=== PATIENT | male | born 1940 | race Caucasian/White ===

== ENCOUNTER 2016-10-31 05:15 | Inpatient (IN) | payer BC, OTHER ==
[2016-10-06 15:29] VITALS: BMI 35.0
--- NOTE | 2016-10-06 16:08 | PAT Medication Instructions ---
Service Date Oct 06, 2016. Current Home Medication List Acetaminophen (Tylenol), 325 MG PO PRN Aspirin (Aspirin Ec), 81 MG PO QAM Atorvastatin (Lipitor), 20 MG PO HS Fish Oil ([place]-3), 1 CAP PO QPM Flecainide (Tambocor), 50 MG PO BID Hydrochlorothiazide (Hydrochlorothiazide), 1 TAB PO QPM Ibuprofen (Advil), 200 MG PO PRN Lisinopril (Prinivil), 40 MG PO QPM Metoprolol Tartrate (Lopressor), 25 MG PO BID Multivitamin (Multivitamin), 1 TAB PO QPM Rivaroxaban (Xarelto), 20 MG PO QPM Sildenafil Citrate (Viagra), 100 MG PO PRN Terazosin Hcl (Hytrin), 10 MG PO QPM Medication Instructions For Your Scheduled Surgery Rivaroxaban (Xarelto), 20 MG PO QPM (per cardio instructions last dose should be 10/28/16- patient will check with PCP for instructions as well) - Hold the following medications 2 weeks prior to surgery: Fish Oil ([place]-3), 1 CAP PO QPM - Hold the following medications 24 hours prior to surgery: Sildenafil Citrate (Viagra), 100 MG PO PRN - Hold the following medications evening prior to surgery: Lisinopril (Prinivil), 40 MG PO QPM - Hold the following medications the morning of surgery: Ibuprofen (Advil), 200 MG PO PRN (not told to stop by surgeon) - Take the following medications the morning of surgery with a sip of water: Metoprolol Tartrate (Lopressor), 25 MG PO BID Flecainide (Tambocor), 50 MG PO BID Aspirin (Aspirin Ec), 81 MG PO QAM Acetaminophen (Tylenol), 325 MG PO PRN (if needed) - Take the following medications as scheduled the night before surgery: Terazosin Hcl (Hytrin), 10 MG PO QPM Multivitamin (Multivitamin), 1 TAB PO QPM Metoprolol Tartrate (Lopressor), 25 MG PO BID Hydrochlorothiazide (Hydrochlorothiazide), 1 TAB PO QPM Flecainide (Tambocor), 50 MG PO BID Atorvastatin (Lipitor), 20 MG PO HS Acetaminophen (Tylenol), 325 MG PO PRN If you have any questions please call us at [phone] or [phone] ( [place]) or [phone]
[2016-10-06 16:37] LABS: BASO % 0.4 %; BASO ABS # 0.03 K/uL (0-0.2); COMPLETE YES; HEMATOCRIT 40.1 % (42-52); IG% 0.1 %; LYMPH % 22.6 %; LYMPH ABS # 1.59 K/uL (1.2-3.4); MEAN CELL VOLUME 87.9 fL (80-100); MEAN CORPUSCULAR HEMOGLOBIN 30.9 pg (25-34); MEAN CORPUSCULAR HGB CONC 35.2 g/dl (32-36); MEAN PLATELET VOLUME 11.4 fL (7.4-10.4); MONO % 7.2 %; NEUT % 68.7 %; PLATELET COUNT 179 K/uL (130-400); RED BLOOD COUNT 4.56 M/uL (4.7-6.1); WHITE BLOOD COUNT 7.05 K/uL (4.8-10.8)
[2016-10-06 16:47] LABS: INR 1.1 (0.9-1.1); PARTIAL THROMBOPLASTIN RATIO 1.3; PROTHROMBIN TIME (PATIENT) 11.4 SECONDS (9.0-12.0)
--- NOTE | 2016-10-06 16:48 | DIAGNOSTIC IMAGING REPORT ---
CHEST 2 VIEWS ROUTINE CLINICAL HISTORY: Preoperative chest COMPARISON STUDY: 08/20/2015 FINDINGS: The heart is enlarged. There is aortic tortuosity/ectasia. There is an old left clavicular fracture. There is no failure. There is no focal pulmonary consolidation. There are no pleural effusions.[ There is a calcification projected inferior to the coracoid process of the right scapula. In retrospect this is likely present on the prior study. IMPRESSION: Cardiomegaly. No acute findings. Electronically signed by: Han Victor M.D. 10/06/2016 4:46 PM Dictated Date/Time: 10/06/2016 4:45 PM
[2016-10-06 17:04] LABS: CALCIUM 9.2 mg/dl (8.5-10.1); CREATININE 0.97 mg/dl (0.60-1.40); POTASSIUM 4.1 mmol/L (3.5-5.1)
[2016-10-06 17:07] LABS: ALB/GLOB RATIO 1.3 (0.9-2)
--- NOTE | 2016-10-09 10:51 | HISTORY & PHYSICAL EXAMINATION ---
DATE OF ADMISSION: 10/31/2016 CHIEF COMPLAINT: Right knee pain. HISTORY OF PRESENT ILLNESS: This 76-year-old male presents to clinic today for his preoperative history and physical examination. The patient complains of a 3-year history of persistent right knee pain, states that he has failed conservative treatment with viscosupplementation x3, use of nonsteroidal anti-inflammatories, bracing and steroid injections. The patient states the pain is starting to affect his activities of daily life and he would like to proceed with total knee arthroplasty. The patient states that he had his left knee replaced by Dr. Herrera in 2008 and states that it is doing very well. The patient denies any numbness or tingling in his right lower extremity; however, he does complain of persistent clicking and popping with range of motion and significant swelling to the knee joints that occurs after long periods of activity. PAST SURGICAL HISTORY: Left total knee arthroplasty, left knee arthroscopy, wisdom tooth extraction. PAST MEDICAL HISTORY: Hypertension, hyperlipidemia, benign prostatic hypertrophy, atrial fibrillation and obesity. FAMILY HISTORY: Father, esophageal cancer. Mother, diabetes. Sister, myocardial infarction. ALLERGIES: The patient has no known drug allergies. CURRENT MEDICATIONS: Aspirin 81 mg tablet 1 tab daily, flecainide 50 mg tablet twice daily, hydrochlorothiazide 12.5 mg capsule 1 cap daily, Lipitor 20 mg oral tablet 1 tab daily, lisinopril 40 mg oral tablet 1 tab daily, multivitamin unknown dosage 1 tab daily, terazosin 10 mg oral tablet 1 tab daily, Toprol-XL 25 mg oral tablet extended release 1 tab twice daily, Xarelto 20 mg oral tablet 1 tab at bedtime, and amoxicillin 500 mg oral tablet as needed prior to dental procedures. SOCIAL HISTORY: The patient states that he was a half pack a day smoker for 25 years but quit smoking in 2004. The patient denies any alcohol or illicit drug use. PHYSICAL EXAMINATION: SKIN: The patient's skin is normal in appearance with no open skin lesions or discharge. EYES: Pupils are equal and reactive to light and accommodating. Extraocular movements are intact. EARS: Canals are clear of cerumen. Tympanic membranes are intact bilaterally with no bulging or effusion. NOSE: Turbinates are pink and boggy in appearance. No appreciable rhinorrhea. THROAT: Posterior oropharynx is clear with absence of edema, erythema or exudate. CARDIOVASCULAR: The patient has an irregularly irregular rate and rhythm, but no murmurs or gallops appreciated. LUNGS: Auscultation of the lung arellano reveals clear breath sounds throughout with no wheezing, rales or rhonchi. ABDOMEN: Obese, nondistended, nontender, with normoactive bowel sounds. EXTREMITIES: Right knee, the patient has crepitation with active and passive range of motion of the right knee and experiences medial joint line tenderness upon palpation with the knee placed in a flexed position; however, he has no edema, erythema, ecchymosis, warmth or palpable bony deformity, no varus or valgus laxity, and negative AP drawer sign and negative Ashly test. The patient's right patella is immobile due to arthritic change in the patellofemoral joint. His right calf is soft and supple, nontender to palpation. He experiences no referred knee pain with dorsi or plantar flexion of the right foot actively or passively against resistance. The patient is neurovascularly intact in the right lower extremity. His peripheral pulses are palpable and his capillary refill is brisk. All other extremities are normal in appearance with appropriate range of motion and strength. NEUROLOGICAL: Cranial nerves II-XII are intact with no motor or sensory deficit. PSYCHOLOGICAL/GENERAL: The patient is alert and oriented x3 with proper grooming and hygiene. DIAGNOSIS: Right knee osteoarthritis. PROCEDURE: Right total knee arthroplasty. RADIOGRAPHIC IMAGING: Images of the right knee show varus alignment, [id number] changes within the medial and patellofemoral compartments. PLAN: The patient is scheduled to undergo this procedure with Dr. Axel Herrera at the [facility] on 10/31/2016. Risks and complications of the surgery such as infection, bleeding, pain, scarring, nerve and blood vessel damage, weakness, wound problems, stiffness, incomplete relief of symptoms, heart attack, stroke, , hardware failure, loosening, wear, fracture, blood clots, embolism were explained to the patient and he understands and agrees. Written consent to perform the procedure was obtained. We will also obtain a preoperative clearance from the patient's primary care provider, Dr. Pal, along with a preoperative CBC, CMP, PT, INR, PTT, blood type and screen, and chest x-ray. The patient recently had an EKG performed by Dr. Booker's office on 09/27/2016 and we will obtain a copy of this EKG and use it for his preoperative clearance. The patient states that he will obtain the necessary studies prior to his preoperative anesthesia clearance appointment today. The patient states that he also may have a walker at home that he will bring with him on the day of surgery; if he does not, he will contact the clinic and we will place an order for him. The patient was advised that he will need to discontinue Xarelto approximately 10 days prior to the procedure and we will restart him on it on postoperative day #1. The patient was also advised that he will be given a prescription for physical therapy that he will obtain at our outpatient and our PT clinic and states that he does not need home nursing care and did not have it after his first knee replacement. He is also advised that he will be given a prescription for pain medication for postoperative pain control. The patient verbalized understanding of all information provided at today's visit, thanks for the care that he received in our clinic, and states if he has any other questions or concerns that should arise prior to his procedure date, he will contact the clinic accordingly.
[~2016-10-31] VITALS: Ht 182.9 cm; Wt 116.3 kg
[2016-10-31] VITALS (9 sets, daily range): BP systolic 110–158; BP diastolic 68–92; PULSE 52–66; TEMP 36.5–36.9; O2SAT 91–98; Ht 182.9 cm; Wt 116.3 kg
[~2016-10-31 05:15] MED LIST: ACET-1311 PO; ASPI81TA28 PO; ATOR-22 PO; FLEC50TA20 PO; HYDR12.55 PO; IBUP-1050 PO; LISI40TA PO; LPR25 PO; MULT-506 PO; OMEG10007 PO; RIVA1TAB4 PO; SILD100T PO; TERA1CAP63 PO
[2016-10-31] MEDS ORDERED: ACETAMINOPHEN 500 MG TAB PO SCH (06:00)
[2016-10-31] MEDS ORDERED: LACTATED RINGER'S 500 ML IV SCH (06:00)
[2016-10-31] MEDS ORDERED: OXYCODONE HCL 10 MG TABCR (OXYCONTIN) PO SCH (06:00)
[2016-10-31] MEDS ORDERED: DEXAMETHASONE 4 MG TAB PO SCH (06:00)
[2016-10-31] MEDS ORDERED: CEFAZOLIN 2000 MG/60 ML D5W 60 ML IV SCH (06:00)
[2016-10-31] MEDS ORDERED: BUPIVACAINE LIPOSOME 266 MG, BUPIVACAINE/EPINEPHRINE INJ 50 ML, SODIUM CHLORIDE 0.9% PF... INFIL SCH ×3 (06:00)
[2016-10-31] MEDS ORDERED: CeleBREX 200 MG CAP PO SCH (06:00)
[2016-10-31] MEDS ORDERED: LACTATED RINGER'S 1000ML 1,000 ML IV SCH (06:00)
[2016-10-31] MEDS ORDERED: TRAMADOL HCL 50 MG TAB PO SCH (06:00)
[2016-10-31] MEDS ORDERED: GABAPENTIN 300 MG CAP PO SCH (06:00)
[2016-10-31] MEDS ORDERED: LACTATED RINGER'S 1000ML IV SCH (06:00)
[2016-10-31] MEDS ORDERED: CLONIDINE HCL 0.1 MG/24 HR TRANSDERM SYS TD SCH (06:00)
[2016-10-31] MEDS ORDERED: BUPIVACAINE 0.25% 30 ML VIAL ONE (06:30)
[2016-10-31] MEDS ORDERED: BUPIVACAINE 0.5 % 5 MG/1 ML PF 10ML VIAL ONE (06:30)
[2016-10-31] MEDS: TRANEXAMIC ACID INJ 1,000 MG in SODIUM CHLORIDE 0.9% 100ML 100 ML IV SCH ×2 (06:30→06:38)
[2016-10-31] MEDS ORDERED: FENTANYL CITRATE INJ 50 MCG/1 ML 2 ML VIAL ONE (06:39)
[2016-10-31] MEDS ORDERED: MIDAZOLAM HCL 1 MG/ML 2ML VIAL ONE ×2 (06:40→08:52)
[2016-10-31] MEDS ORDERED: BUPIVACAINE LIPOSOME 1/3% 266 MG/20 ML VIAL INFIL ONE (06:42)
--- NOTE | 2016-10-31 06:48 | History & Physical Bridge Note ---
H&P Re-Evaluation Bridge Note: I have examined the patient, reviewed the History & Physical and in the interval since the performance of the History & Physical I have noted the following changes of clinical significance: No changes noted
[2016-10-31] MEDS ORDERED: PROPOFOL IV EMULSION 10 MG/ML 20 ML VIAL IV ONE ×3 (07:30→09:30)
[2016-10-31] MEDS ORDERED: ATROPINE SULFATE 0.1 MG/ML 5ML SYR IV PRN (08:45)
[2016-10-31] MEDS ORDERED: EpHEDrine SULFATE INJ 50 MG/ML AMP IV PRN (08:45)
[2016-10-31] MEDS ORDERED: BACITRACIN 50000 UNIT VIAL IR ONE (09:50)
[2016-10-31] MEDS ORDERED: MIX: SENSORCAINE W/EPI+NSS+EXPAREL INJ ONE (09:50)
--- NOTE | 2016-10-31 10:15 | [facility] Post Operative Brief Note ---
Immediate Operative Summary Operative Date Oct 31, 2016. Pre-Operative Diagnosis Right Knee Osteoarthritis Post-Operative Diagnosis Same as preoperative Procedure(s) Performed Right Total Knee Arthroplasty, Cemented Surgeon Dr. Axel Herrera Wood Stainer Surgeon(s) Joseluis Garcia MD Estimated Blood Loss 25ml Findings medial knee djd Specimens A.) Right knee bone and tissue Drains 0 Anesthesia spinal with sedationa and adductor block Complication(s) None Disposition Recovery Room / PACU
[2016-10-31] MEDS ORDERED: WARF2TAB8 PO (10:22)
[2016-10-31] MEDS ORDERED: WARF4TAB43 PO (10:25)
[2016-10-31] MEDS ORDERED: TRAMADOL HCL 50 MG TAB PO PRN (10:45)
[2016-10-31] MEDS ORDERED: ONDANSETRON INJ 2 MG/ML 2 ML VIAL IV PRN (10:45)
[2016-10-31] MEDS ORDERED: METOCLOPRAMIDE HCL INJ 5 MG/ML 2 ML VIAL IV PRN (10:45)
--- NOTE | 2016-10-31 11:34 | DIAGNOSTIC IMAGING REPORT ---
RIGHT KNEE 2 VIEWS History: Right total knee arthroplasty. Degenerative arthritis. Postop. FINDINGS: The patient is status post a right total knee arthroplasty. The hardware is intact. No fracture or dislocation. Skin maggie are in place. IMPRESSION: Right total knee arthroplasty. No evidence for hardware complication. Electronically signed by: Atilio Bryant M.D. 10/31/2016 11:32 AM Dictated Date/Time: 10/31/2016 11:32 AM
--- NOTE | 2016-10-31 11:40 | OPERATIVE REPORT ---
DATE OF OPERATION: 10/31/2016 PREOPERATIVE DIAGNOSIS: Right knee arthritis. POSTOPERATIVE DIAGNOSIS: Same. PROCEDURE: Cemented right total knee arthroplasty. SURGEON: Dr. Herrera. MAXILLOFACIAL PROSTHETICS DENTIST: Joseluis Garcia, fellow. No PA available. ANESTHESIA: Spinal with sedation and adductor canal block. BRIEF HISTORY: The patient is a 76-year-old male with medial compartment arthritis of the right knee refractory to nonsurgical methods of management. He has elected to proceed with operative intervention. He has a knee replacement on the contralateral side. PROCEDURE IN DETAIL: Informed consent was obtained, the patient was identified as Vinayak Brown. He identified the operative site as the right knee. I marked it with my initials. A preop surgical time out was performed. A preop dose of IV antibiotics was given. He was taken to the operating room, positioned supine on the operating room table. Spinal anesthetic, adductor block and sedation were administered. A tourniquet was applied to the right thigh, a bump under the right hip and a padded post used for flexing the knee. The right leg was prepped and draped from tourniquet to toes in the usual sterile fashion. The exam under anesthesia showed a degree of true loss of terminal extension, but flexion to about 130 degrees. He had varus alignment, which was passively correctable. There was 1+ MCL laxity. The limb was exsanguinated with the Esmarch, tourniquet inflated to 225 mmHg. A midline longitudinal incision was made mirroring the contralateral side. A medial parapatellar arthrotomy was created. There was a large collection of fat in the suprapatellar pouch, which could have been an intraarticular lipoma. This appeared to be benign tissue. It was completely excised. Soft tissue in the anterior aspect of the distal femur was removed. A medial release was performed. The menisci and cruciates were excised. Osteophytes were removed. The retropatellar fat pad was resected and the synovial reflection in the lateral gutter was released. The tibia was subluxated and a remote pilot operator hole was drilled into the proximal tibia in line with the shaft of the tibia. The guide was set to resect 10 mm off of the high side corresponding to a 2 mm cut medially with a 0 degree block. This cut was made and the tibia was sized to a 5. The femur was exposed. A remote pilot operator hole was drilled into the distal femur followed by insertion of the distal femoral cutting guide, 5 degrees right, 12 mm thick cut was made and the extension gap was a slightly loose 10. The [place] line and transepicondylar axis were marked out. The distal femoral cutting block sizing guide was applied and sized to a 4. The appropriate external rotation drill holes were made which matched the epicondylar axis. The size 4 anterior cutting block was affixed. The femur was sized to a 4. The cuts were made, protecting the collateral ligaments. The flexion gap was a snug 10, but the extension gap was lax. I was able to get the 12/5 block in which gave full extension, good stability in extension and did fit in flexion without any difficulty. The box cutting guide was applied, lateralized and the cut was made. The trial femur was inserted, followed by the trial tibia which was drilled and punched for the keel. Rotation was marked. Attention was turned to the patella which measured 25 mm in thickness. The guide was set to preserve 14 mm of bone. The cut was made. 13 mm of bone was preserved. Composite patellar thickness at the end was 24 mm. A 41 mm oval dome patella was selected, distalized, medialized and aligned, and the appropriate lug holes were drilled. Patellar tracking was fine with the no hands technique. The canals were plugged. Exparel was injected into the back of the knee. Irrigation was performed throughout the surgery to keep the soft tissues moist. The bony surfaces were meticulously prepared and dried. Two bags of Simplex P cement were mixed and after removal of the trial components, the final components were cemented into place, femur, tibia and patella. The knee was held in full extension until the cement had dried and the tourniquet was let down after 125 minutes of inflation. Meticulous hemostasis was performed. The femur and tibia were cemented in place, but the cement was hardening prematurely and which required removal of the cement from the patella component and bone. Another bag was mixed. The holes were cleaned of cement and the patella was cemented in with a separate batch of cement. There was minimal bleeding. Composite patellar thickness was as mentioned before. [place] assisted flexion with the extensor mechanism closed was 125 degrees. The knee was stable in full extension. There was trace MCL laxity and 1+ LCL laxity in mid position. The knee was stable in flexion. The trial component was removed. The back of the knee was irrigated and inspected for cement. Some small fragments were removed. When the cuts were made, there were no osteophytes noted in the back of the knee. The final component was inserted and the knee was reduced. Exparel was injected throughout the remainder of the knee. The extensor mechanism was closed above the equator of the patella with interrupted #2 FiberWire, below the equator with running and interrupted #1 Vicryl. The skin was closed in layers with 0 and 2-0 Vicryl. [place] on the skin. A soft sterile dressing was applied along with a full length Deon wrap. The patient was sent to the floor with a knee immobilizer. He was awakened from anesthesia without difficulty, taken to the recovery room in stable condition. There were no complications. Specimens were as mentioned above. Counts were correct. Blood loss was 25 mL. At the conclusion of the operation, I spoke to patient's family and informed them of my findings. Postoperative instructions were given. He will restart his blood thinner, which he takes for atrial fibrillation, the morning after surgery. Medicine will be consulted to follow along with the patient. He will be rehabilitated according to the total knee arthroplasty protocol. Components inserted were the J\T\J PFC sigma rotating platform, posterior stabilized knee, size 4 right femur, size 5 tibia, a 41 mm 3 peg oval dome patella, and a 12.5 size 4 posterior stabilized insert. The patient was identified as Vinayak Brown. He identified the operative site as right knee. I marked it with my initials. A preop surgical time out was performed. A preop dose of IV antibiotics was given. He was taken to the operating room, positioned supine on the operating room table, and the anesthetic was administered. DVT prophylaxis intraoperatively with foot pumps, postoperatively with his blood thinner and early mobility, as well as mechanical devices. He had preoperative medical clearance with Medicine and Cardiology. I attest to the content of the Intraoperative Record and any orders documented therein. Any exceptio ns are noted below.
--- NOTE | 2016-10-31 11:57 | Anesthesiology Progress Note ---
Anesthesia Post Op Note Date & Time Oct 31, 2016 at 11:57 Vital Signs Pain Intensity: 0 Vital Signs Past 12 Hours Date Time Temp Pulse Resp B/P Pulse Ox O2 Delivery O2 Flow Rate FiO2 10/31/16 11:49 53 19 98 10/31/16 11:49 53 19 10/31/16 11:48 146/79 10/31/16 11:44 53 15 98 10/31/16 11:44 53 15 10/31/16 11:43 141/72 10/31/16 11:39 54 5 94 10/31/16 11:39 53 5 10/31/16 11:38 144/81 10/31/16 11:34 51 11 97 10/31/16 11:34 52 11 10/31/16 11:33 141/78 10/31/16 11:29 54 14 98 10/31/16 11:29 54 14 10/31/16 11:28 123/75 10/31/16 11:26 36.4 53 18 146/79 98 Nasal Cannula 2 10/31/16 11:24 55 24 98 10/31/16 11:24 55 24 10/31/16 11:23 152/74 10/31/16 11:20 55 14 97 10/31/16 11:20 54 14 10/31/16 11:18 140/81 10/31/16 11:15 55 16 98 10/31/16 11:15 55 16 10/31/16 11:13 147/80 10/31/16 11:10 53 15 96 10/31/16 11:10 53 15 10/31/16 11:09 53 8 10/31/16 11:09 52 8 96 10/31/16 11:08 128/72 10/31/16 11:04 55 13 10/31/16 11:04 56 13 99 10/31/16 11:03 127/74 10/31/16 10:59 52 15 10/31/16 10:59 52 15 98 10/31/16 10:58 121/61 10/31/16 10:54 52 17 10/31/16 10:54 52 17 98 10/31/16 10:53 121/72 10/31/16 10:49 52 15 10/31/16 10:49 53 15 98 10/31/16 10:48 120/71 10/31/16 10:44 52 14 10/31/16 10:44 52 14 98 10/31/16 10:43 120/60 10/31/16 10:39 53 15 98 10/31/16 10:39 52 15 10/31/16 10:38 53 12 10/31/16 10:38 52 12 120/63 98 10/31/16 10:33 52 10 10/31/16 10:33 52 10 112/57 98 10/31/16 10:28 52 15 116/60 97 10/31/16 10:28 53 15 10/31/16 10:23 53 12 10/31/16 10:23 53 12 108/63 97 10/31/16 10:23 36.2 53 12 106/57 97 Mask 10 10/31/16 05:35 36.9 62 20 156/89 95 Room Air Notes Mental Status: alert / awake / arousable, participated in evaluation Pt Amnestic to Procedure: Yes Nausea / Vomiting: adequately controlled Pain: adequately controlled Airway Patency, RR, SpO2: stable & adequate BP & HR: stable & adequate Hydration State: stable & adequate Neuraxial Anesthesia: was administered, sensory block is resolving Anesthetic Complications: no major complications apparent
[2016-10-31] MEDS: SODIUM CHLORIDE 0.9% 1000ML 1,000 ML IV SCH ×2 (13:48→20:57)
[2016-10-31] MEDS ORDERED: OXYC-57 PO (15:00)
--- NOTE | 2016-10-31 15:03 | Discharge Instructions ---
Discharge Instructions Admission Reason for Admission: Right Knee Osteoarthritis Discharge Discharge Diagnosis / Problem: s/p right knee arthroplasty Discharge Goals Goal(s): Decrease discomfort, Improve function, Increase independence Activity Recommendations Activity Limitations: as noted below May Resume Sexual Activity: after follow-up appointment Shower/Bathe: keep incision dry Driving or Machine Use: when cleared by Dr. Herrera Weightbearing Status: Right weightbearing (as tolerated) . Instructions / Follow-Up Instructions / Follow-Up New Medicine: * You will likely be taking one or more of these medications: 1. Xarelto-please resume post-operatively. Aspirin, 81 mg is OK. 3. Percocet - Take, as directed, when you need it, every four to six hours to control your pain. 4. Colace & Senokot - Take to prevent constipation which can be caused by narcotics. These can be bought [id number] at the pharmacy * The most common side effects of pain medicine and iron are nausea and constipation. If nausea or constipation is too much of a problem or if you have any questions about your new medicines or doses, call [facility] at . We will try to help you manage these issues. VERY IMPORTANT TO READ AND REVIEW" Physical Therapy: * Do your physical therapy at home. These are the exercises you learned while in the hospital (quad sets, leg raises, calf pumps, gluteal squeezes, knee bending, and heel props.) You should do these exercises 3-4 times per day. * You will either go to inpatient rehab ([facility]), home with Home Therapy and nursing or home with outpatient rehab. You should do rehab with the therapist 2-3 times per week. You should do therapy on your own daily. * You may bear full weight on your leg with crutches or walker unless otherwise advised. Home Exercise: * You were shown a series of exercises (heel props, heel slides, etc.) in the hospital. Do these exercises three to four times each day including the exercises you were shown in physical therapy. Walking: * You may be up for short periods of time. Standing and walking for 1-2 hours at a time is usually okay. You should not stand or walk for excessive periods of time as this may cause increased pain and swelling. SELF CARE INSTRUCTIONS AFTER TOTAL KNEE REPLACEMENT A. You may need to continue a physical therapy program after discharge from the hospital. There are several options available to you. Your doctor will assist you in selecting the best one for you. 1. An out-patient facility 2 to 3 times a week for therapy or home therapy. 2. Continue working on all exercises taught to you in the hospital. Your goals should be to increase bending of your knee to 90 degrees and beyond and to fully straighten your knee. B. Your therapist will notify you when you are able to progress from a walker to a cane. C. Wear TEDS as much as possible.~ They may be removed at night for laundering. D. Do not place a pillow behind your knee when resting. A pillow at your ankle is okay. E. Ice your knee 15-20 minutes every 2-3 hours and elevate it above the level of your heart. F. You may shower on the fourth day after surgery using regular soap and water. Do not submerge until the wound is completely healed (approximately 2 weeks ). Until the fourth day after surgery, cover the incision/bandage with a bag or plastic wrap. G. Anyone who is touching your surgical incision area should wash their hands and wear gloves. H. Keep your incision covered with gauze pads under the NESS hose until it is dry. VERY IMPORTANT TO READ AND REVIEW B. There are a few signs you need to watch for after you are home. Call [facility] if you notice any of the followin. Increased severe knee pain. Some pain is expected especially when you exercise. 2. Increased swelling in your leg or knee; pain or swelling of the calf muscle in either lower leg. 3. Any fluid drainage from the incision. 4. Shortness of breath or chest pain. 5. Numbness and tingling in the surgical extremity C. Please call [facility] at if you have any concerns or questions about your operation or recovery. The doctor or his nurse will return your call promptly. D. Do not have any elective dental work or other elective procedures done for 6 weeks after your knee replacement. When you have any invasive procedure (dental cleaning, extraction, colonoscopy etc) performed, you will need to take antibiotics to prevent infection from developing in your artificial joint. Tell your other health care providers you have an artificial joint. My office will supply you with further information and the antibiotics. Call your doctor if: * Temperature above 101 degrees F. * Pain not relieved by pain medicine ordered. * Increased drainage or redness from incision. * Notify your doctor with any questions or concerns. Follow-up Visit: You will follow-up with Dr. Herrera 10-14 days after surgery. The office number is . Avoid all tobacco products. If you need help to stop smoking, call [facility] FREE QUITLINE at . This is a free call. Current Hospital Diet Patient's current hospital diet: Regular Diet Discharge Diet Recommended Diet: Regular Diet Procedures Procedures Performed: Right Total Knee Arthroplasty, Cemented Pending Studies Studies pending at discharge: no Medical Emergencies . Who to Call and When: Medical Emergencies: If at any time you feel your situation is an emergency, please call 911 immediately. . Non-Emergent Contact Non-Emergency issues call your: Primary Care Provider . "Provider Documentation" section prepared by Nic Benavidez. VTE Core Measure Inpt VTE Proph given/why not?: Dominic Madden, SCD's [place] Drug Monitoring Program Search Results: no issues identified
--- NOTE | 2016-10-31 15:40 | Medical Consult ---
Consultation Date of Consultation: Oct 31, 2016. Attending Physician: Axel Herrera M.D. Reason for Consultation: Postoperative medical management History of Present Illness The patient is a 76-year-old male who underwent a right total knee arthroplasty by Dr. Herrera earlier in the day. Seen postoperatively, he has no complaints. He ate lunch without problems. His pain is adequately managed. Past Medical/Surgical History Medical Problems: (1) Epistaxis Status: Acute (2) Nasal mass Status: Acute Family History FH: HTN (hypertension) FH: cancer FH: diabetes mellitus FH: heart disease Social History Smoking Status: Former Smoker Smokeless Tobacco Use: No Alcohol Use: occasionally Drug Use: none Marital Status: Housing Status: lives with significant other Occupation Status: unemployed Allergies Coded Allergies: No Known Allergies (Verified , 10/31/16) Current Inpatient Medications Current Inpatient Medications Medications (Trade) Dose Ordered Sig/Kishan Route Start Time Stop Time Status Last Admin Dose Admin Lactated Ringer's 1,000 ml @ 60 mls/hr [id number] IV 10/31/16 06:00 10/31/16 22:39 Cefazolin Sodium (Ancef 2000mg/60 ml D5W) 60 ml @ 100 mls/hr PREOP IV 10/31/16 06:00 10/31/16 18:00 10/31/16 07:00 100 MLS/HR Acetaminophen (Tylenol Tab) 1,000 mg PREOP PO 10/31/16 06:00 10/31/16 18:00 10/31/16 06:13 1,000 MG Celecoxib (CeleBREX CAP) 200 mg PREOP PO 10/31/16 06:00 10/31/16 18:00 10/31/16 06:13 200 MG Dexamethasone 8 mg 8 mg PREOP PO 10/31/16 06:00 10/31/16 18:00 10/31/16 06:12 8 MG Bupivacaine Liposome/ Bupivacaine HCl/ Epinephrine Bitart/Sodium Chloride/Syringe (Exparel/ BUPIVACAINE/ EPINEPHRINE 0.25% Inj/Sodium Chloride 0.9% Pf Inj/Syringe) 100 ml @ 0 mls/hr 06 INFIL 10/31/16 06:00 10/31/16 18:00 Gabapentin (Neurontin Cap) 300 mg PREOP PO 10/31/16 06:00 10/31/16 18:00 10/31/16 06:12 300 MG Oxycodone HCl (Oxycontin Tab) 10 mg PREOP PO 10/31/16 06:00 10/31/16 18:00 10/31/16 06:13 10 MG Clonidine HCl ([id number]-7 0.1mg/24hr Patch) 1 patch PREOP TD 10/31/16 06:00 10/31/16 18:00 10/31/16 06:34 1 PATCH Miscellaneous 1 ea 1 ea Q72H N/A 11/02/16 06:00 11/02/16 06:01 Tranexamic Acid/ Sodium Chloride (Cyklokapron Inj/ Nss 100ml) 110 ml @ 660 mls/hr TODAY@06,0630 IV 10/31/16 06:00 10/31/16 18:00 10/31/16 06:38 660 MLS/HR Tramadol HCl 50 mg 50 mg PREOP PO 10/31/16 06:00 10/31/16 18:00 10/31/16 06:12 50 MG Lactated Ringer's (Lr 1000ml) 1,000 ml @ 15 mls/hr Q24H IV 10/31/16 06:00 11/01/16 05:59 10/31/16 06:14 15 MLS/HR Aspirin (Ecotrin Tab) 81 mg QAM PO 11/01/16 09:00 12/01/16 08:59 Atorvastatin Calcium (Lipitor Tab) 20 mg HS PO 10/31/16 21:00 11/30/16 20:59 Flecainide Acetate (Tambocor Tab) 50 mg BID PO 10/31/16 21:00 11/30/16 20:59 Lisinopril (Zestril Tab) 40 mg QPM PO 10/31/16 21:00 11/30/16 20:59 Metoprolol Tartrate (Lopressor Tab) 25 mg BID PO 10/31/16 21:00 11/30/16 20:59 Multivitamins (Multivitamin Tab) 1 tab QPM PO 10/31/16 21:00 11/30/16 20:59 Rivaroxaban (Xarelto Tab) 20 mg QDD PO 11/01/16 08:00 12/01/16 07:59 Terazosin HCl (Hytrin Cap) 10 mg QPM PO 10/31/16 21:00 11/30/16 20:59 Hydrochlorothiazide 12.5 mg 12.5 mg QPM PO 10/31/16 21:00 11/30/16 20:59 Sodium Chloride 1,000 ml @ 100 mls/hr Q10H IV 10/31/16 10:43 11/01/16 10:42 10/31/16 13:48 100 MLS/HR Cefazolin Sodium/ Dextrose (Ancef Iv/D5 50ml) 60 ml @ 100 mls/hr Q8H IV 10/31/16 16:00 11/01/16 00:35 Oxycodone HCl (Roxicodone Immediate Rel Tab) 1 TABLET FOR PAIN RATING... Q4H PRN PO 10/31/16 10:45 11/14/16 10:44 Senna (Senokot Tab) 17.2 mg HS PO 10/31/16 21:00 11/30/16 20:59 Docusate Sodium (coLACE CAP) 100 mg BID PO 10/31/16 21:00 11/30/16 20:59 Ondansetron HCl (Zofran Inj) 4 mg Q6H PRN IV 10/31/16 10:45 11/30/16 10:44 Metoclopramide HCl (Reglan Inj) 10 mg Q6H PRN IV 10/31/16 10:45 11/30/16 10:44 Pantoprazole Sodium (Protonix Tab) 40 mg QAM PO 11/01/16 09:00 12/01/16 08:59 Tramadol HCl 1 tablet for pain rating... Q4H PRN PO 10/31/16 10:45 11/30/16 10:44 Dexamethasone Sodium Phosphate/ Syringe (Decadron Inj/ Syringe) 2.5 ml @ 1 mls/min TODAY@0730 ONCE IV 11/01/16 07:30 11/01/16 07:32 Ketorolac Tromethamine (Toradol Inj) 15 mg Q6H PRN IV. 10/31/16 10:45 11/01/16 10:44 Acetaminophen/ Hydrocodone Bitart ([place] 7.5/325 Tab) @ Q4 PRN PO 10/31/16 11:00 11/14/16 10:59 Review of Systems The patient denies chest pain, palpitations, shortness of breath, cough, lower extremity swelling, vision change, hearing change, sore throat, fevers, chills, sweats, nausea, vomiting, abdominal pain, pelvic pain, blood in urine or stool , dysuria, urinary frequency or urgency, lightheadedness, dizziness, headache, memory loss, rash, night sweats, or allergy symptoms. The review of systems is otherwise negative other than for that already noted above, and at least 10 systems have been reviewed. Physical Exam Date Time Temp Pulse Resp B/P Pulse Ox O2 Delivery O2 Flow Rate FiO2 10/31/16 15:11 36.6 61 16 122/71 97 Room Air 10/31/16 14:15 56 16 135/83 95 Nasal Cannula 2.0 10/31/16 13:12 52 16 158/88 94 Nasal Cannula 2.0 10/31/16 12:45 54 16 158/92 95 Nasal Cannula 3.0 10/31/16 12:15 98 Nasal Cannula 2.0 10/31/16 12:15 36.5 55 16 110/76 98 Nasal Cannula 2.0 10/31/16 12:15 98 Room Air 10/31/16 11:49 53 19 98 10/31/16 11:49 53 19 10/31/16 11:48 146/79 10/31/16 11:44 53 15 98 10/31/16 11:44 53 15 10/31/16 11:43 141/72 10/31/16 11:39 54 5 94 10/31/16 11:39 53 5 10/31/16 11:38 144/81 10/31/16 11:34 51 11 97 10/31/16 11:34 52 11 10/31/16 11:33 141/78 10/31/16 11:29 54 14 98 10/31/16 11:29 54 14 10/31/16 11:28 123/75 10/31/16 11:26 36.4 53 18 146/79 98 Nasal Cannula 2 10/31/16 11:24 55 24 98 10/31/16 11:24 55 24 10/31/16 11:23 152/74 10/31/16 11:20 55 14 97 10/31/16 11:20 54 14 10/31/16 11:18 140/81 10/31/16 11:15 55 16 98 10/31/16 11:15 55 16 10/31/16 11:13 147/80 10/31/16 11:10 53 15 96 10/31/16 11:10 53 15 10/31/16 11:09 53 8 10/31/16 11:09 52 8 96 10/31/16 11:08 128/72 10/31/16 11:04 55 13 10/31/16 11:04 56 13 99 10/31/16 11:03 127/74 10/31/16 10:59 52 15 10/31/16 10:59 52 15 98 10/31/16 10:58 121/61 10/31/16 10:54 52 17 10/31/16 10:54 52 17 98 10/31/16 10:53 121/72 10/31/16 10:49 52 15 10/31/16 10:49 53 15 98 10/31/16 10:48 120/71 10/31/16 10:44 52 14 10/31/16 10:44 52 14 98 10/31/16 10:43 120/60 10/31/16 10:39 53 15 98 10/31/16 10:39 52 15 10/31/16 10:38 53 12 10/31/16 10:38 52 12 120/63 98 10/31/16 10:33 52 10 10/31/16 10:33 52 10 112/57 98 10/31/16 10:28 52 15 116/60 97 10/31/16 10:28 53 15 10/31/16 10:23 53 12 10/31/16 10:23 53 12 108/63 97 10/31/16 10:23 36.2 53 12 106/57 97 Mask 10 10/31/16 05:35 36.9 62 20 156/89 95 Room Air The patient is awake, well-developed and adequately nourished, alert and oriented 3, normocephalic and atraumatic, lying in bed and in no acute distress. HEENT--PERRL, EOMI, mucous membranes and oropharynx moist. Neck--supple, no JVD or bruits, thyroid normal, trachea midline, no adenopathy. Heart--normal S1 and S2, no extra beats, no murmurs, rubs or gallops. Lungs--clear bilaterally with good air movement, no respiratory distress, no accessory muscle use. Abdomen--normal bowel sounds and soft, nontender and nondistended, no hernias or masses, no organomegaly. Extremities--no cyanosis, clubbing or edema. There are good distal pulses b/l. Dermatologic--normal skin turgor, normal color, warm and dry, no abnormal lymph nodes, no rash. Neurologic--cranial nerves II through XII grossly intact, motor and sensory examination normal. Rheumatologic--right knee wrapped. Psychiatric--normal affect. Laboratory Results Last 24 Hours Test 10/31/16 12:10 Bedside Glucose 185 mg/dl Assessment & Plan Status post right total knee arthroplasty--medically stable. Atrial fibrillation/Hypertension--continue flecainide 50 mg by mouth twice a day , HCTZ 12.5 mg by mouth daily, aspirin 81 mg by mouth daily, lisinopril 40 mg by mouth daily with hold parameters, metoprolol succinate 25 mg by mouth twice a day with hold parameters, and Xarelto 20 mg by mouth at bedtime. Hypercholesterolemia--continue Lipitor 20 mg by mouth daily. BPH--continue terazosin 10 mg by mouth at bedtime. Thank you for this consult. [facility] hospitalist service will follow during hospital stay.
[2016-10-31] MEDS: OXYCODONE HCL IR 5 MG TAB (IMMEDIATE RELEASE) PO PRN ×2 (16:16→21:07)
[2016-10-31] MEDS: CEFAZOLIN IV 2,000 MG in DEXTROSE 5% 50ML 50 ML IV SCH ×2 (16:29→23:34)
--- NOTE | 2016-10-31 17:11 | PROGRESS NOTE ---
DATE: 10/31/2016 SUBJECTIVE: The patient is resting comfortably in bed, minimal pain. Afebrile. Vital signs stable. 1+ dorsalis pedis. Normal sensation. 5/5 ankle and toe plantar flexion and dorsiflexion. Dressing is clean and dry. PLAN: Findings of surgery discussed. His x-rays showed good alignment without complication or fracture. We will start back on Xarelto tomorrow morning and will be rehab according to the total knee pathway.
[2016-10-31] MEDS: KETOROLAC TROMETHAMINE 15 MG/ML VIAL IV. PRN (19:10)
[2016-10-31] MEDS: LISINOPRIL 40 MG TAB PO SCH (20:57)
[2016-10-31] MEDS: SENNA 8.6 MG TAB PO SCH (20:58)
[2016-10-31] MEDS: ATORVASTATIN 20 MG TAB PO SCH (20:58)
[2016-10-31] MEDS: MULTIVITAMIN TAB PO SCH (20:58)
[2016-10-31] MEDS: METOPROLOL TARTRATE 25 MG TAB PO SCH (20:58)
[2016-10-31] MEDS: DOCUSATE SODIUM 100 MG CAP PO SCH (20:59)
[2016-10-31] MEDS: FLECAINIDE ACETATE 100 MG TAB PO SCH (20:59)
[2016-10-31] MEDS: HYDROCHLOROTHIAZIDE 25 MG TAB PO SCH (21:00)
[2016-11-01] VITALS (7 sets, daily range): BP systolic 122–159; BP diastolic 60–70; PULSE 59–78; TEMP 36.6–37; O2SAT 90–96
[2016-11-01] MEDS: OXYCODONE HCL IR 5 MG TAB (IMMEDIATE RELEASE) PO PRN ×6 (01:01→23:55)
[2016-11-01] MEDS: SODIUM CHLORIDE 0.9% 1000ML 1,000 ML IV SCH (05:36)
[2016-11-01 05:48] LABS: HEMATOCRIT 30.7 % (42-52); MEAN CELL VOLUME 86.5 fL (80-100); MEAN CORPUSCULAR HEMOGLOBIN 31.3 pg (25-34); MEAN CORPUSCULAR HGB CONC 36.2 g/dl (32-36); PLATELET COUNT 147 K/uL (130-400); RED BLOOD COUNT 3.55 M/uL (4.7-6.1); WHITE BLOOD COUNT 14.68 K/uL (4.8-10.8)
[2016-11-01 06:00] LABS: INR 1.1 (0.9-1.1); PROTHROMBIN TIME (PATIENT) 11.5 SECONDS (9.0-12.0)
[2016-11-01 06:15] LABS: BUN/CREATININE RATIO 23.9 (10-20); CALCIUM 8.4 mg/dl (8.5-10.1); CREATININE 0.9 mg/dl (0.60-1.40); POTASSIUM 4.2 mmol/L (3.5-5.1)
[2016-11-01] MEDS: KETOROLAC TROMETHAMINE 15 MG/ML VIAL IV. PRN (07:19)
[2016-11-01] MEDS: RIVAROXABAN 20 MG TAB PO SCH (07:20)
[2016-11-01] MEDS ORDERED: DEXAMETHASONE INJ 10 MG in SYRINGE 0 ML IV ONE (07:30)
--- NOTE | 2016-11-01 08:34 | Orthopedic Progress Note ---
Orthopedic Progress Note Date of Service Nov 01, 2016. Subjective Post OP Day: 1 Reports: feeling well, Denies: SOB, calf pain, chest pain, complaints, light headedness, nausea / vomiting, pain controlled w PO medications, using [facility] Objective calves soft nontender, N/V intact, splint C/D/I, capillary refill less than 2 sec., dressing C/D/I, A&O x3, toes mobile Date Time Temp Pulse Resp B/P Pulse Ox O2 Delivery O2 Flow Rate FiO2 11/01/16 08:06 36.7 59 14 144/69 94 Room Air 11/01/16 07:17 Room Air 11/01/16 03:10 36.7 67 18 122/69 90 Room Air 10/31/16 23:30 Room Air 10/31/16 23:00 36.9 64 17 147/72 91 Room Air 10/31/16 19:10 Nasal Cannula 2.0 10/31/16 19:03 36.5 66 16 144/68 95 Room Air 10/31/16 17:46 58 14 150/80 97 Nasal Cannula 2.0 10/31/16 15:11 36.6 61 16 122/71 97 Room Air 10/31/16 14:15 56 16 135/83 95 Nasal Cannula 2.0 10/31/16 13:12 52 16 158/88 94 Nasal Cannula 2.0 10/31/16 12:45 54 16 158/92 95 Nasal Cannula 3.0 10/31/16 12:15 98 Nasal Cannula 2.0 10/31/16 12:15 36.5 55 16 110/76 98 Nasal Cannula 2.0 10/31/16 12:15 98 Room Air 10/31/16 11:49 53 19 98 10/31/16 11:49 53 19 10/31/16 11:48 146/79 10/31/16 11:44 53 15 98 10/31/16 11:44 53 15 10/31/16 11:43 141/72 10/31/16 11:39 54 5 94 10/31/16 11:39 53 5 10/31/16 11:38 144/81 10/31/16 11:34 51 11 97 10/31/16 11:34 52 11 10/31/16 11:33 141/78 10/31/16 11:29 54 14 98 10/31/16 11:29 54 14 10/31/16 11:28 123/75 10/31/16 11:26 36.4 53 18 146/79 98 Nasal Cannula 2 10/31/16 11:24 55 24 98 10/31/16 11:24 55 24 10/31/16 11:23 152/74 10/31/16 11:20 55 14 97 10/31/16 11:20 54 14 10/31/16 11:18 140/81 10/31/16 11:15 55 16 98 10/31/16 11:15 55 16 10/31/16 11:13 147/80 10/31/16 11:10 53 15 96 10/31/16 11:10 53 15 10/31/16 11:09 53 8 10/31/16 11:09 52 8 96 10/31/16 11:08 128/72 10/31/16 11:04 55 13 10/31/16 11:04 56 13 99 10/31/16 11:03 127/74 10/31/16 10:59 52 15 10/31/16 10:59 52 15 98 10/31/16 10:58 121/61 10/31/16 10:54 52 17 10/31/16 10:54 52 17 98 10/31/16 10:53 121/72 10/31/16 10:49 52 15 10/31/16 10:49 53 15 98 10/31/16 10:48 120/71 10/31/16 10:44 52 14 10/31/16 10:44 52 14 98 10/31/16 10:43 120/60 10/31/16 10:39 53 15 98 10/31/16 10:39 52 15 10/31/16 10:38 53 12 10/31/16 10:38 52 12 120/63 98 10/31/16 10:33 52 10 10/31/16 10:33 52 10 112/57 98 10/31/16 10:28 52 15 116/60 97 10/31/16 10:28 53 15 10/31/16 10:23 53 12 10/31/16 10:23 53 12 108/63 97 10/31/16 10:23 36.2 53 12 106/57 97 Mask 10 Laboratory Results 24 Hours: Test 2/1/17 05:15 Hematocrit 30.7 % Hemoglobin 11.1 g/dL Prothromb Time International Ratio 1.1 Prothrombin Time 11.5 SECONDS Assessment & Plan Assessment: s/p R TKA POD1 doing well Plan: * Pain control * Continue PT * DVT prophylaxis - Resume Xarelto today * Resume normal diet * Discharge planning Discharge Planning Discharge Planning: uncertain DVT Prophylaxis: SCDs, Xarelto Therapy: Physical Therapy, Occupational Therapy
--- NOTE | 2016-11-01 08:34 | [facility] Post Operative Brief Note ---
Immediate Operative Summary Operative Date Nov 01, 2016. Pre-Operative Diagnosis Right Knee Osteoarthritis Post-Operative Diagnosis Same as preoperative Procedure(s) Performed Right Total Knee Arthroplasty, Cemented Surgeon Dr. Axel Herrera [place] Surgeon(s) Joseluis Garcia MD Estimated Blood Loss 25ml Specimens A.) Right knee bone and tissue Complication(s) None Disposition PCU
[2016-11-01] MEDS: ASPIRIN 81 MG ECTAB PO SCH (08:37)
[2016-11-01] MEDS: PANTOprazole SOD 40 MG TAB PO SCH (08:37)
[2016-11-01] MEDS: METOPROLOL TARTRATE 25 MG TAB PO SCH ×2 (08:38→21:03)
[2016-11-01] MEDS: DOCUSATE SODIUM 100 MG CAP PO SCH ×2 (08:38→21:02)
[2016-11-01] MEDS: FLECAINIDE ACETATE 100 MG TAB PO SCH ×2 (09:08→21:02)
--- NOTE | 2016-11-01 11:15 | Hospitalist Progress Note ---
Hospitalist Progress Note Date of Service Nov 01, 2016. (Juliana Carrera PA-C) Subjective Pt evaluation today including: conversation w/ patient, physical exam, chart review, lab review, review of inpatient medication list Patient reports minimal pain today. Passing gas. No bowel movements yet. No nausea. Ambulated in the hallway yesterday without difficulty. Urinating without any problems Additional Comments: 6 system review negative. Please see pertinent positives in the history of present illness section. (Juliana Carrera PA-C) Objective Vital Signs Date Time Temp Pulse Resp B/P Pulse Ox O2 Delivery O2 Flow Rate FiO2 11/01/16 09:13 94 Room Air 11/01/16 08:37 68 11/01/16 08:06 36.7 59 14 144/69 94 Room Air 11/01/16 07:17 Room Air 11/01/16 03:10 36.7 67 18 122/69 90 Room Air 10/31/16 23:30 Room Air 10/31/16 23:00 36.9 64 17 147/72 91 Room Air 10/31/16 19:10 Nasal Cannula 2.0 10/31/16 19:03 36.5 66 16 144/68 95 Room Air 10/31/16 17:46 58 14 150/80 97 Nasal Cannula 2.0 10/31/16 15:11 36.6 61 16 122/71 97 Room Air 10/31/16 14:15 56 16 135/83 95 Nasal Cannula 2.0 10/31/16 13:12 52 16 158/88 94 Nasal Cannula 2.0 10/31/16 12:45 54 16 158/92 95 Nasal Cannula 3.0 10/31/16 12:15 98 Nasal Cannula 2.0 10/31/16 12:15 36.5 55 16 110/76 98 Nasal Cannula 2.0 10/31/16 12:15 98 Room Air 10/31/16 11:49 53 19 98 10/31/16 11:49 53 19 10/31/16 11:48 146/79 10/31/16 11:44 53 15 98 10/31/16 11:44 53 15 10/31/16 11:43 141/72 10/31/16 11:39 54 5 94 10/31/16 11:39 53 5 10/31/16 11:38 144/81 10/31/16 11:34 51 11 97 10/31/16 11:34 52 11 10/31/16 11:33 141/78 10/31/16 11:29 54 14 98 10/31/16 11:29 54 14 10/31/16 11:28 123/75 10/31/16 11:26 36.4 53 18 146/79 98 Nasal Cannula 2 10/31/16 11:24 55 24 98 10/31/16 11:24 55 24 10/31/16 11:23 152/74 10/31/16 11:20 55 14 97 10/31/16 11:20 54 14 10/31/16 11:18 140/81 10/31/16 11:15 55 16 98 10/31/16 11:15 55 16 10/31/16 11:13 147/80 10/31/16 11:10 53 15 96 10/31/16 11:10 53 15 10/31/16 11:09 53 8 10/31/16 11:09 52 8 96 (Juliana Carrera PA-C) Physical Exam General Appearance: no apparent distress Eyes: EOMI Neck: no JVD Respiratory/Chest: lungs clear Cardiovascular: regular rate, rhythm, + systolic murmur (systolic murmur heard best at the right upper sternal border) Abdomen: normal bowel sounds, non tender, soft Extremities: no pedal edema (right lower extremity bandaged. Sensation in the toes is intact. No edema or tenderness noted in the left lower extremity) Neurologic/Psychiatric: no motor/sensory deficits, oriented x 3 Skin: warm/dry (Juliana Carrera PA-C) Laboratory Results Last 24 Hours Test 10/31/16 12:10 11/01/16 05:15 Bedside Glucose 185 mg/dl White Blood Count 14.68 K/uL Red Blood Count 3.55 M/uL Hemoglobin 11.1 g/dL Hematocrit 30.7 % Mean Corpuscular Volume 86.5 fL Mean Corpuscular Hemoglobin 31.3 pg Mean Corpuscular Hemoglobin Concent 36.2 g/dl RDW Standard Deviation 40.4 fL RDW Coefficient of Variation 12.7 % Platelet Count 147 K/uL Mean Platelet Volume 11.0 fL Prothrombin Time 11.5 SECONDS Prothromb Time International Ratio 1.1 Sodium Level 139 mmol/L Potassium Level 4.2 mmol/L Chloride Level 105 mmol/L Carbon Dioxide Level 25 mmol/L Anion Gap 9.0 mmol/L Blood Urea Nitrogen 22 mg/dl Creatinine 0.90 mg/dl Est Creatinine Clear Calc Drug Dose 94.8 ml/min Estimated GFR () 97.2 Estimated GFR (Non- 83.8 BUN/Creatinine Ratio 23.9 Random Glucose 162 mg/dl Calcium Level 8.4 mg/dl (Juliana Carrera PA-C) Assessment and Plan 76-year-old male status post right TKA postop day #1 -Pain management and physical therapy per primary team History of A. fib -Continue Lopressor 25 mg BID -Continue flecainide 50 mg BID -Resume Xarelto 20 mg daily if okay with primary team Hyperlipidemia -Continue atorvastatin 20 mg daily Hypertension -Renal fxn in tact. May continue HCTZ 12.5 mg daily -May resume lisinopril 40 mg daily BPH -Resume Terazosin 10 mg daily (Juliana Carrera PA-C) Patient seen and examined and discussed with Juliana Carrera PA-C. Patient denies complaint. On exam, lungs clear and heart regular. Continue with antihypertensives, flecainide, and anticoagulation. (Harpreet Rose MD)
--- NOTE | 2016-11-01 13:56 | Anesthesiology Progress Note ---
Anesthesia Post Op Note Date & Time Nov 01, 2016 at 13:55 Vital Signs Pain Intensity: 3.0 Vital Signs Past 12 Hours Date Time Temp Pulse Resp B/P Pulse Ox O2 Delivery O2 Flow Rate FiO2 11/01/16 11:46 36.6 62 16 145/60 96 Room Air 11/01/16 09:13 94 Room Air 11/01/16 08:37 68 11/01/16 08:06 36.7 59 14 144/69 94 Room Air 11/01/16 07:17 Room Air 11/01/16 03:10 36.7 67 18 122/69 90 Room Air Notes Mental Status: alert / awake / arousable, participated in evaluation Pt Amnestic to Procedure: Yes Nausea / Vomiting: adequately controlled Pain: adequately controlled Airway Patency, RR, SpO2: stable & adequate BP & HR: stable & adequate Hydration State: stable & adequate Neuraxial Anesthesia: sensory block resolved Anesthetic Complications: no major complications apparent
--- NOTE | 2016-11-01 18:06 | PROGRESS NOTE ---
DATE: 11/01/2016 HISTORY OF PRESENT ILLNESS: Mr. Brown is resting comfortably in bed. He had an episode of pain last evening. He thinks he may have overdone it today but did very well with PT. PHYSICAL EXAMINATION: Afebrile, vital signs stable. Dressing is Clean and dry. Posterior tib 1+. Sensation normal ankle and toe. Motor function plantar flexion and dorsiflexion 5/5. LABORATORY DATA: Urine output is adequate. White count 14, likely secondary to stress. Hemoglobin 11, hematocrit 31, platelet count 147. His PRP is noted. . IMPRESSION: 1. Right knee replacement. 2. Atrial fibrillation. 3. Benign prostatic hypertrophy. 4. Hyperlipidemia. 5. Hypertension. PLAN: Doing very well. Continue routine postoperative care for his knee replacement. He is on Xarelto for his DVT prophylaxis and atrial fibrillation. He will continue with rehabilitation per protocol, pain control. Plan on changing dressing tomorrow. Home health for therapy and nursing care.
[2016-11-01] MEDS: SENNA 8.6 MG TAB PO SCH (21:00)
[2016-11-01] MEDS: LISINOPRIL 40 MG TAB PO SCH (21:02)
[2016-11-01] MEDS: MULTIVITAMIN TAB PO SCH (21:02)
[2016-11-01] MEDS: ATORVASTATIN 20 MG TAB PO SCH (21:02)
[2016-11-01] MEDS: HYDROCHLOROTHIAZIDE 25 MG TAB PO SCH (21:05)
[2016-11-02] MEDS: HYDROCODONE/ACETAMINOPHEN 7.5/325MG TAB PO PRN ×3 (05:09→13:53)
[2016-11-02 06:14] VITALS: BP 132/64; PULSE 76; TEMP 36.9; O2SAT 92
[2016-11-02] MEDS: METOPROLOL TARTRATE 25 MG TAB PO SCH (07:35)
[2016-11-02] MEDS: PANTOprazole SOD 40 MG TAB PO SCH (07:35)
[2016-11-02] MEDS: DOCUSATE SODIUM 100 MG CAP PO SCH (07:35)
[2016-11-02] MEDS: ASPIRIN 81 MG ECTAB PO SCH (07:35)
[2016-11-02] MEDS: FLECAINIDE ACETATE 100 MG TAB PO SCH (07:36)
[2016-11-02] MEDS ORDERED: OXYCODONE HCL 10 MG TABCR (OXYCONTIN) PO SCH (07:45)
--- NOTE | 2016-11-02 08:24 | PROGRESS NOTE ---
DATE: 11/02/2016 Up, eating breakfast. He did have some pain which is improved with hydrocodone. I think that we need to add some OxyContin for breakthrough pain. He is afebrile. Vital signs are stable. Distal neurovascular function intact, 5/5 strength of ankle and toe plantar flexion and dorsiflexion. Posterior tib pulses 1+. Sensation is normal throughout the foot. There is appropriate swelling of the knee without drainage. Swelling is mild to moderate. There are no blisters. Dressing reapplied. IMPRESSION: 1. Right knee replacement. 2. Atrial fibrillation. 3. Benign prostatic hyperplasia. 4. Hyperlipidemia. 5. Hypertension. PLAN: Doing well. We will add OxyContin to help with pain control. He will continue routine postop orthopedic care for his knee replacement, and if his pain is adequately controlled today, I would consider discharge this afternoon after PT and lunch. He will continue Xarelto for his DVT prophylaxis and his atrial fibrillation. I discussed with him things to watch out for including swelling, drainage, fever, numbness, tingling or any other problems or questions. He will follow up with me as scheduled and have home PT and nursing. We discussed wound care and bathing. He will continue his regular medicines and we will likely discharge him on OxyContin, hydrocodone and Ultram for pain control.
[2016-11-02] MEDS ORDERED: OXYC15TA89 PO (08:34)
[2016-11-02] MEDS ORDERED: TRAM-10 PO (08:34)
[2016-11-02] MEDS ORDERED: HYDR-5688 PO (08:34)
[2016-11-02] MEDS ORDERED: OXYC20TA50 PO ×2 (08:51→08:57)
[2016-11-02 10:51] VITALS: BP 132/64; PULSE 76; TEMP 36.9; O2SAT 92
[2016-11-02] MEDS: RIVAROXABAN 20 MG TAB PO SCH (12:29)
--- NOTE | 2016-11-02 17:18 | DISCHARGE SUMMARY ---
ADMITTING DIAGNOSIS: Right knee degenerative joint disease. POSTOPERATIVE DIAGNOSIS: Status post right total knee arthroplasty performed on 10/31/[address] Herrera. PERTINENT DISCHARGE MEDICATIONS: 1. [place] 5/325 mg. 2. OxyContin 10 mg tabs hours. 3. Tramadol 50 mg every 4-6 hours as needed for pain. 4. Xarelto 20 mg tab at bedtime to be resumed. HOSPITAL COURSE: Vinayak is a 76-year-old male with continued right knee pain that failed conservative management. He wished to proceed with surgical intervention which was completed on 10/31/[address] Axel Herrera from [facility]. Vinayak ultimately had an uneventful postoperative course. He tolerated the procedure very well and over 2 days of hospital stay postoperatively was able to be discharged home with [facility] on 11/02/2016. VITAL SIGNS: Upon discharge reveal temperature of 36.9, pulse 76, respiratory rate 16, blood pressure 132/64 and pulse ox is 92% on room air. LABORATORY VALUES: On 11/01/2016 reveal white count of 14.6, hemoglobin 11, hematocrit of 30, platelet count of 147. Chemistry reveals 11/01/2016 a sodium of 139, potassium 4.2, chloride 105, carbon dioxide of 25, BUN is 22, creatinine 0.9, and random glucose is 162. DISCHARGE INSTRUCTIONS: 1. Discharge home with [facility] on 11/02/2016. 2. Weightbear as tolerated right lower extremity and walker. 3. Ice and elevate right knee. 4. Resume previous diet. 5. Resume Xarelto for continued DVT prophylaxis. 6. Pain control with prescribed medications. 7. Follow up with Dr. Herrera in 2 weeks at [facility] for staple removal. 8. Any other questions or concerns, notify our office at [phone].
== END 2016-11-02 14:45 | disposition home health service (06) | DRG 470 ==
LOC: ENRESERVDT → ENRESERVTM → C.ACU 05:15 → C.3E 10:51
PROVIDERS: ADMIT Physical Medicine & Rehabilitation Sports Medicine; ATTEND Physical Medicine & Rehabilitation Sports Medicine
PROC: 0SRC0J9 Replacement of Right Knee Joint with Synthetic Substitute, Cemented, Open Approach (ICD-10-PCS; principal; 2016-10-31 07:00)
DX: M17.11 Unilateral primary osteoarthritis, right knee (principal); N40.0 Benign prostatic hyperplasia without lower urinary tract symptoms; I48.91 Unspecified atrial fibrillation; E66.9 Obesity, unspecified; Z68.34 Body mass index [BMI] 34.0-34.9, adult; Z96.652 Presence of left artificial knee joint; D64.9 Anemia, unspecified; I10 Essential (primary) hypertension; E78.5 Hyperlipidemia, unspecified; E78.00 Pure hypercholesterolemia, unspecified; Z87.891 Personal history of nicotine dependence; Z79.899 Other long term (current) drug therapy; Z79.82 Long term (current) use of aspirin; Z79.1 Long term (current) use of non-steroidal anti-inflammatories (NSAID); Z79.01 Long term (current) use of anticoagulants

== ENCOUNTER → 2017-02-23 | Outpatient (CLI) | payer BC ==
[~2017-02-23] MED LIST changes: +ACET-1256 PO; -ACET-1311 PO; +FURO20TA PO; +HYDR-5688 PO; +HYOS1TAB PO; -IBUP-1050 PO; +METO25TA56 PO; +OXYC1TAB3 PO; +OXYC20TA50 PO; +RXC5 PO; +TADA5TAB11 PO; +TRAM-10 PO
[2017-02-23 11:56] LABS: BASO % 0.4 %; BASO ABS # 0.03 K/uL (0-0.2); COMPLETE YES; EOS % 0.8 %; HEMATOCRIT 39.3 % (42-52); IG% 0.1 %; LYMPH % 24.1 %; LYMPH ABS # 1.78 K/uL (1.2-3.4); MEAN CELL VOLUME 87.9 fL (80-100); MEAN CORPUSCULAR HEMOGLOBIN 29.8 pg (25-34); MEAN CORPUSCULAR HGB CONC 33.8 g/dl (32-36); MEAN PLATELET VOLUME 11.4 fL (7.4-10.4); MONO % 6.6 %; PLATELET COUNT 201 K/uL (130-400); RED BLOOD COUNT 4.47 M/uL (4.7-6.1); WHITE BLOOD COUNT 7.38 K/uL (4.8-10.8)
[2017-02-23 12:03] LABS: CALCIUM 9.5 mg/dl (8.5-10.1)
[2017-02-23 12:05] LABS: ESTIMATED AVERAGE GLUCOSE 154 mg/dl; HA1C FLAG Normal (Normal)
[2017-02-23 12:09] LABS: ALT/SGPT 21 U/L (12-78); BLOOD UREA NITROGEN 17 mg/dl (7-18); BUN/CREATININE RATIO 19.3 (10-20); CARBON DIOXIDE 31 mmol/L (21-32); CHLORIDE 104 mmol/L (98-107); CHOLESTEROL 130 mg/dl (0-200); CREATININE 0.89 mg/dl (0.60-1.40); GLUCOSE 152 mg/dl (70-99); POTASSIUM 4.3 mmol/L (3.5-5.1); SODIUM 140 mmol/L (136-145); TRIGLYCERIDES 63 mg/dl (0-150); VERY LOW DENSITY LIPOPROT CALC 13 mg/dl
[2017-02-23 12:20] LABS: ALB/GLOB RATIO 1.1 (0.9-2); ALKALINE PHOSPHATASE 88 U/L (45-117); AST/SGOT 13 U/L (15-37); CHOLESTEROL/HDL RATIO 2.1; HDL CHOLESTEROL 62 mg/dl; LDL CHOLESTEROL CALCULATED 55 mg/dl
== END | disposition home or self-care (01) ==
LOC: C.LABBFT 07:47
PROVIDERS: ATTEND Internal Medicine
DX: Z12.5 Encounter for screening for malignant neoplasm of prostate (principal); R73.01 Impaired fasting glucose; I10 Essential (primary) hypertension; E78.00 Pure hypercholesterolemia, unspecified

== ENCOUNTER → 2017-06-01 | Outpatient (CLI) | payer BC ==
[~2017-06-01] MED LIST changes: -ACET-1256 PO; -FURO20TA PO; -HYDR-5688 PO; -HYOS1TAB PO; -METO25TA56 PO; -OXYC1TAB3 PO; -OXYC20TA50 PO; -RXC5 PO; -TADA5TAB11 PO; -TRAM-10 PO
== END | disposition home or self-care (01) ==
LOC: C.RDSM 09:10
PROVIDERS: ATTEND Physical Medicine & Rehabilitation Sports Medicine
DX: M25.511 Pain in right shoulder (principal)

== ENCOUNTER → 2017-07-02 | Outpatient (CLI) | payer BC ==
[2017-07-02 12:23] LABS: HEMATOCRIT 39.2 % (42-52); MEAN CELL VOLUME 86.5 fL (80-100); MEAN CORPUSCULAR HEMOGLOBIN 30.5 pg (25-34); MEAN CORPUSCULAR HGB CONC 35.2 g/dl (32-36); MEAN PLATELET VOLUME 11.6 fL (7.4-10.4); PLATELET COUNT 180 K/uL (130-400); RED BLOOD COUNT 4.53 M/uL (4.7-6.1); WHITE BLOOD COUNT 6.74 K/uL (4.8-10.8)
[2017-07-02 12:35] LABS: ALT/SGPT 23 U/L (12-78); AST/SGOT 15 U/L (15-37); BLOOD UREA NITROGEN 21 mg/dl (7-18); BUN/CREATININE RATIO 26.7 (10-20); CALCIUM 9.6 mg/dl (8.5-10.1); CARBON DIOXIDE 27 mmol/L (21-32); CHLORIDE 106 mmol/L (98-107); CREATININE 0.77 mg/dl (0.60-1.40); GLUCOSE 131 mg/dl (70-99); POTASSIUM 4.2 mmol/L (3.5-5.1); SODIUM 142 mmol/L (136-145)
[2017-07-02 12:45] LABS: ALB/GLOB RATIO 1.2 (0.9-2); ALKALINE PHOSPHATASE 88 U/L (45-117)
[2017-07-02 12:56] LABS: RATIO 10.7 mcg/mg (0-30.0)
== END | disposition home or self-care (01) ==
LOC: C.LABBFT 10:31
PROVIDERS: ATTEND Internal Medicine
DX: E11.9 Type 2 diabetes mellitus without complications (principal)

== ENCOUNTER → 2017-07-26 | Outpatient (CLI) | payer BC ==
[~2017-07-26] MED LIST changes: +ACET-1256 PO; -ASPI81TA28 PO; +HYOS1TAB PO; -LPR25 PO; +METO25TA56 PO; -OMEG10007 PO; -SILD100T PO; +TADA5TAB11 PO
== END | disposition home or self-care (01) ==
LOC: C.CTS 12:25
PROVIDERS: ATTEND Orthopaedic Surgery
DX: Z01.818 Encounter for other preprocedural examination (principal); M19.011 Primary osteoarthritis, right shoulder

== ENCOUNTER → 2017-08-16 | Outpatient (CLI) | payer BC ==
[2017-08-16 18:30] LABS: BLOOD UREA NITROGEN 17 mg/dl (7-18); BUN/CREATININE RATIO 17.2 (10-20); CREATININE 1.01 mg/dl (0.60-1.40)
== END | disposition home or self-care (01) ==
LOC: C.LABBFT 11:37
PROVIDERS: ATTEND Urology
DX: R97.20 Elevated prostate specific antigen [PSA] (principal)

== ENCOUNTER → 2017-08-29 | Outpatient (CLI) | payer BC ==
[~2017-08-29] MED LIST changes: +FURO20TA PO; +GADAVIST IV PRN; +OXYC1TAB3 PO; +RXC5 PO
--- NOTE | 2017-08-31 14:34 | DIAGNOSTIC IMAGING REPORT ---
PROSTATE MRI COMBO CLINICAL HISTORY: 77 years-old Male presenting with ELEVATED PSA 08/07/17 @5.34. PSA 5.3 ng/mL. TECHNIQUE: Multisequence, multiplanar MR imaging of the prostate was performed before and after the administration of intravenous contrast. Additional postprocessing was performed on a separate CMP.LY workstation by the radiologist for 3-D volumetric segmentation of the prostate and contouring of region(s) of interest (LUCILA) for targeting. IV contrast: 11 cc Gadavist. COMPARISON: None. FINDINGS: Prostate: The prostate measures 5.9 cm (DynaCAD prostate boundary segmentation volume 106 mL). Moderate changes of benign prostatic hyperplasia. Precontrast T1 weighted imaging demonstrates intrinsic T1 hyperintensity within the right transitional zone. Seminal vesicles normal. Suspicious lesion(s) described below: Lesion (DynaCAD LUCILA) 1: Location: Left posterolateral peripheral zone at the mid gland. The lesion does not extend across the midline. Size: 7 mm (as measured on ADC for PZ lesion and T2WI for TZ lesion) T2W: 3. No evidence of extraprostatic extension. DWI: 3. Focal mildly/moderately hypointense on ADC and isointense/mildly hyperintense on high b-value DWI. DCE: Negative. No early enhancement. PI-RADS: 3. The presence of clinically significant cancer is equivocal. Bladder: Bladder wall thickening likely indicating chronic outlet obstruction. Bowel: Visualized portion of the rectum normal. Peritoneum: No free fluid in the pelvis. Small fat-containing right inguinal hernia. Lymph nodes: No lymphadenopathy in the visualized portion of the pelvis. Vasculature: Iliac vessels patent. Osseous structures: Normal bone marrow signal intensity. IMPRESSION: 1. 7 mm lesion in the left posterolateral peripheral zone at the mid gland. PI-RADS 3. The presence of clinically significant cancer is equivocal. This lesion has been segmented for targeted biopsy. 2. Benign prostatic hyperplasia. Electronically signed by: Atilio Bryant M.D. 08/31/2017 2:33 PM Dictated Date/Time: 08/29/2017 12:54 PM
== END | disposition home or self-care (01) ==
LOC: C.MRIBC 09:53
PROVIDERS: ATTEND Urology
DX: R97.20 Elevated prostate specific antigen [PSA] (principal); N42.9 Disorder of prostate, unspecified; N40.0 Benign prostatic hyperplasia without lower urinary tract symptoms

== ENCOUNTER 2017-08-31 09:07 | Inpatient (IN) | payer BC, OTHER ==
[2017-07-24 13:41] VITALS: BMI 35.0
--- NOTE | 2017-07-24 14:07 | PAT Medication Instructions ---
Service Date Jul 24, 2017. Current Home Medication List Acetaminophen (Tylenol), 1 TAB PO Q8 PRN for Pain Atorvastatin (Lipitor), 20 MG PO HS Flecainide (Tambocor), 50 MG PO BID Hydrochlorothiazide (Hydrochlorothiazide), 1 TAB PO QPM Hyoscyamine Sulfate (Levsin), 0.125 MG PO UD PRN for bowel spasms Lisinopril (Prinivil), 40 MG PO QPM Metoprolol Tartrate (Lopressor) (Lopressor), 25 MG PO BID Multivitamin (Multivitamin), 1 TAB PO QPM Rivaroxaban (Xarelto), 20 MG PO QPM Tadalafil (Cialis), 5 MG PO UD Terazosin Hcl (Hytrin), 10 MG PO QPM Medication Instructions For Your Scheduled Surgery - Instructions per prescribing physician: Rivaroxaban (Xarelto), 20 MG PO QPM - Hold the following medications 24 hours prior to surgery: Lisinopril (Prinivil), 40 MG PO QPM - Hold the following medications the morning of surgery: Hyoscyamine Sulfate (Levsin), 0.125 MG PO UD PRN for bowel spasms Tadalafil (Cialis), 5 MG PO UD - Take the following medications the morning of surgery with a sip of water OTHERWISE NOTHING TO EAT OR DRINK AFTER MIDNIGHT: Metoprolol Tartrate (Lopressor) (Lopressor), 25 MG PO BID Flecainide (Tambocor), 50 MG PO BID Acetaminophen (Tylenol), 1 TAB PO Q8 PRN for Pain (may take if needed up to 4 hours prior to surgery) - Take the following medications as scheduled the night before surgery: Multivitamin (Multivitamin), 1 TAB PO QPM Terazosin Hcl (Hytrin), 10 MG PO QPM Metoprolol Tartrate (Lopressor) (Lopressor), 25 MG PO BID Hydrochlorothiazide (Hydrochlorothiazide), 1 TAB PO QPM Atorvastatin (Lipitor), 20 MG PO HS Flecainide (Tambocor), 50 MG PO BID Acetaminophen (Tylenol), 1 TAB PO Q8 PRN for Pain If you have any questions please call us at [phone] or [phone] or [phone]
[2017-07-24 14:29] LABS: BASO % 0.4 %; BASO ABS # 0.03 K/uL (0-0.2); COMPLETE YES; EOS % 1.5 %; HEMATOCRIT 33.8 % (42-52); IG% 0.1 %; LYMPH % 15.3 %; LYMPH ABS # 1.21 K/uL (1.2-3.4); MEAN CELL VOLUME 86.9 fL (80-100); MEAN CORPUSCULAR HEMOGLOBIN 31.1 pg (25-34); MEAN CORPUSCULAR HGB CONC 35.8 g/dl (32-36); MEAN PLATELET VOLUME 10.9 fL (7.4-10.4); MONO % 8.6 %; NEUT % 74.1 %; PLATELET COUNT 195 K/uL (130-400); RED BLOOD COUNT 3.89 M/uL (4.7-6.1); WHITE BLOOD COUNT 7.92 K/uL (4.8-10.8)
[2017-07-24 14:35] LABS: URINE APPEARANCE CLEAR (CLEAR); URINE BILIRUBIN NEG (NEG); URINE COLOR DK YELLOW; URINE EPITHELIAL CELL AUTO 0-5 /lpf (0-5); URINE NITRITE NEG (NEG); UROBILINOGEN NEG (NEG)
[2017-07-24 14:37] LABS: INR 1.1 (0.9-1.1); PARTIAL THROMBOPLASTIN RATIO 1.5; PROTHROMBIN TIME (PATIENT) 11.5 SECONDS (9.0-12.0)
[2017-07-24 14:38] LABS: MANUAL MICROSCOPIC REQUIRED? NO; REVIEW REQ? NO
--- NOTE | 2017-08-30 16:59 | HISTORY & PHYSICAL EXAMINATION ---
DATE OF ADMISSION: 08/31/2017 CHIEF COMPLAINT: Primary osteoarthritis of the right shoulder. HISTORY OF PRESENT ILLNESS: Vinayak is a very pleasant 77-year-old male who has been having a several month history of right shoulder pain that has been progressively getting worse. X-rays and clinical examination have been diagnostic for primary osteoarthritis of the shoulder. After failing extensive conservative treatment, he elected to proceed with a total shoulder arthroplasty. PAST MEDICAL HISTORY: Significant for heart murmur, irregular heartbeat, obesity, osteoarthritis, hypertension, hyperlipidemia and urinary frequency. MEDICATIONS: Metoprolol 25 mg 2 times a day, Flecainide 50 mg twice a day, atorvastatin 20 mg daily, terazosin 10 mg daily, lisinopril 40 mg daily, hydrochlorothiazide 12.5 mg daily, Xarelto 20 mg daily, daily multivitamin, Cialis 5 mg as needed, Tylenol 500 mg as needed. PAST SURGICAL HISTORY: Significant for right total knee arthroplasty in October 2016, left total knee arthroplasty in November 2008, arthroscopic meniscus repair of the left knee in 2001. ALLERGIES: None. FAMILY HISTORY: Significant for diabetes and esophageal cancer family. SOCIAL HISTORY: He is , rarely drinks, has a 20-year history of smoking a half pack a day. He is mildly active. REVIEW OF SYSTEMS: He complains of right shoulder pain. All other pertinent review of systems are negative. PHYSICAL EXAMINATION: GENERAL: He is awake, alert and oriented x3. He is in no apparent distress. HEENT: Pupils equal, round and reactive to light. Extraocular motion intact. Oral mucosa is pink and moist. HEART: Regular rate per radial pulse. LUNGS: Briseida symmetrically bilaterally with no audible breath sounds. ABDOMEN: Soft, nontender, nondistended. MUSCULOSKELETAL: On physical examination of right shoulder he has about 100 degrees of forward elevation and 90 degrees of abduction. He has 5/5 muscle strength with full can testing and external rotation. Negative bear hug and belly press test. Tenderness to palpation over the anterior glenohumeral joint line and crepitus through range of motion. X-rays and CT scan of the right shoulder do show advanced osteoarthritis. He has some slight posterior wear of the glenoid and a large inferior osteophyte. IMPRESSION: Primary osteoarthritis of the right shoulder. PLAN: Will proceed with a [employer] comprehensive right total shoulder arthroplasty. Postoperatively, he will be placed in an arm sling and kept overnight in the hospital for postoperative medical management.
[~2017-08-31] VITALS: Ht 182.9 cm; Wt 116.0 kg
[2017-08-31] VITALS (9 sets, daily range): BP systolic 117–184; BP diastolic 69–94; PULSE 56–80; TEMP 36.2–36.7; O2SAT 91–97; Ht 182.9 cm; Wt 116.0 kg
[~2017-08-31 09:07] MED LIST changes: +ACETAMINOPHEN 500 MG TAB PO SCH; +BUPIVACAINE 0.25% 30 ML VIAL ONE; +CEFAZOLIN 2000MG IV PUSH 10 ML IV SCH; +CLONIDINE HCL 100 MCG/ML SYRINGE ONE; +EpINEphrine INJ 1MG/ML AMP 1 MG/ML AMP ONE; +FAMOTIDINE 20 MG TAB PO SCH; +FENTANYL CITRATE INJ 50 MCG/1 ML 2 ML VIAL ONE; -FURO20TA PO; +GABAPENTIN 300 MG CAP PO SCH; -GADAVIST IV PRN; +LACTATED RINGER'S 1000ML IV SCH; +MIDAZOLAM HCL 1 MG/ML 2ML VIAL ONE; -OXYC1TAB3 PO; +ROPIVACAINE 0.5% 5 MG/ML 30 ML VIAL ONE; +ROPIVACAINE 5MG/ML 30 ML 150 MG, BUPIVACAINE 0.5% MPF INJ 30 ML, EpINEphrine HCL INJ 0.... INFIL SCH; -RXC5 PO
[2017-08-31] MEDS ORDERED: ORTHO JOINT ANESTHETIC ONE (09:30)
[2017-08-31] MEDS ORDERED: BACITRACIN 50000 UNIT VIAL ONE (09:30)
[2017-08-31] MEDS ORDERED: ONDANSETRON INJ 2 MG/ML 2 ML VIAL IV PRN ×2 (09:45→12:15)
[2017-08-31] MEDS ORDERED: LABETALOL HCL IV 5 MG/ML 20ML IV PRN (09:45)
[2017-08-31] MEDS ORDERED: NALOXONE HCL 0.4 MG/1 ML VIAL/CARP IV PRN ×2 (09:45→12:15)
[2017-08-31] MEDS ORDERED: ATROPINE SULFATE 0.1 MG/ML 5ML SYR IV PRN (09:45)
[2017-08-31] MEDS ORDERED: PHENYLEPHRINE 100MCG/ML 5ML SYR IV PRN (09:45)
[2017-08-31] MEDS ORDERED: HYDROmorphone INJ 2 MG/ML SYR/VIAL IV PRN (09:45)
[2017-08-31] MEDS ORDERED: FLUMAZENIL 0.1 MG/1 ML 10 ML VIAL IV PRN (09:45)
[2017-08-31] MEDS ORDERED: EpHEDrine SULFATE INJ 50 MG/ML AMP IV PRN (09:45)
[2017-08-31] MEDS ORDERED: FENTANYL CITRATE INJ 50 MCG/1 ML 2 ML VIAL IV PRN (09:45)
[2017-08-31] MEDS ORDERED: MEPERIDINE HCL 25 MG/ML CARP IV PRN (09:45)
[2017-08-31] MEDS ORDERED: LIDOCAINE HCL 2% 2 ML VIAL (20MG/ML) ONE (11:34)
[2017-08-31] MEDS ORDERED: DEXAMETHASONE SOD INJ 4 MG/ML VIAL ONE (11:34)
[2017-08-31] MEDS ORDERED: NEOSTIGMINE METHYLSULFATE 5 MG/5 ML SYR ONE (11:34)
[2017-08-31] MEDS ORDERED: GLYCOPYRROLATE INJ 0.2 MG/ML VIAL ONE (11:34)
[2017-08-31] MEDS ORDERED: ONDANSETRON INJ 2 MG/ML 2 ML VIAL ONE (11:34)
[2017-08-31] MEDS ORDERED: EpHEDrine SULFATE 50MG/5ML SYR ONE (11:34)
[2017-08-31] MEDS ORDERED: PHENYLEPHRINE HCL INJ 10 MG/ML VIAL ONE (11:34)
[2017-08-31] MEDS ORDERED: ROCURONIUM BROMIDE 10 MG/ML 5 ML VIAL IV ONE (11:34)
[2017-08-31] MEDS ORDERED: PROPOFOL IV EMULSION 10 MG/ML 20 ML VIAL IV ONE (11:34)
--- NOTE | 2017-08-31 12:01 | [facility] Post Operative Brief Note ---
Immediate Operative Summary Operative Date Aug 31, 2017. Pre-Operative Diagnosis Right shoulder advanced osteoarthritis Post-Operative Diagnosis Right shoulder advanced osteoarthritis Procedure(s) Performed Right Total Shoulder Arthroplasty Cemented Surgeon Dr. Aguila Sales Product Specialist Surgeon(s) Valdez Gonzalez PA-C Estimated Blood Loss 200 ml Findings as above Specimens A: Right Humeral Head Complication(s) None Disposition Recovery Room / PACU
[2017-08-31] MEDS ORDERED: METOCLOPRAMIDE HCL INJ 5 MG/ML 2 ML VIAL IV PRN (12:15)
[2017-08-31] MEDS ORDERED: BISACODYL 10 MG SUPP PR PRN (12:15)
[2017-08-31] MEDS ORDERED: SOD PHOSPHATE/SOD BIPHOSPHATE ENEMA 132 ML BTL PR PRN (12:15)
[2017-08-31] MEDS ORDERED: HYOSCYAMINE SULFATE 0.125 MG SL TAB PO PRN (12:15)
[2017-08-31] MEDS ORDERED: MoRPHine SULFATE 2 MG/ML CARP IV PRN (12:15)
[2017-08-31] MEDS ORDERED: KETOROLAC TROMETHAMINE 30 MG/ML VIAL IV. SCH (12:15)
[2017-08-31] MEDS ORDERED: MAGNESIUM HYDROXIDE SUSP 30 ML UDC PO PRN (12:15)
--- NOTE | 2017-08-31 12:22 | OPERATIVE REPORT ---
DATE OF OPERATION: 08/31/2017 PREOPERATIVE DIAGNOSIS: Primary osteoarthritis of the right shoulder. POSTOPERATIVE DIAGNOSIS: Same. PROCEDURE: Right total shoulder arthroplasty. SURGEON: Dr. Denton Aguila. BUSINESS EXCELLENCE LEADER: Valdez Gonzalez PA-C, whose assistance was necessary for retraction and helping with closure. ANESTHESIA: General with a right interscalene nerve block. COMPLICATIONS: None. CONDITION: Stable to PACU. INDICATIONS: Vinayak is a pleasant 77-year-old male who presented to my office with increasing chronic right shoulder pain. X-rays and clinical examination were diagnostic for primary osteoarthritis of the right shoulder. After failing conservative treatment, he elected to undergo a right total shoulder arthroplasty. OPERATION AND FINDINGS: On 08/31/2017, he arrived at [facility] for the above procedure. He was seen in the preoperative holding area and the operative extremity was identified and signed. He received preoperative antibiotics and a right interscalene nerve block. He was taken back to the operating room, laid on the table in supine position and put under general anesthesia. He was then put into the beachchair position. The right shoulder was prepped and draped in sterile fashion. Time-out was done and the patient and operative extremity was properly identified. A deltopectoral approach was used. Dissection was taken down through the fascia and the anterior shoulder was exposed. The long head of the biceps tendon was tenodesed to the upper border of the pec major. The subscapularis was then tenotomized off the lesser tuberosity with a centimeter of cuff tissue remaining. The proximal humerus was then exposed. Sequential reaming up to a size 16 reamer was done. Off that reamer, a proximal humeral resection guide was placed and the proximal humerus was resected at 135 degrees of inclination and 30 degrees of retroversion. The head was removed and inferior osteophytes were removed. The glenoid was then exposed. The stump of the biceps was removed and the anterior superior labrum was removed. The remainder of the labrum was left intact. A [employer] signature guide was then snapped on to the anterior aspect of the glenoid. A guide pin was then placed in the total shoulder arthroplasty hole. The glenoid measured to be a size medium and a medium reamer was used. The central Boss was then drilled followed by peripheral peg holes. A trial medium glenoid seemed to be a good fit and the final medium glenoid was then cemented into place. Once cement had hardened, the proximal humerus was once again exposed, sequential broaching up to a size 16 broach was done. Off that broach, a 50 x 21 mm eccentric humeral head was snapped into place. The shoulder was reduced and brought through a full range of motion and felt to be stable. The trial implants were then removed and the final size 16 mini pressfit stem was then impacted into place and a 50 x 21 mm eccentric humeral head was then impacted on the humeral stem. The shoulder was reduced, brought through a full range of motion and felt to be stable. The subscapularis was then tenodesed back to the lesser tuberosity with transosseous FiberWire sutures and [id number] sutures. Two sutures were placed in the lateral rotator interval. The wound was then irrigated with 3 liters of normal saline solution with bacitracin. Surrounding soft tissues were injected with 100 mL orthopedic pain control cocktail. The axillary nerve was palpated. A drain was placed, skin was closed with 2-0 Vicryl, 3-0 V-Loc suture and maggie. He was placed in a soft dressing and taken to the postanesthesia care unit in stable condition. He tolerated the procedure well. IMPLANTS USED: I used a [employer] comprehensive right total shoulder arthroplasty system with a size medium glenoid, a 16 mini stem and a 50 x 21 humeral head. I attest to the content of the Intraoperative Record and any orders documented therein. Any exception s are noted below.
--- NOTE | 2017-08-31 13:06 | DIAGNOSTIC IMAGING REPORT ---
R SHOULDER MIN 2 VIEWS ROUTINE CLINICAL HISTORY: Post shoulder surgery COMPARISON STUDY: Right shoulder 06/01/2017. FINDINGS: 2 views of the right shoulder demonstrate a right total shoulder arthroplasty. The hardware is intact. No fracture or dislocation. Skin maggie and surgical drains are in place. IMPRESSION: Status post right total shoulder arthroplasty. No evidence for hardware complication. Electronically signed by: Atilio Bryant M.D. 08/31/2017 1:05 PM Dictated Date/Time: 08/31/2017 1:04 PM
--- NOTE | 2017-08-31 13:28 | Anesthesiology Progress Note ---
Anesthesia Post Op Note Date & Time Aug 31, 2017 at 13:28 Vital Signs Pain Intensity: 0 Vital Signs Past 12 Hours Date Time Temp Pulse Resp B/P (MAP) Pulse Ox O2 Delivery O2 Flow Rate FiO2 08/31/17 13:20 36.5 55 18 143/69 98 Oxymask 6 08/31/17 13:05 36.5 58 18 142/68 97 Oxymask 6 08/31/17 12:50 56 18 135/74 97 Oxymask 6 08/31/17 12:40 58 18 145/71 98 Oxymask 6 08/31/17 12:30 36.2 57 18 148/73 98 Oxymask 6 08/31/17 09:36 36.7 65 20 184/94 94 Room Air Notes Mental Status: alert / awake / arousable, participated in evaluation Pt Amnestic to Procedure: Yes Nausea / Vomiting: adequately controlled Pain: adequately controlled Airway Patency, RR, SpO2: stable & adequate BP & HR: stable & adequate Hydration State: stable & adequate Anesthetic Complications: no major complications apparent
[2017-08-31] MEDS: POTASSIUM CHLORIDE INJ 10 MEQ in SODIUM CHLORIDE 0.9% 1000ML 1,000 ML IV SCH ×2 (16:04→23:53)
[2017-08-31] MEDS: KETOROLAC TROMETHAMINE 15 MG/ML VIAL IV. SCH ×2 (18:37→23:53)
[2017-08-31] MEDS: ACETAMINOPHEN IV 1,000 MG in EMPTY BAG 0 ML IV SCH (18:38)
[2017-08-31] MEDS: CEFAZOLIN IV 2,000 MG in SYRINGE 0 ML IV SCH (18:38)
[2017-08-31] MEDS: DOCUSATE SODIUM 100 MG CAP PO SCH (20:58)
[2017-08-31] MEDS ORDERED: SENNA 8.6 MG TAB PO SCH (21:00)
[2017-08-31] MEDS: METOPROLOL TARTRATE 25 MG TAB PO SCH (21:00)
[2017-08-31] MEDS ORDERED: LISINOPRIL 40 MG TAB PO SCH (21:00)
[2017-08-31] MEDS ORDERED: HYDROCHLOROTHIAZIDE 25 MG TAB PO SCH (21:00)
[2017-08-31] MEDS ORDERED: ATORVASTATIN 20 MG TAB PO SCH (21:00)
[2017-08-31] MEDS: FLECAINIDE ACETATE 100 MG TAB PO SCH (21:01)
[2017-09-01] MEDS ORDERED: LIDOCAINE HCL 2% JELLY 30 ML TUBE EXT ONE (00:26)
[2017-09-01] MEDS ORDERED: NURSING DECISION MEDICATION ORDER SCH (00:30)
[2017-09-01] MEDS ORDERED: LIDOCAINE HCL 2% JELLY 30 ML TUBE EXT PRN (00:45)
[2017-09-01] MEDS: OXYCODONE HCL IR 5 MG TAB (IMMEDIATE RELEASE) PO PRN ×4 (01:22→10:38)
[2017-09-01] MEDS: CEFAZOLIN IV 2,000 MG in SYRINGE 0 ML IV SCH (01:23)
[2017-09-01] MEDS: ACETAMINOPHEN IV 1,000 MG in EMPTY BAG 0 ML IV SCH ×2 (01:30→09:33)
[2017-09-01 03:53] VITALS: BP 121/69; PULSE 62; TEMP 36.7; O2SAT 91
[2017-09-01] MEDS: KETOROLAC TROMETHAMINE 15 MG/ML VIAL IV. SCH ×2 (05:25→11:37)
[2017-09-01 07:06] VITALS: BP 136/69; PULSE 66; TEMP 36.8; O2SAT 92
[2017-09-01] MEDS ORDERED: RXC5 PO (08:10)
[2017-09-01 08:13] LABS: HEMATOCRIT 30.2 % (42-52); MEAN CORPUSCULAR HEMOGLOBIN 29.2 pg (25-34); MEAN CORPUSCULAR HGB CONC 33.1 g/dl (32-36); PLATELET COUNT 164 K/uL (130-400); RED BLOOD COUNT 3.43 M/uL (4.7-6.1); WHITE BLOOD COUNT 12.12 K/uL (4.8-10.8)
--- NOTE | 2017-09-01 08:15 | Discharge Instructions ---
Discharge Instructions Date of Service Sep 01, 2017. Admission Reason for Admission: Right Shoulder Degenerative Joint Disease Discharge Discharge Diagnosis / Problem: Right Total Shoulder Discharge Goals Goal(s): Decrease discomfort, Improve function Activity Recommendations Activity Limitations: as noted below . Instructions / Follow-Up Instructions / Follow-Up Activity and Therapy Recommendations: * Wear your sling for 3 weeks, unless otherwise instructed. You may remove your sling to shower and to dress, but otherwise, you should be in your sling at all times, including while sleeping * The shoulder replacement is very stable and you can use your hand while in the sling * Physical Therapy should start about 3-5 days from your day of surgery. Therapy will last about 8-12 weeks * You were shown a series of exercises in the hospital. Do these exercises daily including the exercises you were shown in physical therapy. Medications: * Narcotic You will likely be sent home from the hospital with a prescription for the narcotic pain medication that worked best throughout your stay. * Other medications may be prescribed for specific circumstances. If you have any questions, please call the office at . * Resume previous home medications unless otherwise instructed Showering: You may shower 5 days from the day of surgery. Let the soapy shower water run over the maggie. Do not scrub or soak the dressing or the incision. Things To Watch For: * Drainage from the incision site that occurs more than one week after your surgery. * Increased redness at the incision site. * Fever above 102 degrees Fahrenheit. * Unusual chest pain or shortness of breath. * Call [facility] at with any of the above problems Follow-Up Visit: Follow-up with Dr. Aguila 2-3 weeks after your day of surgery. An appointment was probably scheduled when you signed-up for surgery in the office. If you have any questions call Office Instructions: More detailed instructions as well as Frequently Asked Questions were provided in a folder by our office when you signed-up for surgery. Please review these instructions when you get home. If you have any further questions or concerns, please feel free to call the office at [phone] Current Hospital Diet Patient's current hospital diet: Regular Diet Discharge Diet Recommended Diet: Regular Diet Procedures Procedures Performed: Right Total Shoulder Arthroplasty Cemented Pending Studies Studies pending at discharge: no Laboratory Results Hemoglobin A1c Test 07/02/17 10:34 Range/Units Estimated Average Glucose 148 mg/dl Hemoglobin A1c 6.8 H 4.5-5.6 % Medical Emergencies . Who to Call and When: Medical Emergencies: If at any time you feel your situation is an emergency, please call 911 immediately. . Non-Emergent Contact Non-Emergency issues call your: Surgeon Call Non-Emergent contact if: wound has increased drainage, wound has increased redness . "Provider Documentation" section prepared by Denton Aguila. . VTE Core Measure Inpt VTE Proph given/why not?: Other Anticoagulation (continue Xerelto starting tomorrow)
[2017-09-01 08:44] LABS: BUN/CREATININE RATIO 22.4 (10-20); CALCIUM 8.4 mg/dl (8.5-10.1); CREATININE 1.06 mg/dl (0.60-1.40); POTASSIUM 4.3 mmol/L (3.5-5.1)
[2017-09-01] MEDS ORDERED: PANTOprazole SOD 40 MG TAB PO SCH (09:00)
[2017-09-01] MEDS ORDERED: MULTIVITAMIN TAB PO SCH (09:00)
[2017-09-01] MEDS: METOPROLOL TARTRATE 25 MG TAB PO SCH (09:02)
[2017-09-01] MEDS: DOCUSATE SODIUM 100 MG CAP PO SCH (09:02)
[2017-09-01] MEDS: FLECAINIDE ACETATE 100 MG TAB PO SCH (09:02)
[2017-09-01] MEDS: POTASSIUM CHLORIDE INJ 10 MEQ in SODIUM CHLORIDE 0.9% 1000ML 1,000 ML IV SCH (10:36)
--- NOTE | 2017-09-01 10:42 | PROGRESS NOTE ---
DATE: 09/01/2017 CHIEF COMPLAINT: Status post right total shoulder arthroplasty postop day #1. PROGRESS NOTE: Vinayak was seen and examined at bedside today. He was having some soreness in the shoulder, but it was not too bad. He was able to get some sleep last night, had no acute events and has no complaints. PHYSICAL EXAMINATION: VITAL SIGNS: All stable on room air. He is voiding minimally on his own. He was cathed last night. RIGHT SHOULDER: There is a little bit of drainage on the dressing. The drain is still to suction. His radial, median and ulnar nerves were all checked and intact. His axillary nerve was not checked yet. LABORATORY DATA: He has an H&H today of 10.0 and 30.2. His glucose is 165. X-RAYS: Radiographs postoperatively of the right shoulder showed the prosthesis to be in anatomic alignment without any evidence of fracture, dislocation or loosening. IMPRESSION: Status post right total shoulder arthroplasty postop day #1. PLAN: At this point, he is doing well and happy with his progress. We want to make sure he urinates through the day today. I am going to change his oxycodone to 2 every 4-6 hours to help with his pain. He did not tolerate the morphine well. He will be seen by physical therapy today to do hand, wrist, elbow and pendulum exercises. The nursing staff can change the dressing, pull the drain and if everything looks good and he urinates, he can be discharged to home later today.
[2017-09-01 11:23] VITALS: BP 105/68; PULSE 65; TEMP 36.8; O2SAT 90
[2017-09-01 13:03] VITALS: BP 105/68; PULSE 65; TEMP 36.8; O2SAT 90
--- NOTE | 2017-09-01 13:05 | DISCHARGE SUMMARY ---
DATE OF DISCHARGE: 09/01/2017 DISCHARGE DIAGNOSIS: Primary osteoarthritis of the right shoulder. PROCEDURE: Right total shoulder arthroplasty on 08/31/[address] Denton Aguila. DISCHARGE INSTRUCTIONS: 1. Oxycodone 5 mg every 4 hours for pain, Tylenol as needed for pain, Lipitor 20 mg daily, Tambocor 50 mg twice a day, hydrochlorothiazide 12.5 mg daily, Levsin 0.125 mg every other day, lisinopril 40 mg daily, Lopressor 25 mg twice a day, daily multivitamins, Xarelto 20 mg to start tomorrow, Cialis 5 mg every other day, Hytrin 10 mg daily, right arm sling for 3 weeks. 2. Follow up with Dr. Aguila in 2 weeks. Call the office of Dr. Aguila with any questions or concerns. HOSPITAL COURSE: Vinayak is a pleasant 77-year-old male who presented to my office with chronic right shoulder pain. X-rays and clinical examination were diagnostic for primary osteoarthritis of the right shoulder. After failing conservative treatment, he elected to undergo a right total shoulder arthroplasty. On 08/31/2017 he arrived at [facility] and underwent a right shoulder replacement without complications. He had a general anesthetic and a right interscalene nerve block. Postoperatively, he was placed in an arm sling and discharged to general orthopedic floor. His hospital course was uneventful. On postop day #1, his H&H was stable at 10.0 and 30.2. He was able to participate well with physical therapy and his pain was well controlled. I told him to get started back up on his Xarelto the following day. The dressing was changed, the drain was pulled. He was subsequently discharged to home with the above instructions.
== END 2017-09-01 13:45 | disposition home or self-care (01) | DRG 483 ==
LOC: C.ACU 09:07 → C.3E 09:10 → ENRESERV 12:55
PROVIDERS: ADMIT Orthopaedic Surgery; ATTEND Orthopaedic Surgery
PROC: 0RRJ0JZ Replacement of Right Shoulder Joint with Synthetic Substitute, Open Approach (ICD-10-PCS; principal; 2017-08-31 11:20)
DX: M19.011 Primary osteoarthritis, right shoulder (principal); I10 Essential (primary) hypertension; E78.5 Hyperlipidemia, unspecified; E66.9 Obesity, unspecified; Z79.01 Long term (current) use of anticoagulants; Z79.899 Other long term (current) drug therapy; Z96.653 Presence of artificial knee joint, bilateral; Z87.891 Personal history of nicotine dependence; Z68.34 Body mass index [BMI] 34.0-34.9, adult

== ENCOUNTER 2017-09-04 20:36 | Emergency (ER) | payer BC, OTHER ==
[~2017-09-04] VITALS: Ht 182.9 cm; Wt 119.1 kg
[~2017-09-04 20:36] MED LIST changes: -ACETAMINOPHEN 500 MG TAB PO SCH; -BUPIVACAINE 0.25% 30 ML VIAL ONE; -CEFAZOLIN 2000MG IV PUSH 10 ML IV SCH; -CLONIDINE HCL 100 MCG/ML SYRINGE ONE; -EpINEphrine INJ 1MG/ML AMP 1 MG/ML AMP ONE; -FAMOTIDINE 20 MG TAB PO SCH; -FENTANYL CITRATE INJ 50 MCG/1 ML 2 ML VIAL ONE; -GABAPENTIN 300 MG CAP PO SCH; -LACTATED RINGER'S 1000ML IV SCH; -MIDAZOLAM HCL 1 MG/ML 2ML VIAL ONE; -ROPIVACAINE 0.5% 5 MG/ML 30 ML VIAL ONE; -ROPIVACAINE 5MG/ML 30 ML 150 MG, BUPIVACAINE 0.5% MPF INJ 30 ML, EpINEphrine HCL INJ 0.... INFIL SCH; +RXC5 PO
[2017-09-04 20:38] VITALS: TEMP 37; Ht 182.9 cm; Wt 119.1 kg
[2017-09-04 20:51] VITALS: O2SAT 93
[2017-09-04] MEDS ORDERED: FUROSEMIDE 40 MG/4 ML VIAL IV STA (21:12)
[2017-09-04] MEDS ORDERED: OXYC1TAB3 PO (21:18)
[2017-09-04 21:34] LABS: BASO % 0.4 %; BASO ABS # 0.03 K/uL (0-0.2); COMPLETE YES; EOS % 1.2 %; HEMATOCRIT 27.7 % (42-52); IG% 0.1 %; LYMPH % 16.2 %; MEAN CELL VOLUME 87.4 fL (80-100); MEAN CORPUSCULAR HEMOGLOBIN 29.7 pg (25-34); MEAN CORPUSCULAR HGB CONC 33.9 g/dl (32-36); MEAN PLATELET VOLUME 10.6 fL (7.4-10.4); MONO % 9.6 %; NEUT % 72.5 %; PLATELET COUNT 210 K/uL (130-400); RED BLOOD COUNT 3.17 M/uL (4.7-6.1); WHITE BLOOD COUNT 7.41 K/uL (4.8-10.8)
[2017-09-04 21:47] LABS: PARTIAL THROMBOPLASTIN RATIO 1.3; PROTHROMBIN TIME (PATIENT) 10.8 SECONDS (9.0-12.0)
[2017-09-04 21:50] LABS: BLOOD UREA NITROGEN 15 mg/dl (7-18); BUN/CREATININE RATIO 17.5 (10-20); CALCIUM 9.1 mg/dl (8.5-10.1); CARBON DIOXIDE 28 mmol/L (21-32); CHLORIDE 101 mmol/L (98-107); CREATININE 0.86 mg/dl (0.60-1.40); GLUCOSE 243 mg/dl (70-99); POTASSIUM 3.9 mmol/L (3.5-5.1); SODIUM 136 mmol/L (136-145)
--- NOTE | 2017-09-04 21:50 | DIAGNOSTIC IMAGING REPORT ---
CHEST ONE VIEW PORTABLE CLINICAL HISTORY: Evaluate Fever/Sepsis dyspnea COMPARISON STUDY: 10/06/2016 FINDINGS: Moderate stable cardiomegaly. Interstitial prominence left base considered chronic. Lungs otherwise are clear. Diaphragms smooth. IMPRESSION: Stable cardiomegaly. Chronic change. No acute process. The above report was generated using voice recognition software. It may contain grammatical, syntax or spelling errors. Electronically signed by: Arturo Mccollum M.D. 09/04/2017 9:49 PM Dictated Date/Time: 09/04/2017 9:48 PM
[2017-09-04 21:51] LABS: ALT/SGPT 19 U/L (12-78)
[2017-09-04 21:56] LABS: ALKALINE PHOSPHATASE 64 U/L (45-117); AST/SGOT 16 U/L (15-37); CKMB/CK RATIO 1.2 (0-3.0)
[2017-09-04] MEDS ORDERED: FURO20TA PO (22:14)
--- NOTE | 2017-09-04 22:20 | EMERGENCY ROOM VISIT NOTE ---
History Report prepared by Heather: Tomy Sandy Under the Supervision of: Dr. Harpreet Coronel D.O. First contact with patient: 20:53 Chief Complaint: CARDIAC ASSESSMENT Stated Complaint: A-FIB History of Present Illness The patient is a 77 year old male who presents to the Emergency Room with complaints of constant lower extremity edema beginning today. The patient notes that he had a right shoulder replacement done 4 days ago. He notes that he was discharged yesterday, and since then, he has been experiencing body swelling primarily in his legs and the area around his incision site on his shoulder. He notes that he was not given a water pill after his surgery but took a hydrochlorothiazide. He also complains of right arm pain during physical therapy and episodes of atrial fibrillation today. He denies any abdominal pain , fever, and SOB. The patient states that he is currently taking Xarelto and oxycodone. He notes that he does not take oxygen at home and is able to typically walk around the house. Source of History: patient Onset: today Position: leg (bilateral) Quality: other (edema) Timing: constant Associated Symptoms: No fevers, No SOB, No abdominal pain Note: He also complains of right arm pain and atrial fibrillation. Review of Systems See HPI for pertinent positives & negatives. A total of 10 systems reviewed and were otherwise negative. 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 (4) Headache (5) Hypertension (6) Hypertension (7) Hypertensive emergency (8) Osteoarthritis of right shoulder (9) Pneumonia Family History FH: HTN (hypertension) FH: cancer FH: diabetes mellitus FH: heart disease Social History Smoking Status: Never Smoker Alcohol Use: none Drug Use: none Marital Status: Housing Status: lives with significant other Occupation Status: unemployed Current/Historical Medications Scheduled Atorvastatin (Lipitor), 20 MG PO HS Flecainide (Tambocor), 50 MG PO BID Furosemide (Lasix), 1 TAB PO DAILY Hydrochlorothiazide (Hydrochlorothiazide), 12.5 MG PO QPM Lisinopril (Prinivil), 40 MG PO QPM Metoprolol Tartrate (Lopressor) (Lopressor), 25 MG PO BID Multivitamin (Multivitamin), 1 TAB PO QPM Rivaroxaban (Xarelto), 20 MG PO QPM Tadalafil (Cialis), 5 MG PO UD Terazosin Hcl (Hytrin), 10 MG PO QPM Scheduled PRN Acetaminophen (Tylenol), 1 TAB PO Q8 PRN for Pain Hyoscyamine Sulfate (Levsin), 0.125 MG PO UD PRN for bowel spasms Oxycodone Ir (Roxicodone Ir), 5 MG PO Q4H PRN for Severe Pain Allergies Coded Allergies: No Known Allergies (Verified , 08/31/17) Physical Exam Vital Signs Date Time Temp Pulse Resp B/P (MAP) Pulse Ox O2 Delivery O2 Flow Rate FiO2 09/04/17 22:19 84 18 175/78 94 Nasal Cannula 2.0 09/04/17 21:13 94 Nasal Cannula 2.0 09/04/17 20:58 85 09/04/17 20:51 93 Nasal Cannula 2.0 09/04/17 20:45 93 Nasal Cannula 2.0 09/04/17 20:38 37.0 97 20 186/84 93 Room Air Physical Exam CONSTITUTIONAL/VITAL SIGNS: Reviewed / noted above. GENERAL: Non-toxic in appearance. INTEGUMENTARY: Warm, dry, and [place]. HEAD: Normocephalic. EYES: without scleral icterus or trauma. ENT/OROPHARYNX: clear and moist. LYMPHADENOPATHY/NECK: Is supple without lymphadenopathy or meningismus. RESPIRATORY: Lungs clear and equal. CARDIOVASCULAR: Regular rate and rhythm. GI/ABDOMEN: Soft and nontender. No organomegaly or pulsatile mass. No rebound or guarding. Normal bowel sounds. EXTREMITIES: Warm and well perfused. Moderate bilateral LE pitting edema. BACK: No CVA tenderness. CHEST: Surgical wound in right anterior shoulder without obvious infection, maggie are in place, significant amount of eccymosis in the right anterior shoulder and chest wall likely related to surgery. NEUROLOGICAL: Intact without focal deficits. PSYCHIATRIC: normal affect. MUSCULOSKELETAL: Normally developed with good muscle tone. Medical Decision & Procedures ER Provider Diagnostic Interpretation: Radiology results as stated below per my review and radiologist interpretation: CHEST ONE VIEW PORTABLE FINDINGS: Moderate stable cardiomegaly. Interstitial prominence left base considered chronic. Lungs otherwise are clear. Diaphragms smooth. IMPRESSION: Stable cardiomegaly. Chronic change. No acute process. The above report was generated using voice recognition software. It may contain grammatical, syntax or spelling errors. Electronically signed by: Arturo Mccollum M.D. 09/04/2017 9:49 PM Laboratory Results 09/04/17 21:21 Red Blood Count 3.17, Mean Corpuscular Volume 87.4, Mean Corpuscular Hemoglobin 29.7, Mean Corpuscular Hemoglobin Concent 33.9, Mean Platelet Volume 10.6, Neutrophils (%) (Auto) 72.5, Lymphocytes (%) (Auto) 16.2, Monocytes (%) (Auto) 9.6, Eosinophils (%) (Auto) 1.2, Basophils (%) (Auto) 0.4, Neutrophils # (Auto) 5.37, Lymphocytes # (Auto) 1.20, Monocytes # (Auto) 0.71, Eosinophils # (Auto) 0.09, Basophils # (Auto) 0.03 09/04/17 21:21 Test 09/04/17 21:21 White Blood Count 7.41 K/uL (4.8-10.8) Red Blood Count 3.17 M/uL (4.7-6.1) Hemoglobin 9.4 g/dL (14.0-18.0) Hematocrit 27.7 % (42-52) Mean Corpuscular Volume 87.4 fL (80-100) Mean Corpuscular Hemoglobin 29.7 pg (25-34) Mean Corpuscular Hemoglobin Concent 33.9 g/dl (32-36) Platelet Count 210 K/uL (130-400) Mean Platelet Volume 10.6 fL (7.4-10.4) Neutrophils (%) (Auto) 72.5 % Lymphocytes (%) (Auto) 16.2 % Monocytes (%) (Auto) 9.6 % Eosinophils (%) (Auto) 1.2 % Basophils (%) (Auto) 0.4 % Neutrophils # (Auto) 5.37 K/uL (1.4-6.5) Lymphocytes # (Auto) 1.20 K/uL (1.2-3.4) Monocytes # (Auto) 0.71 K/uL (0.11-0.59) Eosinophils # (Auto) 0.09 K/uL (0-0.5) Basophils # (Auto) 0.03 K/uL (0-0.2) RDW Standard Deviation 45.3 fL (36.4-46.3) RDW Coefficient of Variation 14.1 % (11.5-14.5) Immature Granulocyte % (Auto) 0.1 % Immature Granulocyte # (Auto) 0.01 K/uL (0.00-0.02) Prothrombin Time 10.8 SECONDS (9.0-12.0) Prothromb Time International Ratio 1.0 (0.9-1.1) Activated Partial Thromboplast Time 33.3 SECONDS (21.0-31.0) Partial Thromboplastin Ratio 1.3 Anion Gap 7.0 mmol/L (3-11) Est Creatinine Clear Calc Drug Dose 98.9 ml/min Estimated GFR () 98.3 Estimated GFR (Non- 84.8 BUN/Creatinine Ratio 17.5 (10-20) Calcium Level 9.1 mg/dl (8.5-10.1) Total Bilirubin 0.7 mg/dl (0.2-1) Direct Bilirubin 0.2 mg/dl (0-0.2) Aspartate Amino Transf (AST/SGOT) 16 U/L (15-37) Alanine Aminotransferase (ALT/SGPT) 19 U/L (12-78) Alkaline Phosphatase 64 U/L (45-117) Total Creatine Kinase 103 U/L (39-308) Creatine Kinase MB 1.2 ng/ml (0.5-3.6) Creatine Kinase MB Ratio 1.2 (0-3.0) Troponin I < 0.015 ng/ml (0-0.045) Total Protein 6.6 gm/dl (6.4-8.2) Albumin 3.1 gm/dl (3.4-5.0) Lipase 63 U/L (73-393) Laboratory results as stated above per my review. Medications Administered Medications (Trade) Dose Ordered Sig/Kishan Route Start Time Stop Time Status Last Admin Dose Admin Furosemide (Lasix Inj) 40 mg NOW STAT IV 09/04/17 21:12 09/04/17 21:13 DC 09/04/17 22:05 40 MG ECG Indication: SOB/dyspnea Rate (beats per minute): 87 Rhythm: normal sinus Findings: no ectopy, other (no acute injury) ED Course 2053: Previous medical records were reviewed. The patient was evaluated in room C2. A complete history and physical examination was performed. 2111: Lasix Inj 40mg IV 2220: On reevaluation, the patient is doing well. I discussed the results and findings with the patient. He verbalized agreement of the treatment plan. The patient was discharged home. Medical Decision the differential was considered includes acute myocardial infarction, acute coronary syndrome, myocarditis, pericarditis, pericardial effusions /tamponade, esophageal perforation, pulmonary embolism, pneumonia, pneumothorax, cardiomyopathy, congestive heart, anemia , COPD/asthma exacerbation. This is a 77-year-old male who has a history of atrial fibrillation and is chronically on Xaralto. The patient reports that he had total right shoulder replacement done on Sunday. Since discharge, he hasn't experienced increased pedal edema and also thought that he might be in atrial fibrillation. The patient also reports a change in his bowel habits since discharge. He does report that 2 days prior to surgery, he uses an enema to prepare for a prostate MRI. His appetite has been decreased and he is on narcotic pain medication since his surgery. The patient's exam reveals bilateral pitting lower extremity edema. He has postsurgical changes to the right upper shoulder with age-appropriate ecchymosis to the chest wall and right shoulder. The patient's lungs are clear. He is in no distress. Abdomen was soft and nontender. The monitor revealed an twelve-lead EKG reveals a normal sinus rhythm at a rate of 87 without acute injury or ectopy. The patient's CBC reveals a hemoglobin of 9.4. This is down slightly from his hemoglobin of 10 three days ago. Complete metabolic panel was normal. The glucose was 243. The patient does not have a history of diabetes. Troponin was negative. Chest x-ray was negative for acute process. The patient was treated with IV Lasix. He will be discharged with a few days worth of Lasix for pedal edema. The edema is likely related to fluids during surgery. I do not suspect acute congestive heart failure. The patient is felt to be stable for discharge and outpatient follow-up. I did recommend following up with the PCP for recheck next week and his blood sugar and for his hypertension. Medication Reconcilliation Current Medication List: was personally reviewed by me Blood Pressure Screening Patient's blood pressure: Elevated blood pressure Blood pressure disposition: Referred to PCP Impression Primary Impression: Pedal edema Scribe Attestation The scribe's documentation has been prepared under my direction and personally reviewed by me in its entirety. I confirm that the note above accurately reflects all work, treatment, procedures, and medical decision making performed by me. Departure Information Dispostion Home / Self-Care Prescriptions Furosemide (LASIX) 20 Mg Tab 1 TAB PO DAILY for 4 Days, #4 TAB 0 Refills Prov: Harpreet Coronel D.O. 09/04/17 Referrals Evan Pal M.D. (PCP) Forms IMPORTANT VISIT INFORMATION Patient Instructions My [facility] Additional Instructions Lasix as prescribed once a day as needed for lower extremity edema. Follow-up with your doctor next week for recheck of your blood sugar and blood pressure. Return for any worsening or new concerns.
[2017-09-04 22:49] VITALS: BP 175/78; PULSE 84; O2SAT 94
== END 2017-09-04 22:50 | disposition home or self-care (01) ==
LOC: C.EDB 20:36 → C.EDC 22:50
DX: R60.0 Localized edema (principal); R73.09 Other abnormal glucose; I10 Essential (primary) hypertension; Z96.611 Presence of right artificial shoulder joint; M79.601 Pain in right arm; I48.91 Unspecified atrial fibrillation; M17.10 Unilateral primary osteoarthritis, unspecified knee; Z79.01 Long term (current) use of anticoagulants; Z82.49 Family history of ischemic heart disease and other diseases of the circulatory system; Z80.9 Family history of malignant neoplasm, unspecified; Z83.3 Family history of diabetes mellitus

== ENCOUNTER → 2017-09-07 | Outpatient (CLI) | payer BC ==
[~2017-09-07] MED LIST changes: +FURO20TA PO; +OXYC1TAB3 PO
--- NOTE | 2017-09-07 14:33 | DIAGNOSTIC IMAGING REPORT ---
ULTRASOUND R VENOUS DOPPLER UPR EXT UNILAT CLINICAL HISTORY: Right upper extremity swelling COMPARISON STUDY: No previous studies for comparison. FINDINGS: No thrombus is visualized in the right internal jugular, right subclavian, right brachial, right basilic, right radial, right ulnar, or right axillary vein. There is a long segment thrombus of the right cephalic vein at the mid upper arm level. IMPRESSION: Right cephalic vein thrombus. Electronically signed by: Han Victor M.D. 09/07/2017 2:31 PM Dictated Date/Time: 09/07/2017 2:30 PM
== END | disposition home or self-care (01) ==
LOC: C.ULTRBC 13:48
PROVIDERS: ATTEND Internal Medicine
DX: M79.89 Other specified soft tissue disorders (principal); I82.611 Acute embolism and thrombosis of superficial veins of right upper extremity

== ENCOUNTER → 2017-09-11 | Outpatient (CLI) | payer BC ==
[~2017-09-11] MED LIST changes: -RXC5 PO
[2017-09-11 12:21] LABS: BASO % 0.2 %; BASO ABS # 0.02 K/uL (0-0.2); COMPLETE YES; EOS % 0.5 %; HEMATOCRIT 30.9 % (42-52); IG% 0.2 %; LYMPH % 16.3 %; LYMPH ABS # 1.42 K/uL (1.2-3.4); MEAN CELL VOLUME 89.3 fL (80-100); MEAN CORPUSCULAR HEMOGLOBIN 30.1 pg (25-34); MEAN CORPUSCULAR HGB CONC 33.7 g/dl (32-36); MEAN PLATELET VOLUME 10.1 fL (7.4-10.4); MONO % 6.3 %; NEUT % 76.5 %; PLATELET COUNT 320 K/uL (130-400); RED BLOOD COUNT 3.46 M/uL (4.7-6.1); WHITE BLOOD COUNT 8.73 K/uL (4.8-10.8)
[2017-09-11 12:25] LABS: BLOOD UREA NITROGEN 13 mg/dl (7-18); BUN/CREATININE RATIO 15.1 (10-20); CALCIUM 9.6 mg/dl (8.5-10.1); CARBON DIOXIDE 28 mmol/L (21-32); CHLORIDE 101 mmol/L (98-107); CREATININE 0.85 mg/dl (0.60-1.40); GLUCOSE 198 mg/dl (70-99); POTASSIUM 3.9 mmol/L (3.5-5.1); SODIUM 136 mmol/L (136-145)
== END | disposition home or self-care (01) ==
LOC: C.LABBFT 10:17
PROVIDERS: ATTEND Internal Medicine
DX: I82.621 Acute embolism and thrombosis of deep veins of right upper extremity (principal); R60.9 Edema, unspecified

== ENCOUNTER → 2017-11-19 | Outpatient (CLI) | payer BC | END | disposition home or self-care (01) | LOC: C.RDSM 10:29 | PROVIDERS: ATTEND Physical Medicine & Rehabilitation Sports Medicine | DX: M17.11 Unilateral primary osteoarthritis, right knee (principal) ==

== ENCOUNTER → 2017-12-20 | Outpatient (CLI) | payer BC ==
[2017-12-20 12:17] LABS: BASO % 0.3 %; BASO ABS # 0.02 K/uL (0-0.2); EOS % 0.7 %; EOS ABS # 0.04 K/uL (0-0.5); HEMATOCRIT 40.4 % (42-52); HEMOGLOBIN 13.9 g/dL (14.0-18.0); IG# 0.02 K/uL (0.00-0.02); LYMPH % 28.1 %; LYMPH ABS # 1.71 K/uL (1.2-3.4); MEAN CELL VOLUME 87.1 fL (80-100); MEAN CORPUSCULAR HGB CONC 34.4 g/dl (32-36); MEAN PLATELET VOLUME 11.5 fL (7.4-10.4); MONO % 8.2 %; NEUT % 62.4 %; PLATELET COUNT 162 K/uL (130-400); RED CELL DISTRIBUTION WIDTH CV 13.6 % (11.5-14.5); RED CELL DISTRIBUTION WIDTH SD 43.4 fL (36.4-46.3); WHITE BLOOD COUNT 6.09 K/uL (4.8-10.8)
[2017-12-20 12:37] LABS: ALBUMIN 3.8 gm/dl (3.4-5.0); ALKALINE PHOSPHATASE 70 U/L (45-117); ALT/SGPT 23 U/L (12-78); AST/SGOT 16 U/L (15-37); BLOOD UREA NITROGEN 21 mg/dl (7-18); CALCIUM 9.4 mg/dl (8.5-10.1); CARBON DIOXIDE 27 mmol/L (21-32); CHOLESTEROL 135 mg/dl (0-200); CREATININE 0.85 mg/dl (0.60-1.40); GLUCOSE 145 mg/dl (70-99); SODIUM 139 mmol/L (136-145); TOTAL PROTEIN 7.2 gm/dl (6.4-8.2)
[2017-12-20 12:38] LABS: LDL CHOLESTEROL CALCULATED 56 mg/dl
[2017-12-20 12:59] LABS: HEMOGLOBIN A1C 6.6 % (4.5-5.6)
== END | disposition home or self-care (01) ==
LOC: C.LABBFT 09:33
PROVIDERS: ATTEND Internal Medicine Cardiovascular Disease
DX: E11.9 Type 2 diabetes mellitus without complications (principal); E78.00 Pure hypercholesterolemia, unspecified; I10 Essential (primary) hypertension

== ENCOUNTER → 2017-12-25 | Outpatient (CLI) | payer BC | LOC: C.LAB 13:25 | PROVIDERS: ATTEND Nurse Practitioner Adult Health | DX: R36.1 Hematospermia (principal) ==

== ENCOUNTER 2019-07-11 20:28 | Inpatient (IN) ==
[2019-07-11] MEDS ORDERED: SODIUM CHLORIDE 0.9% 500 ML IV ONE (21:42)
[2019-07-11] MEDS ORDERED: PROCHLORPERAZINE 1 ML IV ONE (21:43)
[2019-07-11] MEDS ORDERED: ACETAMINOPHEN 1,000 MG/100 ML VIAL IV STA (21:43)
[2019-07-11 21:59] LABS: Basophils # (auto) 0.02 K/uL (0-0.2); Basophils % (auto) 0.2 %; Eosinophils # (auto) 0.02 K/uL (0-0.5); Eosinophils % (auto) 0.2 %; Hemoglobin 13.7 g/dL (14.0-18.0); Immature Granulocytes # (auto) 0.02 K/uL (0.00-0.02); Immature Granulocytes % (auto) 0.2 %; Lymphocytes # (auto) 1.32 K/uL (1.2-3.4); Lymphocytes % (auto) 12.3 %; Mean Corpuscular Hemoglobin 30.2 pg (25-34); Mean Corpuscular Hgb Conc 34.3 g/dL (32-36); Mean Corpuscular Volume 88.1 fL (80-100); Mean Platelet Volume 11.3 fL (7.4-10.4); Monocytes # (auto) 0.72 K/uL (0.11-0.59); Monocytes % (auto) 6.7 %; Neutrophils # (auto) 8.67 K/uL (1.4-6.5); Neutrophils % (auto) 80.4 %; Platelet Count 154 K/uL (130-400); RDW Coefficient of Variation 13.7 % (11.5-14.5); RDW Standard Deviation 44.5 fL (36.4-46.3); Red Blood Count 4.54 M/uL (4.7-6.1); White Blood Count 10.77 K/uL (4.8-10.8)
[2019-07-11 22:07] LABS: Alanine Aminotransferase 31 U/L (12-78); Albumin Level 3.8 gm/dl (3.4-5.0); Aspartate Aminotransferase 18 U/L (15-37); BUN Creatinine Ratio 19.8 (10-20); Bilirubin Direct 0.1 mg/dl (0-0.2); Blood Urea Nitrogen 18 mg/dl (7-18); Calcium 9.5 mg/dl (8.5-10.1); Carbon Dioxide 27 mmol/L (21-32); Chloride 105 mmol/L (98-107); Creatinine Clr Calc Pharmacy 89.2 ml/min; Est GFR (African American) 93.9; Glucose 257 mg/dl (70-99); Lipase 877 U/L (73-393); Magnesium 2.1 mg/dl (1.8-2.4); Potassium 4.5 mmol/L (3.5-5.1); Sodium 138 mmol/L (136-145)
[2019-07-11 22:10] LABS: Albumin Globulin Ratio 1.2 (0.9-2); Alkaline Phosphatase 85 U/L (45-117); Bilirubin,Total 0.4 mg/dl (0.2-1); Globulin 3.2 gm/dl (2.5-4.0); Troponin I < 0.015 ng/ml (0-0.045)
[2019-07-11 22:12] LABS: Appearance Urine Clear (Clear); Bilirubin Urine Negative (Negative); Blood Urine Negative (Negative); Color Urine Yellow; Glucose Urine UA 1+ (Negative); Ketones Urine Negative (Negative); Leukocyte Esterase Urine Negative (Negative); Nitrite Urine Negative (Negative); Protein Urine Negative (Negative); Specific Gravity Urine 1.012 (1.000-1.030); Urobilinogen Urine Negative (Negative); pH Urine 5.5 (4.5-7.5)
--- NOTE | 2019-07-11 22:12 | XRay Report ---
XR chest 1V portable CLINICAL HISTORY: Atypical chest pain COMPARISON STUDY: 09/04/2017 FINDINGS: The heart is enlarged. There is persistent interstitial prominence, finding which is likely accentuated by suboptimal inspiration. Please correlate clinically for evidence of mild congestive f ailure. There is an old left clavicular fracture. Increased markings the left lung base, atelectatic versus infectious/inflammatory There are no pleural effusions. IMPRESSION: Cardiomegaly and interstitial prominence, likely accentuated by suboptimal inspiration.. Please correlate clinically for evidence of mild congestive failure. Increased left basilar markings, atelectatic versus infectious/inflammatory Electronically signed by: Han Victor M.D. 07/11/2019 10:10 PM
[2019-07-11] MEDS ORDERED: IOVERSOL 100ml IV PRN (22:34)
--- NOTE | 2019-07-11 22:47 | CT Scan Report ---
CT abd pelvis IV con only CLINICAL HISTORY: lower abd pain COMPARISON STUDY: None. TECHNIQUE: The patient was scanned in a dynamic helical fashion during intravenous administration of 90 cc of Optiray 320. A dose lowering technique was utilized adhering to the principles of ALARA. CT DOSE: 1126.76 mGy.cm FINDINGS: Lower chest: There are dependent atelectatic changes. Liver: The contrast-enhanced liver is normal in size, contour, and attenuation. There is no intrahepa tic biliary ductal dilatation. The hepatic veins and portal veins are patent. Gallbladder: Unremarkable. Spleen: Normal in size and attenuation. Pancreas: There is infiltration of fat surrounding the pancreatic head. The findings are suspicious f or acute pancreatitis. Correlation with appropriate biochemical markers is recommended. Adrenal glands: Unremarkable. Kidneys: There is symmetric renal cortical enhancement. The kidneys are normal in size without hydron ephrosis. Bowel: There are no transition zones to indicate bowel obstruction. There is no acute diverticulitis. There are scattered colonic diverticula present. The appendix appears normal. Peritoneum: There is no intraperitoneal free air or abdominal ascites. There is a small fat-containin g umbilical hernia. There is a fat-containing right inguinal hernia. Vasculature: The abdominal aorta is normal in course and caliber. Adenopathy: None. Pelvic viscera: The prostate is enlarged and lobular in appearance. There is a focal hypodensity with in the right mid aspect of the gland. Skeletal structures: No destructive osseous lesions are seen. IMPRESSION: 1. No evidence of bowel obstruction. No evidence of free air 2. Normal appendix. No evidence of acute diverticulitis. 3. Infiltration of the fat surrounding the pancreatic head suspicious for acute pancreatitis. Correla tion with appropriate biochemical markers is recommended 4. Prostatomegaly Electronically signed by: Han Victor M.D. 07/11/2019 10:46 PM
[2019-07-11 23:16] LABS: INR 1.1 (0.9-1.1); Prothrombin Time 11.1 Seconds (9.0-12.0)
[2019-07-11] MEDS ORDERED: SODIUM CHLORIDE 0.9% 1000ML 1,000 ML IV STA (23:18)
[2019-07-12] MEDS ORDERED: HYDROmorphone INJ 0.5 MG/0.5 ML SYR IV ONE (00:45)
--- NOTE | 2019-07-12 00:56 | Emergency Department Note ---
Entered by Ledy Harmon acting as a scribe for Brayan Sparks MD History of Present Illness General Chief complaint: Abdominal Pain Stated complaint: ABD PAIN Time Seen by Provider: 07/11/19 21:32 Source: patient History of Present Illness Onset (ago): day(s) 2 Location: abdomen (lower, left-sided) Radiation: other (right-side of abdomen) Pain Consistency: + other (worsening) Maximum Pain Intensity: 3 Associated symptoms: + denies other symptoms (burning urination, blood in urine), + nausea/vomiting (positive nausea, negative vomiting) and + other (back pain); no chest pain and no shortness of breath The patient is a 79 year old M who presents to the Emergency Room with c omplaints of worsening abdominal pain that started 2 days ago. The patient states that his abdominal pain started in the left side but has now radiated to the right side. He notes that he is currently experiencing nausea and back pain. He denies that he is currently experiencing vomiting, burning urination, chest pain, shortness of breath, and blood in his urine. He adds that he had a bowel movement this morning but notes that the stool was white in color. He states that he has a history of A Fib. Home Medications Home Medications Medication Instructions Recorded Confirmed Type atorvastatin 20 mg tablet 20 mg PO DAILY #90 tab 06/10/19 07/11/19 Rx flecainide 50 mg tablet 50 mg PO Q12H #180 tab 06/10/19 07/11/19 Rx lisinopril 40 mg tablet 40 mg PO DAILY #90 tab 06/10/19 07/11/19 Rx lorazepam 0.5 mg tablet 0.5 mg PO DAILY PRN #1 tab 06/10/19 07/11/19 Rx multivitamin tablet 1 tab PO DAILY #30 tab 06/10/19 07/11/19 Rx rivaroxaban 20 mg tablet 20 mg PO DAILY #90 tab 06/10/19 07/11/19 Rx tadalafil 5 mg tablet 5 mg PO DAILY #90 tab 06/10/19 07/11/19 Rx terazosin 10 mg capsule 10 mg PO DAILY #90 cap 06/10/19 07/11/19 Rx aspirin 81 mg tablet 81 mg PO DAILY tab 06/11/19 07/11/19 History metoprolol succinate ER 25 mg 12.5 mg PO BID tab 06/17/19 07/11/19 History tablet,extended release 24 hr Allergies Allergy/AdvReac Type Severity Reaction Status Date / Time No Known Allergies Allergy Unverified 07/11/19 23:34 Past Med/Surg History Medical History Diabetes type 2, controlled (Chronic) Hypercholesteremia (Chronic) Hypertension (Chronic) Hypertension (Chronic) Atrial fibrillation (Chronic) 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 and A total of 10 systems reviewed and were otherwise negative Physical Exam Vital Signs Vital Signs - 24 hr 07/11/19 20:34 07/11/19 21:59 07/11/19 22:03 Temperature 37.1 C Temperature Source Oral Sepsis Recent Fever Within 48 Hours No Sepsis Action Taken by Nursing No Action Required Pulse Rate 84 Pulse Rate [Bilateral] 73 72 Pulse Rhythm [Bilateral] Regular Pulse Strength [Bilateral] Normal Respiratory Rate 20 18 18 Respiratory Effort / Characteristics Non-Labored Spontaneous Respiratory Depth Normal Respiratory Pattern Regular Blood Pressure 197/84 H Blood Pressure [Left Arm] 219/100 H 200/92 H Blood Pressure Mean 121 Blood Pressure Mean [Left Arm] 139 128 Blood Pressure Position Sitting Blood Pressure Position [Left Arm] Sitting Pulse Oximetry 93 95 95 Oxygen Delivery Method Room Air Room Air Room Air 07/11/19 23:48 07/12/19 01:24 07/12/19 01:39 Temperature Temperature Source Sepsis Recent Fever Within 48 Hours Sepsis Action Taken by Nursing Pulse Rate 70 Pulse Rate [Bilateral] 70 70 Pulse Rhythm [Bilateral] Pulse Strength [Bilateral] Respiratory Rate 18 18 Respiratory Effort / Characteristics Respiratory Depth Respiratory Pattern Blood Pressure 204/87 H Blood Pressure [Left Arm] 192/90 H 204/87 H Blood Pressure Mean Blood Pressure Mean [Left Arm] 124 126 Blood Pressure Position Blood Pressure Position [Left Arm] Pulse Oximetry 93 94 Oxygen Delivery Method Room Air Room Air GENERAL: Awake, alert, fatigued/uncomfortable-appearing, in no distress HENT: Normocephalic, atraumatic. Oropharynx with dry mucous membranes and otherwise unremarkable. EYES: Normal conjunctiva. Sclera non-icteric. NECK: Supple. No nuchal rigidity. FROM. No JVD. RESPIRATORY: CTAB CARDIAC: Regular rate, normal rhythm. Extremities warm and well perfused. Pulses equal. ABDOMEN: Soft, non-distended. Mild lower abdominal tenderness. No rebound or guarding. No masses. RECTAL: Deferred. MUSCULOSKELETAL: Chest examination reveals no tenderness. The back is symmetrical on inspection without obvious abnormality. There is no CVA tenderness to palpation. No joint edema. LOWER EXTREMITIES: Calves are equal size bilaterally and non-tender. No edema. No discoloration. NEURO: Normal sensorium. No sensory or motor deficits noted. SKIN: No rash or jaundice noted. Course 2140: The patient was evaluated in room B9. A complete history and physical exam was performed. 2322: I reviewed the patient's case with Dr. Nascimento, [facility] Hospitalist. He will evaluate the patient for further management. Consultations Consultation #1: I reviewed the patient's case with Dr. Nascimento, [facility] Hospitalist. He will evaluate the patient for further management. Time: 23:22 Administered Medications Sodium Chloride (Nss 1000ml) 1,000 mls @ 125 mls/hr IV .Q8H STA Stop: 07/12/19 07:17 Last Admin: 07/11/19 23:25 Dose: 125 mls/hr Documented by: [id number] Ioversol (Optiray 320 100ml) 90 ml IV ONCE PRN PRN Reason: Interaction Checking Stop: 07/15/19 22:33 Last Admin: 07/11/19 22:35 Dose: 90 ml Documented by: [id number] Discontinued Medications Hydromorphone HCl (Dilaudid) 0.5 mg IV NOW ONE Stop: 07/12/19 00:46 Last Admin: 07/12/19 01:07 Dose: 0.5 mg Documented by: [id number] Acetaminophen (Ofirmev) 1,000 mg in 100 mls @ 400 mls/hr IV NOW STA Stop: 07/11/19 21:57 Last Infusion: 07/11/19 22:16 Dose: 0 mls/hr Documented by: [id number] Admin: 07/11/19 22:00 Dose: 400 mls/hr Documented by: [id number] Sodium Chloride (Nss) 500 mls @ 999 mls/hr IV .Q31M ONE Stop: 07/11/19 22:12 Last Infusion: 07/11/19 22:34 Dose: 0 mls/hr Documented by: [id number] Admin: 07/11/19 22:00 Dose: 999 mls/hr Documented by: [id number] Prochlorperazine (Compazine) 1 mls @ 1 mls/min IV ONE ONE Stop: 07/11/19 21:44 Last Admin: 07/11/19 22:00 Dose: 1 mls/min Documented by: [id number] Metoprolol Tartrate (Lopressor) Confirm Administered Dose 5 mg IV .STK-MED ONE Stop: 07/12/19 01:39 Last Admin: 07/12/19 01:39 Dose: 5 mg Documented by: [id number] Medical Decision Making Differential Diagnosis Differential diagnoses includes but is not limited to gastritis, peptic ulcer disease, GERD, gallbladder disease, pancreatitis, small bowel obstruction, acute coronary syndrome, pericarditis, ischemic bowel, irritable bowel disease, irritable bowel syndrome, appendicitis, diverticulitis, malignancy, hernia, urinary tract infection, torsion, perforation, trauma, infectious. Medical Records Attestation: I reviewed the patient's medical records. Home Medications Current Medication List: was personally reviewed by me Laboratory Data Attestation: I reviewed the patient's lab results. Result diagrams: 07/11/19 20:58 07/11/19 20:58 Lab Results 07/11/19 07/11/19 07/11/19 Range/Units 20:58 20:58 20:58 WBC 10.77 (4.8-10.8) K/uL RBC 4.54 L (4.7-6.1) M/uL Hgb 13.7 L (14.0-18.0) g/dL Hct 40.0 L (42-52) % MCV 88.1 (80-100) fL MCH 30.2 (25-34) pg MCHC 34.3 (32-36) g/dL RDW Std Deviation 44.5 (36.4-46.3) fL RDW Coeff of Berta 13.7 (11.5-14.5) % Plt Count 154 (130-400) K/uL MPV 11.3 H (7.4-10.4) fL Immature Gran % (Auto) 0.2 % Neut % (Auto) 80.4 % Lymph % (Auto) 12.3 % Saunders % (Auto) 6.7 % Eos % (Auto) 0.2 % Baso % (Auto) 0.2 % Immature Gran # (Auto) 0.02 (0.00-0.02) K/uL Neut # (Auto) 8.67 H (1.4-6.5) K/uL Lymph # (Auto) 1.32 (1.2-3.4) K/uL Saunders # (Auto) 0.72 H (0.11-0.59) K/uL Eos # (Auto) 0.02 (0-0.5) K/uL Baso # (Auto) 0.02 (0-0.2) K/uL PT (9.0-12.0) Seconds INR (0.9-1.1) Sodium 138 (136-145) mmol/L Potassium 4.5 (3.5-5.1) mmol/L Chloride 105 (98-107) mmol/L Carbon Dioxide 27 (21-32) mmol/L Anion Gap 5.0 (3-11) BUN 18 (7-18) mg/dl Creatinine 0.91 (0.6-1.4) mg/dl Est Cr Clr Drug Dosing 89.2 ml/min Est GFR ( Amer) 93.9 Est GFR (Non-Af Amer) 81.0 BUN/Creatinine Ratio 19.8 (10-20) Glucose 257 H (70-99) mg/dl Calcium 9.5 (8.5-10.1) mg/dl Phosphorus 3.0 (2.5-4.9) mg/dl Magnesium 2.1 (1.8-2.4) mg/dl Total Bilirubin 0.4 (0.2-1) mg/dl Direct Bilirubin 0.1 (0-0.2) mg/dl AST 18 (15-37) U/L ALT 31 (12-78) U/L Alkaline Phosphatase 85 (45-117) U/L Lactate Dehydrogenase (87-241) U/L Troponin I < 0.015 (0-0.045) ng/ml Total Protein 7.0 (6.4-8.2) gm/dl Albumin 3.8 (3.4-5.0) gm/dl Globulin 3.2 (2.5-4.0) gm/dl Albumin/Globulin Ratio 1.2 (0.9-2) Lipase 877 H (73-393) U/L Urine Color Yellow Urine Appearance Clear (Clear) Urine pH 5.5 (4.5-7.5) Ur Specific [place] 1.012 (1.000-1.030) Urine Protein Negative (Negative) Urine Glucose (UA) 1+ H (Negative) Urine Ketones Negative (Negative) Urine Blood Negative (Negative) Urine Nitrite Negative (Negative) Urine Bilirubin Negative (Negative) Urine Urobilinogen Negative (Negative) Ur Leukocyte Esterase Negative (Negative) 07/11/19 07/11/19 Range/Units 22:53 22:57 WBC (4.8-10.8) K/uL RBC (4.7-6.1) M/uL Hgb (14.0-18.0) g/dL Hct (42-52) % MCV (80-100) fL MCH (25-34) pg MCHC (32-36) g/dL RDW Std Deviation (36.4-46.3) fL RDW Coeff of Berta (11.5-14.5) % Plt Count (130-400) K/uL MPV (7.4-10.4) fL Immature Gran % (Auto) % Neut % (Auto) % Lymph % (Auto) % Saunders % (Auto) % Eos % (Auto) % Baso % (Auto) % Immature Gran # (Auto) (0.00-0.02) K/uL Neut # (Auto) (1.4-6.5) K/uL Lymph # (Auto) (1.2-3.4) K/uL Saunders # (Auto) (0.11-0.59) K/uL Eos # (Auto) (0-0.5) K/uL Baso # (Auto) (0-0.2) K/uL PT 11.1 (9.0-12.0) Seconds INR 1.1 (0.9-1.1) Sodium (136-145) mmol/L Potassium (3.5-5.1) mmol/L Chloride (98-107) mmol/L Carbon Dioxide (21-32) mmol/L Anion Gap (3-11) BUN (7-18) mg/dl Creatinine (0.6-1.4) mg/dl Est Cr Clr Drug Dosing ml/min Est GFR ( Amer) Est GFR (Non-Af Amer) BUN/Creatinine Ratio (10-20) Glucose (70-99) mg/dl Calcium (8.5-10.1) mg/dl Phosphorus (2.5-4.9) mg/dl Magnesium (1.8-2.4) mg/dl Total Bilirubin (0.2-1) mg/dl Direct Bilirubin (0-0.2) mg/dl AST (15-37) U/L ALT (12-78) U/L Alkaline Phosphatase (45-117) U/L Lactate Dehydrogenase 185 (87-241) U/L Troponin I (0-0.045) ng/ml Total Protein (6.4-8.2) gm/dl Albumin (3.4-5.0) gm/dl Globulin (2.5-4.0) gm/dl Albumin/Globulin Ratio (0.9-2) Lipase (73-393) U/L Urine Color Urine Appearance (Clear) Urine pH (4.5-7.5) Ur Specific [place] (1.000-1.030) Urine Protein (Negative) Urine Glucose (UA) (Negative) Urine Ketones (Negative) Urine Blood (Negative) Urine Nitrite (Negative) Urine Bilirubin (Negative) Urine Urobilinogen (Negative) Ur Leukocyte Esterase (Negative) Imaging Data Radiologist's Impression: Radiology results as stated below per my review and the radiologist's interpretation: XR chest 1V portable CLINICAL HISTORY: Atypical chest pain COMPARISON STUDY: 09/04/2017 FINDINGS: The heart is enlarged. There is persistent interstitial prominence, finding which is likely accentuated by suboptimal inspiration. Please correlate clinically for evidence of mild congestive failure. There is an old left clavicular fracture. Increased markings the left lung base, atelectatic versus infectious/inflammatory There are no pleural effusions. IMPRESSION: Cardiomegaly and interstitial prominence, likely accentuated by suboptimal inspiration.. Please correlate clinically for evidence of mild congestive failure. Increased left basilar markings, atelectatic versus infectious/inflammatory Electronically signed by: Han Victor M.D. 07/11/2019 10:[address] abd pelvis IV con only CLINICAL HISTORY: lower abd pain COMPARISON STUDY: None. TECHNIQUE: The patient was scanned in a dynamic helical fashion during intravenous administration of 90 cc of Optiray 320. A dose lowering technique was utilized adhering to the principles of ALARA. CT DOSE: 1126.76 mGy.cm FINDINGS: Lower chest: There are dependent atelectatic changes. Liver: The contrast-enhanced liver is normal in size, contour, and attenuation. There is no intrahepatic biliary ductal dilatation. The hepatic veins and portal veins are patent. Gallbladder: Unremarkable. Spleen: Normal in size and attenuation. Pancreas: There is infiltration of fat surrounding the pancreatic head. The findings are suspicious for acute pancreatitis. Correlation with appropriate biochemical markers is recommended. Adrenal glands: Unremarkable. Kidneys: There is symmetric renal cortical enhancement. The kidneys are normal in size without hydronephrosis. Bowel: There are no transition zones to indicate bowel obstruction. There is no acute diverticulitis. There are scattered colonic diverticula present. The appendix appears normal. Peritoneum: There is no intraperitoneal free air or abdominal ascites. There is a small fat-containing umbilical hernia. There is a fat-containing right ingu inal hernia. Vasculature: The abdominal aorta is normal in course and caliber. Adenopathy: None. Pelvic viscera: The prostate is enlarged and lobular in appearance. There is a focal hypodensity within the right mid aspect of the gland. Skeletal structures: No destructive osseous lesions are seen. IMPRESSION: 1. No evidence of bowel obstruction. No evidence of free air 2. Normal appendix. No evidence of acute diverticulitis. 3. Infiltration of the fat surrounding the pancreatic head suspicious for acute pancreatitis. Correlation with appropriate biochemical markers is recommended 4. Prostatomegaly Electronically signed by: Han Victor M.D. 07/11/2019 10:46 PM ECG Data Attestation: I personally reviewed and interpreted this ECG as follows: Indication: abdominal pain Rate (beats per minute): 71 Rhythm: normal sinus Findings: + other (LVH, QTc 417); no acute ischemic change Blood Pressure Blood Pressure Findings: Elevated blood pressure Blood Pressure Disposition: further management by hospitalist CANDIE Narrative The patient is a pleasant 79-year-old gentleman with a past medical history of hypertension, hyperlipidemia, A. fib on flecainide and Eliquis, type 2 diabetes not on medications who presents emergency department with abdominal pain and nausea over the past 24 hours per hpi. On arrival the patient is in no acute distress, afebrile with hypertension 200/1 100s and vital signs otherwise stable. On exam the patient appears clinically dry. He has mild generalized abdominal discomfort without discrete tenderness. There is no guarding or rebound. EKG without overt acute ischemia. Chest x-ray with question of venous congestion however patient denies any respiratory symptoms. WBC within normal limits. H/H 13.7/40 similar to prior range of values. Platelets within normal limits. Glucose 257 however chemistry without acidosis. Electrolytes and LFTs unremarkable. Lipase elevated 877. Troponin negative. UA negative for infection. CT abdomen pelvis performed and demonstrates peripancreatic stranding consistent with pancreatitis given the patient's elevated lipase and symptoms. Given the patient's age and elevated glucose LDH was added and was within normal limits. Patient was feeling improved after IV fluid hydration, Compazine, APAP. However still with some mild abdominal discomfort. Given the patient's age and comorbidities with elevated lipase in the setting of CT evidence of pancreatitis reasonable to admit the patient for further management. The patient is agreeable with this. Case was discussed with Dr. Nascimento, [facility] hospitalist, who evaluate the patient for admission. Impression & Plan Pancreatitis, Abdominal pain, Hyperglycemia, Nausea Discharge Plan Visit Data *Final* Discharge Date/Time: 07/12/19 02:35 Chief Complaint: Abdominal Pain Stated Complaint: ABD PAIN ED Provider: Brayan Sparks Discharge Problem: Pancreatitis, Abdominal pain, Hyperglycemia, Nausea Patient Disposition: Admitted As Inpatient Discharge Instructions Interventions: ED Discharge Assessment Last Done: 07/12/19 02:35 Discharge Problem: Pancreatitis Qualifiers: Chronicity: acute Pancreatitis type: unspecified pancreatitis type Acute kraus creatitis complication: unspecified Qualified Code(s): K85.90 - Acute pancreatitis without necrosis or infection, unspecified Abdominal pain Qualifiers: Abdominal location: lower abdomen, unspecified Qualified Code(s): R10.30 - Lower abdominal pain, unspecified The scribe's documentation has been prepared under my direction and personally reviewed by me in its entirety. I confirm that the note above accurately reflects all work, treatment, procedures, and medical decision making performed by me.
[2019-07-12] MEDS ORDERED: METOPROLOL TARTRATE 1 MG/ML VIAL IV STA (01:33)
[2019-07-12] MEDS ORDERED: METOPROLOL TARTRATE 1 MG/ML VIAL IV ONE (01:38)
--- NOTE | 2019-07-12 01:51 | History & Physical Report ---
Date of Service July 12, 2019 Assessment & Plan (1) Pancreatitis: 79-year-old male was admitted on 12 July 2019 for abdominal pain. Pancreatitis: Epigastric pain radiating to his back beginning 09Oct (i.e. about 72 hours). Positive nausea without V/D. No known history of same. Denies alcohol use. No known gallbladder issues. Some very recent changes in his stools. Elevated lipase and imaging suggestive of a mild pancreatitis. Some concern that the combination of infiltration of the pancreatic head along with reported acholic stools may represent local malignancy. - No mention of any congestive heart failure on his most recent cardiology note on July 08. - In ED, afebrile, not tachycardic, is hypertensive, with normal-low room SpO2. WBC 10. Electrolytes okay. Glucose 257. Anion gap of 5 and normal LDH. Troponin negative and EKG NSR 71. LFTs normal. Lipase 877. UA negative. Chest x-ray with questionable multiple findings (see report). CT a/p with IV (only) contrast suggestive of acute pancreatitis. - In ED, treated with normal saline bolus, Tylenol, Compazine, and placed on normal saline IVF. - On admit, will place on LR at 200 mL/h. Recheck lipase with CMP in a.m. Ordered MRCP. Dilaudid and Compazine for pain and nausea (both prn). Will cons ult GI. As a side note, although no respiratory or overt chest symptoms, will recheck a chest x-ray in a.m. given unclear pCXR findings. Hypertension: Known history of same. As high as 219/100 in ED. Has been off of all of his meds for over 24 hours due to nausea. - Will restart his home meds. Gave single dose of metoprolol IV in ED. Ongoing medical issues: - Hypertension, hypercholesterolemia: Continue home aspirin, atorvastatin, lisinopril, metoprolol. - Paroxysmal atrial fibrillation: In NSR on admit. Continue home flecainide, metoprolol, and Xarelto. - Diabetes type 2: Is not on any medications at home for this. June 2019 A1c was [address] on insulin sliding scale here. - Anxiety: Continue home lorazepam as needed. - ?? BPH: Prostatomegaly seen on CT a/p as well. Continue home tadalafil and terazosin. Code status: Full code. Diet: NPO initially except PO meds. DVT prophy: Xarelto. PT/OT: Deferred. Disbo: Admit to MedSurg. (2) Hypertension: (3) Hypercholesteremia: (4) Paroxysmal atrial fibrillation: (5) Diabetes type 2, controlled: (6) Anxiety: History of Present Illness Primary Care Provider: Evan Pal MD 79-year-old male presents with his for evaluation of abdominal pain that began this past Sunday, July 09. He says initially felt like an upset stomach but that it has lingered. He has ongoing nausea without any vomiting or diarrhea. The nausea is caused him to lose his appetite so he has been eating mostly mild foods and gordon dee. He notes primarily epigastric pain in a bandlike pattern in his upper abdomen as well as some radiation towards his back. Denies any history of the same. No known gallbladder issues. Denies any chest pain, shortness of breath, or respiratory symptoms. On further review of systems, he states that normally his stools will float. However, his last two bowel movements have been heavier and much watch crystal cutter in color. Because of his pain he has not taken any of his home meds for over 24 hours. No other acute patient concerns raised. - Past medical history includes hypertension, hypercholesterolemia, paroxysmal atrial fibrillation, diabetes type 2, anxiety, osteoarthritis, headache, seborrheic keratosis, obesity. - Past surgical history includes bilateral total knee arthroplasty. - Social history includes smoking upwards of 0.5 pack/day at work but quit 15 years ago. Very rare (perhaps 1-2 times per year) alcohol use. Lives at home with his . Allergies Allergy/AdvReac Type Severity Reaction Status Date / Time No Known Allergies Allergy Unverified 07/11/19 23:34 Home Medications Home Medications Medication Instructions Recorded Confirmed Type atorvastatin 20 mg tablet 20 mg PO DAILY #90 tab 06/10/19 07/11/19 Rx flecainide 50 mg tablet 50 mg PO Q12H #180 tab 06/10/19 07/11/19 Rx lisinopril 40 mg tablet 40 mg PO DAILY #90 tab 06/10/19 07/11/19 Rx lorazepam 0.5 mg tablet 0.5 mg PO DAILY PRN #1 tab 06/10/19 07/11/19 Rx multivitamin tablet 1 tab PO DAILY #30 tab 06/10/19 07/11/19 Rx rivaroxaban 20 mg tablet 20 mg PO DAILY #90 tab 06/10/19 07/11/19 Rx tadalafil 5 mg tablet 5 mg PO DAILY #90 tab 06/10/19 07/11/19 Rx terazosin 10 mg capsule 10 mg PO DAILY #90 cap 06/10/19 07/11/19 Rx aspirin 81 mg tablet 81 mg PO DAILY tab 06/11/19 07/11/19 History metoprolol succinate ER 25 mg 12.5 mg PO BID tab 06/17/19 07/11/19 History tablet,extended release 24 hr Past Med/Surg History Medical History Diabetes type 2, controlled (Chronic) Hypercholesteremia (Chronic) Hypertension (Chronic) Hypertension (Chronic) Atrial fibrillation (Chronic) 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 Family History Other Cancer Diabetes Heart disease Hypertension Social History Communication Ability: Effective Flat Folder Required: No Beliefs That Will Affect Care: None Current Living Situation: Spouse Other Information That Helps Us Care for You: No Feels Safe at Home: Yes Safety Concerns: Feels Safe At This Time Smoking Status: Never smoker Second Hand Exposure: No ; Hx Alcohol Use: No Hx Substance Use: No Review of Systems Review of Systems: Constitutional: Denies fevers, chills, focal weakness Eyes: Denies any visual loss or diplopia ENT: Denies any ear/nose/throat pain or difficulty speaking or swallowing Respiratory: Denies any dyspnea, cough, hemoptysis Cardiovascular: Denies any chest pain or feeling of edema Gastrointestinal: Positive abdominal pain and nausea. Denies vomiting or diarrhea. Musculoskeletal: Denies any acute extremity pains, myalgias, or focal weakness Skin: Denies any known acute rashes or lesions Neuro: Denies any headache, acute focal weakness or numbness, or difficulties with speech or swallow. Physical Exam Physical Exam: GENERAL: Awake, alert, well-appearing overall, has some mild abdominal pain, but does not appear in acute distress. HENT: Normocephalic, atraumatic. Oropharynx unremarkable. EYES: Normal conjunctiva. Sclera non-icteric. NECK: Inspection normal. Non-tender. Supple and full ROM. CARDIAC: +S1S2 RRR, no murmurs. RESPIRATORY: Clear to auscultation. No wheezes or rales. Normal respiratory effort. GI: +BS, soft, non-distended. Positive tenderness to palpation in the epigastric region. No focal right upper quadrant tenderness. Negative Solares sign. No rebound or guarding. BMI 34. EXTREMITIES: No pedal edema or calf tenderness. Moving all extremities naturally and easily. NEURO: No gross neuro deficits. Results & Data Vital Signs (Past 12 Hours) Vital Signs Temp Pulse Pulse Resp BP BP Pulse Ox 07/12/19 01:39 70 204/87 H 07/12/19 01:24 70 18 204/87 H 94 07/11/19 23:48 70 18 192/90 H 93 07/11/19 22:03 72 18 200/92 H 95 07/11/19 21:59 73 18 219/100 H 95 07/11/19 20:34 37.1 C 84 20 197/84 H 93 Laboratory Results 07/11/19 07/11/19 07/11/19 Range/Units 22:57 22:53 20:58 WBC (4.8-10.8) K/uL RBC (4.7-6.1) M/uL Hgb (14.0-18.0) g/dL Hct (42-52) % MCV (80-100) fL MCH (25-34) pg MCHC (32-36) g/dL RDW Std Deviation (36.4-46.3) fL RDW Coeff of Berta (11.5-14.5) % Plt Count (130-400) K/uL MPV (7.4-10.4) fL Immature Gran % (Auto) % Neut % (Auto) % Lymph % (Auto) % [place] % (Auto) % Eos % (Auto) % Baso % (Auto) % Immature Gran # (Auto) (0.00-0.02) K/uL Neut # (Auto) (1.4-6.5) K/uL Lymph # (Auto) (1.2-3.4) K/uL [place] # (Auto) (0.11-0.59) K/uL Eos # (Auto) (0-0.5) K/uL Baso # (Auto) (0-0.2) K/uL PT 11.1 (9.0-12.0) Seconds INR 1.1 (0.9-1.1) Sodium (136-145) mmol/L Potassium (3.5-5.1) mmol/L Chloride (98-107) mmol/L Carbon Dioxide (21-32) mmol/L Anion Gap (3-11) BUN (7-18) mg/dl Creatinine (0.6-1.4) mg/dl Est Cr Clr Drug Dosing ml/min Est GFR ( Amer) Est GFR (Non-Af Amer) BUN/Creatinine Ratio (10-20) Glucose (70-99) mg/dl Calcium (8.5-10.1) mg/dl Phosphorus (2.5-4.9) mg/dl Magnesium (1.8-2.4) mg/dl Total Bilirubin (0.2-1) mg/dl Direct Bilirubin (0-0.2) mg/dl AST (15-37) U/L ALT (12-78) U/L Alkaline Phosphatase (45-117) U/L Lactate Dehydrogenase 185 (87-241) U/L Troponin I (0-0.045) ng/ml Total Protein (6.4-8.2) gm/dl Albumin (3.4-5.0) gm/dl Globulin (2.5-4.0) gm/dl Albumin/Globulin Ratio (0.9-2) Lipase (73-393) U/L Urine Color Yellow Urine Appearance Clear (Clear) Urine pH 5.5 (4.5-7.5) Ur Specific [place] 1.012 (1.000-1.030) Urine Protein Negative (Negative) Urine Glucose (UA) 1+ H (Negative) Urine Ketones Negative (Negative) Urine Blood Negative (Negative) Urine Nitrite Negative (Negative) Urine Bilirubin Negative (Negative) Urine Urobilinogen Negative (Negative) Ur Leukocyte Esterase Negative (Negative) 07/11/19 07/11/19 Range/Units 20:58 20:58 WBC 10.77 (4.8-10.8) K/uL RBC 4.54 L (4.7-6.1) M/uL Hgb 13.7 L (14.0-18.0) g/dL Hct 40.0 L (42-52) % MCV 88.1 (80-100) fL MCH 30.2 (25-34) pg MCHC 34.3 (32-36) g/dL RDW Std Deviation 44.5 (36.4-46.3) fL RDW Coeff of Berta 13.7 (11.5-14.5) % Plt Count 154 (130-400) K/uL MPV 11.3 H (7.4-10.4) fL Immature Gran % (Auto) 0.2 % Neut % (Auto) 80.4 % Lymph % (Auto) 12.3 % [place] % (Auto) 6.7 % Eos % (Auto) 0.2 % Baso % (Auto) 0.2 % Immature Gran # (Auto) 0.02 (0.00-0.02) K/uL Neut # (Auto) 8.67 H (1.4-6.5) K/uL Lymph # (Auto) 1.32 (1.2-3.4) K/uL [place] # (Auto) 0.72 H (0.11-0.59) K/uL Eos # (Auto) 0.02 (0-0.5) K/uL Baso # (Auto) 0.02 (0-0.2) K/uL PT (9.0-12.0) Seconds INR (0.9-1.1) Sodium 138 (136-145) mmol/L Potassium 4.5 (3.5-5.1) mmol/L Chloride 105 (98-107) mmol/L Carbon Dioxide 27 (21-32) mmol/L Anion Gap 5.0 (3-11) BUN 18 (7-18) mg/dl Creatinine 0.91 (0.6-1.4) mg/dl Est Cr Clr Drug Dosing 89.2 ml/min Est GFR ( Amer) 93.9 Est GFR (Non-Af Amer) 81.0 BUN/Creatinine Ratio 19.8 (10-20) Glucose 257 H (70-99) mg/dl Calcium 9.5 (8.5-10.1) mg/dl Phosphorus 3.0 (2.5-4.9) mg/dl Magnesium 2.1 (1.8-2.4) mg/dl Total Bilirubin 0.4 (0.2-1) mg/dl Direct Bilirubin 0.1 (0-0.2) mg/dl AST 18 (15-37) U/L ALT 31 (12-78) U/L Alkaline Phosphatase 85 (45-117) U/L Lactate Dehydrogenase (87-241) U/L Troponin I < 0.015 (0-0.045) ng/ml Total Protein 7.0 (6.4-8.2) gm/dl Albumin 3.8 (3.4-5.0) gm/dl Globulin 3.2 (2.5-4.0) gm/dl Albumin/Globulin Ratio 1.2 (0.9-2) Lipase 877 H (73-393) U/L Urine Color Urine Appearance (Clear) Urine pH (4.5-7.5) Ur Specific [place] (1.000-1.030) Urine Protein (Negative) Urine Glucose (UA) (Negative) Urine Ketones (Negative) Urine Blood (Negative) Urine Nitrite (Negative) Urine Bilirubin (Negative) Urine Urobilinogen (Negative) Ur Leukocyte Esterase (Negative) Medications Administered Current Inpatient Medications Sodium Chloride (Nss 1000ml) 1,000 mls @ 125 mls/hr IV .Q8H STA Stop: 07/12/19 07:17 Last Admin: 07/11/19 23:25 Dose: 125 mls/hr Documented by: Ioversol (Optiray 320 100ml) 90 ml IV ONCE PRN PRN Reason: Interaction Checking Stop: 07/15/19 22:33 Last Admin: 07/11/19 22:35 Dose: 90 ml Documented by: Metoprolol Tartrate (Lopressor) 5 mg IV NOW STA Stop: 07/12/19 01:34 Code Status & VTE Plan Code Status Full code VTE Prophylaxis Plan VTE Prophylaxis will be ordered: Yes Supervising Physician Co-Signing Physician Notes Patient was seen and examined by me personally. I reviewed the chart, the orders and discussed the case in detail with Dr. Deondre Flores MD . I read this H&P and agree with its contents to entirety. PG Care Time/CCT Total # of Minutes Spent Total Time Spent with Patient: Total time spent is greater than 50% in coordination of care (as documented) at patient's floor/unit and/or counseling patient: Resident Activity Tracking Resident Involvement: Resident Care Provided Care Provided: Adult Hospital Medicine (1) Pancreatitis Acute pancreatitis complication: unspecified Chronicity: acute Pancreatitis type: unspecified pancreatitis type Qualified Code(s): K85.90 - Acute pancreatitis without necrosis or infection, unspecified
[2019-07-12] MEDS ORDERED: GLUCOSE 40% GEL 15 GM TUBE PO PRN (03:04)
[2019-07-12] MEDS ORDERED: ACETAMINOPHEN 325 MG TAB PO PRN (03:04)
[2019-07-12] MEDS ORDERED: GLUCOSE 10 TABS/TUBE PO PRN (03:04)
[2019-07-12] MEDS ORDERED: GLUCAGON FOR INJ 1 MG VIAL SQ PRN (03:04)
[2019-07-12] MEDS ORDERED: CARBOHYDRATES FOR HYPOGLYCEMIA PO PRN (03:04)
[2019-07-12] MEDS ORDERED: LORazepam 0.5 MG TAB PO PRN (03:04)
[2019-07-12] MEDS ORDERED: DEXTROSE 50% 50 ML SYRINGE IV PRN (03:04)
[2019-07-12] MEDS ORDERED: INFLUENZA VACCINE HIGH DOSE 65+ 0.5 ML SYR IM ONE (04:15)
[2019-07-12] MEDS ORDERED: INFLUENZA ADMINISTRATION CHARGE ONE (04:15)
[2019-07-12] MEDS: LACTATED RINGER'S 1,000 ML IV SCH ×4 (06:21→18:40)
[2019-07-12] MEDS: HYDROmorphone INJ 0.5 MG/0.5 ML SYR IV PRN ×3 (06:22→18:01)
[2019-07-12] MEDS: HydrALAZINE HCL 20 MG/ML VIAL IV PRN ×4 (06:23→23:35)
[2019-07-12 06:28] LABS: Albumin Level 3.5 gm/dl (3.4-5.0); BUN Creatinine Ratio 17.2 (10-20); Calcium 9.1 mg/dl (8.5-10.1); Creatinine Clr Calc Pharmacy 102.7 ml/min; Est GFR (African American) 100.9; Est GFR (Non-African American) 87.1; Potassium 4.1 mmol/L (3.5-5.1)
[2019-07-12] MEDS: INSULIN ASPART 100 UNITS/ML 3 ML PEN SC SCH ×4 (06:28→21:21)
[2019-07-12 06:31] LABS: Albumin Globulin Ratio 1.1 (0.9-2); Bilirubin,Total 0.7 mg/dl (0.2-1); Globulin 3.2 gm/dl (2.5-4.0); Total Protein 6.7 gm/dl (6.4-8.2)
[2019-07-12] MEDS: PROCHLORPERAZINE 10 MG in SYRINGE 8 ML IV PRN ×2 (06:49→18:26)
[2019-07-12] MEDS: ASPIRIN 81 MG ECTAB PO SCH (07:52)
[2019-07-12] MEDS: METOPROLOL SUCC 25MG EXT REL TAB PO SCH ×2 (07:53→21:20)
[2019-07-12] MEDS: lisinopriL 40 MG TAB PO SCH (07:53)
[2019-07-12] MEDS: TERAZOSIN HCL 5 MG CAP PO SCH (07:54)
[2019-07-12] MEDS: FLECAINIDE ACETATE 100 MG TABLET PO SCH ×2 (07:54→21:19)
[2019-07-12] MEDS: ATORVASTATIN 20 MG TAB PO SCH (07:55)
--- NOTE | 2019-07-12 08:26 | XRay Report ---
XR chest 2V PA/lateral HISTORY: 79 years-old Male eval for congestive failure acute shortness of breath with congestive hea rt failure COMPARISON: Chest radiograph 07/11/2019 TECHNIQUE: PA and lateral views of the chest FINDINGS: Cardiac silhouette is moderately enlarged. Improved aeration of the bilateral lungs from comparison s tudy. No pneumothorax, large pleural effusion or overt pulmonary edema. No lobar airspace consolidati on. Tortuosity of the descending thoracic aorta. Degenerative changes of the left shoulder and spine. Partially imaged right shoulder arthroplasty. Healed remote fracture of the mid left clavicle. IMPRESSION: 1. Cardiomegaly with resolution of the previously described pulmonary edema pattern. The above report was generated using voice recognition software. It may contain grammatical, syntax o r spelling errors. Electronically signed by: Deondre Alvarez M.D. 07/12/2019 8:25 AM
--- NOTE | 2019-07-12 11:39 | Hospitalist Progress Note ---
Date of Service July 12, 2019 Assessment & Plan (1) Pancreatitis: * 79-year-old male with nausea and epigastric pain radiating to his back beginning 07/09. No v/d. 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 Denies any known gallbladder issues, history of stones, or malignancy. Occasional alcohol use- 1-2 beers once or twice a month. Elevated lipase at [address] ab[address]/pelvis suggestive of a mild pancreatitis. No free air, evidence of appendicitis or bowel obstruction. Some concern that the combination of infiltration of the pancreatic head along with reported acholic stools may represent local malignancy. * Improving * LR @ 200cc/hr * GI Consultation- appreciate recs * MRCP with mild interstitial and peripancreatic edema surrounding pancreatic head compatible with acute pancreatitis. No biliary or pancreatic ductal dilation, cholelithiasis or choledocholithiasis. * Diet advanced to clear liquids per GI following MRCP * Dilaudid and Compazine for pain and nausea * Lipase trending down, now 643. Will follow * Patient remains afebrile, HR 76. UA negative. Calcium 9.1. AST/ALT, alk phos, LDH, Tbili wnl. * Repeat CXR with pulmonary edema pattern resolved. * Hypoactive bowel sounds noted this morning- repeat KUB with non-obstructive bowel gas pattern * May need Endoscopic US as outpatient for further investigation-- possible unidentified stones?? * Repeat labs in AM (2) Hypertension: * Patient unable to take home medications yesterday due to nausea. * Patient received morning medications today- will continue to monitor * BP this morning 186/65. * Hydralazine prn * Continue home medications- Lisinopril 40mg, Metoprolol 12.5mg BID (3) Hypercholesteremia: * Continue home atorvastatin 20mg hs, ASA 81mg (4) Paroxysmal atrial fibrillation: * Stable- follows with Dr. Booker outpatient * Continue home medications- Flecainide 50mg Q12, Lisinopril 40mg, Metoprolol 12.5mg BID, Xarelto 20mg (5) Diabetes type 2, controlled: * Stable * No home medications * Most recent A1c Jun 2019- 6.4 * SSI while inpatient (6) Anxiety: * Patient with anxiety attack this AM- relieved with lorazepam 0.5mg, which is patient's home dose * Continue lorazepam 0.5mg prn (7) BPH (benign prostatic hyperplasia): * CT with evidence of prostomegaly * Continue home tadalafil and terazosin. (8) DVT prophylaxis: * Xaretlo 20mg Dispo: continue to monitor, possible d/c in morning Supervising Physician Co-Signing Physician Notes Attending Attestation: Pt seen/examined, chart reviewed, care plan d/w LEILANI Johnson. I agree w/ the kunz components of her documentation. Pt still w/ abdominal pain. No recent viral illness. No prior h/o biliary colic episodes or chronic GI issues. No change in DM meds. VSS no fever gen - mildly uncomfortable heart - irregular, s1 s2 lungs - CTA b/l abd - soft, mild epigastric tenderness to palpation, BS+, no HSM ext - no edema A/P: acute pancreatitis - etiology uncertain. ALL imaging studies w/o gallstones. No etoh intake. Calcium normal. Triglycerides normal. Not on januvia or other DM meds that have heightened risk of pancreatitis. No pancreatic divisum. No recent viral illness to suggest viral etiology (usually pancreas is diffusely inflamed on imaging with viral etiology). Need for EUS as outpatient (occasionally stones are seen on EUS that can't be seen on CT/MR/Ultrasound)?? Defer to GI. Cont restricted diet, pain meds, IV fluids (copious LR). Serial exams and lipase level in am. Osmany Zamora MD Subjective Patient seen this morning at bedside. Patient still with abdominal pain, described as an "ache" that was waxing and waning, but has been constant over the past 48 hours. Not improved with positional changed. Controlled with pain medications. Patient states he is hungry and has an appetite. Some nausea, but denies any vomiting. 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 He did have an episode of what he describes as an "anxiety attack" this morning, which has improved with his lorazepam. No recent fevers or chills, chest pain, current shortness of breath, vomiting, diarrhea, headache, blurry vision, recent illness, hematuria or dysuria. 15lb intentional weight loss over the past six months. Family history for cancer positive for esophageal cancer in father, age 65 at diagnosis. Review of Systems Review of Systems: Constitutional: +Intentional 15lb weight loss. Denies fever, cold or heat intolerance, weakness or fatigue. HEENT: Denies headaches, lightheadedness, acute visual changes, double vision, light sensitivity or syncope, tinnitus, epistaxis, hoarseness, or dysphagia. Breast: Denies any breast pain, discharge, dimpling or lumps. No history of abnormal mammogram. Patient goes for routine mammograms. Pulmonary: Denies shortness of breath, dyspnea on exertion, pain with inspiration, cough, sputum production, or hemoptysis. Cardiovascular: Denies chest pain, palpitations, syncope, edema. GI: Epigastric and lower abdominal pain with radiation to the back. Change in stool color- light brown. : Denies dysuria, discharge, itching, bleeding, hematuria, changes in frequency or urgency, flank pain. MSK/Neuro:Denies muscle or joint pain, weakness, paralysis, numbness, or tingling. +Anxiety attack this morning Skin: No new rashes, lesions Physical Exam Physical Exam: Skin: Skin warm, dry, without erythema, lesion, petechiae. Normal turgor. Nails without clubbing or cyanosis. Cap refill <3 seconds. Chronic venous stasis skin changes of b/l LE. HEENT:Head normocephalic, atraumatic. Frontal and maxillary sinuses without tenderness to palpation. Dry oral mucous membranes. Anicteric sclera. EOMI without evidence of nystagmus. PERRLA. Hearing aids. Uvula midline without deviation. Trachea midline. Swallowing intact. No lymphadenopathy. Thyroid without nodules. No carotid bruits noted on auscultation. Respiratory: Chest without lesions or deformity. No accessory muscle usage noted. No acute distress. Lungs clear to auscultation bilaterally without w heezes, crackles, rhonchi. Cardiac:No visible PMI. Neck without JVD. RRR, Normal S1, S2. No murmurs, rubs, or gallops. Abdomen: No evidence of ecchymosis or straie, visible pulsations or bruits notes . Hypoactive bowel sounds. Abdomen soft, tender to palpation of RLQ, RUQ, epigastric regions. No hepatosplenomegaly noted. Neuro: CN II-XII grossly intact. Motor: Without atrophy, fasciculation, tremor, or hypertrophy. Full ROM. Strength 5/5 all extremities. Results & Data Vital Signs (Past 12 Hours) Vital Signs Temp Pulse Pulse Resp BP BP BP 07/12/19 07:18 36.8 C 76 16 186/65 H 07/12/19 06:51 165/85 H 07/12/19 06:23 198/85 H 07/12/19 03:18 37.2 C 69 16 209/97 H 07/12/19 03:04 37.2 C 70 16 174/88 H 07/12/19 01:56 65 18 175/86 H 07/12/19 01:39 70 204/87 H 07/12/19 01:24 70 18 204/87 H 07/11/19 23:48 70 18 192/90 H Pulse Ox 07/12/19 07:18 96 07/12/19 06:51 07/12/19 06:23 07/12/19 03:18 94 07/12/19 03:04 97 07/12/19 01:56 95 07/12/19 01:39 07/12/19 01:24 94 07/11/19 23:48 93 Laboratory Results 07/12/19 07/12/19 07/11/19 Range/Units 06:08 05:05 22:57 WBC (4.8-10.8) K/uL RBC (4.7-6.1) M/uL Hgb (14.0-18.0) g/dL Hct (42-52) % MCV (80-100) fL MCH (25-34) pg MCHC (32-36) g/dL RDW Std Deviation (36.4-46.3) fL RDW Coeff of Berta (11.5-14.5) % Plt Count (130-400) K/uL MPV (7.4-10.4) fL Immature Gran % (Auto) % Neut % (Auto) % Lymph % (Auto) % Grimes % (Auto) % Eos % (Auto) % Baso % (Auto) % Immature Gran # (Auto) (0.00-0.02) K/uL Neut # (Auto) (1.4-6.5) K/uL Lymph # (Auto) (1.2-3.4) K/uL Grimes # (Auto) (0.11-0.59) K/uL Eos # (Auto) (0-0.5) K/uL Baso # (Auto) (0-0.2) K/uL PT (9.0-12.0) Seconds INR (0.9-1.1) Sodium 140 (136-145) mmol/L Potassium 4.1 (3.5-5.1) mmol/L Chloride 107 (98-107) mmol/L Carbon Dioxide 28 (21-32) mmol/L Anion Gap 5.0 (3-11) BUN 13 (7-18) mg/dl Creatinine 0.78 (0.6-1.4) mg/dl Est Cr Clr Drug Dosing 102.7 ml/min Est GFR ( Amer) 100.9 Est GFR (Non-Af Amer) 87.1 BUN/Creatinine Ratio 17.2 (10-20) Glucose 160 H (70-99) mg/dl POC Glucose 165 H (70-99) Calcium 9.1 (8.5-10.1) mg/dl Phosphorus (2.5-4.9) mg/dl Magnesium (1.8-2.4) mg/dl Total Bilirubin 0.7 (0.2-1) mg/dl Direct Bilirubin (0-0.2) mg/dl AST 13 L (15-37) U/L ALT 25 (12-78) U/L Alkaline Phosphatase 85 (45-117) U/L Lactate Dehydrogenase 185 (87-241) U/L Troponin I (0-0.045) ng/ml Total Protein 6.7 (6.4-8.2) gm/dl Albumin 3.5 (3.4-5.0) gm/dl Globulin 3.2 (2.5-4.0) gm/dl Albumin/Globulin Ratio 1.1 (0.9-2) Lipase 643 H (73-393) U/L Urine Color Urine Appearance (Clear) Urine pH (4.5-7.5) Ur Specific [place] (1.000-1.030) Urine Protein (Negative) Urine Glucose (UA) (Negative) Urine Ketones (Negative) Urine Blood (Negative) Urine Nitrite (Negative) Urine Bilirubin (Negative) Urine Urobilinogen (Negative) Ur Leukocyte Esterase (Negative) 07/11/19 07/11/19 07/11/19 Range/Units 22:53 20:58 20:58 WBC (4.8-10.8) K/uL RBC (4.7-6.1) M/uL Hgb (14.0-18.0) g/dL Hct (42-52) % MCV (80-100) fL MCH (25-34) pg MCHC (32-36) g/dL RDW Std Deviation (36.4-46.3) fL RDW Coeff of Berta (11.5-14.5) % Plt Count (130-400) K/uL MPV (7.4-10.4) fL Immature Gran % (Auto) % Neut % (Auto) % Lymph % (Auto) % Grimes % (Auto) % Eos % (Auto) % Baso % (Auto) % Immature Gran # (Auto) (0.00-0.02) K/uL Neut # (Auto) (1.4-6.5) K/uL Lymph # (Auto) (1.2-3.4) K/uL Grimes # (Auto) (0.11-0.59) K/uL Eos # (Auto) (0-0.5) K/uL Baso # (Auto) (0-0.2) K/uL PT 11.1 (9.0-12.0) Seconds INR 1.1 (0.9-1.1) Sodium 138 (136-145) mmol/L Potassium 4.5 (3.5-5.1) mmol/L Chloride 105 (98-107) mmol/L Carbon Dioxide 27 (21-32) mmol/L Anion Gap 5.0 (3-11) BUN 18 (7-18) mg/dl Creatinine 0.91 (0.6-1.4) mg/dl Est Cr Clr Drug Dosing 89.2 ml/min Est GFR ( Amer) 93.9 Est GFR (Non-Af Amer) 81.0 BUN/Creatinine Ratio 19.8 (10-20) Glucose 257 H (70-99) mg/dl POC Glucose (70-99) Calcium 9.5 (8.5-10.1) mg/dl Phosphorus 3.0 (2.5-4.9) mg/dl Magnesium 2.1 (1.8-2.4) mg/dl Total Bilirubin 0.4 (0.2-1) mg/dl Direct Bilirubin 0.1 (0-0.2) mg/dl AST 18 (15-37) U/L ALT 31 (12-78) U/L Alkaline Phosphatase 85 (45-117) U/L Lactate Dehydrogenase (87-241) U/L Troponin I < 0.015 (0-0.045) ng/ml Total Protein 7.0 (6.4-8.2) gm/dl Albumin 3.8 (3.4-5.0) gm/dl Globulin 3.2 (2.5-4.0) gm/dl Albumin/Globulin Ratio 1.2 (0.9-2) Lipase 877 H (73-393) U/L Urine Color Yellow Urine Appearance Clear (Clear) Urine pH 5.5 (4.5-7.5) Ur Specific [place] 1.012 (1.000-1.030) Urine Protein Negative (Negative) Urine Glucose (UA) 1+ H (Negative) Urine Ketones Negative (Negative) Urine Blood Negative (Negative) Urine Nitrite Negative (Negative) Urine Bilirubin Negative (Negative) Urine Urobilinogen Negative (Negative) Ur Leukocyte Esterase Negative (Negative) 07/11/19 Range/Units 20:58 WBC 10.77 (4.8-10.8) K/uL RBC 4.54 L (4.7-6.1) M/uL Hgb 13.7 L (14.0-18.0) g/dL Hct 40.0 L (42-52) % MCV 88.1 (80-100) fL MCH 30.2 (25-34) pg MCHC 34.3 (32-36) g/dL RDW Std Deviation 44.5 (36.4-46.3) fL RDW Coeff of Berta 13.7 (11.5-14.5) % Plt Count 154 (130-400) K/uL MPV 11.3 H (7.4-10.4) fL Immature Gran % (Auto) 0.2 % Neut % (Auto) 80.4 % Lymph % (Auto) 12.3 % Grimes % (Auto) 6.7 % Eos % (Auto) 0.2 % Baso % (Auto) 0.2 % Immature Gran # (Auto) 0.02 (0.00-0.02) K/uL Neut # (Auto) 8.67 H (1.4-6.5) K/uL Lymph # (Auto) 1.32 (1.2-3.4) K/uL Grimes # (Auto) 0.72 H (0.11-0.59) K/uL Eos # (Auto) 0.02 (0-0.5) K/uL Baso # (Auto) 0.02 (0-0.2) K/uL PT (9.0-12.0) Seconds INR (0.9-1.1) Sodium (136-145) mmol/L Potassium (3.5-5.1) mmol/L Chloride (98-107) mmol/L Carbon Dioxide (21-32) mmol/L Anion Gap (3-11) BUN (7-18) mg/dl Creatinine (0.6-1.4) mg/dl Est Cr Clr Drug Dosing ml/min Est GFR ( Amer) Est GFR (Non-Af Amer) BUN/Creatinine Ratio (10-20) Glucose (70-99) mg/dl POC Glucose (70-99) Calcium (8.5-10.1) mg/dl Phosphorus (2.5-4.9) mg/dl Magnesium (1.8-2.4) mg/dl Total Bilirubin (0.2-1) mg/dl Direct Bilirubin (0-0.2) mg/dl AST (15-37) U/L ALT (12-78) U/L Alkaline Phosphatase (45-117) U/L Lactate Dehydrogenase (87-241) U/L Troponin I (0-0.045) ng/ml Total Protein (6.4-8.2) gm/dl Albumin (3.4-5.0) gm/dl Globulin (2.5-4.0) gm/dl Albumin/Globulin Ratio (0.9-2) Lipase (73-393) U/L Urine Color Urine Appearance (Clear) Urine pH (4.5-7.5) Ur Specific [place] (1.000-1.030) Urine Protein (Negative) Urine Glucose (UA) (Negative) Urine Ketones (Negative) Urine Blood (Negative) Urine Nitrite (Negative) Urine Bilirubin (Negative) Urine Urobilinogen (Negative) Ur Leukocyte Esterase (Negative) Diagnostic Findings MR MRCP HISTORY: 79 years-old Male Pancreatitis. Eval pancreatic head for mass. Epigastric abdominal pain with pancreatitis COMPARISON: CT abdomen and pelvis 07/11/2019 TECHNIQUE: MRCP without the use of IV contrast was obtained according to institutional protocol FINDINGS: [place] [employer] localizer images demonstrate cardiomegaly. Imaged lung bases appear unremarkable. Trace perisplenic ascites. Interstitial with mild peripancreatic edema involves the pancreatic head. No pancreatic mass or ductal dilation identified on these images. Gallbladder is unremarkable without cholelithiasis. No choledocholithiasis. Common bile duct measures 4 mm transversely. No intrahepatic biliary ductal dilation. No evidence of pancreatic divisum. Liver spleen and adrenal glands appear unremarkable. Nonspecific bilateral perinephric stranding. 10 mm T2 hyperintense lesion of the inferior pole right kidney suggests a probable cyst. Mild to moderate fecal retention. No bowel dilation identified or drainable fluid collection. No abdominal aortic aneurysm or adenopathy. IMPRESSION: 1. Mild interstitial and peripancreatic edema about the pancreatic head compatible with acute pancreatitis. 2. No biliary or pancreatic ductal dilation. 3. No cholelithiasis or choledocholithiasis. 4. Trace perisplenic ascites. 5. Cardiomegaly. Electronically signed by: Deondre Alvarez M.D. 07/12/2019 12:[address] abd pelvis IV con only CLINICAL HISTORY: lower abd pain COMPARISON STUDY: None. TECHNIQUE: The patient was scanned in a dynamic helical fashion during intravenous administration of 90 cc of Optiray 320. A dose lowering technique was utilized adhering to the principles of ALARA. CT DOSE: 1126.76 mGy.cm FINDINGS: Lower chest: There are dependent atelectatic changes. Liver: The contrast-enhanced liver is normal in size, contour, and attenuation. There is no intrahepatic biliary ductal dilatation. The hepatic veins and portal veins are patent. Gallbladder: Unremarkable. Spleen: Normal in size and attenuation. Pancreas: There is infiltration of fat surrounding the pancreatic head. The findings are suspicious for acute pancreatitis. Correlation with appropriate biochemical markers is recommended. Adrenal glands: Unremarkable. Kidneys: There is symmetric renal cortical enhancement. The kidneys are normal in size without hydronephrosis. Bowel: There are no transition zones to indicate bowel obstruction. There is no acute diverticulitis. There are scattered colonic diverticula present. The appendix appears normal. Peritoneum: There is no intraperitoneal free air or abdominal ascites. There is a small fat-containing umbilical hernia. There is a fat-containing right inguinal hernia. Vasculature: The abdominal aorta is normal in course and caliber. Adenopathy: None. Pelvic viscera: The prostate is enlarged and lobular in appearance. There is a focal hypodensity within the right mid aspect of the gland. Skeletal structures: No destructive osseous lesions are seen. IMPRESSION: 1. No evidence of bowel obstruction. No evidence of free air 2. Normal appendix. No evidence of acute diverticulitis. 3. Infiltration of the fat surrounding the pancreatic head suspicious for acute pancreatitis. Correlation with appropriate biochemical markers is recommended 4. Prostatomegaly XR chest 2V PA/lateral HISTORY: 79 years-old Male eval for congestive failure acute shortness of breath with congestive heart failure COMPARISON: Chest radiograph 07/11/2019 TECHNIQUE: PA and lateral views of the chest FINDINGS: Cardiac silhouette is moderately enlarged. Improved aeration of the bilateral lungs from comparison study. No pneumothorax, large pleural effusion or overt pulmonary edema. No lobar airspace consolidation. Tortuosity of the descending thoracic aorta. Degenerative changes of the left shoulder and spine. Partially imaged right shoulder arthroplasty. Healed remote fracture of the mid left clavicle. IMPRESSION: 1. Cardiomegaly with resolution of the previously described pulmonary edema pattern. Electronically signed by: Deondre Alvarez M.D. 07/12/2019 8:25 AM PG Care Time/CCT Total # of Minutes Spent Total Time Spent with Patient: Total time spent is greater than 50% in coordination of care (as documented) at patient's floor/unit and/or counseling patient: (1) Pancreatitis Acute pancreatitis complication: unspecified Chronicity: acute Pancreatitis type: unspecified pancreatitis type Qualified Code(s): K85.90 - Acute pancreatitis without necrosis or infection, unspecified
--- NOTE | 2019-07-12 12:04 | Magnetic Resonance Report ---
MR MRCP HISTORY: 79 years-old Male Pancreatitis. Eval pancreatic head for mass. Epigastric abdominal pain w ith pancreatitis COMPARISON: CT abdomen and pelvis 07/11/2019 TECHNIQUE: MRCP without the use of IV contrast was obtained according to institutional protocol FINDINGS: [employer] G[employer] localizer images demonstrate cardiomegaly. Imaged lung bases appear unremarkable. Trace perispl enic ascites. Interstitial with mild peripancreatic edema involves the pancreatic head. No pancreatic mass or ductal dilation identified on these images. Gallbladder is unremarkable without cholelithias is. No choledocholithiasis. Common bile duct measures 4 mm transversely. No intrahepatic biliary duct al dilation. No evidence of pancreatic divisum. Liver spleen and adrenal glands appear unremarkable. Nonspecific bilateral perinephric stranding. 10 mm T2 hyperintense lesion of the inferior pole right kidney suggests a probable cyst. Mild to moderate fecal retention. No bowel dilation identified or dr ainable fluid collection. No abdominal aortic aneurysm or adenopathy. IMPRESSION: 1. Mild interstitial and peripancreatic edema about the pancreatic head compatible with acute pancrea titis. 2. No biliary or pancreatic ductal dilation. 3. No cholelithiasis or choledocholithiasis. 4. Trace perisplenic ascites. 5. Cardiomegaly. The above report was generated using voice recognition software. It may contain grammatical, syntax o r spelling errors. Electronically signed by: Deondre Alvarez M.D. 07/12/2019 12:02 PM
--- NOTE | 2019-07-12 12:18 | Consultation Report ---
DATE OF CONSULTATION: 07/12/2019 GASTROINTESTINAL CONSULT NOTE REASON FOR EVALUATION: Acute pancreatitis. HISTORY OF PRESENT ILLNESS: The patient is a 79-year-old male who was in his usual state of health until 3 days ago when he began to experience vague epigastric pain. The following day, it got worse and radiated throughout the abdomen and into his back and by yesterday, it was more severe. He was not able to eat and it was associated with nausea. Last night, he ended up coming to the Emergency Room because it got more than he could handle at home and his doctor's office had closed. In the Emergency Room, he was found to have a lipase over [address] scan that showed inflammation of the pancreas. There was no mass associated with it and no obvious gallbladder or biliary disorders. His liver tests were normal. His calcium is normal. His lipids had been followed as an outpatient and he reports that they are normal. He has not changed any medications in at least a month or more and he does not drink any alcohol except for an occasional beer, maybe once or twice a month. He has never had acute pancreatitis before. He is scheduled for an MRCP later today. PAST MEDICAL HISTORY: Remarkable for hypertension, paroxysmal atrial fibrillation, type 2 diabetes, anxiety. He has had a right knee replacement and elevated cholesterol, which is being treated adequately with medications. MEDICATIONS: Atorvastatin, flecainide, lisinopril, lorazepam, multiple vitamin, rivaroxaban, tadalafil, terazosin, aspirin, metoprolol. ALLERGIES: None. FAMILY HISTORY: Positive for cancer, diabetes, hypertension, heart disease. SOCIAL HISTORY: The patient is . He is retired, does not smoke, drinks alcohol rarely. REVIEW OF SYSTEMS: Positive for abdominal pain and nausea. Remainder is negative. PHYSICAL EXAMINATION: GENERAL: The patient is overweight, in no acute distress. VITAL SIGNS: Blood pressure is 200/90, pulse 70. ABDOMEN: Soft. Bowel sounds are hypoactive. There is some tenderness especially in the epigastric area and in the bilateral costovertebral angle areas. No mass or rebound. EXTREMITIES: Showed a scar over the right knee. NEUROLOGIC: Nonfocal. IMPRESSION AND PLAN: The patient has, appears to be, acute pancreatitis of no obvious cause at present. The typical causes of acute pancreatitis have been ruled out. We will get an MRCP to look for any subtle anatomic abnormalities that may be contributing to his pancreatitis. In the meantime, we will continue with IV fluids and I will start him on some clear liquids. When he is able to eat, we will advance him to a low-fat diet.
--- NOTE | 2019-07-12 13:05 | XRay Report ---
KUB HISTORY: Acute generalized abdominal pain hypoactive BS COMPARISON: MRCP of same day, CT abdomen and pelvis 07/11/2019 FINDINGS: The bowel gas pattern is non-obstructive. Moderate fecal retention of the right hemicolon. There is no organomegaly. No renal calculi. No ureteral calculi. No pneumoperitoneum or pneumatosis. No fracture. IMPRESSION: Nonobstructive bowel gas pattern. Electronically signed by: Deondre Alvarez M.D. 07/12/2019 1:04 PM
[2019-07-12] MEDS ORDERED: Nursing to Pharmacy Communication ONE (14:48)
[2019-07-12] MEDS ORDERED: RIVAROXABAN 20 MG TAB PO SCH (16:30)
[2019-07-12] MEDS ORDERED: LORazepam 0.5 MG TAB PO STA (16:47)
[2019-07-12] MEDS: LORazepam 0.5 MG TAB PO PRN (23:35)
[2019-07-13] MEDS: LACTATED RINGER'S 1,000 ML IV SCH ×2 (01:34→08:09)
[2019-07-13] MEDS ORDERED: METOPROLOL TARTRATE 25 MG TAB PO ONE (02:10)
[2019-07-13 06:07] LABS: Albumin Level 3.6 gm/dl (3.4-5.0); Bilirubin,Total 0.9 mg/dl (0.2-1); Calcium 9.5 mg/dl (8.5-10.1); Creatinine Clr Calc Pharmacy 98.9 ml/min; Est GFR (African American) 99.4; Est GFR (Non-African American) 85.7; Globulin 3.5 gm/dl (2.5-4.0); Total Protein 7.1 gm/dl (6.4-8.2)
[2019-07-13] MEDS: LORazepam 0.5 MG TAB PO PRN (06:20)
[2019-07-13] MEDS: METOPROLOL SUCC 25MG EXT REL TAB PO SCH (08:09)
[2019-07-13] MEDS: FLECAINIDE ACETATE 100 MG TABLET PO SCH (08:10)
[2019-07-13] MEDS: ATORVASTATIN 20 MG TAB PO SCH (08:10)
[2019-07-13] MEDS: ASPIRIN 81 MG ECTAB PO SCH (08:10)
[2019-07-13] MEDS: TERAZOSIN HCL 5 MG CAP PO SCH (08:10)
[2019-07-13] MEDS: lisinopriL 40 MG TAB PO SCH (08:10)
[2019-07-13] MEDS ORDERED: LORazepam 1 MG TAB PO STA (08:21)
[2019-07-13] MEDS: INSULIN ASPART 100 UNITS/ML 3 ML PEN SC SCH ×2 (09:03→12:02)
--- NOTE | 2019-07-13 09:11 | Progress Note ---
DATE: 07/13/2019 SUBJECTIVE: The patient reports that his abdominal pain is better, but he is very anxious and his blood pressure has been running a little bit high. He does take blood pressure medications at home. His MRCP just showed some pancreatic edema, but no abnormalities of the pancreatic or biliary tree. PHYSICAL EXAMINATION: VITAL SIGNS: Blood pressure is 163/78, pulse 74, respirations 16, temperature is 37.3, O2 saturation is 96%. ABDOMEN: Soft and nontender. IMPRESSION AND PLAN: The patient has idiopathic pancreatitis which is improving quickly. I plan on advancing him to a low-fat diet today and giving him 1 mg of Ativan for his anxiety. If he is doing well later this afternoon, he can probably be discharged home.
--- NOTE | 2019-07-13 09:29 | Hospitalist Progress Note ---
Date of Service July 13, 2019 Subjective Patient evaluated at bedside this morning with grand-daughter present. The pat trinidad states that his abdominal pain is much improved. He does admit to increased anxiety during this admission, which was relieved in part with ativan and a walk last night with his through the halls. He does take lisinopril and metoprolol at home, but did recently switch to taking 12.5 mg twice daily instead of the 25mg BID he was taking prior Discussion was had with patient regarding idiopathic nature of his pancreatitis, as patient without alcohol abuse, history of stones, lack of use of medications like HCTZ, etc and that he does not warrant an outpatient ERCP or endoscopic US as an outpatient at this time. If pancreatitis were to recur, patient agreeable to those interventions as needed in the future. He states he was seen this morning by Dr. Oshea and that his diet was advanced. He states he tolerated the diet without difficulty or increase in abdominal pain. Denies recent fevers, chills, chest pain, shortness of breath, dysuria. Patient agreeable to stay for lunch to see how abdominal pain is with lunch, with possible plans to discharge home later this afternoon. Results & Data Vital Signs (Past 12 Hours) Vital Signs Temp Pulse Resp BP BP Pulse Ox 07/13/19 07:27 37.3 C 74 16 163/78 H 96 07/13/19 01:29 194/71 H 07/12/19 22:55 83 18 194/79 H 92 Laboratory Results 07/13/19 07/13/19 07/12/19 Range/Units 08:06 05:19 20:49 Sodium 138 (136-145) mmol/L Potassium 4.0 (3.5-5.1) mmol/L Chloride 106 (98-107) mmol/L Carbon Dioxide 26 (21-32) mmol/L Anion Gap 6.0 (3-11) BUN 11 (7-18) mg/dl Creatinine 0.81 (0.6-1.4) mg/dl Est Cr Clr Drug Dosing 98.9 ml/min Est GFR ( Amer) 99.4 Est GFR (Non-Af Amer) 85.7 BUN/Creatinine Ratio 13.0 (10-20) Glucose 163 H (70-99) mg/dl POC Glucose 140 H 160 H (70-99) Calcium 9.5 (8.5-10.1) mg/dl Total Bilirubin 0.9 (0.2-1) mg/dl AST 15 (15-37) U/L ALT 23 (12-78) U/L Alkaline Phosphatase 87 (45-117) U/L Total Protein 7.1 (6.4-8.2) gm/dl Albumin 3.6 (3.4-5.0) gm/dl Globulin 3.5 (2.5-4.0) gm/dl Albumin/Globulin Ratio 1.0 (0.9-2) Lipase 196 (73-393) U/L 07/12/19 07/12/19 Range/Units 17:21 11:53 Sodium (136-145) mmol/L Potassium (3.5-5.1) mmol/L Chloride (98-107) mmol/L Carbon Dioxide (21-32) mmol/L Anion Gap (3-11) BUN (7-18) mg/dl Creatinine (0.6-1.4) mg/dl Est Cr Clr Drug Dosing ml/min Est GFR ( Amer) Est GFR (Non-Af Amer) BUN/Creatinine Ratio (10-20) Glucose (70-99) mg/dl POC Glucose 148 H 170 H (70-99) Calcium (8.5-10.1) mg/dl Total Bilirubin (0.2-1) mg/dl AST (15-37) U/L ALT (12-78) U/L Alkaline Phosphatase (45-117) U/L Total Protein (6.4-8.2) gm/dl Albumin (3.4-5.0) gm/dl Globulin (2.5-4.0) gm/dl Albumin/Globulin Ratio (0.9-2) Lipase (73-393) U/L PG Care Time/CCT Total # of Minutes Spent Total Time Spent with Patient: Total time spent is greater than 50% in coordination of care (as documented) at patient's floor/unit and/or counseling patient:
--- NOTE | 2019-07-13 11:25 | Discharge Summary ---
Date of Service July 13, 2019 Admission HPI Per Admitting Provider 79-year-old male presents with his for evaluation of abdominal pain that began this past Sunday, July 09. He says initially felt like an upset stomach but that it has lingered. He has ongoing nausea without any vomiting or diarrhea. The nausea is caused him to lose his appetite so he has been eating mostly mild foods and gordon dee. He notes primarily epigastric pain in a bandlike pattern in his upper abdomen as well as some radiation towards his back. Denies any history of the same. No known gallbladder issues. Denies any chest pain, shortness of breath, or respiratory symptoms. On further review of systems, he states that normally his stools will float. 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 Because of his pain he has not taken any of his home meds for over 24 hours. No other acute patient concerns raised. - Past medical history includes hypertension, hypercholesterolemia, paroxysmal atrial fibrillation, diabetes type 2, anxiety, osteoarthritis, headache, seborrheic keratosis, obesity. - Past surgical history includes bilateral total knee arthroplasty. - Social history includes smoking upwards of 0.5 pack/day at work but quit 15 ye ars ago. Very rare (perhaps 1-2 times per year) alcohol use. Lives at home with his . Admission Exam Per Admitting Provider Physical Exam: GENERAL: Awake, alert, well-appearing overall, has some mild abdominal pain, but does not appear in acute distress. HENT: Normocephalic, atraumatic. Oropharynx unremarkable. EYES: Normal conjunctiva. Sclera non-icteric. NECK: Inspection normal. Non-tender. Supple and full ROM. CARDIAC: +S1S2 RRR, no murmurs. RESPIRATORY: Clear to auscultation. No wheezes or rales. Normal respiratory effort. GI: +BS, soft, non-distended. Positive tenderness to palpation in the epigastric region. No focal right upper quadrant tenderness. Negative Solares sign. No rebound or guarding. BMI 34. EXTREMITIES: No pedal edema or calf tenderness. Moving all extremities naturally and easily. NEURO: No gross neuro deficits. Principal Diagnosis Pancreatitis Discharge Exam Skin: Skin warm, dry, without erythema, lesion, petechiae. Normal turgor. Nails without clubbing or cyanosis. Cap refill <3 seconds. Chronic venous stasis skin changes of b/l LE. HEENT:Head normocephalic, atraumatic. Frontal and maxillary sinuses without tenderness to palpation. Dry oral mucous membranes. Anicteric sclera. EOMI without evidence of nystagmus. PERRLA. Hearing aids. Uvula midline without deviation. Trachea midline. Swallowing intact. No lymphadenopathy. Thyroid without nodules. No carotid bruits noted on auscultation. Respiratory: Chest without lesions or deformity. No accessory muscle usage noted. No acute distress. Lungs clear to auscultation bilaterally without wheezes, crackles, rhonchi. Cardiac:No visible PMI. Neck without JVD. RRR, Normal S1, S2. No murmurs, rubs, or gallops. Abdomen: No evidence of ecchymosis or straie, visible pulsations or bruits notes. + Bowel sounds. Abdomen soft, tender to palpation of RLQ, RUQ, epigastric regions. No hepatosplenomegaly noted. Neuro: CN II-XII grossly intact. Motor: Without atrophy, fasciculation, tremor, or hypertrophy. Full ROM. St rength 5/5 all extremities. Discharge Data Allergies Allergy/AdvReac Type Severity Reaction Status Date / Time No Known Allergies Allergy Unverified 07/11/19 23:34 Consultations 07/11/19 23:18 ED Decision to Admit Stat 07/12/19 03:04 Consult Gastroenterology Routine Ordered Studies 07/11/19 21:42 CT abd pelvis IV con only CLINICAL HISTORY: lower abd pain COMPARISON STUDY: None. TECHNIQUE: The patient was scanned in a dynamic helical fashion during intravenous administration of 90 cc of Optiray 320. A dose lowering technique was utilized adhering to the principles of ALARA. CT DOSE: 1126.76 mGy.cm FINDINGS: Lower chest: There are dependent atelectatic changes. Liver: The contrast-enhanced liver is normal in size, contour, and attenuation. There is no intrahepatic biliary ductal dilatation. The hepatic veins and portal veins are patent. Gallbladder: Unremarkable. Spleen: Normal in size and attenuation. Pancreas: There is infiltration of fat surrounding the pancreatic head. The findings are suspicious for acute pancreatitis. Correlation with appropriate biochemical markers is recommended. Adrenal glands: Unremarkable. Kidneys: There is symmetric renal cortical enhancement. The kidneys are normal in size without hydronephrosis. Bowel: There are no transition zones to indicate bowel obstruction. There is no acute diverticulitis. There are scattered colonic diverticula present. The appendix appears normal. Peritoneum: There is no intraperitoneal free air or abdominal ascites. There is a small fat-containing umbilical hernia. There is a fat-containing right inguinal hernia. Vasculature: The abdominal aorta is normal in course and caliber. Adenopathy: None. Pelvic viscera: The prostate is enlarged and lobular in appearance. There is a focal hypodensity within the right mid aspect of the gland. Skeletal structures: No destructive osseous lesions are seen. IMPRESSION: 1. No evidence of bowel obstruction. No evidence of free air 2. Normal appendix. No evidence of acute diverticulitis. 3. Infiltration of the fat surrounding the pancreatic head suspicious for acute pancreatitis. Correlation with appropriate biochemical markers is recommended 4. Prostatomegaly 07/12/19 03:04 MR MRCP HISTORY: 79 years-old Male Pancreatitis. Eval pancreatic head for mass. Epigastric abdominal pain with pancreatitis COMPARISON: CT abdomen and pelvis 07/11/2019 TECHNIQUE: MRCP without the use of IV contrast was obtained according to institutional protocol FINDINGS: Male Infertility Specialist localizer images demonstrate cardiomegaly. Imaged lung bases appear unremarkable. Trace perisplenic ascites. Interstitial with mild peripancreatic edema involves the pancreatic head. No pancreatic mass or ductal dilation identified on these images. Gallbladder is unremarkable without cholelithiasis. No choledocholithiasis. Common bile duct measures 4 mm transversely. No intrahepatic biliary ductal dilation. No evidence of pancreatic divisum. Liver spleen and adrenal glands appear unremarkable. Nonspecific bilateral perinephric stranding. 10 mm T2 hyperintense lesion of the inferior pole right kidney suggests a probable cyst. Mild to moderate fecal retention. No bowel dilation identified or drainable fluid collection. No abdominal aortic aneurysm or adenopathy. IMPRESSION: 1. Mild interstitial and peripancreatic edema about the pancreatic head compatible with acute pancreatitis. 2. No biliary or pancreatic ductal dilation. 3. No cholelithiasis or choledocholithiasis. 4. Trace perisplenic ascites. 5. Cardiomegaly. Electronically signed by: Deondre Alvarez M.D. 07/12/2019 12:02 PM Hospital Course (1) Pancreatitis: * 79-year-old male with nausea and epigastric pain radiating to his back beginning 07/09. No v/d. Director Of Billing brown stools noted prior to ER. Denies any known gallbladder issues, history of stones, or malignancy. Occasional alcohol use- 1-2 beers once or twice a month. Elevated lipase at [address] ab[address]/pelvis suggestive of a mild pancreatitis. No free air, evidence of appendicitis or bowel obstruction. Some concern that the combination of infiltration of the pancreatic head along with reported acholic stools may represent local malignancy. * Lipase found to be in 884 on admission. Patient received LR @ 200cc/hr, dilaudid for pain. BPs remained elevated during admission, requiring prn Hydralazine. Dilaudid and compazine prn pain/nausea. Anxiety increased during admission, ativan given prn. Patient remained afbrile. UA negative. Tbili wnl. Hypoactive bowel sounds on physical exam, with KUB with non-obstructive bowel gas pattern. * GI consultation, Dr Oshea, with MRCP with mild interstitial and peripancreatic edema surrounding pancreatic head compatible with acute pancreatitis. No biliary or pancreatic ductal dilation, cholelithiasis or choledocholithiasis. Diet advanced to clears and ultimately low fat with resolution of abdominal pain. Per GI, cause likely idiopathic as patient without stone, visible mass or obstruction, or medication induced. No outpatient endoscopic US or ERCP recommended at this time. * Lipase 196 prior to discharge, resolution of abdominal pain, normalization of BP to 145/77 at last reading. (2) Hypertension: * Patient unable to take home medications prior to arrival, so patients BP elevated into 200s systolic in ER. Hydralazine prn. BP normalized prior to discharge. Continue home medications, Lisinopril, MTP (3) Hypercholesteremia: * Continue home atorvastatin 20mg hs, ASA 81mg (4) Paroxysmal atrial fibrillation: * Stable- follows with Dr. Booker outpatient * Continue home medications- Flecainide 50mg Q12, Lisinopril 40mg, Metoprolol 12.5mg BID, Xarelto 20mg (5) Diabetes type 2, controlled: * Stable * No home medications * Most recent A1c Jun 2019- 6.4 * SSI while inpatient (6) Anxiety: * Patient with anxiety attack this AM- relieved with lorazepam (7) BPH (benign prostatic hyperplasia): * CT with evidence of prostomegaly * Continue home tadalafil and terazosin. (8) DVT prophylaxis: * Xaretlo 20mg Total Time Total Time Spent Total Time Spent (In Minutes): 30 Discharge Plan Discharge Items Patient Disposition: Home - Self-Care Reason For Visit: PANCREATITIS Discharge Diagnosis: Pancreatitis Activity: Resume your previous activity Non-emergency contact: Primary Care Provider Call non-emergency contact if: you have any medication questions and your pain is worsening Follow-up/Referrals: Evan Pal III, MD [Primary Care Provider] - Diet: Low Fat Diet Comment: Advance diet as tolerated Addtl Attending Provider Instructions: You have been hospitalized for pancreatitis. Your lipase levels were elevated on admission with evidence on imaging for inflammation of your pancreas. After receiving fluids and pain medication, your lipase level has come back to a normal level. It is uncertain as to the cause of the pancreatitis, as discussed, and we term this "idiopathic". With that being said, if you were to have repeat episodes, you may require further imaging and possible endoscopic ultrasound at that time. For the next several weeks, please avoid any alcohol at all, as this may exacerbate an acute pancreatitis. Please try to remain well hydrated. Take all of your home medications as prescribed. --Your blood pressures have been elevated, but anxiety may have been a contributing factor while you were hospitalized. Please continue to monitor this at home, and watch for any symptoms such as headache, blurred vision, chest pain, shortness of breath. Call your primary care doctor for all non-urgent needs. Please follow-up with your primary care provider in the next 3-5 days after discharge. It was a pleasure taking part in your care team during this hospital stay. Pending Studies at Discharge: No Stand-Alone Forms: Call Back Authorization, [facility] Medications and DC Order Prescriptions: Continued metoprolol succinate 25 mg tablet extended release 24 hr 12.5 mg PO BID RF: 0 atorvastatin 20 mg tablet 20 mg PO DAILY Qty: 90 RF: 3 flecainide 50 mg tablet 50 mg PO Q12H Qty: 180 RF: 3 lisinopril 40 mg tablet 40 mg PO DAILY Qty: 90 RF: 3 lorazepam 0.5 mg tablet 0.5 mg PO DAILY PRN (Reason: anxiety) Qty: 1 RF: 0 multivitamin [Multiple Vitamins] tablet 1 tab PO DAILY Qty: 30 RF: 0 tadalafil 5 mg tablet 5 mg PO DAILY Qty: 90 RF: 3 terazosin 10 mg capsule 10 mg PO DAILY Qty: 90 RF: 3 Xarelto 20 mg tablet 20 mg PO DAILY Qty: 90 RF: 3 aspirin 81 mg tablet 81 mg PO DAILY RF: 0 Discharge Orders: Discharge Order (Routine); Ordered 07/13/19 Ordered By: Alda Martins/Other Patient Handouts: Pancreatitis, Pancreatitis Acute Dc Admission Data Admit Date/Time: 07/12/19 01:44 Attending Provider: Osmany Zamora Admit Provider: Deondre Flores Primary Care Provider: Evan Pal III Other Providers: Royce Nascimento ; Akil Oshea Other Interventions: Discharge Summary Assessment (RN) Last Done: 07/13/19 11:12 DC Date/Time DO NOT enter until pt leaves facility: 07/13/19 13:37 Supervising Physician Co-Signing Physician Notes Attending Attestation and Discharge Note: Pt seen/examined, chart reviewed, discharge care plan d/w PA Alda Johnson. I agree w/ the kunz components of her discharge documentation. 79yo male with T2DM who presented with acute pancreatitis. Treated in customary fashion with IV fluids, bowel rest/diet restriction, and time. Work-up did not reveal gallstones (multiple imaging studies neg for such), hypercalcemia, high trigs, etc. No h/o heavy etoh use. Diet resumed prior to discharge, was advanced, and was tolerated. All GI symptoms resolved prior to discharge. Lipase normalized. During the hospitalization he was seen by GI -- no further work-up advised. Etiology of pancreatitis? Idiopathic vs passed gallstone (again no stones seen on imaging however) vs other. Discharge exam: gen - NAD mouth - MMM heart - RRR, s1 s2 lungs - CTA b/l abd - soft, NT, ND, BS+, no HSM ext - no edema Low fat diet recommended for 10 days post-discharge. Osmany Zamora MD
== END 2019-07-13 13:37 | disposition home or self-care (01) | DRG 440 ==
LOC: ED 20:28 → 3N 07-12 01:44 → SUATTDRO 07-12 01:44 → 3N 07-12 02:35
DX: I10 Essential (primary) hypertension; E78.00 Pure hypercholesterolemia, unspecified; Z79.82 Long term (current) use of aspirin; N40.0 Benign prostatic hyperplasia without lower urinary tract symptoms; F41.9 Anxiety disorder, unspecified; I48.0 Paroxysmal atrial fibrillation; E11.9 Type 2 diabetes mellitus without complications; K85.90 Acute pancreatitis without necrosis or infection, unspecified

== ENCOUNTER 2021-02-04 10:24 | Observation (INO) ==
--- NOTE | 2021-01-07 15:12 | PAT Medication Instructions ---
Medication Instructions Date of Service January 07, 2021 Home Medications Medication Instructions Recorded lorazepam 0.5 mg tablet 0.5 mg PO DAILY PRN #1 tab 06/10/19 diazepam 5 mg tablet 5 mg PO USEASDIRECTD #2 tab 08/19/20 blood sugar diagnostic #200 ea 10/11/20 lancets 33 gauge #200 ea 10/11/20 metoprolol succinate 25 mg 25 mg PO BID #180 tab 10/11/20 tablet,extended release 24 hr diazepam 5 mg tablet 5 mg PO USEASDIRECTD #2 tab 12/22/20 lorazepam 0.5 mg tablet 0.5 mg PO DAILY PRN aspirin 81 mg PO QPM metoprolol succinate 25 mg tablet,extended release 24 hr 25 mg PO BID diazepam 5 mg tablet 5 mg PO USEASDIRECTD acetaminophen [Tylenol Extra Strength] 500 - 1,000 mg PO Q6H PRN amitriptyline 25 mg PO DAILY PRN atorvastatin 20 mg PO QPM flecainide 50 mg PO QAM flecainide 100 mg PO QPM lisinopril 40 mg PO QPM multivitamin [Multiple Vitamins] 1 tab PO QPM rivaroxaban [Xarelto] 20 mg PO QPM solifenacin [Vesicare] 5 mg PO QPM tadalafil 5 mg PO QPM terazosin 10 mg PO QPM ASK your prescriber and surgeon aspirin 81 mg PO QPM rivaroxaban [Xarelto] 20 mg PO QPM Take morning of surgery With a small sip of water, OTHERWISE NOTHING TO EAT OR DRINK AFTER MIDNIGHT: lorazepam 0.5 mg tablet 0.5 mg PO DAILY PRN (if needed) metoprolol succinate 25 mg tablet,extended release 24 hr 25 mg PO BID diazepam 5 mg tablet 5 mg PO USEASDIRECTD (if needed) acetaminophen [Tylenol Extra Strength] 500 - 1,000 mg PO Q6H PRN (okay to take up to 4 hours prior to surgery if needed) amitriptyline 25 mg PO DAILY PRN (if needed) flecainide 50 mg PO QAM Take evening before surgery lorazepam 0.5 mg tablet 0.5 mg PO DAILY PRN (if needed) metoprolol succinate 25 mg tablet,extended release 24 hr 25 mg PO BID diazepam 5 mg tablet 5 mg PO USEASDIRECTD (if needed) acetaminophen [Tylenol Extra Strength] 500 - 1,000 mg PO Q6H PRN (if needed) amitriptyline 25 mg PO DAILY PRN (if needed) atorvastatin 20 mg PO QPM flecainide 100 mg PO QPM lisinopril 40 mg PO QPM multivitamin [Multiple Vitamins] 1 tab PO QPM solifenacin [Vesicare] 5 mg PO QPM tadalafil 5 mg PO QPM terazosin 10 mg PO QPM Other Notes If you have any questions please call us at [phone] or [phone] or [phone] or [phone]
--- NOTE | 2021-01-11 10:13 | Anesthesiology Consultation ---
Date of Service January 11, 2021 Assessment & Plan (1) Encounter for pre-operative examination: - COVID screening: Per assessment on 01/11: Travel screen negative, no known COVID-19 positive contacts or current COVID-19 related symptoms. Patient fully v accinated. Surgeon arranging preop COVID testing. Awaiting results. - S/P Right TSA (08/31/17): Grade view 1, MAC#3, ETT 8 at [facility] - Cardiology office visit (01/03/21): "The patient is stable from a cardiovascular standpoint. He demonstrates excellent control of his blood pressure and lipid values. As noted previously, patient would like to continue flecainide as it is greatly reduces the frequency of his palpitations. He is tolerating long-term anticoagulation without difficulty. The patient is acceptable cardiac risk for shoulder replacement surgery without further testing." - Check BSG AM DOS Chart Review Chart Review: Acceptable Risk for Surgery (pending preop EKG) and Patient seen in Pre Admission Testing Teaching & Discussion Pre-Anesthesia Teaching/Discussion Notes: Instructed NPO after midnight before surgery,except medications with 15 cc of water. Medication instructions provi ded according to the PAT guidelines. History Surgery Operation Date: 02/04/21 12:30 Proposed Procedures p Left Total Shoulder Arthroplasty Reverse - Denton Aguila, Height/Weight Height: 6 ft Weight: 115.5 kg Allergies Allergy/AdvReac Type Severity Reaction Status Date / Time No Known Drug Allergies Allergy Verified 01/05/21 08:26 Medications Home Medications Medication Instructions Recorded Confirmed Last Taken lorazepam 0.5 mg tablet 0.5 mg PO DAILY PRN #1 tab 06/10/19 01/05/21 Unknown aspirin 81 mg PO QPM 12/03/19 01/05/21 Unknown blood sugar diagnostic #200 ea 10/11/20 01/03/21 Unknown lancets 33 gauge #200 ea 10/11/20 01/03/21 Unknown metoprolol succinate 25 mg 25 mg PO BID #180 tab 10/11/20 01/05/21 Unknown tablet,extended release 24 hr diazepam 5 mg tablet 5 mg PO USEASDIRECTD #2 tab 12/22/20 01/05/21 Unknown acetaminophen [Tylenol Extra 500 - 1,000 mg PO Q6H PRN 01/05/21 01/05/21 Unknown Strength] amitriptyline 25 mg PO DAILY PRN 01/05/21 01/05/21 Unknown atorvastatin 20 mg PO QPM 01/05/21 01/05/21 Unknown flecainide 50 mg PO QAM 01/05/21 01/05/21 Unknown flecainide 100 mg PO QPM 01/05/21 01/05/21 Unknown lisinopril 40 mg PO QPM 01/05/21 01/05/21 Unknown multivitamin [Multiple Vitamins] 1 tab PO QPM 01/05/21 01/05/21 Unknown rivaroxaban [Xarelto] 20 mg PO QPM 01/05/21 01/05/21 Unknown solifenacin [Vesicare] 5 mg PO QPM 01/05/21 01/05/21 Unknown tadalafil 5 mg PO QPM 01/05/21 01/05/21 Unknown terazosin 10 mg PO QPM 01/05/21 01/05/21 Unknown Past Medical History Medical History Anxiety Atrial fibrillation Follows with [facility] cardiology (Dr. Booker) Deep vein thrombosis (DVT) of right upper extremity (~2017) Post-op shoulder surgery Diabetes type 2, controlled Diet DJD (degenerative joint disease) of knee Fuchs' corneal dystrophy Hypercholesteremia Hypertension Obesity Osteoarthritis of right shoulder Exercise / Class Metabolic Activity III < 4 Walking/Shop/Light housework Past Family History Family History Brother Bipolar disorder Father Alcoholism Cancer ESOPHAGEAL Family history of esophageal cancer Sister Coronary heart disease Bipolar disorder Mother Scoliosis Son Diabetes Other Heart disease Hypertension Denies family history of Ovarian cancer Prostate cancer Myocardial infarction Breast cancer Colorectal cancer Past Surgical History Surgical History History of arthroscopy Left knee Hx of colonoscopy S/P total knee arthroplasty R/L Status post total shoulder arthroplasty Right TSA (08/31/17): Grade view 1, MAC#3, ETT 8 at [facility] Past Anesthesia History No Hx of Anesthesia Complications Son- "slow to wake" > no similar issues for patient personally History of PONV No Hx of PONV and No Hx of Motion Sickness Social History Smoking Status: Former smoker Do You Dip or Chew Tobacco: No Smoking End Date: Quit years ago (hx <1/2 PPD) Hx Alcohol Use: Yes Alcohol type: wine Alcohol Intake Frequency Comment: Rare Hx Substance Use: No Review of Systems No snoring. Palpitations controlled on Flecainide. Patient denies chest pain, shortness of breath, fever, chills, cough, wheezing. Physical Exam Vital Signs VITALS BP 156/89 P 76 TEMP 98.7 SP02 94%RA RESP 16 PHYSICAL Mildly decreased cervical extension range of motion. Full TMJ range of motion. TMD 3.5 finger breaths Mallampati Score 2 Dentition: missing sides/molars Lungs: clear throughout to auscultation Cardiac: regular rate, irregular rhythm, I-II/ systolic murmur Spine: normal Carotid arteries: negative bruit Extremities: no edema Testing Laboratory Results 01/11/21 10:38 01/11/21 10:38 PT 12.4 Seconds (9.0-12.0) H 01/11/21 10:38 INR 1.2 (0.9-1.1) H 01/11/21 10:38 APTT 36.5 Seconds (21.0-31.0) H 01/11/21 10:38 Blood Type A Positive 01/11/21 10:38 Antibody Screen NEGATIVE 01/11/21 10:38 10/07/20 HGBA1C 7.2% > attempting diet control, under surveillance by PCP. Glucose 175 on preop labs. Will recheck AM DOS. Chest X-Ray Date: 01/11/21 FINDINGS: Cardiac silhouette is enlarged. No pneumothorax, pleural effusion, airspace consolidation or overt pulmonary edema. Degenerative changes of the left shoulder and spine. Right shoulder arthroplasty. IMPRESSION: Cardiomegaly without acute process. Echocardiogram Date: 10/23/13 EF 70%. Hyperdynamic left ventricular systolic function without segmental wall motion abnormalities. Atrial fibrillation seen throughout. Mild dilatation of the ascending thoracic aorta. Mild LVH. Mild MR.
--- NOTE | 2021-01-11 11:03 | XRay Report ---
XR chest Pre-admission PA/Lat HISTORY: 80 years-old Male pat chronic degenerative joint disease COMPARISON: Chest radiograph 12/03/2019 TECHNIQUE: PA and lateral views of the chest FINDINGS: Cardiac silhouette is enlarged. No pneumothorax, pleural effusion, airspace consolidation or overt pu lmonary edema. Degenerative changes of the left shoulder and spine. Right shoulder arthroplasty. IMPRESSION: Cardiomegaly without acute process. ACT 112: Negative or not required by law. The above report was generated using voice recognition software. It may contain grammatical, syntax o r spelling errors. Electronically signed by: Deondre Alvarez M.D. 01/11/2021 11:02 AM
[2021-01-11 11:16] LABS: Basophils # (auto) 0.02 K/uL (0-0.2); Basophils % (auto) 0.3 %; Eosinophils # (auto) 0.03 K/uL (0-0.5); Eosinophils % (auto) 0.5 %; Hematocrit (blood only) 39.1 % (42-52); Hemoglobin 13.2 g/dL (14.0-18.0); Immature Granulocytes # (auto) 0.01 K/uL (0.00-0.02); Immature Granulocytes % (auto) 0.2 %; Lymphocytes # (auto) 1.14 K/uL (1.2-3.4); Lymphocytes % (auto) 19.3 %; Mean Corpuscular Hemoglobin 29.9 pg (25-34); Mean Corpuscular Hgb Conc 33.8 g/dL (32-36); Mean Corpuscular Volume 88.5 fL (80-100); Mean Platelet Volume 11.1 fL (7.4-10.4); Monocytes # (auto) 0.35 K/uL (0.11-0.59); Monocytes % (auto) 5.9 %; Neutrophils # (auto) 4.35 K/uL (1.4-6.5); Neutrophils % (auto) 73.8 %; Platelet Count 162 K/uL (130-400); RDW Coefficient of Variation 14.3 % (11.5-14.5); RDW Standard Deviation 46.8 fL (36.4-46.3); Red Blood Count 4.42 M/uL (4.7-6.1)
[2021-01-11 11:31] LABS: INR 1.2 (0.9-1.1); Partial Thromboplastin Ratio 1.4; Partial Thromboplastin Time 36.5 Seconds (21.0-31.0); Prothrombin Time 12.4 Seconds (9.0-12.0)
[2021-01-11 13:08] LABS: BUN Creatinine Ratio 21.4 (10-20); Calcium 9.2 mg/dl (8.5-10.1); Creatinine Clr Calc Pharmacy 101.1 ml/min; Est GFR (African American) 99.7; Potassium 4.5 mmol/L (3.5-5.1)
--- NOTE | 2021-01-12 06:36 | Electrocardiogram Report ---
Test Reason : Blood Pressure : / mmHG Vent. Rate : 068 BPM Atrial Rate : 357 BPM P-R Int : 000 ms QRS Dur : 088 ms QT Int : 402 ms P-R-T Axes : 000 082 032 degrees QTc Int : 427 ms Atrial fibrillation Cannot rule out Anterior infarct , age undetermined Abnormal ECG When compared with ECG of 03-DEC-2019 00:16, Questionable change in QRS duration Confirmed by Isrrael Taylor ([id number]) on 01/12/2021 6:36:03 AM Referred By: Denton Aguila Confirmed By:Isrrael Taylor
--- NOTE | 2021-02-04 06:29 | History & Physical Report ---
Date of Service February 04, 2021 Assessment & Plan (1) Osteoarthritis of left shoulder: We will proceed with a left reverse shoulder arthroplasty. Postoperatively he will be placed in an arm sling and kept overnight for postoperative medical management. He plans to use energy physical therapy upon discharge. History of Present Illness Chief Complaint: Osteoarthritis left shoulder. Primary Care Provider: Evan Pal MD Vinayak is a pleasant 80-year-old male who is been ill with chronic increasing left shoulder pain and weakness. 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 An MRI shows severe arthritis with very high-grade partial-thickness tearing of the rotator cuff. After failing conservative treatment, he has elected proceed with a left reverse shoulder arthroplasty. I did a right total shoulder arthroplasty on him in 2017 and he has done well with that.. Allergies Allergy/AdvReac Type Severity Reaction Status Date / Time No Known Drug Allergies Allergy Verified 01/05/21 08:26 Home Medications Medication Instructions Recorded Confirmed Type lorazepam 0.5 mg tablet 0.5 mg PO DAILY PRN #1 tab 06/10/19 01/05/21 Rx aspirin 81 mg PO QPM 12/03/19 01/05/21 History blood sugar diagnostic #200 ea 10/11/20 01/03/21 Rx lancets 33 gauge #200 ea 10/11/20 01/03/21 Rx metoprolol succinate 25 mg 25 mg PO BID #180 tab 10/11/20 01/05/21 Rx tablet,extended release 24 hr diazepam 5 mg tablet 5 mg PO USEASDIRECTD #2 tab 12/22/20 01/05/21 Rx acetaminophen [Tylenol Extra 500 - 1,000 mg PO Q6H PRN 01/05/21 01/05/21 History Strength] amitriptyline 25 mg PO DAILY PRN 01/05/21 01/05/21 History atorvastatin 20 mg PO QPM 01/05/21 01/05/21 History flecainide 50 mg PO QAM 01/05/21 01/05/21 History flecainide 100 mg PO QPM 01/05/21 01/05/21 History lisinopril 40 mg PO QPM 01/05/21 01/05/21 History multivitamin [Multiple Vitamins] 1 tab PO QPM 01/05/21 01/05/21 History rivaroxaban [Xarelto] 20 mg PO QPM 01/05/21 01/05/21 History solifenacin [Vesicare] 5 mg PO QPM 01/05/21 01/05/21 History tadalafil 5 mg PO QPM 01/05/21 01/05/21 History terazosin 10 mg PO QPM 01/05/21 01/05/21 History Past Med/Surg History Medical History Anxiety Atrial fibrillation [place]s [place] [facility] [place] (Dr. Booker) Deep vein thrombosis (DVT) of right upper extremity (~2017) Post-op shoulder surgery Diabetes type 2, controlled Diet DJD (degenerative joint disease) of knee Fuchs' corneal dystrophy Hypercholesteremia Hypertension Obesity Osteoarthritis of right shoulder Surgical History History of arthroscopy Left knee Hx of colonoscopy S/P total knee arthroplasty R/L Status post total shoulder arthroplasty Right TSA (08/31/17): Grade view 1, MAC#3, ETT 8 at [facility] Family History Brother Bipolar disorder Father Alcoholism Cancer ESOPHAGEAL Family history of esophageal cancer Sister Coronary heart disease Bipolar disorder Mother Scoliosis Son Diabetes Other Heart disease Hypertension Denies family history of Ovarian cancer Prostate cancer Myocardial infarction Breast cancer Colorectal cancer Social History Smoking Status: Former smoker Tobacco Type: Cigarettes Age Started Using Tobacco: 23; Age Quit Using Tobacco: 60; packs per day: 0.5; Second Hand Exposure: No; Hx Alcohol Use: Yes Alcohol type: wine Hx Substance Use: No Preferred Language: Lithuanian Communication Ability: Effective Visual Impairment: No Limitations Hearing Ability: Normal Anodiser Required: No Beliefs That Will Affect Care: None marital status: Current Living Situation: Spouse current occupational status: retired current occupation: retired from career with [employer] Safe at Home: Yes Childhood Exposure to Second-Hand Smoke: Yes Dental Care, Regularly: Yes Physical Activity Frequency: 3-4 Times per Week Seatbelt Use: always Sunscreen Use: Yes Assistive Devices: Glasses and Hearing Aid - Bilateral Review of Systems All systems reviewed & are unremarkable except as noted in HPI & below. Physical Exam Physical examination of the left shoulder, he has range of motion of 0 to 110 degrees. He has 4-5 motion with full can testing. He has 5 5 motion with external rotation. He has pain in the subacromial space and over the glenohumeral joint line.. Constitutional WD/WN, vitals as above Eyes PERRL, conjunctivae normal, anicteric sclerae ENMT external ear and nose normal, oropharynx normal Neck trachea midline, no thyromegaly Respiratory normal respiratory effort Cardiovascular RRR, no murmur, no edema Gastrointestinal (Abdomen) normal bowel sounds, soft, nontender, no hepatosplenomegaly Psychiatric A+Ox3, euthymic affect Results & Data Results & Data Laboratory Results . Diagnostic Findings X-rays of the left shoulder do show advanced osteoarthritis with joint space narrowing, osteophyte formation, and ahzx-tn-pres articulation. MRI of the left shoulder does show advanced osteoarthritis with some significant posterior wear of the glenoid posterior subluxation of the humeral head. There is high-grade partial-thickness rotator cuff tearing of the supraspinatus.. PG Care Time/CCT Total # of Minutes Spent Total Time Spent with Patient: Total time spent is greater than 50% in coordination of care (as documented) at patient's floor/unit and/or counseling patient: Coding Level of Care Code None Diagnoses Osteoarthritis of left shoulder M19.012
[~2021-02-04 10:24] MED LIST changes: -ACET-1256 PO; +ACETAMINOPHEN 500 MG TAB PO SCH; -ATOR-22 PO; +BUPIVACAINE 0.5 % 5 MG/1 ML PF 10ML VIAL ONE; +FAMOTIDINE 20 MG TAB PO SCH; -FLEC50TA20 PO; -FURO20TA PO; +GABAPENTIN 300 MG CAP PO SCH; -HYDR12.55 PO; -HYOS1TAB PO; +LIDOCAINE HCL 2% 2 ML VIAL/AMP(20MG/ML) INFIL ONE; -LISI40TA PO; +LR 15ML/HR IV SCH; +LR 60ML/HR IV SCH; -METO25TA56 PO; +MIDAZOLAM HCL 1 MG/ML 2ML VIAL ONE; -MULT-506 PO; -OXYC1TAB3 PO; +PROPOFOL IV EMULSION 10 MG/ML 20 ML VIAL IV ONE; -RIVA1TAB4 PO; +ROPIVACAINE 0.5% HCL/PF 150 MG, BUPIVACAINE 0.75% MPF 20 ML, EPINEPHrine 30MG/30ML (OR ... INSTIL SCH; -TADA5TAB11 PO; -TERA1CAP63 PO; +TRANEXAMIC ACID 1,000 MG **IV Intra-op IV SCH; +TRANEXAMIC ACID 1,000 MG **IV Pre-op IV SCH; +ceFAZolin 2000MG 2,000 MG/15 ML SYR IV SCH; +dexAMETHasone 4 MG TAB PO SCH; +fentaNYL citrate 100 MCG/2 ML VIAL ONE
[2021-02-04] MEDS ORDERED: ORTHO JOINT ANESTHETIC ONE (10:50)
[2021-02-04] MEDS ORDERED: ONDANSETRON INJ 2 MG/ML 2 ML VIAL IV PRN ×2 (11:11→14:35)
[2021-02-04] MEDS ORDERED: fentaNYL citrate 100 MCG/2 ML VIAL IV PRN (11:11)
[2021-02-04] MEDS ORDERED: ATROPINE SULFATE 0.1 MG/ML 10ML SYR IV PRN (11:11)
[2021-02-04] MEDS ORDERED: ePHEDrine sulfate 50 MG/ML AMP IV PRN (11:11)
--- NOTE | 2021-02-04 11:22 | History & Physical Bridge Note ---
Date of Service February 04, 2021 History & Physical Bridge Note I have examined the patient, reviewed the History & Physical and in the interval since the performance of the History & Physical I have noted the following changes of clinical significance: no changes noted
[2021-02-04] MEDS ORDERED: DEXAMETHASONE SOD INJ 4 MG/ML VIAL ONE (12:46)
--- NOTE | 2021-02-04 12:50 | Operative Report ---
PG Post Operative Report Pre & Post Diagnosis Operation Date: 02/04/21 12:30 Pre-Op Diagnosis: Left Shoulder Degenerative Joint Disease with tendinopathy long head of the biceps tendon Post-Op Diagnosis: Left Shoulder Degenerative Joint Disease with tendinopathy of the long head of the biceps tendon I identified the patient and participated in the time-out.: Yes Procedure Operation Date: 02/04/21 12:30 Actual Procedures p Left Reverse Total Shoulder Arthroplasty, Uncemented(Left) with open biceps tenodesis as a distinct and separate procedure (modifier 59)- Denton Aguila, Surgeon Denton Aguial, Programmer Numerical Control Denton Argueta PAC Estimated Blood Loss 200 Findings Consistent with Post-Op Diagnosis Specimens Left humeral head Complications none Disposition Disposition: Recovery Room Indications Vinayak is a pleasant 80-year-old male who is been ill with chronic increasing left shoulder pain. X-rays and clinical examination were diagnostic for advanced osteoarthritis of the left shoulder. MRI showed some partial tearing of the rotator cuff. After failing conservative treatment, he elected proceed with a left reverse shoulder arthroplasty. Description of Procedure A CPT code modifier 59: The long head of the biceps tendon was enlarged and inflamed consistent with tendinopathy. A tenodesis was opted. This was a separate and distinct portion of the procedure. For these reasons, a CPT code modifier 59 will be added to this case. Implants used: I used a [employer]omet Comprehensive reverse total shoulder arthroplasty system with a size 15 press fit micro humeral stem, a +3 offset humeral tray and a standard humeral bearing, a 25 mm small augment baseplate with a 6.5 mm central screw and superior and inferior locking screws, and a size 40 mm eccentric glenosphere. Vinayak arrived at [facility] for the above procedure. He was seen in the preoperative holding area and the operative extremity was identified and signed. He was given a preoperative antibiotic, TXA, and an interscalene nerve block. He was taken back to the operating room, laid on table in supine position, and put under general anesthesia. He was then put into the beachchair position. The shoulder was then prepped and draped in sterile fashion. A timeout was done and the patient and the operative extremity was properly identified. A deltopectoral approach was used. Dissection was taken down through the fascia and the deltoid was retracted laterally and the conjoined tendon was retracted medially. The anterior shoulder was exposed. The biceps groove was opened up and the biceps tendon was examined extensively. The biceps tendon demonstrated enlargement and inflammatory changes consistent with longstanding inflammation in the context of osteoarthritis and cuff arthropathy. The long head of the biceps tendon was then tenodesed to the upper border of the pectoralis major. This was a separate and distinct portion of the procedure. The subscapularis was then directly released off the lesser tuberosity with a peel technique. The inferior capsule was released and the humeral head was dislocated. A canal finding reamer was sent down the center of the humeral canal. Sequential reaming up to a size 15 reamer was done. Off that reamer, a proximal humeral resection guide was placed. The proximal humerus was resected at 135 of inclination and 25 of retroversion. Osteophytes were then removed and the glenoid was exposed. Time was spent doing a complete capsular and labral release. The glenoid guide was then placed in the inferior aspect of the glenoid. A 3.2 mm Steinmann pin was then placed into the glenoid vault at 10 of inclination. The glenoid baseplate was then reamed. The final size 25 mm small augment baseplate was then impacted in the place. A 6.5 mm central screw was then placed followed by superior and inferior locking screws. A 40 mm eccentric glenosphere was then impacted into place. Surrounding soft tissues were then injected with 100 cc an orthopedic pain control cocktail. The proximal humerus was then exposed. Sequential broaching of the humerus up to a size 15 broach was done. Off that broach a +3 offset humeral tray was trialed. The shoulder was then reduced, brought through a full range of motion, and felt to be stable. The shoulder was then dislocated and the broach was removed. The final size 15 micro press-fit humeral stem was then impacted into place. A standard humeral bearing was then snapped onto a +3 offset humeral tray. The humeral tray was then impacted onto the humeral stem. The shoulder was once again reduced, brought through a full range of motion, and felt to be stable. The subscapularis was then tenodesed back to the lesser tuberosity with transosseous FiberWire sutures and side to side sutures with the arm in 45 of external rotation. A dilute betadyne lavage was then done for 3 minutes. The joint was then irrigated with normal saline solution. Hemostasis was obtained. The interval was closed with 2-0 Vicryl suture. The skin was then closed with 2-0 Vicryl and maggie. A Silverlon dressing was placed and the arm was rested in a regular arm sling. He was then extubated and transferred to a hospital bed. He taken to the postanesthesia care unit in stable condition. He tolerated the procedure well. Denton Argueta PA-C, was present for the entire procedure. He was critical for patient positioning, prepping, draping, retraction exposure, wound closure and application of sterile dressing. I attest to the content of the Intraoperative Record and any orders documented therein. Any exceptions are noted below.
--- NOTE | 2021-02-04 13:33 | XRay Report ---
XR shoulder LT min 2V routine HISTORY: 80 years-old Male Post shoulder surgery left shoulder total joint arthroplasty COMPARISON: Chest radiographs 01/11/2021 TECHNIQUE: 2 views of the left shoulder FINDINGS: Healed chronic mid left clavicular fracture. Reverse left shoulder total joint arthroplasty. Overlyin g skin maggie are present along with expected postsurgical soft tissue swelling and deep tissue air. There is no malalignment, definite acute fracture or expected opaque foreign body. IMPRESSION: Reverse left shoulder total joint arthroplasty with expected postoperative changes. ACT 112: Negative or not required by law. The above report was generated using voice recognition software. It may contain grammatical, syntax o r spelling errors. Electronically signed by: Curtis Alvarez M.D. 02/04/2021 1:32 PM
[2021-02-04] MEDS ORDERED: MAGNESIUM HYDROXIDE SUSP 30 ML UDC PO PRN (14:35)
[2021-02-04] MEDS ORDERED: NALOXONE HCL 0.4 MG/1 ML VIAL/CARP IV PRN (14:35)
[2021-02-04] MEDS ORDERED: METOCLOPRAMIDE HCL INJ 5 MG/ML 2 ML VIAL IV PRN (14:35)
[2021-02-04] MEDS ORDERED: oxyCODONE HCL IR 5 MG TAB (IMMEDIATE RELEASE) PO PRN (14:35)
[2021-02-04] MEDS ORDERED: AMITRIPTYLINE HCL 25 MG TAB PO PRN (14:35)
[2021-02-04] MEDS ORDERED: HYDROmorphone INJ 0.5 MG/0.5 ML SYR IV PRN (14:35)
[2021-02-04] MEDS ORDERED: bisacodyL 10 MG SUPP PR PRN (14:35)
[2021-02-04] MEDS ORDERED: LORazepam 0.5 MG TAB PO PRN (14:35)
[2021-02-04] MEDS: SODIUM CHLORIDE 0.9% 1000ML 1,000 ML IV SCH (15:03)
[2021-02-04] MEDS ORDERED: PHARMACY GLYCEMIC MGMT CONSULT PRN (15:15)
[2021-02-04] MEDS ORDERED: GLUCOSE 10 TABS/TUBE PO PRN (15:15)
[2021-02-04] MEDS ORDERED: CARBOHYDRATES FOR HYPOGLYCEMIA PO PRN (15:15)
[2021-02-04] MEDS ORDERED: DEXTROSE 50% 50 ML SYRINGE IV PRN (15:15)
[2021-02-04] MEDS ORDERED: GLUCOSE 40% GEL 15 GM TUBE PO PRN (15:15)
[2021-02-04] MEDS ORDERED: GLUCAGON FOR INJ 1 MG VIAL IM PRN (15:15)
[2021-02-04] MEDS ORDERED: LANTUS PER UNIT CHARGE SQ SCH (15:30)
[2021-02-04] MEDS: ACETAMINOPHEN 500 MG TAB PO SCH ×2 (15:52→21:41)
[2021-02-04] MEDS: KETOROLAC TROMETHAMINE 15 MG/ML VIAL IV SCH ×2 (15:54→21:41)
--- NOTE | 2021-02-04 16:22 | Anesthesiology Progress Note ---
Date of Service February 04, 2021 Anesthesia Post Procedure Vital Signs Vital Signs: Temp Pulse Pulse Resp BP BP Pulse Ox 02/04/21 15:44 87 17 152/82 H 96 02/04/21 15:07 97.9 F 82 17 150/96 H 99 02/04/21 14:39 97.9 F 80 17 145/83 H 98 02/04/21 14:00 81 16 139/88 97 02/04/21 13:50 83 17 157/78 H 97 02/04/21 13:40 97.5 F L 82 18 140/85 95 02/04/21 13:30 82 19 159/95 H 95 02/04/21 13:20 90 13 165/82 H 99 02/04/21 13:10 87 18 150/72 H 99 02/04/21 13:04 97.0 F L 83 20 140/70 99 02/04/21 11:15 75 18 188/83 H 95 02/04/21 10:30 98.2 F 88 18 207/118 H 94 Transfer of Care Handoff Completed per policy Notes Mental Status: alert / awake / arousable and participated in evaluation Patient Amnestic to Procedure: Yes Nausea / Vomiting: adequately controlled Pain: adequately controlled Airway Patency, RR, SpO2: stable & adequate BP & HR: stable & adequate Hydration State: stable & adequate Anesthetic Complications: no major complications apparent and Pt Satisfied with anesthetic care
[2021-02-04] MEDS: ceFAZolin 2000MG 2,000 MG/15 ML SYR IV SCH (18:03)
[2021-02-04] MEDS: INSULIN ASPART 100 UNITS/ML 3 ML PEN SC SCH ×2 (18:04→21:10)
[2021-02-04] MEDS ORDERED: ATORVASTATIN 20 MG TAB PO SCH (21:00)
[2021-02-04] MEDS ORDERED: FLECAINIDE ACETATE 100 MG TABLET PO SCH (21:00)
[2021-02-04] MEDS ORDERED: RIVAROXABAN 20 MG TAB PO SCH (21:00)
[2021-02-04] MEDS ORDERED: lisinopril 40 MG TAB PO SCH (21:00)
[2021-02-04] MEDS ORDERED: TERAZOSIN HCL 5 MG CAP PO SCH (21:00)
[2021-02-04] MEDS ORDERED: SENNA 8.6 MG TAB PO SCH (21:00)
[2021-02-04] MEDS: METOPROLOL SUCC 25MG EXT REL TAB PO SCH (21:03)
[2021-02-04] MEDS: DOCUSATE SODIUM 100 MG CAP PO SCH (21:04)
[2021-02-05] MEDS: SODIUM CHLORIDE 0.9% 1000ML 1,000 ML IV SCH (00:43)
[2021-02-05] MEDS: ceFAZolin 2000MG 2,000 MG/15 ML SYR IV SCH (02:27)
[2021-02-05] MEDS: KETOROLAC TROMETHAMINE 15 MG/ML VIAL IV SCH ×2 (04:18→08:25)
[2021-02-05] MEDS: ACETAMINOPHEN 500 MG TAB PO SCH (05:48)
--- NOTE | 2021-02-05 08:06 | Orthopedic Progress Note ---
Date of Service February 05, 2021 Assessment & Plan (1) Status post reverse arthroplasty of left shoulder: Overall is doing very well. Is not having any pain in the left shoulder. He will be seen by physical therapy today for ambulation and range of motion exercises. He can start back on his Xarelto today. He will be discharged home later today. He can follow-up with orthopedics in 2 weeks. Mckenna Licea was seen and examined at bedside this morning. Overall is doing very well. Is not having much pain in the left shoulder. He was able to get some sleep last night. He has no complaints.. Review of Systems All systems reviewed & are unremarkable except as noted in HPI & below. Physical Exam On physical examination of the left shoulder, the dressing is clean and dry. His radial, median, and ulnar nerves are checked intact his wrist. His axillary nerve was not checked yet. He is wearing a sling as instructed.. Results & Data Results & Data Laboratory Results . Diagnostic Findings Postoperative x-rays of the left shoulder show the prosthesis to be in anatomic alignment without any evidence of fracture, screws, or loosening.. PG Care Time/CCT Total # of Minutes Spent Total Time Spent with Patient: Total time spent is greater than 50% in coordination of care (as documented) at patient's floor/unit and/or counseling patient: Coding Level of Care Code 55352 Post Operative Follow-Up Diagnoses Status post reverse arthroplasty of left shoulder Z96.612
--- NOTE | 2021-02-05 08:07 | Discharge Summary ---
Date of Service February 05, 2021 Admission HPI (Per Admitting) Vinayak is a pleasant 80-year-old male who is been ill with chronic increasing left shoulder pain and weakness. 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 An MRI shows severe arthritis with very high-grade partial-thickness tearing of the rotator cuff. After failing conservative treatment, he has elected proceed with a left reverse shoulder arthroplasty. I did a right total shoulder arthroplasty on him in 2017 and he has done well with that.. Admission Exam (Per Admitting) Physical examination of the left shoulder, he has range of motion of 0 to 110 degrees. He has 4-5 motion with full can testing. He has 5 5 motion with external rotation. He has pain in the subacromial space and over the glenohumeral joint line.. Principal Diagnosis Same as "Discharge Diagnosis" noted below under Discharge Instructions. Discharge Exam On physical examination of the left shoulder, the dressing is clean and dry. His radial, median, and ulnar nerves are checked intact his wrist. His axillary nerve was not checked yet. He is wearing a sling as instructed.. Discharge Data Procedures Performed Operation Date: 02/04/21 12:30 Actual Procedures p Left Reverse Total Shoulder Arthroplasty, Uncemented(Left) - Denton Aguila DO Ordered Studies 02/04/21 05:00 US - OR guided needle placemen Routine Hospital Course (1) Status post reverse arthroplasty of left shoulder: On February 04, 2021 Vinayak arrived at [facility] and underwent a left reverse shoulder arthroplasty without complication. He had a general anesthetic and a left interscalene nerve block. Postoperatively he was placed in a sling and transferred to the general orthopedic floors. His hospital course was uneventful. On postop day #1 his vital signs were stable and his pain was well controlled. He was able to participate well with physical therapy doing amb ulation and range of motion exercises. He was then discharged home. He will follow-up with orthopedics in 2 weeks. PG Care Time/CCT Total # of Minutes Spent Total Time Spent with Patient: Total time spent is greater than 50% in coordination of care (as documented) at patient's floor/unit and/or counseling patient: Discharge Plan Discharge Items Patient Disposition: Home - Home Health Services Reason For Visit: Left Shoulder Degenerative Joint Disease Discharge Diagnosis: Left reverse shoulder replacement Activity: As commented below Non-emergency contact: Surgeon Call non-emergency contact if: your wound has increased redness and your wound has increased drainage Follow-up/Referrals: Evan Pal III, MD [Primary Care Provider] - Diet: Regular Addtl Attending Provider Instructions: Activity and Therapy Recommendations: * If you are using [facility] then therapy will be provided at your home until they feel you have accomplished all of your goals. * If you are using [facility] then Physical Therapy will be provided until they feel you are ready to start Outpatient Physical Therapy. * If you are not using home therapy then Outpatient Physical Therapy should start about 3-5 days from your day of surgery. Therapy will last about 8-12 weeks * Wear your sling for 3 weeks, unless otherwise instructed. You may remove your sling to shower and to dress, but otherwise, you should be in your sling at all times, including while sleeping * The shoulder replacement is very stable and you can use your hand while in the sling * You were shown a series of exercises in the hospital. Do these exercises daily including the exercises you were shown in physical therapy. Medications: * Narcotic You will likely be sent home from the hospital with a prescription for the narcotic pain medication that worked best throughout your stay. * Other medications may be prescribed for specific circumstances. If you have any questions, please call the office at . * Resume previous home medications unless otherwise instructed Dressing Care: Leave the Silverlon dressing in place for 7 days. After 7 days you may remove the dressing. If the incision is not draining then you may leave the maggie open to air. If there is a little bit of drainage or if the maggie are getting stuck on your clothing then cover the incision with a dry dressing. The maggie will be removed at your 2 week follow-up appointment. Showering: You may shower with the Silverlon dressing in place. Do not let the shower spray hit the dressing directly. Pat the Silverlon dressing dry. If the dressing becomes wet underneath, then simply remove the dressing. Keep the incision dry until you are 7 days out from the day of surgery. After 7 days you may remove the Silverlon dressing and shower with the maggie exposed. Let soapy water run over the maggie and pat them dry. Do not scrub or soak the incision. Things To Watch For: * Drainage from the incision site that occurs more than one week after your surgery. * Increased redness at the incision site. * Fever above 102 degrees Fahrenheit. * Unusual chest pain or shortness of breath. * Call [facility] at with any of the above problems Follow-Up Visit: Follow-up with Dr. Aguila's PA (Denton Argueta) 2-3 weeks after your day of surgery. He will remove your maggie and answer any questions. If you have any additional questions or concerns, Dr Aguila is usually in the office at the same time and will be available An appointment was probably scheduled when you signed-up for surgery in the office. If you have any questions call More detailed instructions as well as Frequently Asked Questions were provided in a folder by our office when you signed-up for surgery. Please review these instructions when you get home. If you have any further questions or concerns, please feel free to call the office at [phone] Pending Studies at Discharge: No Stand-Alone Forms: [facility] Medications and DC Order Prescriptions: New oxycodone 5 mg Tablet 5 mg PO Q4H PRN (Reason: pain) Qty: 30 RF: 0 Continued metoprolol succinate 25 mg tablet extended release 24 hr 25 mg PO BID Qty: 180 RF: 3 (DME) OneTouch Ultra Blue Test Strip Strip See Rx Instructions .ROUTE .MEDSUPPLY Qty: 200 RF: 3 (DME) lancets [OneTouch Delica Lancets] 33 gauge misc See Rx Instructions .ROUTE .MEDSUPPLY Qty: 200 RF: 3 diazepam 5 mg tablet 5 mg PO USEASDIRECTD Qty: 2 RF: 0 lorazepam 0.5 mg tablet 0.5 mg PO DAILY PRN (Reason: anxiety) Qty: 1 RF: 0 aspirin 81 mg Tablet,Delayed Release (Dr/Ec) 81 mg PO QPM RF: 0 multivitamin [Multiple Vitamins] tablet 1 tab PO QPM RF: 0 atorvastatin 20 mg tablet 20 mg PO QPM RF: 0 amitriptyline 25 mg tablet 25 mg PO DAILY PRN (Reason: Sleep) RF: 0 flecainide 50 mg tablet 50 mg PO QAM RF: 0 flecainide 100 mg tablet 100 mg PO QPM RF: 0 lisinopril 40 mg tablet 40 mg PO QPM RF: 0 terazosin 10 mg capsule 10 mg PO QPM RF: 0 tadalafil 5 mg tablet 5 mg PO QPM RF: 0 solifenacin [Vesicare] 5 mg tablet 5 mg PO QPM RF: 0 Xarelto 20 mg tablet 20 mg PO QPM RF: 0 acetaminophen [Tylenol Extra Strength] 500 mg Capsule 500 - 1,000 mg PO Q6H PRN (Reason: Pain) RF: 0 Discharge Orders: Discharge Order (Routine); Ordered 02/05/21 Ordered By: Denton Aguila Admission Data Admit Date/Time: 02/04/21 13:08 Attending Provider: Denton Aguila Admit Provider: Denton Aguila Primary Care Provider: Evan Pal III
[2021-02-05] MEDS: METOPROLOL SUCC 25MG EXT REL TAB PO SCH (08:24)
[2021-02-05] MEDS: DOCUSATE SODIUM 100 MG CAP PO SCH (08:27)
[2021-02-05] MEDS: INSULIN ASPART 100 UNITS/ML 3 ML PEN SC SCH (08:32)
[2021-02-05] MEDS ORDERED: LANTUS PER UNIT CHARGE SQ ONE (09:00)
[2021-02-05] MEDS ORDERED: FLECAINIDE ACETATE 100 MG TABLET PO SCH (09:00)
[2021-02-05] MEDS ORDERED: MULTIVITAMIN TAB PO SCH (09:00)
--- NOTE | 2021-02-05 10:36 | Pharmacy Report ---
Pharmacy Glycemic Short Note 2 - Date of Service February 05, 2021 - Glycemic Short BSG Results (Last 24 hours): 02/04/21 02/04/21 02/04/21 13:08 16:46 20:57 POC Glucose 195 H 241 H 239 H 02/05/21 08:06 POC Glucose 185 H OUTPATIENT ANTIDIABETIC REGIMEN: * None, diet controlled * HbA1c = 7.2% (10/07/20) ASSESSMENT: * 80 yo M admitted yesterday afternoon s/p left reverse total shoulder arthroplasty. Pharmacy has been consulted to assist with inpatient glycemic management. * Patient received 8 mg of PO Dexamethasone preoperatively when his BSG was 195 mg/dL. Postoperative BSG was 241 mg/dL. He was given 15 units of Lantus and 13 units of Novolog at that time. Bedtime BSG was still elevated at 239 mg/dL for which he received 5 units of Novolog. * Fasting BSG improved to 185 mg/dL today * Likely that Dexamethasone is still affecting BSGs at this time so opting to give another one time dose of 10 units Lantus * No changes to Novolog * Possible discharge today PLAN FOR INPATIENT GLYCEMIC CONTROL: * Basal insulin * Lantus 10 units SQ x 1 * Bolus insulin * NovoLog per scale ACHS or Q6hrs while NPO * Goal Range: Low 110 mg/dL - High 140 mg/dL * Correction Factor: 20 mg/dL/unit * Nutritional / Prandial insulin per carb ratio of 1 unit per 7 grams CHO consumed PLAN FOR DISCHARGE: * HbA1c = 7.2% which is at goal for this patient. Continue to manage T2DM with diet control alone.
== END 2021-02-05 12:05 | disposition home health service (06) ==
LOC: ASU 10:24 → INTOOBSV 13:08 → 3E 13:08

== ENCOUNTER 2022-05-16 06:32 | Observation (INO) ==
--- NOTE | 2022-05-04 11:40 | PAT Medication Instructions ---
Medication Instructions Date of Service May 04, 2022 Home Medications Medication Instructions Recorded lorazepam 0.5 mg tablet 0.5 mg PO DAILY PRN anxiety #1 tab 06/10/19 terazosin 10 mg capsule 10 mg PO QPM #90 caps 10/12/21 atorvastatin 20 mg tablet 20 mg PO QPM #90 tabs 10/14/21 flecainide 100 mg tablet 100 mg PO QPM #90 tabs 10/14/21 lancets 33 gauge (OneTouch Delica #200 ea 10/14/21 Lancets) rivaroxaban 20 mg tablet (Xarelto) 20 mg PO QPM #90 tabs 10/14/21 blood sugar diagnostic #200 ea 10/20/21 lisinopril 40 mg tablet 40 mg PO QPM #90 tabs 10/31/21 solifenacin 5 mg tablet (Vesicare) 5 mg PO DAILY #90 tabs 12/15/21 tadalafil 5 mg tablet 5 mg PO QPM sexual activity #90 12/15/21 tabs cephalexin 500 mg capsule 500 mg PO TID 7 days #21 caps 04/28/22 sulfamethoxazole 800 1 tab PO BID 10 days #20 tabs 04/30/22 mg-trimethoprim 160 mg tablet (Bactrim DS) lorazepam 0.5 mg tablet 0.5 mg PO DAILY PRN anxiety aspirin 81 mg tablet,delayed release 81 mg PO QPM acetaminophen 500 mg capsule 500 - 1,000 mg PO Q6H PRN Pain amitriptyline 25 mg tablet 25 mg PO HS PRN Sleep multivitamin (Multiple Vitamins tablet) 1 tab PO QPM terazosin 10 mg capsule 10 mg PO QPM atorvastatin 20 mg tablet 20 mg PO QPM flecainide 100 mg tablet 100 mg PO QPM rivaroxaban 20 mg tablet (Xarelto) 20 mg PO QPM lisinopril 40 mg tablet 40 mg PO QPM solifenacin 5 mg tablet (Vesicare) 5 mg PO DAILY tadalafil 5 mg tablet 5 mg PO QPM sexual activity cephalexin 500 mg capsule 500 mg PO TID 7 days sulfamethoxazole 800 mg-trimethoprim 160 mg tablet (Bactrim DS) 1 tab PO BID 10 days metformin 500 mg tablet,extended release 24 hr 500 mg PO BID metoprolol succinate 25 mg tablet,extended release 24 hr 50 mg PO PM Continue as directed lorazepam 0.5 mg tablet 0.5 mg PO DAILY PRN anxiety (if needed) cephalexin 500 mg capsule 500 mg PO TID 7 days sulfamethoxazole 800 mg-trimethoprim 160 mg tablet (Bactrim DS) 1 tab PO BID 10 days ASK your prescriber and surgeon aspirin 81 mg tablet,delayed release 81 mg PO QPM rivaroxaban 20 mg tablet (Xarelto) 20 mg PO QPM STOP taking 24 hours before surgery tadalafil 5 mg tablet 5 mg PO QPM sexual activity DO NOT take the morning of surgery solifenacin 5 mg tablet (Vesicare) 5 mg PO DAILY metformin 500 mg tablet,extended release 24 hr 500 mg PO BID Take morning of surgery With a small sip of water, OTHERWISE NOTHING TO EAT OR DRINK AFTER MIDNIGHT: acetaminophen 500 mg capsule 500 - 1,000 mg PO Q6H PRN Pain (if needed) Take evening before surgery acetaminophen 500 mg capsule 500 - 1,000 mg PO Q6H PRN Pain (if needed) amitriptyline 25 mg tablet 25 mg PO HS PRN Sleep (if needed) multivitamin (Multiple Vitamins tablet) 1 tab PO QPM terazosin 10 mg capsule 10 mg PO QPM atorvastatin 20 mg tablet 20 mg PO QPM flecainide 100 mg tablet 100 mg PO QPM lisinopril 40 mg tablet 40 mg PO QPM metformin 500 mg tablet,extended release 24 hr 500 mg PO BID metoprolol succinate 25 mg tablet,extended release 24 hr 50 mg PO PM Other Notes If you have any questions please call us at [phone] or [phone] or [phone] or [phone]
--- NOTE | 2022-05-05 15:16 | Anesthesiology Consultation ---
Date of Service May 05, 2022 Assessment & Plan (1) Encounter for pre-operative examination: - Case discussed in detail with Dr. Hein who advised echo does not need updated prior to surgery and patient can proceed as scheduled without further evaluation or testing from his standpoint. - check BSG am DOS. - cardiology 01/19/22 [place]: "...stable from cardiovascular standpoint...excellent control of his blood pressure and lipid values...permanent atrial fibrillation without difficulty...low-dose flecainide as his prevents palpitations related to his dysrhythmia...long-term anticoagulation without difficulty..." - COVID screening: Per assessment on 05/05/2022: Travel screen negative, no known COVID-19 positive contacts or current COVID-19 related symptoms in past 2 weeks. Pt vaccinated. Surgeon arranging preop COVID testing, scheduled 05/12/2022. Awaiting results. Chart Review Chart Review: Acceptable Risk for Surgery and Patient seen in Pre Admission Testing Teaching & Discussion Pre-Anesthesia Teaching/Discussion Notes: Instructed NPO after midnight before surgery, except medications with 15 cc of water. Medication instructions provided according to the PAT guidelines. History Surgery Operation Date: 05/16/22 10:35 Proposed Procedures p TURP (Transurethral Resection of the Prostate) - Adolph Kumari MD Height/Weight Height: 5 ft 11 in Weight: 115.6 kg Allergies Allergy/AdvReac Type Severity Reaction Status Date / Time adhesive tape Allergy Mild Redness of Verified 05/05/22 15:32 Skin Medications Home Medications Medication Instructions Recorded Confirmed Last Taken lorazepam 0.5 mg tablet 0.5 mg PO DAILY PRN anxiety #1 tab 06/10/19 05/04/22 Unknown aspirin 81 mg tablet,delayed 81 mg PO QPM 12/03/19 05/04/22 04/02/22 release acetaminophen 500 mg capsule 500 - 1,000 mg PO Q6H PRN Pain 01/05/21 05/04/22 01/28/21 amitriptyline 25 mg tablet 25 mg PO HS PRN Sleep 01/05/21 05/04/22 02/03/21 19:30 multivitamin (Multiple Vitamins 1 tab PO QPM 01/05/21 05/04/22 04/02/22 tablet) terazosin 10 mg capsule 10 mg PO QPM #90 caps 10/12/21 05/04/22 04/02/22 atorvastatin 20 mg tablet 20 mg PO QPM #90 tabs 10/14/21 05/04/22 04/02/22 flecainide 100 mg tablet 100 mg PO QPM #90 tabs 10/14/21 05/04/22 04/02/22 lancets 33 gauge (OneTouch Delica #200 ea 10/14/21 05/04/22 Unknown Lancets) rivaroxaban 20 mg tablet (Xarelto) 20 mg PO QPM #90 tabs 10/14/21 05/04/22 04/02/22 blood sugar diagnostic #200 ea 10/20/21 05/04/22 Unknown lisinopril 40 mg tablet 40 mg PO QPM #90 tabs 10/31/21 05/04/22 04/02/22 solifenacin 5 mg tablet (Vesicare) 5 mg PO DAILY #90 tabs 12/15/21 05/04/22 04/02/22 tadalafil 5 mg tablet 5 mg PO QPM sexual activity #90 12/15/21 05/04/22 04/02/22 tabs sulfamethoxazole 800 1 tab PO BID 10 days #20 tabs 04/30/22 05/04/22 Unknown mg-trimethoprim 160 mg tablet (Bactrim DS) metformin 500 mg tablet,extended 500 mg PO BID 05/04/22 05/04/22 Unknown release 24 hr metoprolol succinate 25 mg 50 mg PO PM 05/04/22 05/04/22 Unknown tablet,extended release 24 hr Past Medical History Medical History (Updated 05/08/22 @ 08:39 by Lori Monahan PA-C) Anxiety 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 Atrial fibrillation Follows with [facility] cardiology (Dr. Booker) Deep vein thrombosis (DVT) of right upper extremity (~2017) Post-op shoulder surgery Diabetes type 2, controlled NIDDM DJD (degenerative joint disease) of knee Fuchs' corneal dystrophy Hearing loss Hypercholesteremia currently managed by cardio and PCP Hypertension controlled, stable per pt; white coat hypertension Mild concentric left ventricular hypertrophy (LVH) Mitral regurgitation mild per 2013 echo Obesity Tricuspid regurgitation mild per 2013 echo Patient denies h/o stroke, seizures, heart attack, heart failure or blood transfusions. Exercise / Class Metabolic Activity II 4-5 Yardwork/Stairs/Walk up hill (denies CP or SOB with 1 FOS) Past Family History Family History Brother Bipolar disorder Father Alcoholism Cancer ESOPHAGEAL Family history of esophageal cancer Sister Coronary heart disease Bipolar disorder Mother Scoliosis Son Diabetes Other Heart disease Hypertension Denies family history of Ovarian cancer Prostate cancer Myocardial infarction Breast cancer Colorectal cancer Past Surgical History Surgical History History of arthroscopy Left knee History of left shoulder replacement 02/04/2021: LMA#5. History of tooth extraction Hx of colonoscopy S/P total knee arthroplasty R/L Status post total shoulder arthroplasty Right TSA (08/31/17): Grade view 1, MAC#3, ETT 8 at [facility] Past Anesthesia History No Hx of Anesthesia Complications and Other (son slow to wake; denies re- intubation) History of PONV No Hx of PONV and No Hx of Motion Sickness Social History Smoking Status: Former smoker Do You Dip or Chew Tobacco: No Smoking End Date: 30 yrs ago Hx Alcohol Use: No Alcohol type: wine Hx Substance Use: No substance use type: does not use Review of Systems Snoring, denies witnessed apneas. Chronic, occasional palpitations with afib. Denies change or worsening. Patient denies chest pain, shortness of breath, dyspnea on exertion, reflux, fever, chills, cough, or wheezing. Physical Exam Vital Signs Vitals BP 147/83 P 68 TEMP 98 SP02 96% on RA RESP 18 Physical Full cervical extension range of motion without pain TMD 3.5 finger breadths Mallampati Score 2 Dentition: intact, missing several teeth; several caps/crowns-unsure of location; denies chipped or loose teeth, implants or bridges Lungs: normal respiratory effort. Clear throughout to auscultation, no adventitious breath sounds Cardiac: irregularly irregular rhythm, normal rate, 2/6 systolic murmur noted Carotid arteries: negative bruit bilat Lab Results Anesthesia Preop Results Results Anesthesia Widget: WBC 5.44 K/ul (4.8-10.8) 05/05/22 Hgb 11.2 g/dl (14.0-18.0) L 05/05/22 Hct 32.9 % (40.1-51.0) L 05/05/22 Plt 197 K/uL (130-400) 05/05/22 Na 138 mmol/L (136-145) 05/05/22 K 4.5 mmol/L (3.5-5.1) 05/05/22 Cl 104 mmol/L (98-107) 05/05/22 CO2 29 mmol/L (21-32) 05/05/22 BUN 19 mg/dl (6-23) 05/05/22 Creat 0.86 mg/dl (0.6-1.4) 05/05/22 Glucose Level 240 mg/dl (70-99(Fasting)) H 05/05/22 PT 12.4 Seconds (9.0-12.0) H 04/03/22 PTT 33.9 Seconds (21.0-31.0) H 04/03/22 INR 1.2 (0.9-1.1) H 04/03/22 HA1c 7.7 % (4.5-5.6) H 05/05/22 Urine Color Yellow 05/05/22 Urine Appearance Clear (Clear) 05/05/22 Urine pH 5.5 (4.5-7.5) 05/05/22 Urine Specific [place] 1.015 (1.000-1.030) 05/05/22 Urine Protein Negative (Negative) 05/05/22 Urine Glucose (UA) Trace (Negative) H 05/05/22 Urine Ketones Negative (Negative) 05/05/22 Urine Blood 3+ (Negative) H 05/05/22 Urine Nitrite Negative (Negative) 05/05/22 Urine Bilirubin Negative (Negative) 05/05/22 Urine Urobilinogen Negative (Negative) 05/05/22 Urine Leukocyte Esterase Trace (Negative) H 05/05/22 Urine WBC (Auto) 5-10 /hpf (0-5) H 05/05/22 Urine RBC (Auto) 10-30 /hpf (0-4) H 05/05/22 Urine Hyaline Casts (Auto) 1-5 /lpf (0-5) 05/05/22 Urine Epithelial Cells (Auto) 0-5 /lpf (0-5) 05/05/22 Urine Bacteria (Auto) Negative (Negative) 05/05/22 Testing Electrocardiogram Date: 05/05/22 Afib, rate 75 bpm Chest X-Ray Date: 05/05/22 No significant change compared to the prior study. No acute process. Stable cardiomegaly.
[~2022-05-16 06:32] MED LIST changes: -ACETAMINOPHEN 500 MG TAB PO SCH; -BUPIVACAINE 0.5 % 5 MG/1 ML PF 10ML VIAL ONE; +CIPROFLOXACIN / D5W 400 MG/200 ML BAG IV SCH; -FAMOTIDINE 20 MG TAB PO SCH; -GABAPENTIN 300 MG CAP PO SCH; -LIDOCAINE HCL 2% 2 ML VIAL/AMP(20MG/ML) INFIL ONE; -LR 60ML/HR IV SCH; -MIDAZOLAM HCL 1 MG/ML 2ML VIAL ONE; -PROPOFOL IV EMULSION 10 MG/ML 20 ML VIAL IV ONE; -ROPIVACAINE 0.5% HCL/PF 150 MG, BUPIVACAINE 0.75% MPF 20 ML, EPINEPHrine 30MG/30ML (OR ... INSTIL SCH; -TRANEXAMIC ACID 1,000 MG **IV Intra-op IV SCH; -TRANEXAMIC ACID 1,000 MG **IV Pre-op IV SCH; -ceFAZolin 2000MG 2,000 MG/15 ML SYR IV SCH; -dexAMETHasone 4 MG TAB PO SCH; -fentaNYL citrate 100 MCG/2 ML VIAL ONE
--- NOTE | 2022-05-16 07:30 | History & Physical Report ---
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 tract symptoms (LUTS): Plan: BPH w/ urinary retention plan for cysto, TURP today risks, benefits, and alternatives explained History of Present Illness Primary Care Provider: MIRANDA Guzmán 82y/o male w/ urinary retention and failed voiding trials presents today for TURP Allergies Allergy/AdvReac Type Severity Reaction Status Date / Time adhesive tape Allergy Mild Redness of Verified 05/16/22 07:07 Skin Home Medications Medication Instructions Recorded Confirmed Type lorazepam 0.5 mg tablet 0.5 mg PO DAILY PRN anxiety #1 tab 06/10/19 05/16/22 Rx aspirin 81 mg tablet,delayed 81 mg PO QPM 12/03/19 05/16/22 History release acetaminophen 500 mg capsule 500 - 1,000 mg PO Q6H PRN Pain 01/05/21 05/16/22 History amitriptyline 25 mg tablet 25 mg PO HS PRN Sleep 01/05/21 05/16/22 History multivitamin (Multiple Vitamins 1 tab PO QPM 01/05/21 05/16/22 History tablet) terazosin 10 mg capsule 10 mg PO QPM #90 caps 10/12/21 05/16/22 Rx atorvastatin 20 mg tablet 20 mg PO QPM #90 tabs 10/14/21 05/16/22 Rx flecainide 100 mg tablet 100 mg PO QPM #90 tabs 10/14/21 05/16/22 Rx lancets 33 gauge (OneTouch Delica #200 ea 10/14/21 05/04/22 Rx Lancets) rivaroxaban 20 mg tablet (Xarelto) 20 mg PO QPM #90 tabs 10/14/21 05/16/22 Rx blood sugar diagnostic #200 ea 10/20/21 05/04/22 Rx lisinopril 40 mg tablet 40 mg PO QPM #90 tabs 10/31/21 05/16/22 Rx solifenacin 5 mg tablet (Vesicare) 5 mg PO DAILY #90 tabs 12/15/21 05/16/22 Rx tadalafil 5 mg tablet 5 mg PO QPM sexual activity #90 12/15/21 05/16/22 Rx tabs metformin 500 mg tablet,extended 500 mg PO BID 05/04/22 05/16/22 History release 24 hr metoprolol succinate 25 mg 50 mg PO PM 05/04/22 05/16/22 History tablet,extended release 24 hr Past Med/Surg History Medical History Anxiety 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 History of tooth extraction Hx of colonoscopy S/P total knee arthroplasty R/L Status post total shoulder arthroplasty Right TSA (08/31/17): Grade view 1, MAC#3, ETT 8 at [facility] Family History Brother Bipolar disorder Father Alcoholism Cancer ESOPHAGEAL Family history of esophageal cancer Sister Coronary heart disease Bipolar disorder Mother Scoliosis Son Diabetes Other Heart disease Hypertension Denies family history of Ovarian cancer Prostate cancer Myocardial infarction Breast cancer Colorectal cancer Social History Smoking Status: Former smoker Tobacco Type: Cigarettes Age Started Using Tobacco: 23; Age Quit Using Tobacco: 60; packs per day: 0.5; Smoking End Date: 30 yrs ago; Second Hand Exposure: No; Do You Dip or Chew Tobacco: No; Tobacco Cessation Education Requested by Patient: No Hx Alcohol Use: Yes Alcohol type: wine Alcohol Intake Frequency: Monthly or Less Hx Substance Use: No Preferred Language: Turkmen Communication Ability: Effective Visual Impairment: No Limitations Hearing Ability: Normal Shipping And Receiving Required: No Beliefs That Will Affect Care: None marital status: Current Living Situation: Spouse current occupational status: retired current occupation: retired from career with [employer] Other Information That Helps Us Care for You: No Feels Safe at Home: Yes Safety Concerns: Feels Safe At This Time Childhood Exposure to Second-Hand Smoke: Yes Dental Care, Regularly: Yes Physical Activity Frequency: 1-2 Times per Week Seatbelt Use: always Sunscreen Use: Yes Assistive Devices: Glasses and Hearing Aid - Left Physical Exam Constitutional: well developed and well nourished Neck: neck nontender Respiratory: normal respiratory effort; no respiratory distress and does not use accessory muscles Cardiovascular: Rate/Rhythm: regular rate Vessels: radial pulses present Extremities: no edema Gastrointestinal (Abdomen): Inspection/Auscultation: abdomen normal to inspection Percussion/Palpation: abdomen soft; abdomen nontender and no guarding Musculoskeletal: Head/Neck/Chest: normocephalic and head atraumatic Extremities: extremities normal to inspection Skin: no rashes and no lesions Trauma: no evidence of skin trauma Neurologic: awake; not obtunded Speech / Cognition: normal speech Motor/Sensory: no tremor Psychiatric: Orientation: alert and oriented x 3 Genitourinary: no CVA tenderness Lymphatic: no lymphadenopathy Results & Data ([facility]) Vital Signs (Past 12 Hours) Vital Signs Temp Pulse Resp BP Pulse Ox O2 Del Method 05/16/22 07:10 36.8 C 72 18 179/108 H 95 Room Air 05/16/22 07:10 Room Air
[2022-05-16] MEDS ORDERED: LIDOCAINE 2% MPF LOCAL 5 ML VIAL INFIL ONE (07:52)
[2022-05-16] MEDS ORDERED: PROPOFOL IV EMULSION 10 MG/ML 20 ML VIAL IV ONE (07:52)
[2022-05-16] MEDS ORDERED: PHENYLEPHRINE 100MCG/ML 5ML SYR ONE (07:52)
[2022-05-16] MEDS ORDERED: fentaNYL citrate 100 MCG/2 ML VIAL ONE (07:52)
[2022-05-16] MEDS ORDERED: ONDANSETRON INJ 2 MG/ML 2 ML VIAL ONE (07:52)
[2022-05-16] MEDS ORDERED: ePHEDrine sulfate 50 MG/ML SYR ONE (07:52)
[2022-05-16] MEDS ORDERED: ePHEDrine sulfate 50 MG/ML AMP IV PRN (07:55)
[2022-05-16] MEDS ORDERED: ATROPINE SULFATE 0.1 MG/ML 10ML SYR IV PRN (07:55)
[2022-05-16] MEDS ORDERED: HYDROmorphone INJ 2 MG/ML SYR/VIAL IV PRN (07:55)
[2022-05-16] MEDS ORDERED: DEXAMETHASONE SOD INJ 4 MG/ML VIAL IV PRN (07:55)
[2022-05-16] MEDS ORDERED: ONDANSETRON INJ 2 MG/ML 2 ML VIAL IV PRN (07:55)
--- NOTE | 2022-05-16 07:55 | Anesthesiology Progress Note ---
Date of Service May 16, 2022 Anesthesia Post Procedure Vital Signs Vital Signs: Temp Pulse Resp BP Pulse Ox O2 Del Method 05/16/22 07:10 36.8 C 72 18 179/108 H 95 Room Air 05/16/22 07:10 Room Air Transfer of Care Handoff Completed per policy Notes Mental Status: alert / awake / arousable and participated in evaluation Nausea / Vomiting: adequately controlled Pain: adequately controlled Airway Patency, RR, SpO2: stable & adequate BP & HR: stable & adequate Hydration State: stable & adequate Anesthetic Complications: no major complications apparent and Pt Satisfied with anesthetic care
--- NOTE | 2022-05-16 10:04 | Operative Report ---
PG Post Operative Report Pre & Post Diagnosis Operation Date: 05/16/22 08:00 Pre-Op Diagnosis: Benign Localized Prostatic Hyperplasia with Lower Post-Op Diagnosis: Benign Localized Prostatic Hyperplasia with Lower I identified the patient and participated in the time-out.: Yes Procedure Operation Date: 05/16/22 08:00 Actual Procedures p TURP (Transurethral Resection of the Prostate)(Not Applicable) - Adolph Kumari MD Surgeon Adolph Kumari MD Certified Medical Transcriptionist none Estimated Blood Loss 5 Findings Consistent with Post-Op Diagnosis Specimens Prostate chips Description of Procedure The patient was identified in the preoperative holding area, appropriate informed consents were reviewed and completed and the patient was transferred to the operative suite. Upon arrival, appropriate antibiotics and anesthesia were administered and the patient was placed in dorsal lithotomy position and prepped and draped in sterile fashion. Images I passed a 26 Gabonese resectoscope with 30 degree lens and visual obturator. Inspection revealed a healthy-appearing urethra and a large prostate. He has previously had a catheter he had some hypervascularity of the prostate consistent with a expectations of the patient with an indwelling catheter. Bladder was healthy aside from some minor catheter related cystitis. He does have an intravesical median lobe as well as intrusion of the remainder of the prostate into the bladder. Ureteral orifices were not readily visible because of the shape of the prostate. To begin resection I utilized a loop electrode and incised the bladder neck at 5 and 7:00. This exposed the ureteral orifices which I then was able to avoid throughout the remainder of the case. I resected intravesical median lobe first followed by the lateral aspects of the bladder neck. I then proceeded to resect the left lateral lobe followed by the right lateral lobe. Apical tissue was reserved for the final resection. After resecting tissue with a loop I exchanged the loop for a button electrode and smooth remaining underlying tissue completing my resection. Hemostasis was excellent. The prostatic fossa was widely patent. All chips were evacuated from the bladder and passed off the table for pathology. A 22 Gabonese Brothers catheter was inserted and the case was concluded. He was reversed of anesthesia and taken to the recovery room in stable condition. There were no complications. I attest to the content of the Intraoperative Record and any orders documented therein. Any exceptions are noted below.
[2022-05-16 10:27] LABS: Basophils # (auto) 0.04 K/uL (0-0.2); Basophils % (auto) 0.7 %; Eosinophils # (auto) 0.02 K/uL (0-0.50); Eosinophils % (auto) 0.3 %; Hematocrit (blood only) 35.7 % (40.1-51.0); Hemoglobin 12.1 g/dl (14.0-18.0); Immature Granulocytes # (auto) 0.02 K/uL (0.00-0.02); Immature Granulocytes % (auto) 0.3 %; Lymphocytes # (auto) 1.04 K/uL (1.2-3.4); Lymphocytes % (auto) 17.7 %; Mean Corpuscular Hemoglobin 30.3 pg (25.0-34.0); Mean Corpuscular Hgb Conc 33.9 g/dL (32.0-36.0); Mean Corpuscular Volume 89.3 fL (80.0-100.0); Monocytes # (auto) 0.31 K/uL (0.24-0.82); Monocytes % (auto) 5.3 %; Neutrophils # (auto) 4.43 K/uL (1.4-6.5); Neutrophils % (auto) 75.7 %; Platelet Count 200 K/uL (130-400); RDW Coefficient of Variation 13.9 % (11.5-14.5); RDW Standard Deviation 45.3 fL (36.4-46.3); White Blood Count 5.86 K/ul (4.8-10.8)
[2022-05-16 10:50] LABS: BUN Creatinine Ratio 18.9 (10-20); Calcium 9.2 mg/dl (8.5-10.1); Creatinine Clr Calc Pharmacy 103.7 ml/min; Est GFR (Non-African American) 87.1 ml/min; Potassium 4.6 mmol/L (3.5-5.1)
[2022-05-16] MEDS ORDERED: LORazepam 0.5 MG TAB PO PRN (11:12)
[2022-05-16] MEDS ORDERED: HYDROCODONE/ACETAMOPHEN 5/325MG TAB PO PRN (11:12)
[2022-05-16] MEDS ORDERED: PHARMACY GLYCEMIC MGMT CONSULT PRN (11:12)
[2022-05-16] MEDS ORDERED: AMITRIPTYLINE HCL 25 MG TAB PO PRN (11:12)
[2022-05-16] MEDS ORDERED: ACETAMINOPHEN 500 MG TAB PO PRN (11:12)
[2022-05-16] MEDS ORDERED: GLUCOSE 40% GEL 15 GM TUBE PO PRN (11:45)
[2022-05-16] MEDS ORDERED: DEXTROSE 50% 50 ML SYRINGE IV PRN (11:45)
[2022-05-16] MEDS ORDERED: CARBOHYDRATES FOR HYPOGLYCEMIA PO PRN (11:45)
[2022-05-16] MEDS ORDERED: GLUCOSE 10 TAB/TUBE PO PRN (11:45)
[2022-05-16] MEDS ORDERED: GLUCAGON FOR INJ 1 MG VIAL SQ PRN (11:45)
[2022-05-16] MEDS: LACTATED RINGER'S 1,000 ML IV SCH ×2 (12:58→19:22)
--- NOTE | 2022-05-16 13:07 | Pharmacy Report ---
Pharmacy Glycemic Short Note 2 - Date of Service May 16, 2022 - Glycemic Short BSG Results (Last 24 hours): 05/16/22 05/16/22 05/16/22 07:17 09:59 10:09 Glucose 214 H POC Glucose 199 H 219 H OUTPATIENT ANTIDIABETIC REGIMEN: * Metformin 500mg PO BID * HbA1c: 7.7% (05/05/22) ASSESSMENT: * Mr Brown is an 82yo diabetic male, POD 0 s/p TURP with Dr Kumari this morning. * BSGs have been elevated, so pt ordered one dose of Lantus and initiated on Novolog coverage for BSG mgmt during hospitalization. * Pharmacy will continue to follow and adjust as indicated. PLAN FOR INPATIENT GLYCEMIC CONTROL: * Hold outpatient oral diabetes medications * Consider resuming Metformin tomorrow if pt is tolerating diet and no contraindications are present. * Basal insulin * Lantus 10 units SQ x1 dose * Bolus insulin * NovoLog per scale ACHS or Q6hrs while NPO * Goal Range: Low 120 mg/dL - High 150 mg/dL * Correction Factor: 30 mg/dL/unit * Nutritional / Prandial insulin per carb ratio of 1 unit per 10 grams CHO consumed
[2022-05-16] MEDS ORDERED: INSULIN ASPART PER UNIT SC ONE (13:15)
[2022-05-16] MEDS ORDERED: LANTUS PER UNIT CHARGE SQ ONE (13:15)
[2022-05-16] MEDS: INSULIN ASPART PER UNIT SC SCH ×2 (17:28→21:02)
[2022-05-16] MEDS ORDERED: METOPROLOL SUCC 50MG EXT REL TAB PO SCH (21:00)
[2022-05-16] MEDS ORDERED: ATORVASTATIN 20 MG TAB PO SCH (21:00)
[2022-05-16] MEDS ORDERED: FLECAINIDE ACETATE 100 MG TABLET PO SCH (21:00)
[2022-05-16] MEDS ORDERED: lisinopril 40 MG TAB PO SCH (21:00)
--- NOTE | 2022-05-17 08:14 | Urology Progress Note ---
Date of Service May 17, 2022 Assessment & Plan (1) Benign localized prostatic hyperplasia with lower urinary tract symptoms (LUTS): Plan: Acute urinary retentionfailed several voiding trials Now status post TURP yesterday Voiding trial this morning, discharge home later today Admission and Anticipated Discharge Date Admission Date: May 16, 2022 Subjective No issues overnight Urine clear Tolerating his catheter Feels well Results & Data ([facility]) Vital Signs (Past 12 Hours) Vital Signs Temp Pulse Pulse Resp BP BP Pulse Ox 05/17/22 07:35 36.8 C 71 16 181/82 H 93 05/17/22 02:16 36.9 C 66 18 158/88 H 91 05/16/22 22:21 37.2 C 72 18 155/88 H 94 O2 Del Method 05/17/22 07:35 Room Air 05/17/22 02:16 Room Air 05/16/22 22:21 Room Air PG Care Time/CCT Total # of Minutes Spent Total Time Spent with Patient: Total time spent is greater than 50% in coordination of care (as documented) at patient's floor/unit and/or counseling patient: Coding Level of Care Code None Diagnoses Benign localized prostatic hyperplasia with lower urinary tract symptoms (LUTS) N40.1
[2022-05-17] MEDS ORDERED: LANTUS PER UNIT CHARGE SQ ONE ×2 (09:00→21:00)
[2022-05-17] MEDS: INSULIN ASPART PER UNIT SC SCH ×2 (09:00→13:17)
[2022-05-17 09:09] LABS: Basophils # (auto) 0.05 K/uL (0-0.2); Basophils % (auto) 0.5 %; Eosinophils # (auto) 0.04 K/uL (0-0.50); Eosinophils % (auto) 0.4 %; Hematocrit (blood only) 38.3 % (40.1-51.0); Hemoglobin 13.1 g/dl (14.0-18.0); Immature Granulocytes # (auto) 0.03 K/uL (0.00-0.02); Immature Granulocytes % (auto) 0.3 %; Lymphocytes # (auto) 1.37 K/uL (1.2-3.4); Lymphocytes % (auto) 15.1 %; Mean Corpuscular Hemoglobin 30.4 pg (25.0-34.0); Mean Corpuscular Hgb Conc 34.2 g/dL (32.0-36.0); Mean Corpuscular Volume 88.9 fL (80.0-100.0); Mean Platelet Volume 11.1 fL (9.4-12.4); Monocytes # (auto) 0.65 K/uL (0.24-0.82); Monocytes % (auto) 7.1 %; Neutrophils # (auto) 6.96 K/uL (1.4-6.5); Neutrophils % (auto) 76.6 %; Platelet Count 206 K/uL (130-400); RDW Coefficient of Variation 13.7 % (11.5-14.5); RDW Standard Deviation 44.9 fL (36.4-46.3); Red Blood Count 4.31 M/uL (4.63-6.08)
[2022-05-17 09:38] LABS: BUN Creatinine Ratio 15.2 (10-20); Calcium 9.4 mg/dl (8.5-10.1); Creatinine Clr Calc Pharmacy 97.2 ml/min; Est GFR (African American) 98.3 ml/min; Est GFR (Non-African American) 84.8 ml/min; Potassium 4.2 mmol/L (3.5-5.1)
--- NOTE | 2022-05-17 14:47 | Discharge Summary ---
Date of Service May 17, 2022 Admission HPI Per Admitting Provider 82y/o male w/ urinary retention and failed voiding trials presents today for TURP Admission Exam Per Admitting Provider Physical Exam Constitutional well developed and well nourished Respiratory no respiratory distress Cardiovascular Extremities: no pedal edema Gastrointestinal (Abdomen) Inspection/Auscultation: abdomen normal to inspection Principal Diagnosis BPH with LUTS Discharge Exam Constitutional well developed and well nourished; no acute distress Respiratory no respiratory distress and no labored breathing Gastrointestinal (Abdomen) Inspection/Auscultation: abdomen normal to inspection; abdomen not distended Musculoskeletal Head/Neck/Chest: normocephalic and head atraumatic Neurologic awake Psychiatric Orientation: alert and oriented x 3 Genitourinary Urinal at bedside with light disla red urine Discharge Data Allergies Allergy/AdvReac Type Severity Reaction Status Date / Time adhesive tape Allergy Mild Redness of Verified 05/16/22 07:07 Skin Procedures Performed Operation Date: 05/16/22 08:00 Actual Procedures p TURP (Transurethral Resection of the Prostate)(Not Applicable) - Adolph Kumari MD Hospital Course (1) Benign localized prostatic hyperplasia with lower urinary tract symptoms (LUTS): Acute urinary retentionfailed several voiding trials Now status post TURP yesterday Voiding trial this morning, discharge home later today Patient voiding after Brothers catheter removed Expected clinical course reviewed, all questions answered Patient ready for discharge - orders placed Total Time Total Time Spent Total Time Spent (In Minutes): 29 Discharge Plan Discharge Items Patient Disposition: Home - Self-Care Reason For Visit: Benign Localized Prostatic Hyperplasia with Lower Discharge Diagnosis: Benign Localized Prostatic Hyperplasia with Lower Urinary Tract Symptoms Activity: Per Instructions section Lifting: No more than 25 pounds Bathing Comment: Okay to shower today, no tub bath or soaking Sexual Activity: When tolerated Exercise/Sports: Gradually increase as tolerated Driving/Machine Use: No driving while taking prescription pain medication Non-emergency contact: Surgeon and Urologist Call non-emergency contact if: your pain is not controlled, you have a fever and your temperature is above 101 Follow-up/Referrals: Venita Orosco CRNP [Primary Care Provider] - Adolph Kumari MD [Physician] - 08/16/22 8:45 am Diet: Regular Addtl Attending Provider Instructions: Please take all medications as prescribed and keep all follow-ups as scheduled. Please call our office at [phone] with any questions, concerns or need to reschedule appointments for any reason. We are happy to assist you. You can resume your Xarelto on Sunday. You can stop your Terazosin. An antibiotic was sent to your pharmacy - take as directed. Tips for your recovery at home: Dont be alarmed by brownish or reddish blood or clots in your urine. This is a result of the procedure. This may occur off and on for weeks to months after the procedure but should continue to improve. Drink plenty of fluids during the day (enough to keep your urine very light colored). This will help keep a healthy flow of urine. Do not lift >25 lbs until your followup Avoid constipation. Please use a stool softener (Colace) for the first two weeks after your procedure Be sure to finish the antibiotics as prescribed. If you go home with a catheter, please wash tubing where it enters your body twice daily with mild soap (Dove or Dial). Once your catheter is removed, expect some blood in your urine and some burning when you urinate. You should have an appointment to have this removed, if you do not please call our office to arrange. Pending Studies at Discharge: Yes (pathology) Stand-Alone Forms: My [facility] [employer], Smoking Cessation Medications and DC Order Prescriptions: New sulfamethoxazole-trimethoprim [Bactrim DS] 800-160 mg tablet 1 tab PO BID 3 Days Qty: 6 0RF Continued atorvastatin 20 mg tablet 20 mg PO QPM Qty: 90 3RF flecainide 100 mg tablet 100 mg PO QPM Qty: 90 3RF (DME) lancets [OneTouch Delica Lancets] 33 gauge misc See Rx Instructions .ROUTE .MEDSUPPLY Qty: 200 3RF Rx Instructions: TEST 2 TIMES DAILY Xarelto 20 mg tablet 20 mg PO QPM Qty: 90 3RF Rx Instructions: must administer with a meal/food (DME) blood sugar diagnostic Strip See Rx Instructions .ROUTE .MEDSUPPLY Qty: 200 3RF Rx Instructions: USE 1 STRIP TWICE DAILY (OneTouch Ultra) lisinopril 40 mg tablet 40 mg PO QPM Qty: 90 3RF tadalafil 5 mg tablet 5 mg PO QPM Qty: 90 3RF solifenacin [Vesicare] 5 mg tablet 5 mg PO DAILY Qty: 90 3RF lorazepam 0.5 mg tablet 0.5 mg PO DAILY PRN (Reason: anxiety) Qty: 1 0RF aspirin 81 mg Tablet,Delayed Release (Dr/Ec) 81 mg PO QPM multivitamin [Multiple Vitamins] tablet 1 tab PO QPM amitriptyline 25 mg tablet 25 mg PO HS PRN (Reason: Sleep) acetaminophen 500 mg Capsule 500 - 1,000 mg PO Q6H PRN (Reason: Pain) metoprolol succinate 25 mg tablet extended release 24 hr 50 mg PO PM metformin 500 mg tablet extended release 24 hr 500 mg PO BID Discontinued terazosin 10 mg capsule 10 mg PO QPM Qty: 90 3RF Discharge Orders: Discharge Order (Routine); Ordered 05/17/22 Ordered By: Kelli Martins/Other Patient Handouts: Anatomy of the Male Urinary Tract Admission Data Admit Date/Time: 05/16/22 10:01 Attending Provider: Adolph Kumari Admit Provider: Adolph Kumari Primary Care Provider: Venita Orosco Other Interventions: Discharge Summary Assessment (RN) Last Done: 05/17/22 13:29 Coding Level of Care Code D/C DAY MANAGEMENT <30 MINS Diagnoses Benign localized prostatic hyperplasia with lower urinary tract symptoms (LUTS) N40.1
== END 2022-05-17 14:04 | disposition home or self-care (01) ==
LOC: PACUINP 06:32 → ASU 06:32 → 3W 12:11

== ENCOUNTER 2022-05-22 21:58 | Observation (INO) ==
--- NOTE | 2022-05-22 23:37 | Emergency Department Note ---
Impression & Plan Acute urinary retention ADMIT ED Provider Note HPI: The patient is an 82-year-old male who presents the emergency department with chief complaint of Brothers catheter not draining. This is the patient's third presentation in the past 24 hours for urinary retention. Patient had a TURP procedure performed last week by Dr. Kumari of urology. Patient had been doing okay until last evening when he came in for urinary retention had a Brothers catheter placed. He had 1 subsequent presentation after he was discharged as the Brothers catheter was not draining. Patient had the catheter flushed, states that he went home and several hours ago the Brothers catheter again stopped draining. On arrival here to the ED the patient is in mild distress secondary to suprapubic discomfort but is otherwise hemodynamically stable. ROS: -: Brothers catheter problem *10 point review systems was conducted and is otherwise negative unless stated above *Outpatient medications and allergy history reviewed PE: General: Alert, NAD HEENT: Normocephalic, atraumatic Eyes: Extraocular eye movement is intact, no scleral erythema Pulmonary: Clear to auscultation bilaterally, no wheezing Cardio: Regular rate and rhythm GI: Abdomen is soft, nontender : Brothers catheter in place with blood-tinged urine in bag, no active drainage, suprapubic tenderness to palpation MSK: No evidence of trauma or malformation of the extremities, no edema Skin: No evidence of rash Neuro: Alert, no focal deficits Psychiatric: Cooperative monitoring engineer: - An order was placed for continuous cardiac monitoring - Patient was noted to be in sinus rhythm with a rate of 90 Medical Decision Making: Patient presented to the emergency department with a chief complaint of Brothers catheter not draining, patient has had this issue earlier today and catheter was flushed and urine was drained and therefore he was discharged home. Patient states several hours ago the catheter again got clogged. I discussed the patient's presentation tonight with Dr. Lamas of urology, plan will be to place three-way Brothers catheter and patient will be admitted to the medicine service for urology consultation in the morning. Patient is in agreement to this plan. Lab work was obtained that shows no evidence of any acute kidney injury, three- way Brothers catheter was placed with irrigation and this did result in successful draining of urine and clearing of blood-tinged urine with irrigation. On my reassessment patient states he is feeling improved. Patient will be admitted to the medicine service for urology consultation in the morning. Patient is in agreement to this plan he was admitted in stable condition. Diagnosis: 1. Urinary retention 2. Hematuria 3. 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 History of tooth extraction Hx of colonoscopy S/P total knee arthroplasty R/L Status post total shoulder arthroplasty Right TSA (08/31/17): Grade view 1, MAC#3, ETT 8 at [facility] Family History Brother Bipolar disorder Father Alcoholism Cancer ESOPHAGEAL Family history of esophageal cancer Sister Coronary heart disease Bipolar disorder Mother Scoliosis Son Diabetes Other Heart disease Hypertension Denies family history of Ovarian cancer Prostate cancer Myocardial infarction Breast cancer Colorectal cancer Social History Smoking Status: Never smoker Tobacco Type: Cigarettes Age Started Using Tobacco: 23; Age Quit Using Tobacco: 60; packs per day: 0.5; Second Hand Exposure: No; Hx Alcohol Use: Yes Alcohol type: wine Alcohol Intake Frequency: Monthly or Less Hx Substance Use: No Preferred Language: Setswana Communication Ability: Effective Visual Impairment: No Limitations Hearing Ability: Normal Food And Beverage Cashier Required: No Beliefs That Will Affect Care: None marital status: Current Living Situation: Spouse current occupational status: retired current occupation: retired from career with [employer] Feels Safe at Home: Yes Childhood Exposure to Second-Hand Smoke: Yes Dental Care, Regularly: Yes Physical Activity Frequency: 1-2 Times per Week Seatbelt Use: always Sunscreen Use: Yes Assistive Devices: Glasses and Hearing Aid - Left Allergies Allergies Allergy/AdvReac Type Severity Reaction Status Date / Time adhesive tape Allergy Mild Redness of Verified 05/16/22 07:07 Skin Home Meds Home Medications Medication Instructions Recorded Confirmed aspirin 81 mg tablet,delayed 81 mg PO QPM 12/03/19 05/22/22 release acetaminophen 500 mg capsule 500 - 1,000 mg PO Q6H PRN Pain 01/05/21 05/22/22 amitriptyline 25 mg tablet 25 mg PO HS PRN Sleep 01/05/21 05/22/22 multivitamin (Multiple Vitamins 1 tab PO QPM 01/05/21 05/22/22 tablet) metformin 500 mg tablet,extended 500 mg PO BID 05/04/22 05/22/22 release 24 hr metoprolol succinate 25 mg 50 mg PO PM 05/04/22 05/22/22 tablet,extended release 24 hr Previous Rx's Medication Instructions Recorded lorazepam 0.5 mg tablet 0.5 mg PO DAILY PRN anxiety #1 tab 06/10/19 atorvastatin 20 mg tablet 20 mg PO QPM #90 tabs 10/14/21 flecainide 100 mg tablet 100 mg PO QPM #90 tabs 10/14/21 lancets 33 gauge (OneTouch Delica #200 ea 10/14/21 Lancets) rivaroxaban 20 mg tablet (Xarelto) 20 mg PO QPM #90 tabs 10/14/21 blood sugar diagnostic #200 ea 10/20/21 lisinopril 40 mg tablet 40 mg PO QPM #90 tabs 10/31/21 tadalafil 5 mg tablet 5 mg PO QPM sexual activity #90 12/15/21 tabs molnupiravir 200 mg capsule (EUA) 800 mg PO Q12H 5 days #40 caps 05/22/22 Results & Data (ED) Vital Signs Vital Signs - 24 hr 05/22/22 22:07 05/23/22 00:32 05/23/22 00:32 Temperature 35.9 C L Temperature Source Temporal Artery Scan Pulse Rate 104 H Pulse Rate [Finger] 92 H Pulse Rhythm [Finger] Regular Pulse Strength [Finger] Normal Respiratory Rate 20 20 Respiratory Effort / Characteristics Non-Labored Spontaneous Non-Labored Spontaneous Respiratory Depth Normal Normal Blood Pressure 165/97 H Blood Pressure [Right Arm] 174/97 H Blood Pressure Mean 119 Blood Pressure Mean [Right Arm] 122 Blood Pressure Position Sitting Blood Pressure Position [Right Arm] Sitting Pulse Oximetry 97 97 97 Oxygen Delivery Method Room Air Room Air Room Air Sepsis Recent Fever Within 48 Hours No Sepsis New/Unexplained Change in Mental Status N/A Sepsis Action Taken by Nursing No Action Required 05/23/22 02:06 Temperature Temperature Source Pulse Rate Pulse Rate [Finger] 87 Pulse Rhythm [Finger] Regular Pulse Strength [Finger] Respiratory Rate 20 Respiratory Effort / Characteristics Non-Labored Spontaneous Respiratory Depth Normal Blood Pressure Blood Pressure [Right Arm] 145/92 H Blood Pressure Mean Blood Pressure Mean [Right Arm] 109 Blood Pressure Position Blood Pressure Position [Right Arm] Sitting Pulse Oximetry 96 Oxygen Delivery Method Room Air Sepsis Recent Fever Within 48 Hours Sepsis New/Unexplained Change in Mental Status Sepsis Action Taken by Nursing Laboratory Data Result diagrams: 05/23/22 00:15 05/23/22 00:15 Lab Results 05/23/22 05/23/22 05/23/22 Range/Units 00:15 00:15 Unknown WBC 7.01 (4.8-10.8) K/ul RBC 4.24 L (4.63-6.08) M/uL Hgb 12.7 L (14.0-18.0) g/dl Hct 38.1 L (40.1-51.0) % MCV 89.9 (80.0-100.0) fL MCH 30.0 (25.0-34.0) pg MCHC 33.3 (32.0-36.0) g/dL RDW Std Deviation 46.4 H (36.4-46.3) fL RDW Coeff of Berta 14.0 (11.5-14.5) % Plt Count 177 (130-400) K/uL MPV 11.1 (9.4-12.4) fL Immature Gran % (Auto) 0.3 % Neut % (Auto) 58.3 % Lymph % (Auto) 26.4 % [place] % (Auto) 14.3 % Eos % (Auto) 0.3 % Baso % (Auto) 0.4 % Neut # (Auto) 4.09 (1.4-6.5) K/uL Lymph # (Auto) 1.85 (1.2-3.4) K/uL [place] # (Auto) 1.00 H (0.24-0.82) K/uL Eos # (Auto) 0.02 (0-0.50) K/uL Baso # (Auto) 0.03 (0-0.2) K/uL Immature Gran # (Auto) 0.02 (0.00-0.02) K/uL Sodium 138 (136-145) mmol/L Potassium 4.1 (3.5-5.1) mmol/L Chloride 104 (98-107) mmol/L Carbon Dioxide 26 (21-32) mmol/L Anion Gap 8 (3-11) BUN 17 (6-23) mg/dl Creatinine 0.89 (0.6-1.4) mg/dl Est Cr Clr Drug Dosing Not Reportable Est GFR ( Amer) 93.6 ml/min Est GFR (Non-Af Amer) 80.8 ml/min BUN/Creatinine Ratio 19.1 (10-20) Glucose 179 H (70-99(Fasting)) mg/dl Calcium 10.0 (8.5-10.1) mg/dl Total Bilirubin 0.9 D (0.2-1.0) mg/dl AST 21 (13-39) U/L ALT 15 (7-52) U/L Alkaline Phosphatase 73 (34-104) U/L Total Protein 7.2 (6.0-8.3) gm/dl Albumin 4.2 (3.4-5.0) gm/dl Globulin 3.0 (2.5-4.0) gm/dl Albumin/Globulin Ratio 1.4 (0.9-2) SARS-CoV-2, RNA, NAAT POSITIVE A* (NEGATIVE) Administered Medications Discontinued Medications Acetaminophen (Acetaminophen 500 Mg Tab) 1,000 mg PO NOW STA Stop: 05/23/22 01:40 Last Admin: 05/23/22 01:43 Dose: 1,000 mg Documented By: DANIELLE Discharge Plan Visit Data Chief Complaint: Unable to Void Stated Complaint: UNABLE TO URINATE, REFERRED BY DR BOGGS Provider: Arturo Dominguez Discharge Problem: Acute urinary retention Forms Stand Alone Forms: My [facility] Prescriptions Prescriptions: No Action atorvastatin 20 mg tablet 20 mg PO QPM Qty: 90 3RF flecainide 100 mg tablet 100 mg PO QPM Qty: 90 3RF (DME) lancets [OneTouch Delica Lancets] 33 gauge misc See Rx Instructions .ROUTE .MEDSUPPLY Qty: 200 3RF Rx Instructions: TEST 2 TIMES DAILY Xarelto 20 mg tablet 20 mg PO QPM Qty: 90 3RF Rx Instructions: must administer with a meal/food (DME) blood sugar diagnostic Strip See Rx Instructions .ROUTE .MEDSUPPLY Qty: 200 3RF Rx Instructions: USE 1 STRIP TWICE DAILY (OneTouch Ultra) lisinopril 40 mg tablet 40 mg PO QPM Qty: 90 3RF tadalafil 5 mg tablet 5 mg PO QPM Qty: 90 3RF lorazepam 0.5 mg tablet 0.5 mg PO DAILY PRN (Reason: anxiety) Qty: 1 0RF molnupiravir 200 mg capsule 800 mg PO Q12H 5 Days Qty: 40 0RF aspirin 81 mg Tablet,Delayed Release (Dr/Ec) 81 mg PO QPM multivitamin [Multiple Vitamins] tablet 1 tab PO QPM amitriptyline 25 mg tablet 25 mg PO HS PRN (Reason: Sleep) acetaminophen 500 mg Capsule 500 - 1,000 mg PO Q6H PRN (Reason: Pain) metoprolol succinate 25 mg tablet extended release 24 hr 50 mg PO PM metformin 500 mg tablet extended release 24 hr 500 mg PO BID Referrals Referrals: Venita Orosco CRNP [Primary Care Provider] -
[2022-05-23 00:31] LABS: Basophils # (auto) 0.03 K/uL (0-0.2); Basophils % (auto) 0.4 %; Eosinophils # (auto) 0.02 K/uL (0-0.50); Eosinophils % (auto) 0.3 %; Hematocrit (blood only) 38.1 % (40.1-51.0); Hemoglobin 12.7 g/dl (14.0-18.0); Immature Granulocytes # (auto) 0.02 K/uL (0.00-0.02); Immature Granulocytes % (auto) 0.3 %; Lymphocytes # (auto) 1.85 K/uL (1.2-3.4); Lymphocytes % (auto) 26.4 %; Mean Corpuscular Hgb Conc 33.3 g/dL (32.0-36.0); Mean Corpuscular Volume 89.9 fL (80.0-100.0); Mean Platelet Volume 11.1 fL (9.4-12.4); Monocytes % (auto) 14.3 %; Neutrophils # (auto) 4.09 K/uL (1.4-6.5); Neutrophils % (auto) 58.3 %; Platelet Count 177 K/uL (130-400); RDW Standard Deviation 46.4 fL (36.4-46.3); Red Blood Count 4.24 M/uL (4.63-6.08); White Blood Count 7.01 K/ul (4.8-10.8)
[2022-05-23 01:10] LABS: Alanine Aminotransferase 15 U/L (7-52); Albumin Globulin Ratio 1.4 (0.9-2); Albumin Level 4.2 gm/dl (3.4-5.0); Alkaline Phosphatase 73 U/L (34-104); Anion Gap 8 (3-11); Aspartate Aminotransferase 21 U/L (13-39); BUN Creatinine Ratio 19.1 (10-20); Bilirubin,Total 0.9 mg/dl (0.2-1.0); Blood Urea Nitrogen 17 mg/dl (6-23); Carbon Dioxide 26 mmol/L (21-32); Chloride 104 mmol/L (98-107); Est GFR (African American) 93.6 ml/min; Est GFR (Non-African American) 80.8 ml/min; Glucose 179 mg/dl (70-99(Fasting)); Potassium 4.1 mmol/L (3.5-5.1); Sodium 138 mmol/L (136-145); Total Protein 7.2 gm/dl (6.0-8.3)
[2022-05-23] MEDS ORDERED: ACETAMINOPHEN 500 MG TAB PO STA (01:39)
--- NOTE | 2022-05-23 01:45 | History & Physical Report ---
Date of Service May 23, 2022 Assessment & Plan (1) Urinary retention: Plan: 82yo male s/p TURP performed on 05/16/22 presenting to the ER x 3 with urinary retention. Patient had a Brothers catheter placed in the ER appx 24 hours ago. He was seen again with inability to pass urine and leaking around the Brothers which was managed with Brothers irrigation. He returns again with inability to pass urine. Three-way catheter placed and CBI initiated in the ER Patient is HD stable, H/H near baseline, renal function and electrolytes are acceptable -Admit to medical -Continue CBI -Urology consultation appreciated -Monitor CBC, BMP and electrolytes -Will hold ASA and Rivaroxaban for now given hematuria (2) COVID-19: Plan: Patient developed runny nose, slight cough on 05/16/22. He had a POSITIVE home test on 05/21/22 and is POSITIVE on routine admission testing performed in the ER today. No SOB. Adequate oxygenation on room air. He was started on Molnupiravir this evening -Continue isolation precautions -Monitor oxygenation. No need for steroid or Remdesivir therapy at this time given adequate oxygenation -May continue Molnupiravir - patient brought his medication from home -SCDs for DVT ppx given history of hematuria (3) Hematuria: Plan: As above, s/p TURP with ongoing hematuria -CBI -Urology consultation -Hold ASA and Rivaroxaban -Monitor CBC (4) Atrial fibrillation, permanent: Plan: Rate controlled. Patient anticoagulated on Rivaroxaban which has been on hold -Continue to hold Rivaroxaban -Continue metoprolol 50mg po qPM -Continue Flecainide 100mg po qPM (5) Diabetes type 2, controlled: Plan: Fairly well controlled. AIC=7.7 on 05/05/22 -Hold Metformin -Lantus 5u BID -ISS, goal blood sugar 100 - 140 (6) Hypercholesteremia: Plan: Chronic -Continue Atorvastatin (7) Hypertension: Plan: Chronic. Mildly elevated in ER -Continue Lisinopril -Continue metoprolol -Continue to monitor F/E/N - LR at 125mL/hr x 1 liter, electrolytes WNL, NPO for now Ppx - SCDs Code - Full Dispo - Admit to medical History of Present Illness Chief Complaint: Unable to void, hematuria, s/p TURP Primary Care Provider: MIRANDA Guzmán Vinayak Brown is an 82yo male with history of DM, AF on Eliquis anticoagulation, HTN, HLP, BPH with LUTS s/p TURP performed by Dr. Kumari on 05/16/22. Surgery was well tolerated, no complications. Patient was able to void spontaneously following the surgery and was discharged home in stable condition on 05/17/22. He initially reports passing pink colored urine which became more dark in color over the next 3 days. Patient also noted a progressively weaker urinary stream. He was seen in the ER on 05/22/22 AM with complaint of urinary retention, h ematuria and suprapubic abdominal pain. A bladder scan was performed which revealed over 600mL of urine. A Brothers catheter was placed with return of over 1L of bloody urine. Patient was discharged home. He returned to the ER later in the morning of 05/22/22 with complaint of inability to urinate as well as thicker blood with possible passage of clots. The Brothers was irrigated with return of pink urine with clots. Admission was discussed for possible CBI, however, patient wished to return home and attempt to increase his fluid intake and manage the Brothers. He was discharged home. Patient returns today with complaint of inability to urinate. Patient had a three way catheter placed and CBI initiated in the ER. He has no complaints at present. Denies chest pain, cough or SOB. No abdominal pain, nausea, vomiting, diarrhea or constipation. Patient did develop rhinorrhea, sneezing, cough 3 days ago (05/19/22). He took a home Covid test on 05/21/22 which was POSITIVE. He is vaccinated with 2 vaccinations + Booster. He was prescribed Molnupiravir x 5 day course by his PCP which he started this evening (first dose). No additional complaints at this time. In the ER patient afebrile, HD stable, no respiratory distress, adequate oxygenation on room air Allergies Allergy/AdvReac Type Severity Reaction Status Date / Time adhesive tape Allergy Mild Redness of Verified 05/16/22 07:07 Skin Home Medications Medication Instructions Recorded Confirmed Type lorazepam 0.5 mg tablet 0.5 mg PO DAILY PRN anxiety #1 tab 06/10/19 05/22/22 Rx aspirin 81 mg tablet,delayed 81 mg PO QPM 12/03/19 05/22/22 History release acetaminophen 500 mg capsule 500 - 1,000 mg PO Q6H PRN Pain 01/05/21 05/22/22 History amitriptyline 25 mg tablet 25 mg PO HS PRN Sleep 01/05/21 05/22/22 History multivitamin (Multiple Vitamins 1 tab PO QPM 01/05/21 05/22/22 History tablet) atorvastatin 20 mg tablet 20 mg PO QPM #90 tabs 10/14/21 05/22/22 Rx flecainide 100 mg tablet 100 mg PO QPM #90 tabs 10/14/21 05/22/22 Rx lancets 33 gauge (OneTouch Delica #200 ea 10/14/21 05/22/22 Rx Lancets) rivaroxaban 20 mg tablet (Xarelto) 20 mg PO QPM #90 tabs 10/14/21 05/22/22 Rx blood sugar diagnostic #200 ea 10/20/21 05/22/22 Rx lisinopril 40 mg tablet 40 mg PO QPM #90 tabs 10/31/21 05/22/22 Rx tadalafil 5 mg tablet 5 mg PO QPM sexual activity #90 12/15/21 05/22/22 Rx tabs metformin 500 mg tablet,extended 500 mg PO BID 05/04/22 05/22/22 History release 24 hr metoprolol succinate 25 mg 50 mg PO PM 05/04/22 05/22/22 History tablet,extended release 24 hr molnupiravir 200 mg capsule (EUA) 800 mg PO Q12H 5 days #40 caps 05/22/22 05/22/22 Rx Past Med/Surg History Medical History Anxiety 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 Atrial fibrillation Follows with [facility] cardiology (Dr. Booker) Deep vein thrombosis (DVT) of right upper extremity (~2016) Post-op shoulder surgery Diabetes type 2, controlled NIDDM DJD (degenerative joint disease) of knee Fuchs' corneal dystrophy Hearing loss Hypercholesteremia currently managed by cardio and PCP Hypertension controlled, stable per pt; white coat hypertension Mild concentric left ventricular hypertrophy (LVH) Mitral regurgitation mild per 2013 echo Obesity Tricuspid regurgitation mild per 2013 echo Surgical History History of arthroscopy Left knee History of left shoulder replacement 02/04/2021: LMA#5. History of tooth extraction Hx of colonoscopy S/P total knee arthroplasty R/L Status post total shoulder arthroplasty Right TSA (08/31/17): Grade view 1, MAC#3, ETT 8 at [facility] Family History Brother Bipolar disorder Father Alcoholism Cancer ESOPHAGEAL Family history of esophageal cancer Sister Coronary heart disease Bipolar disorder Mother Scoliosis Son Diabetes Other Heart disease Hypertension Denies family history of Ovarian cancer Prostate cancer Myocardial infarction Breast cancer Colorectal cancer Social History Smoking Status: Never smoker Tobacco Type: Cigarettes Age Started Using Tobacco: 23; Age Quit Using Tobacco: 60; packs per day: 0.5; Second Hand Exposure: No; Hx Alcohol Use: Yes Alcohol type: wine Alcohol Intake Frequency: Monthly or Less Hx Substance Use: No Preferred Language: Japanese Communication Ability: Effective Visual Impairment: No Limitations Hearing Ability: Normal Pool Cleaner Required: No Beliefs That Will Affect Care: None marital status: Current Living Situation: Spouse current occupational status: retired current occupation: retired from career with [employer] Safe at Home: Yes Childhood Exposure to Second-Hand Smoke: Yes Dental Care, Regularly: Yes Physical Activity Frequency: 1-2 Times per Week Seatbelt Use: always Sunscreen Use: Yes Assistive Devices: Glasses and Hearing Aid - Left Review of Systems Review of Systems: All systems reviewed & are unremarkable except as noted in HPI & below Physical Exam Physical Exam: General: patient resting comfortably, NAD, non-toxic in appearance, AA&O x 4 Skin: warm, dry, intact, no rashes or lesions HEENT: NC/AT, PERRL, EOMI, anicteric sclera, conjunctiva without injection, external ear normal to inspection and nontender, nares patent, moist mucus membranes, dentition intact, no oropharyngeal lesions, neck supple, trachea midline, no LAD, no thyromegaly, no JVD Heart: +S1/S2, regular, no m/r/g Lungs: equal air entry bilaterally, no rales/rhonchi/wheezes Abd: +BS, soft, NT/ND, no masses/organomegaly/ascites, no suprapubic tenderness Ext: warm, 2+ pulses in UE/LE bilaterally, no clubbing/cyanosis or edema Neuro: nonfocal, patient AA&O x 4, speech intact, no facial droop, moving all extremities on command with equal strength 5/5 Results & Data Results & Data ([facility]) Vital Signs (Past 12 Hours) Vital Signs Temp Pulse Pulse Resp BP BP Pulse Ox 05/23/22 00:32 97 05/23/22 00:32 92 H 20 174/97 H 97 05/22/22 22:07 35.9 C L 104 H 20 165/97 H 97 O2 Del Method 05/23/22 00:32 Room Air 05/23/22 00:32 Room Air 05/22/22 22:07 Room Air Laboratory Results Laboratory Results WBC 7.01 K/ul (4.8-10.8) 05/23/22 00:15 RBC 4.24 M/uL (4.63-6.08) L 05/23/22 00:15 Hgb 12.7 g/dl (14.0-18.0) L 05/23/22 00:15 Hct 38.1 % (40.1-51.0) L 05/23/22 00:15 MCV 89.9 fL (80.0-100.0) 05/23/22 00:15 MCH 30.0 pg (25.0-34.0) 05/23/22 00:15 MCHC 33.3 g/dL (32.0-36.0) 05/23/22 00:15 RDW Std Deviation 46.4 fL (36.4-46.3) H 05/23/22 00:15 RDW Coeff of Berta 14.0 % (11.5-14.5) 05/23/22 00:15 Plt Count 177 K/uL (130-400) 05/23/22 00:15 MPV 11.1 fL (9.4-12.4) 05/23/22 00:15 Immature Gran % (Auto) 0.3 % 05/23/22 00:15 Neut % (Auto) 58.3 % 05/23/22 00:15 Lymph % (Auto) 26.4 % 05/23/22 00:15 [place] % (Auto) 14.3 % 05/23/22 00:15 Eos % (Auto) 0.3 % 05/23/22 00:15 Baso % (Auto) 0.4 % 05/23/22 00:15 Neut # (Auto) 4.09 K/uL (1.4-6.5) 05/23/22 00:15 Lymph # (Auto) 1.85 K/uL (1.2-3.4) 05/23/22 00:15 [place] # (Auto) 1.00 K/uL (0.24-0.82) H 05/23/22 00:15 Eos # (Auto) 0.02 K/uL (0-0.50) 05/23/22 00:15 Baso # (Auto) 0.03 K/uL (0-0.2) 05/23/22 00:15 Immature Gran # (Auto) 0.02 K/uL (0.00-0.02) 05/23/22 00:15 Sodium 138 mmol/L (136-145) 05/23/22 00:15 Potassium 4.1 mmol/L (3.5-5.1) 05/23/22 00:15 Chloride 104 mmol/L (98-107) 05/23/22 00:15 Carbon Dioxide 26 mmol/L (21-32) 05/23/22 00:15 Anion Gap 8 (3-11) 05/23/22 00:15 BUN 17 mg/dl (6-23) 05/23/22 00:15 Creatinine 0.89 mg/dl (0.6-1.4) 05/23/22 00:15 Est Cr Clr Drug Dosing Not Reportable 05/23/22 00:15 Est GFR ( Amer) 93.6 ml/min 05/23/22 00:15 Est GFR (Non-Af Amer) 80.8 ml/min 05/23/22 00:15 BUN/Creatinine Ratio 19.1 (10-20) 05/23/22 00:15 Glucose 179 mg/dl (70-99(Fasting)) H 05/23/22 00:15 Calcium 10.0 mg/dl (8.5-10.1) 05/23/22 00:15 Total Bilirubin 0.9 mg/dl (0.2-1.0) D 05/23/22 00:15 AST 21 U/L (13-39) 05/23/22 00:15 ALT 15 U/L (7-52) 05/23/22 00:15 Alkaline Phosphatase 73 U/L (34-104) 05/23/22 00:15 Total Protein 7.2 gm/dl (6.0-8.3) 05/23/22 00:15 Albumin 4.2 gm/dl (3.4-5.0) 05/23/22 00:15 Globulin 3.0 gm/dl (2.5-4.0) 05/23/22 00:15 Albumin/Globulin Ratio 1.4 (0.9-2) 05/23/22 00:15 SARS-CoV-2, RNA, NAAT POSITIVE (NEGATIVE) A* 05/23/22 Unknown PG Care Time/CCT Total # of Minutes Spent Total Time Spent with Patient: Total time spent is greater than 50% in coordination of care (as documented) at patient's floor/unit and/or counseling patient: Coding Level of Care Code 01048 Initial Inpt Care Lvl 3 Diagnoses Urinary retention R33.9 COVID-19 U07.1 Hematuria R31.9 Atrial fibrillation, permanent I48.21 Diabetes type 2, controlled E11.9 Hypercholesteremia E78.00 Hypertension I10
[2022-05-23] MEDS ORDERED: GLUCAGON FOR INJ 1 MG VIAL SQ PRN (02:37)
[2022-05-23] MEDS ORDERED: LORazepam 0.5 MG TAB PO PRN (02:37)
[2022-05-23] MEDS ORDERED: GLUCOSE 40% GEL 15 GM TUBE PO PRN (02:37)
[2022-05-23] MEDS ORDERED: CARBOHYDRATES FOR HYPOGLYCEMIA PO PRN (02:37)
[2022-05-23] MEDS ORDERED: LACTATED RINGER'S 1,000 ML IV SCH (02:37)
[2022-05-23] MEDS ORDERED: GLUCOSE 10 TAB/TUBE PO PRN (02:37)
[2022-05-23] MEDS ORDERED: DEXTROSE 50% 50 ML SYRINGE IV PRN (02:37)
[2022-05-23] MEDS ORDERED: ONDANSETRON INJ 2 MG/ML 2 ML VIAL IV PRN (02:37)
[2022-05-23] MEDS: INSULIN ASPART PER UNIT SC SCH ×4 (05:46→21:54)
[2022-05-23] MEDS: cefTRIAXone SODIUM 2,000 MG in DEXTROSE 5% 50 ML IV SCH (08:44)
[2022-05-23] MEDS: ACETAMINOPHEN 325 MG TAB PO PRN (08:46)
[2022-05-23] MEDS: LANTUS PER UNIT CHARGE SQ SCH ×2 (09:45→21:55)
--- NOTE | 2022-05-23 12:06 | Urology Consultation ---
Date of Consultation May 23, 2022 Assessment & Plan (1) Hematuria: (2) S/P TURP (status post transurethral resection of prostate): Plan 82yo male s/p TURP 05/16/22 admitted with gross hematuria, urinary retention. - 20Fr 3-way Brothers catheter placed and CBI initiated in the ER. - Brothers currently draining clear urine with CBI on slow drip. - Remains afebrile and hemodynamically stable. - Urine culture pending, on IV ceftriaxone. - No plan for urological intervention at this time. Ok to have a diet back from standpoint. - Maintain Brothers catheter and continue CBI, can titrate as needed. - Ok to gently hand irrigate prn clots, retention, suprapubic pain. - Continue supportive care and antibiotic therapy. - Urology will follow. Supervising Physician Co-Signing Physician Notes Patient boarding in the emergency room but was seen and evaluated with Alda Schaefer CBI is running essentially had a very slow drip, his urine is clear He is extremely comfortable and exhibiting no real signs of COVID. Hemodynamically stable, hemoglobin stable. No indication for any acute intervention from a standpoint, no reason to keep him NPO. We will reevaluate him in the morning. Presuming he continues to do well I may offer him brief manual irrigation tomorrow morning followed by a voiding trial. History of Present Illness Attending Physician: Osmany Rao MD History of Present Illness 82yo male with history of DM, AF on anticoagulation, HTN, HLP, BPH who is s/p TURP performed by Dr. Kumari on who presented to the ED x3 with gross hematuria, urinary retention. Patient was able to void spontaneously following his surgery and was discharged home in stable condition on 05/17/22.He was seen in the ER on 05/22/22 with c/o urinary retention, hematuria and suprapubic abdominal pain. A bladder scan was performed which revealed over 600mL of urine. A Brothers catheter was placed with return of over 1L of bloody urine. Patient was discharged home. He returned to the ER later in the morning of 05/22/22 with concerns that his catheter was not draining well. The Brothers was irrigated with return of pink urine with clots. Admission was discussed for possible CBI, however, patient wished to return home and attempt to increase his fluid intake and manage the Brothers. He was discharged home. He returned again with the same catheter issues and was admitted for further management. A 20Fr 3-way urinary catheter was placed and CBI initiated in the ED. On arrival, he was afebrile and hemodynamically stable. No leukocytosis and normal renal function. Hemoglobin stable. Urine culture was obtained and patient was started on IV ceftriaxone. Of note - He took a home Covid test on 05/21/22 which was positive and also tested positive at time of admission. Patient was examined at bedside this AM in the ED. Awake, resting in bed on arrival. No acute distress. 20Fr 3-way Brothers catheter intact, draining clear urine with CBI on slow drip. Patient denied any pain or discomfort at present. No fevers or chills. No nausea or vomiting. Has been NPO. Aspirin and Xarelto on hold. No additional complaints at time of exam. Allergies Allergy/AdvReac Type Severity Reaction Status Date / Time adhesive tape Allergy Mild Redness of Verified 05/16/22 07:07 Skin Home Medications Medication Instructions Recorded Confirmed Type lorazepam 0.5 mg tablet 0.5 mg PO DAILY PRN anxiety #1 tab 06/10/19 05/22/22 Rx aspirin 81 mg tablet,delayed 81 mg PO QPM 12/03/19 05/22/22 History release acetaminophen 500 mg capsule 500 - 1,000 mg PO Q6H PRN Pain 01/05/21 05/22/22 History amitriptyline 25 mg tablet 25 mg PO HS PRN Sleep 01/05/21 05/22/22 History multivitamin (Multiple Vitamins 1 tab PO QPM 01/05/21 05/22/22 History tablet) atorvastatin 20 mg tablet 20 mg PO QPM #90 tabs 10/14/21 05/22/22 Rx flecainide 100 mg tablet 100 mg PO QPM #90 tabs 10/14/21 05/22/22 Rx lancets 33 gauge (OneTouch Delica #200 ea 10/14/21 05/22/22 Rx Lancets) rivaroxaban 20 mg tablet (Xarelto) 20 mg PO QPM #90 tabs 10/14/21 05/22/22 Rx blood sugar diagnostic #200 ea 10/20/21 05/22/22 Rx lisinopril 40 mg tablet 40 mg PO QPM #90 tabs 10/31/21 05/22/22 Rx tadalafil 5 mg tablet 5 mg PO QPM sexual activity #90 12/15/21 05/22/22 Rx tabs metformin 500 mg tablet,extended 500 mg PO BID 05/04/22 05/22/22 History release 24 hr metoprolol succinate 25 mg 50 mg PO PM 05/04/22 05/22/22 History tablet,extended release 24 hr molnupiravir 200 mg capsule (EUA) 800 mg PO Q12H 5 days #40 caps 05/22/22 05/22/22 Rx Patient History Medical History Anxiety 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 Atrial fibrillation Follows with [facility] cardiology (Dr. 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 History of tooth extraction Hx of colonoscopy S/P total knee arthroplasty R/L Status post total shoulder arthroplasty Right TSA (08/31/17): Grade view 1, MAC#3, ETT 8 at [facility] Family History Brother Bipolar disorder Father Alcoholism Cancer ESOPHAGEAL Family history of esophageal cancer Sister Coronary heart disease Bipolar disorder Mother Scoliosis Son Diabetes Other Heart disease Hypertension Denies family history of Ovarian cancer Prostate cancer Myocardial infarction Breast cancer Colorectal cancer Social History Smoking Status: Former smoker Tobacco Type: Cigarettes Age Started Using Tobacco: 23; Age Quit Using Tobacco: 60; packs per day: 0.5; Second Hand Exposure: No; Do You Dip or Chew Tobacco: No; Hx Alcohol Use: No Hx Substance Use: No Preferred Language: Amharic Communication Ability: Effective Visual Impairment: No Limitations Hearing Ability: Normal Detector Car Operator Required: No Beliefs That Will Affect Care: None marital status: Current Living Situation: Spouse current occupational status: retired current occupation: retired from career with [employer] Other Information That Helps Us Care for You: No Feels Safe at Home: Yes Safety Concerns: Feels Safe At This Time Childhood Exposure to Second-Hand Smoke: Yes Dental Care, Regularly: Yes Physical Activity Frequency: 1-2 Times per Week Seatbelt Use: always Sunscreen Use: Yes Assistive Devices: Glasses and Hearing Aid - Left Review of Systems Review of Systems: All systems reviewed & are unremarkable except as noted in HPI & below Physical Exam Constitutional: well developed and well nourished; no acute distress and not ill appearing Neck: normal visual inspection Respiratory: normal respiratory effort; no respiratory distress and no labored breathing Gastrointestinal (Abdomen): Inspection/Auscultation: abdomen normal to inspection Percussion/Palpation: abdomen soft; abdomen nontender Musculoskeletal: Head/Neck/Chest: normocephalic Skin: No visible rashes or lesions to exposed skin areas Neurologic: moves all extremities and awake Psychiatric: Orientation: alert, oriented x 3 and cooperative Genitourinary: Brothers catheter intact, draining clear urine with CBI on slow Results & Data ([facility]) Vital Signs (Past 12 Hours) Vital Signs Pulse Resp BP Pulse Ox O2 Del Method 05/23/22 10:30 78 20 178/109 H 98 05/23/22 05:48 186/117 H 05/23/22 04:26 78 18 143/82 H 95 Room Air 05/23/22 03:33 78 20 97 Room Air 05/23/22 02:06 87 20 145/92 H 96 Room Air 05/23/22 00:32 97 Room Air 05/23/22 00:32 92 H 20 174/97 H 97 Room Air PG Care Time/CCT Total # of Minutes Spent Total Time Spent with Patient: Total time spent is greater than 50% in coordination of care (as documented) at patient's floor/unit and/or counseling patient: Coding Level of Care Code 75775 Initial Inpt Care Lvl 2 Diagnoses Hematuria R31.9 S/P TURP (status post transurethral resection of prostate) Z90.79
--- NOTE | 2022-05-23 18:50 | Communication Note ---
Date of Service: May 23, 2022 Patient was seen and examined however admitted the same day. Seen by urology and on continuous bladder irrigation at this time. No acute concerns or com plaints. Catheter management per urology. Ceftriaxone added for prophylaxis while on continuous bladder irrigation but do not suspect UTI.
[2022-05-23] MEDS ORDERED: FLECAINIDE ACETATE 100 MG TABLET PO SCH (21:00)
[2022-05-23] MEDS ORDERED: METOPROLOL SUCC 50MG EXT REL TAB PO SCH (21:00)
[2022-05-23] MEDS ORDERED: ATORVASTATIN 20 MG TAB PO SCH (21:00)
[2022-05-23] MEDS ORDERED: lisinopril 40 MG TAB PO SCH (21:00)
[2022-05-23] MEDS: MOLNUPIRAVIR PO SCH (22:04)
[2022-05-24] MEDS ORDERED: COUGH DROP (SUGAR FREE) LOZ 24 LOZ/1 BOX BUCCAL ONE (00:24)
[2022-05-24] MEDS ORDERED: METOPROLOL TARTRATE 1 MG/ML VIAL IV STA (00:25)
[2022-05-24] MEDS ORDERED: METOPROLOL TARTRATE 50 MG TAB PO STA ×2 (00:30→04:28)
[2022-05-24] MEDS: ACETAMINOPHEN 325 MG TAB PO PRN (01:04)
[2022-05-24 07:57] LABS: Basophils # (auto) 0.03 K/uL (0-0.2); Basophils % (auto) 0.5 %; Eosinophils # (auto) 0.06 K/uL (0-0.50); Hematocrit (blood only) 35.2 % (40.1-51.0); Immature Granulocytes # (auto) 0.02 K/uL (0.00-0.02); Immature Granulocytes % (auto) 0.3 %; Lymphocytes # (auto) 1.41 K/uL (1.2-3.4); Lymphocytes % (auto) 24.5 %; Mean Corpuscular Hemoglobin 29.8 pg (25.0-34.0); Mean Corpuscular Hgb Conc 34.1 g/dL (32.0-36.0); Mean Corpuscular Volume 87.3 fL (80.0-100.0); Mean Platelet Volume 10.8 fL (9.4-12.4); Monocytes # (auto) 0.45 K/uL (0.24-0.82); Monocytes % (auto) 7.8 %; Neutrophils # (auto) 3.78 K/uL (1.4-6.5); Neutrophils % (auto) 65.9 %; Platelet Count 162 K/uL (130-400); RDW Coefficient of Variation 13.6 % (11.5-14.5); RDW Standard Deviation 43.5 fL (36.4-46.3); Red Blood Count 4.03 M/uL (4.63-6.08); White Blood Count 5.75 K/ul (4.8-10.8)
[2022-05-24 08:32] LABS: BUN Creatinine Ratio 17.6 (10-20); Calcium 8.9 mg/dl (8.5-10.1); Creatinine Clr Calc Pharmacy 110.7 ml/min; Est GFR (African American) 104.5 ml/min; Est GFR (Non-African American) 90.2 ml/min; Potassium 3.9 mmol/L (3.5-5.1)
[2022-05-24] MEDS: cefTRIAXone SODIUM 2,000 MG in DEXTROSE 5% 50 ML IV SCH (08:52)
[2022-05-24] MEDS: MOLNUPIRAVIR PO SCH (08:52)
[2022-05-24] MEDS ORDERED: hydrALAZINE HCL 25 MG TAB PO SCH (09:00)
[2022-05-24] MEDS: INSULIN ASPART PER UNIT SC SCH (09:01)
[2022-05-24] MEDS: LANTUS PER UNIT CHARGE SQ SCH (09:02)
--- NOTE | 2022-05-24 09:05 | Urology Progress Note ---
Date of Service May 24, 2022 Assessment & Plan (1) Urinary retention: (2) Hematuria: Plan Urinary retention status post TURP Unfortunately he returned with hematuria and clot retention He has been on CBI the past 24 hours Stop CBI and manually irrigate his catheter this morning He had no significant clots I then filled his bladderhe would tolerate a limited capacity and remove the catheter Presuming he returns to normal voiding I think he likely can be discharged home from a standpoint His hypertension, however, may require further evaluation Admission and Anticipated Discharge Date Admission Date: May 23, 2022 Subjective No major issues overnight CBI was running at a very slow rate and remained clear He has no significant COVID-related symptoms Hemoglobin has been stable Has been hypertensive since arrivalrelatively [id number] Physical Exam Physical Exam: CBI running very slow drip with clear urine Results & Data ([facility]) Vital Signs (Past 12 Hours) Vital Signs Temp Pulse Resp BP Pulse Ox O2 Del Method 05/24/22 08:39 36.6 C 81 17 181/123 H 98 Room Air 05/24/22 06:45 186/116 H 05/24/22 04:20 67 184/106 H 05/24/22 01:01 66 180/114 H 05/23/22 23:34 78 170/116 H 05/23/22 22:07 37.0 C 81 16 179/112 H 96 Room Air PG Care Time/CCT Total # of Minutes Spent Total Time Spent with Patient: Total time spent is greater than 50% in coordination of care (as documented) at patient's floor/unit and/or counseling patient: Coding Level of Care Code 23671 Subseq Hosp Care Lvl 3 Diagnoses Urinary retention R33.9 Hematuria R31.9
[2022-05-24 10:18] LABS: Appearance Urine Slightly Cloudy (Clear); Bilirubin Urine Negative (Negative); Blood Urine 3+ (Negative); Color Urine Red; Glucose Urine UA Negative (Negative); Ketones Urine Trace (Negative); Leukocyte Esterase Urine 1+ (Negative); Nitrite Urine Negative (Negative); Protein Urine 2+ (Negative); Specific Gravity Urine >= 1.030 (1.000-1.030); Urobilinogen Urine Negative (Negative)
[2022-05-24 10:24] LABS: Bacteria Urine 1+ (Negative); Epithelial Cell Urine >30 /lpf (0-5); RBC Urine >30 /hpf (0-4); WBC Urine >30 /hpf (0-5)
--- NOTE | 2022-05-24 10:42 | Hospitalist Progress Note ---
Date of Service May 24, 2022 Assessment & Plan (1) Urinary retention: Plan: Continuous bladder irrigation has been discontinued and he is able to void. Hematuria has stopped. Xarelto remains on hold until the weekend.He will resume taking low-dose aspirin daily (2) COVID-19: Plan: Very mild symptoms. No hypoxia. He will quarantine at home for 1 week. (3) Hematuria: Plan: Resolved. Continuous bladder irrigation has been discontinued. Xarelto remains on hold until the weekend. He will resume taking low-dose aspirin daily. (4) Atrial fibrillation, permanent: Plan: Rate controlled. Patient anticoagulated on Rivaroxaban which has been on hold And will be restarted this weekend. Continue metoprolol And Flecainide (5) Diabetes type 2, controlled: Plan: Fairly well controlled. AIC=7.7 on 05/05/22 -Hold Metformin While hospitalized. Resume at discharge -ISS, goal blood sugar 100 - 140 (6) Hypercholesteremia: Plan: Chronic -Continue Atorvastatin (7) Hypertension: Plan: Chronic. Blood pressure has been elevated. Hydralazine has been restarted and will replace lisinopril. Continue metoprolol. Plan Home today, May 24. Continue quarantine for 1 week. Hydralazine replaces lisinopril. Hold Xarelto until the weekend. May restart low-dose aspirin daily. Admission and Anticipated Discharge Date Admission Date: May 23, 2022 Subjective Alert and oriented. Continuous bladder irrigation has been discontinued. He has very mild viral symptoms and no hypoxia.Hydralazine replaces lisinopril for better blood pressure control. Xarelto remains on hold until the weekend. He will be discharged home today Review of Systems Review of Systems: Constitutional-no fever or chills ENT-no blurred vision, no double vision, no epistaxis, no sore throat Respiratory-no cough, no wheezing, no shortness of breath Cardiac-no palpitations, no chest pain, no syncope GI-no nausea, vomiting, diarrhea, melena, hematochezia -no urinary retention, no urinary incontinence, no dysuria, no hematuria Musculoskeletal-no joint pain, no muscle tenderness Skin-no bruising, no rashes, no pruritus Neuro-no isolated weakness, no paresthesia, no weakness Psych-no depression, no anxiety Physical Exam Physical Exam: General-alert and oriented x3, no fevers, no chills HEENT-head atraumatic and normocephalic, pupils equal and reactive to light, extraocular muscles intact Neck-no lymphadenopathy or thyromegaly, trachea midline Chest-clear to auscultation percussion. No rales wheezing or rhonchi Cardiac-regular rate and rhythm, normal S1 and S2, no murmurs Abdomen-normal bowel sounds, nontender, no hepatosplenomegaly Extremities-no cyanosis, clubbing, or edema Neuro-cranial nerves II through XII intact, motor and sensory function within normal limits, strength symmetrical , no focal deficits Psych-normal affect, normal mood Results & Data Results & Data ([facility]) Vital Signs (Past 12 Hours) Vital Signs Temp Pulse Resp BP Pulse Ox O2 Del Method 05/24/22 08:20 Room Air 05/24/22 08:39 36.6 C 81 17 181/123 H 98 Room Air 05/24/22 06:45 186/116 H 05/24/22 04:20 67 184/106 H 05/24/22 01:01 66 180/114 H 05/23/22 23:34 78 170/116 H Laboratory Results 05/24/22 07:42 05/24/22 07:42 PG Care Time/CCT Total # of Minutes Spent Total Time Spent with Patient: Total time spent is greater than 50% in coordination of care (as documented) at patient's floor/unit and/or counseling patient: Coding Level of Care Code 69348 Subseq Hosp Care Lvl 3 Diagnoses Urinary retention R33.9 COVID-19 U07.1 Hematuria R31.9 Atrial fibrillation, permanent I48.21 Diabetes type 2, controlled E11.9 Hypercholesteremia E78.00 Hypertension I10
== END 2022-05-24 12:12 | disposition home or self-care (01) ==
LOC: ED 21:58 → SUATTDRO 05-23 01:44 → INTOOBSV 05-23 01:44 → EDINP 05-23 01:44 → 3E 05-23 02:47

== ENCOUNTER 2022-05-29 03:12 | Observation (INO) ==
--- NOTE | 2022-05-29 03:41 | Emergency Department Note ---
History of Present Illness General Chief complaint: Penile Discharge Stated complaint: BLADDER BLEEDING Time Seen by Provider: 05/29/22 03:27 History of Present Illness 82-year-old male presents emergency department with urination of blood clots hematuria that started earlier this evening. Patient of note had a TURP procedure done by Dr. Kumari last week. Patient required a Brothers catheter with irrigation last week. Patient is on Xarelto he states he took 1 dose yesterday. Patient is also on hydroxyzine he states he did not take any dosing as of yesterday for his blood pressure. Patient was concerned that he was having hematuria starting last evening he has been able to urinate. Patient is also COVID-positive there were no other mitigating or alleviating factors Home Medications Medication Instructions Recorded Confirmed Type lorazepam 0.5 mg tablet 0.5 mg PO DAILY PRN anxiety #1 tab 06/10/19 05/25/22 Rx aspirin 81 mg tablet,delayed 81 mg PO QPM 12/03/19 05/25/22 History release acetaminophen 500 mg capsule 500 - 1,000 mg PO Q6H PRN Pain 01/05/21 05/25/22 History amitriptyline 25 mg tablet 25 mg PO HS PRN Sleep 01/05/21 05/25/22 History multivitamin (Multiple Vitamins 1 tab PO QPM 01/05/21 05/25/22 History tablet) atorvastatin 20 mg tablet 20 mg PO QPM #90 tabs 10/14/21 05/25/22 Rx flecainide 100 mg tablet 100 mg PO QPM #90 tabs 10/14/21 05/25/22 Rx lancets 33 gauge (OneTouch Delica #200 ea 10/14/21 05/25/22 Rx Lancets) rivaroxaban 20 mg tablet (Xarelto) 20 mg PO QPM #90 tabs 10/14/21 05/25/22 Rx blood sugar diagnostic #200 ea 10/20/21 05/25/22 Rx tadalafil 5 mg tablet 5 mg PO QPM sexual activity #90 12/15/21 05/25/22 Rx tabs metformin 500 mg tablet,extended 500 mg PO BID 05/04/22 05/25/22 History release 24 hr metoprolol succinate 25 mg 50 mg PO PM 05/04/22 05/25/22 History tablet,extended release 24 hr hydralazine 25 mg tablet 25 mg PO QID #100 tabs 05/24/22 05/25/22 Rx Allergies Allergy/AdvReac Type Severity Reaction Status Date / Time adhesive tape Allergy Mild Redness of Verified 05/16/22 07:07 Skin Past Med/Surg History Medical History Anxiety 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 Atrial fibrillation Follows with [facility] cardiology (Dr. 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 History of tooth extraction Hx of colonoscopy S/P total knee arthroplasty R/L Status post total shoulder arthroplasty Right TSA (08/31/17): Grade view 1, MAC#3, ETT 8 at [facility] Family History Brother Bipolar disorder Father Alcoholism Cancer ESOPHAGEAL Family history of esophageal cancer Sister Coronary heart disease Bipolar disorder Mother Scoliosis Son Diabetes Other Heart disease Hypertension Denies family history of Ovarian cancer Prostate cancer Myocardial infarction Breast cancer Colorectal cancer Social History Smoking Status: Former smoker Tobacco Type: Cigarettes Age Started Using Tobacco: 23; Age Quit Using Tobacco: 60; packs per day: 0.5; Second Hand Exposure: No; Hx Alcohol Use: No Hx Substance Use: No Preferred Language: Libyan Communication Ability: Effective Visual Impairment: No Limitations Hearing Ability: Normal Underwriting Consultant Required: No Beliefs That Will Affect Care: None marital status: Current Living Situation: Spouse current occupational status: retired current occupation: retired from career with [employer] Feels Safe at Home: Yes Childhood Exposure to Second-Hand Smoke: Yes Dental Care, Regularly: Yes Physical Activity Frequency: 1-2 Times per Week Seatbelt Use: always Sunscreen Use: Yes Assistive Devices: Glasses and Hearing Aid - Left Review of Systems A total of 10 systems reviewed and were otherwise negative Constitutional: no fever Respiratory: no cough Gastrointestinal: no abdominal pain Genitourinary (Male): + hematuria Physical Exam Vital Signs Vital Signs - 24 hr 05/29/22 03:21 05/29/22 04:27 05/29/22 04:27 Temperature 36.4 C L Temperature Source Temporal Artery Scan Pulse Rate 101 H 88 Pulse Rate [Apical] 88 Respiratory Rate 18 17 17 Respiratory Effort / Characteristics Non-Labored Spontaneous Respiratory Depth Normal Blood Pressure 230/122 H Blood Pressure [Left Arm] 191/114 H Blood Pressure Mean 158 Blood Pressure Mean [Left Arm] 139 Pulse Oximetry 95 95 95 Oxygen Delivery Method Room Air Room Air Room Air Sepsis New/Unexplained Change in Mental Status N/A Sepsis Action Taken by Nursing No Action Required VITAL SIGNS - Vital signs and nursing notes were reviewed. GENERAL - []-year-old [] appearing [] stated age who is in no acute distress. Communicates well with provider and answers questions appropriately. SKIN - Without rashes. HEAD - NC/AT. EYES - PERRL with EOMI bilaterally. Sclera anicteric. Palpebral conjunctiva pink and moist with no injection noted. EARS - No deformities of external structures noted on gross examination bilaterally. No pain elicited with palpation of the tragus bilaterally. External auditory canals without discharge or otorrhea. Tympanic membranes pearly sanders without retraction or bulging. No fluid or purulent material visualized behind the TM. Handle of malleus, umbo, cone of light, pars tensa/flaccid all easily visualized. NOSE - Midline and without cyanosis. No epistaxis or purulent drainage noted. Septum midline without deviation or septal hematoma noted. MOUTH/OROPHARYNX - Without perioral cyanosis. Buccal mucosa pink and moist and without leukoplakia. Tongue midline with equal elevation of palate bilaterally. No tonsillar hypertrophy, erythema, or exudates noted. [] dentition noted. NECK - Neck with FROM. Supple to palpation. [] lymphadenopathy noted. No nuchal rigidity. LUNGS - Chest wall symmetric without accessory muscle use, intercostals retractions, or central cyanosis. Normal vesicular breath sounds CTA B/L. No wheezes, rales, or rhonchi appreciated. CARDIAC - RRR with S1/S2. No murmur, rubs, or gallops appreciated. ABDOMEN - Abdominal contour [] without pulsations or visible masses. BS normoactive all four quadrants. No tenderness, palpable masses, hepatosplenomegaly, or ascites noted. EXTREMITIES - No clubbing or peripheral cyanosis. No pretibial edema present. +3/5 radial, posterior tibial, and dorsalis pedis pulses palpated throughout. +5/5 strength noted in UE/LE bilaterally. NEUROLOGIC - Cranial nerves II through XII grossly intact. Sensory intact to light touch throughout. Patellar reflexes +2/4. PSYCH - A&Ox3 and cooperates fully with examiner. Pt is very pleasant and interacts well with examiner. Course Reevaluation(s) Reevaluation #1: Patient is undergoing continuous bladder irrigation and he is feeling much improved. Patient has a history of hypertension and he reportedly was just recently changed from lisinopril to hydralazine for which he was supposed to take 4 times per day but did not yesterday. Patient is hypertensive without any symptoms. Patient was given IV hydralazine. He is resting comfortably nonfocal no distress Time: 04:40 Consultations Consultation #1: Spoke with [place] from Urology regarding patient at 605am Time: 06:05 Consultation #2: Spoke with Dr Chappell for admit at 615am Administered Medications Discontinued Medications Hydralazine HCl (Hydralazine Hcl 20 Mg/Ml Vial) 10 mg IV NOW STA Stop: 05/29/22 04:34 Last Admin: 05/29/22 04:54 Dose: 10 mg Documented By: Medical Decision Making Medical Records Attestation: I reviewed the patient's medical records. Home Medications Current Medication List: was personally reviewed by me Laboratory Data Attestation: I reviewed the patient's lab results. Result diagrams: 05/29/22 03:54 05/29/22 03:54 Lab Results 05/29/22 05/29/22 05/29/22 Range/Units 03:54 03:54 03:54 WBC 8.25 (4.8-10.8) K/ul RBC 4.13 L (4.63-6.08) M/uL Hgb 12.2 L (14.0-18.0) g/dl Hct 36.5 L (40.1-51.0) % MCV 88.4 (80.0-100.0) fL MCH 29.5 (25.0-34.0) pg MCHC 33.4 (32.0-36.0) g/dL RDW Std Deviation 43.8 (36.4-46.3) fL RDW Coeff of Berta 13.5 (11.5-14.5) % Plt Count 226 (130-400) K/uL MPV 11.1 (9.4-12.4) fL Immature Gran % (Auto) 0.2 % Neut % (Auto) 70.6 % Lymph % (Auto) 20.1 % Nash % (Auto) 7.4 % Eos % (Auto) 1.2 % Baso % (Auto) 0.5 % Neut # (Auto) 5.82 (1.4-6.5) K/uL Lymph # (Auto) 1.66 (1.2-3.4) K/uL Nash # (Auto) 0.61 (0.24-0.82) K/uL Eos # (Auto) 0.10 (0-0.50) K/uL Baso # (Auto) 0.04 (0-0.2) K/uL Immature Gran # (Auto) 0.02 (0.00-0.02) K/uL PT 12.5 H (9.0-12.0) Seconds INR 1.2 H (0.9-1.1) Sodium 138 (136-145) mmol/L Potassium 4.0 (3.5-5.1) mmol/L Chloride 103 (98-107) mmol/L Carbon Dioxide 28 (21-32) mmol/L Anion Gap 7 (3-11) BUN 19 (6-23) mg/dl Creatinine 0.74 (0.6-1.4) mg/dl Est Cr Clr Drug Dosing 101.2 ml/min Est GFR ( Amer) 101.0 ml/min Est GFR (Non-Af Amer) 87.1 ml/min BUN/Creatinine Ratio 25.7 H (10-20) Glucose 222 H (70-99(Fasting)) mg/dl Calcium 9.7 (8.5-10.1) mg/dl Total Bilirubin 0.6 (0.2-1.0) mg/dl AST 20 (13-39) U/L ALT 21 (7-52) U/L Alkaline Phosphatase 72 (34-104) U/L Total Protein 7.1 (6.0-8.3) gm/dl Albumin 4.2 (3.4-5.0) gm/dl Globulin 2.9 (2.5-4.0) gm/dl Albumin/Globulin Ratio 1.4 (0.9-2) Urine Color Urine Appearance (Clear) Urine pH (4.5-7.5) Ur Specific [place] (1.000-1.030) Urine Protein (Negative) Urine Glucose (UA) (Negative) Urine Ketones (Negative) Urine Blood (Negative) Urine Nitrite (Negative) Urine Bilirubin (Negative) Urine Urobilinogen (Negative) Ur Leukocyte Esterase (Negative) Urine RBC (0-4) /hpf Urine WBC (0-5) /hpf Ur Epithelial Cells (0-5) /lpf Urine Bacteria (Negative) SARS-CoV-2, RNA, NAAT (NEGATIVE) 05/29/22 05/29/22 Range/Units 03:54 04:22 WBC (4.8-10.8) K/ul RBC (4.63-6.08) M/uL Hgb (14.0-18.0) g/dl Hct (40.1-51.0) % MCV (80.0-100.0) fL MCH (25.0-34.0) pg MCHC (32.0-36.0) g/dL RDW Std Deviation (36.4-46.3) fL RDW Coeff of Berta (11.5-14.5) % Plt Count (130-400) K/uL MPV (9.4-12.4) fL Immature Gran % (Auto) % Neut % (Auto) % Lymph % (Auto) % Nash % (Auto) % Eos % (Auto) % Baso % (Auto) % Neut # (Auto) (1.4-6.5) K/uL Lymph # (Auto) (1.2-3.4) K/uL Nash # (Auto) (0.24-0.82) K/uL Eos # (Auto) (0-0.50) K/uL Baso # (Auto) (0-0.2) K/uL Immature Gran # (Auto) (0.00-0.02) K/uL PT (9.0-12.0) Seconds INR (0.9-1.1) Sodium (136-145) mmol/L Potassium (3.5-5.1) mmol/L Chloride (98-107) mmol/L Carbon Dioxide (21-32) mmol/L Anion Gap (3-11) BUN (6-23) mg/dl Creatinine (0.6-1.4) mg/dl Est Cr Clr Drug Dosing ml/min Est GFR ( Amer) ml/min Est GFR (Non-Af Amer) ml/min BUN/Creatinine Ratio (10-20) Glucose (70-99(Fasting)) mg/dl Calcium (8.5-10.1) mg/dl Total Bilirubin (0.2-1.0) mg/dl AST (13-39) U/L ALT (7-52) U/L Alkaline Phosphatase (34-104) U/L Total Protein (6.0-8.3) gm/dl Albumin (3.4-5.0) gm/dl Globulin (2.5-4.0) gm/dl Albumin/Globulin Ratio (0.9-2) Urine Color Red Urine Appearance Cloudy A (Clear) Urine pH (4.5-7.5) Ur Specific [place] 1.008 (1.000-1.030) Urine Protein (Negative) Urine Glucose (UA) (Negative) Urine Ketones (Negative) Urine Blood (Negative) Urine Nitrite (Negative) Urine Bilirubin (Negative) Urine Urobilinogen (Negative) Ur Leukocyte Esterase (Negative) Urine RBC >30 H (0-4) /hpf Urine WBC >30 H (0-5) /hpf Ur Epithelial Cells 10-20 H (0-5) /lpf Urine Bacteria Negative (Negative) SARS-CoV-2, RNA, NAAT POSITIVE A* (NEGATIVE) MDM Narrative Medical decision making differential diagnosis hematuria metabolic derangement dehydration hypertension Impression & Plan Hematuria, COVID-19, Hypertension Discharge Plan Visit Data Chief Complaint: Penile Discharge Stated Complaint: BLADDER BLEEDING ED Provider: Jordi Das Discharge Problem: Hematuria, COVID-19, Hypertension Forms Stand Alone Forms: My [facility] Prescriptions Prescriptions: No Action atorvastatin 20 mg tablet 20 mg PO QPM Qty: 90 3RF flecainide 100 mg tablet 100 mg PO QPM Qty: 90 3RF (DME) lancets [OneTouch Delica Lancets] 33 gauge misc See Rx Instructions .ROUTE .MEDSUPPLY Qty: 200 3RF Rx Instructions: TEST 2 TIMES DAILY Xarelto 20 mg tablet 20 mg PO QPM Qty: 90 3RF Rx Instructions: must administer with a meal/food (DME) blood sugar diagnostic Strip See Rx Instructions .ROUTE .MEDSUPPLY Qty: 200 3RF Rx Instructions: USE 1 STRIP TWICE DAILY (OneTouch Ultra) tadalafil 5 mg tablet 5 mg PO QPM Qty: 90 3RF lorazepam 0.5 mg tablet 0.5 mg PO DAILY PRN (Reason: anxiety) Qty: 1 0RF aspirin 81 mg Tablet,Delayed Release (Dr/Ec) 81 mg PO QPM hydralazine 25 mg Tablet 25 mg PO QID Qty: 100 0RF multivitamin [Multiple Vitamins] tablet 1 tab PO QPM amitriptyline 25 mg tablet 25 mg PO HS PRN (Reason: Sleep) acetaminophen 500 mg Capsule 500 - 1,000 mg PO Q6H PRN (Reason: Pain) metoprolol succinate 25 mg tablet extended release 24 hr 50 mg PO PM metformin 500 mg tablet extended release 24 hr 500 mg PO BID Referrals Referrals: Venita Orosco CRNP [Primary Care Provider] -
[2022-05-29 04:14] LABS: Basophils # (auto) 0.04 K/uL (0-0.2); Basophils % (auto) 0.5 %; Eosinophils % (auto) 1.2 %; Hematocrit (blood only) 36.5 % (40.1-51.0); Hemoglobin 12.2 g/dl (14.0-18.0); Immature Granulocytes # (auto) 0.02 K/uL (0.00-0.02); Immature Granulocytes % (auto) 0.2 %; Lymphocytes # (auto) 1.66 K/uL (1.2-3.4); Lymphocytes % (auto) 20.1 %; Mean Corpuscular Hemoglobin 29.5 pg (25.0-34.0); Mean Corpuscular Hgb Conc 33.4 g/dL (32.0-36.0); Mean Corpuscular Volume 88.4 fL (80.0-100.0); Mean Platelet Volume 11.1 fL (9.4-12.4); Monocytes # (auto) 0.61 K/uL (0.24-0.82); Monocytes % (auto) 7.4 %; Neutrophils # (auto) 5.82 K/uL (1.4-6.5); Neutrophils % (auto) 70.6 %; Platelet Count 226 K/uL (130-400); RDW Coefficient of Variation 13.5 % (11.5-14.5); RDW Standard Deviation 43.8 fL (36.4-46.3); Red Blood Count 4.13 M/uL (4.63-6.08); White Blood Count 8.25 K/ul (4.8-10.8)
[2022-05-29 04:27] LABS: INR 1.2 (0.9-1.1); Prothrombin Time 12.5 Seconds (9.0-12.0)
[2022-05-29] MEDS ORDERED: hydrALAZINE HCL 20 MG/ML VIAL IV STA (04:33)
[2022-05-29 04:40] LABS: Albumin Globulin Ratio 1.4 (0.9-2); Albumin Level 4.2 gm/dl (3.4-5.0); BUN Creatinine Ratio 25.7 (10-20); Bilirubin,Total 0.6 mg/dl (0.2-1.0); Calcium 9.7 mg/dl (8.5-10.1); Creatinine Clr Calc Pharmacy 101.2 ml/min; Est GFR (Non-African American) 87.1 ml/min; Globulin 2.9 gm/dl (2.5-4.0); Total Protein 7.1 gm/dl (6.0-8.3)
[2022-05-29 05:24] LABS: Color Urine Red
[2022-05-29 05:25] LABS: Appearance Urine Cloudy (Clear); Specific Gravity Urine 1.008 (1.000-1.030)
[2022-05-29 05:26] LABS: Bacteria Urine Negative (Negative); RBC Urine >30 /hpf (0-4); WBC Urine >30 /hpf (0-5)
[2022-05-29] MEDS ORDERED: cefTRIAXone SODIUM 1,000 MG/50 ML BAG IV STA (05:31)
--- NOTE | 2022-05-29 06:14 | Urology Consultation ---
Date of Consultation May 29, 2022 Assessment & Plan (1) Hematuria: The patient is being admitted on the hospitalist service. Concerning his hematuria we recommend the following: Continue continuous bladder irrigation as initiated in the emergency department for the present time. This will be continually monitored and will be discontinued once his urine has sufficiently cleared Continue to hold the patient's Xarelto for the present time and consideration be given to resume this once his hematuria has resolved Consider following serial hemoglobin and hematocrits Urology will continue to follow History of Present Illness Reason for Consultation: Hematuria History of Present Illness This is an 82-year-old male who underwent a transurethral resection of patient's prostate on 05/16/2022. The patient did require readmission to [facility] on 05/23/2022 secondary to gross hematuria and urinary retention. He did have to have a three-way Brothers catheter placed with continuous bladder irrigation initiated. He required continuous bladder irrigation for 24 hours and he was able to be discharged home. Patient notes that he was instructed to hold his Xarelto for several days and then the patient ultimately resumed the Xarelto yesterday. Shortly after resuming his Xarelto (he takes this medication for atrial fibrillation) he again developed hematuria and was passing blood clots and he therefore presented to the emergency department. Patient says despite passing blood clots he was still able to urinate and did not have a fullness in his bladder. He also denies any dysuria. He denies any back or flank pain. He denies any lightheadedness or dizziness. In the emergency department the patient had labs performed which independently reviewed. A CBC revealed white blood cell count was 8.2. Hemoglobin and hematocrit were 12.2 and 36.5 with a normal platelet count. Chemistry profile showed sodium and potassium are both normal as were her BUN and creatinine. Coagulation studies revealed an INR of 1.2. A COVID test was noted to be positive. Since arrival to the emergency department the patient has had a Brothers catheter placed with continuous bladder irrigation initiated. The treating emergency room physician has noted that the patient was passing some blood clots in his urine is now the color of Perez-Aid. The patient was in no distress at the time of my interview Allergies Allergy/AdvReac Type Severity Reaction Status Date / Time adhesive tape Allergy Mild Redness of Verified 05/16/22 07:07 Skin Home Medications Medication Instructions Recorded Confirmed Type lorazepam 0.5 mg tablet 0.5 mg PO DAILY PRN anxiety #1 tab 06/10/19 05/25/22 Rx aspirin 81 mg tablet,delayed 81 mg PO QPM 12/03/19 05/25/22 History release acetaminophen 500 mg capsule 500 - 1,000 mg PO Q6H PRN Pain 01/05/21 05/25/22 History amitriptyline 25 mg tablet 25 mg PO HS PRN Sleep 01/05/21 05/25/22 History multivitamin (Multiple Vitamins 1 tab PO QPM 01/05/21 05/25/22 History tablet) atorvastatin 20 mg tablet 20 mg PO QPM #90 tabs 10/14/21 05/25/22 Rx flecainide 100 mg tablet 100 mg PO QPM #90 tabs 10/14/21 05/25/22 Rx lancets 33 gauge (OneTouch Delica #200 ea 10/14/21 05/25/22 Rx Lancets) rivaroxaban 20 mg tablet (Xarelto) 20 mg PO QPM #90 tabs 10/14/21 05/25/22 Rx blood sugar diagnostic #200 ea 10/20/21 05/25/22 Rx tadalafil 5 mg tablet 5 mg PO QPM sexual activity #90 12/15/21 05/25/22 Rx tabs metformin 500 mg tablet,extended 500 mg PO BID 05/04/22 05/25/22 History release 24 hr metoprolol succinate 25 mg 50 mg PO PM 05/04/22 05/25/22 History tablet,extended release 24 hr hydralazine 25 mg tablet 25 mg PO QID #100 tabs 05/24/22 05/25/22 Rx Patient History Medical History Anxiety 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 Atrial fibrillation Follows with [facility] cardiology (Dr. 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 History of tooth extraction Hx of colonoscopy S/P total knee arthroplasty R/L Status post total shoulder arthroplasty Right TSA (08/31/17): Grade view 1, MAC#3, ETT [address] [facility] Family History Brother Bipolar disorder Father Alcoholism Cancer ESOPHAGEAL Family history of esophageal cancer Sister Coronary heart disease Bipolar disorder Mother Scoliosis Son Diabetes Other Heart disease Hypertension Denies family history of Ovarian cancer Prostate cancer Myocardial infarction Breast cancer Colorectal cancer Social History Smoking Status: Never smoker Tobacco Type: Cigarettes Age Started Using Tobacco: 23; Age Quit Using Tobacco: 60; packs per day: 0.5; Second Hand Exposure: No; Hx Alcohol Use: No Hx Substance Use: No Preferred Language: Guyanese Communication Ability: Effective Visual Impairment: No Limitations Hearing Ability: Normal Cans Vacuum Tester Required: No Beliefs That Will Affect Care: None marital status: Current Living Situation: Spouse current occupational status: retired current occupation: retired from career with [employer] Safe at Home: Yes Childhood Exposure to Second-Hand Smoke: Yes Dental Care, Regularly: Yes Physical Activity Frequency: 1-2 Times per Week Seatbelt Use: always Sunscreen Use: Yes Assistive Devices: Glasses and Hearing Aid - Left Review of Systems Constitutional: no fever and no chills Eyes: + corrective lenses Ear, Nose, Mouth, Throat: no ear pain Respiratory: no cough and no dyspnea Cardiovascular: no chest pain Gastrointestinal: no abdominal pain Genitourinary: + as per Subjective / HPI Musculoskeletal: no back pain Integumentary: no rash Neurologic: no localized weakness Physical Exam Constitutional: WD/WN, vitals as above Eyes: Wears glasses ENMT: Ears: no hearing impairment and no external ear abnormality Mouth: no oropharynx abnormality Neck: trachea midline Respiratory: normal respiratory effort; no respiratory distress and no labored breathing Cardiovascular: Rate/Rhythm: regular rate and regular rhythm Gastrointestinal (Abdomen): Abdomen is soft, nonrigid, and nondistended. There is no suprapubic tenderness with palpation Musculoskeletal: No calf tenderness Skin: no rashes Neurologic: moves all extremities Psychiatric: A+Ox3, euthymic affect Genitourinary: Brothers catheter is in place with continuous bladder irrigation running. There were no clots passing through the Brothers catheter. The catheter does appear patent and has Perez-Aid colored urine noted. Results & Data ([facility]) Vital Signs (Past 12 Hours) Vital Signs Temp Pulse Pulse Resp BP BP Pulse Ox 05/29/22 04:27 88 17 95 05/29/22 04:27 88 17 191/114 H 95 05/29/22 03:21 36.4 C L 101 H 18 230/122 H 95 O2 Del Method 05/29/22 04:27 Room Air 05/29/22 04:27 Room Air 05/29/22 03:21 Room Air PG Care Time/CCT Total # of Minutes Spent Total Time Spent with Patient: Total time spent is greater than 50% in coordination of care (as documented) at patient's floor/unit and/or counseling patient: Coding Level of Care Code 37088 Inpt Consult Level 5 Diagnoses Hematuria R31.9
--- NOTE | 2022-05-29 06:21 | Emergency Department Note ---
History of Present Illness General Chief complaint: Penile Discharge Stated complaint: BLADDER BLEEDING Time Seen by Provider: 05/29/22 03:27 Home Medications Medication Instructions Recorded Confirmed Type lorazepam 0.5 mg tablet 0.5 mg PO DAILY PRN anxiety #1 tab 06/10/19 05/25/22 Rx aspirin 81 mg tablet,delayed 81 mg PO QPM 12/03/19 05/25/22 History release acetaminophen 500 mg capsule 500 - 1,000 mg PO Q6H PRN Pain 01/05/21 05/25/22 History amitriptyline 25 mg tablet 25 mg PO HS PRN Sleep 01/05/21 05/25/22 History multivitamin (Multiple Vitamins 1 tab PO QPM 01/05/21 05/25/22 History tablet) atorvastatin 20 mg tablet 20 mg PO QPM #90 tabs 10/14/21 05/25/22 Rx flecainide 100 mg tablet 100 mg PO QPM #90 tabs 10/14/21 05/25/22 Rx lancets 33 gauge (OneTouch Delica #200 ea 10/14/21 05/25/22 Rx Lancets) rivaroxaban 20 mg tablet (Xarelto) 20 mg PO QPM #90 tabs 10/14/21 05/25/22 Rx blood sugar diagnostic #200 ea 10/20/21 05/25/22 Rx tadalafil 5 mg tablet 5 mg PO QPM sexual activity #90 12/15/21 05/25/22 Rx tabs metformin 500 mg tablet,extended 500 mg PO BID 05/04/22 05/25/22 History release 24 hr metoprolol succinate 25 mg 50 mg PO PM 05/04/22 05/25/22 History tablet,extended release 24 hr hydralazine 25 mg tablet 25 mg PO QID #100 tabs 05/24/22 05/25/22 Rx Allergies Allergy/AdvReac Type Severity Reaction Status Date / Time adhesive tape Allergy Mild Redness of Verified 05/16/22 07:07 Skin Past Med/Surg History Medical History Anxiety 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 cardiology (Dr. Booker) Deep vein thrombosis (DVT) of right upper extremity (~2016) Post-op shoulder surgery Diabetes type 2, controlled NIDDM DJD (degenerative joint disease) of knee Fuchs' corneal dystrophy Hearing loss Hypercholesteremia currently managed by cardio and PCP Hypertension controlled, stable per pt; white coat hypertension Mild concentric left ventricular hypertrophy (LVH) Mitral regurgitation mild per 2013 echo Obesity Tricuspid regurgitation mild per 2013 echo Surgical History History of arthroscopy Left knee History of left shoulder replacement 02/04/2021: LMA#5. History of tooth extraction Hx of colonoscopy S/P total knee arthroplasty R/L Status post total shoulder arthroplasty Right TSA (08/31/17): Grade view 1, MAC#3, ETT 8 at [facility] Family History Brother Bipolar disorder Father Alcoholism Cancer ESOPHAGEAL Family history of esophageal cancer Sister Coronary heart disease Bipolar disorder Mother Scoliosis Son Diabetes Other Heart disease Hypertension Denies family history of Ovarian cancer Prostate cancer Myocardial infarction Breast cancer Colorectal cancer Social History Smoking Status: Former smoker Tobacco Type: Cigarettes Age Started Using Tobacco: 23; Age Quit Using Tobacco: 60; packs per day: 0.5; Second Hand Exposure: No; Hx Alcohol Use: No Hx Substance Use: No Preferred Language: Kittitian Communication Ability: Effective Visual Impairment: No Limitations Hearing Ability: Normal Newspaper Carrier Required: No Beliefs That Will Affect Care: None marital status: Current Living Situation: Spouse current occupational status: retired current occupation: retired from career with [employer] Feels Safe at Home: Yes Childhood Exposure to Second-Hand Smoke: Yes Dental Care, Regularly: Yes Physical Activity Frequency: 1-2 Times per Week Seatbelt Use: always Sunscreen Use: Yes Assistive Devices: Glasses and Hearing Aid - Left Physical Exam Vital Signs Vital Signs - 24 hr 05/29/22 03:21 05/29/22 04:27 05/29/22 04:27 Temperature 36.4 C L Temperature Source Temporal Artery Scan Pulse Rate 101 H 88 Pulse Rate [Apical] 88 Respiratory Rate 18 17 17 Respiratory Effort / Characteristics Non-Labored Spontaneous Respiratory Depth Normal Blood Pressure 230/122 H Blood Pressure [Left Arm] 191/114 H Blood Pressure Mean 158 Blood Pressure Mean [Left Arm] 139 Pulse Oximetry 95 95 95 Oxygen Delivery Method Room Air Room Air Room Air Sepsis New/Unexplained Change in Mental Status N/A Sepsis Action Taken by Nursing No Action Required Course Administered Medications Discontinued Medications Hydralazine HCl (Hydralazine Hcl 20 Mg/Ml Vial) 10 mg IV NOW STA Stop: 05/29/22 04:34 Last Admin: 05/29/22 04:54 Dose: 10 mg Documented By: IRLANDA Medical Decision Making Medical Records Attestation: I reviewed the patient's medical records. Home Medications Current Medication List: was personally reviewed by me Laboratory Data Attestation: I reviewed the patient's lab results. Result diagrams: 05/29/22 03:54 05/29/22 03:54 Lab Results 05/29/22 05/29/22 05/29/22 Range/Units 03:54 03:54 03:54 WBC 8.25 (4.8-10.8) K/ul RBC 4.13 L (4.63-6.08) M/uL Hgb 12.2 L (14.0-18.0) g/dl Hct 36.5 L (40.1-51.0) % MCV 88.4 (80.0-100.0) fL MCH 29.5 (25.0-34.0) pg MCHC 33.4 (32.0-36.0) g/dL RDW Std Deviation 43.8 (36.4-46.3) fL RDW Coeff of Berta 13.5 (11.5-14.5) % Plt Count 226 (130-400) K/uL MPV 11.1 (9.4-12.4) fL Immature Gran % (Auto) 0.2 % Neut % (Auto) 70.6 % Lymph % (Auto) 20.1 % [place] % (Auto) 7.4 % Eos % (Auto) 1.2 % Baso % (Auto) 0.5 % Neut # (Auto) 5.82 (1.4-6.5) K/uL Lymph # (Auto) 1.66 (1.2-3.4) K/uL [place] # (Auto) 0.61 (0.24-0.82) K/uL Eos # (Auto) 0.10 (0-0.50) K/uL Baso # (Auto) 0.04 (0-0.2) K/uL Immature Gran # (Auto) 0.02 (0.00-0.02) K/uL PT 12.5 H (9.0-12.0) Seconds INR 1.2 H (0.9-1.1) Sodium 138 (136-145) mmol/L Potassium 4.0 (3.5-5.1) mmol/L Chloride 103 (98-107) mmol/L Carbon Dioxide 28 (21-32) mmol/L Anion Gap 7 (3-11) BUN 19 (6-23) mg/dl Creatinine 0.74 (0.6-1.4) mg/dl Est Cr Clr Drug Dosing 101.2 ml/min Est GFR ( Amer) 101.0 ml/min Est GFR (Non-Af Amer) 87.1 ml/min BUN/Creatinine Ratio 25.7 H (10-20) Glucose 222 H (70-99(Fasting)) mg/dl Calcium 9.7 (8.5-10.1) mg/dl Total Bilirubin 0.6 (0.2-1.0) mg/dl AST 20 (13-39) U/L ALT 21 (7-52) U/L Alkaline Phosphatase 72 (34-104) U/L Total Protein 7.1 (6.0-8.3) gm/dl Albumin 4.2 (3.4-5.0) gm/dl Globulin 2.9 (2.5-4.0) gm/dl Albumin/Globulin Ratio 1.4 (0.9-2) Urine Color Urine Appearance (Clear) Urine pH (4.5-7.5) Ur Specific [place] (1.000-1.030) Urine Protein (Negative) Urine Glucose (UA) (Negative) Urine Ketones (Negative) Urine Blood (Negative) Urine Nitrite (Negative) Urine Bilirubin (Negative) Urine Urobilinogen (Negative) Ur Leukocyte Esterase (Negative) Urine RBC (0-4) /hpf Urine WBC (0-5) /hpf Ur Epithelial Cells (0-5) /lpf Urine Bacteria (Negative) SARS-CoV-2, RNA, NAAT (NEGATIVE) 05/29/22 05/29/22 Range/Units 03:54 04:22 WBC (4.8-10.8) K/ul RBC (4.63-6.08) M/uL Hgb (14.0-18.0) g/dl Hct (40.1-51.0) % MCV (80.0-100.0) fL MCH (25.0-34.0) pg MCHC (32.0-36.0) g/dL RDW Std Deviation (36.4-46.3) fL RDW Coeff of Berta (11.5-14.5) % Plt Count (130-400) K/uL MPV (9.4-12.4) fL Immature Gran % (Auto) % Neut % (Auto) % Lymph % (Auto) % [place] % (Auto) % Eos % (Auto) % Baso % (Auto) % Neut # (Auto) (1.4-6.5) K/uL Lymph # (Auto) (1.2-3.4) K/uL [place] # (Auto) (0.24-0.82) K/uL Eos # (Auto) (0-0.50) K/uL Baso # (Auto) (0-0.2) K/uL Immature Gran # (Auto) (0.00-0.02) K/uL PT (9.0-12.0) Seconds INR (0.9-1.1) Sodium (136-145) mmol/L Potassium (3.5-5.1) mmol/L Chloride (98-107) mmol/L Carbon Dioxide (21-32) mmol/L Anion Gap (3-11) BUN (6-23) mg/dl Creatinine (0.6-1.4) mg/dl Est Cr Clr Drug Dosing ml/min Est GFR ( Amer) ml/min Est GFR (Non-Af Amer) ml/min BUN/Creatinine Ratio (10-20) Glucose (70-99(Fasting)) mg/dl Calcium (8.5-10.1) mg/dl Total Bilirubin (0.2-1.0) mg/dl AST (13-39) U/L ALT (7-52) U/L Alkaline Phosphatase (34-104) U/L Total Protein (6.0-8.3) gm/dl Albumin (3.4-5.0) gm/dl Globulin (2.5-4.0) gm/dl Albumin/Globulin Ratio (0.9-2) Urine Color Red Urine Appearance Cloudy A (Clear) Urine pH (4.5-7.5) Ur Specific [place] 1.008 (1.000-1.030) Urine Protein (Negative) Urine Glucose (UA) (Negative) Urine Ketones (Negative) Urine Blood (Negative) Urine Nitrite (Negative) Urine Bilirubin (Negative) Urine Urobilinogen (Negative) Ur Leukocyte Esterase (Negative) Urine RBC >30 H (0-4) /hpf Urine WBC >30 H (0-5) /hpf Ur Epithelial Cells 10-20 H (0-5) /lpf Urine Bacteria Negative (Negative) SARS-CoV-2, RNA, NAAT POSITIVE A* (NEGATIVE) Impression & Plan Hematuria, COVID-19, Hypertension Discharge Plan Visit Data Chief Complaint: Penile Discharge Stated Complaint: BLADDER BLEEDING ED Provider: Jordi Das Discharge Problem: Hematuria, COVID-19, Hypertension Forms Stand Alone Forms: My [facility] Prescriptions Prescriptions: No Action atorvastatin 20 mg tablet 20 mg PO QPM Qty: 90 3RF flecainide 100 mg tablet 100 mg PO QPM Qty: 90 3RF (DME) lancets [OneTouch Delica Lancets] 33 gauge misc See Rx Instructions .ROUTE .MEDSUPPLY Qty: 200 3RF Rx Instructions: TEST 2 TIMES DAILY Xarelto 20 mg tablet 20 mg PO QPM Qty: 90 3RF Rx Instructions: must administer with a meal/food (DME) blood sugar diagnostic Strip See Rx Instructions .ROUTE .MEDSUPPLY Qty: 200 3RF Rx Instructions: USE 1 STRIP TWICE DAILY (OneTouch Ultra) tadalafil 5 mg tablet 5 mg PO QPM Qty: 90 3RF lorazepam 0.5 mg tablet 0.5 mg PO DAILY PRN (Reason: anxiety) Qty: 1 0RF aspirin 81 mg Tablet,Delayed Release (Dr/Ec) 81 mg PO QPM hydralazine 25 mg Tablet 25 mg PO QID Qty: 100 0RF multivitamin [Multiple Vitamins] tablet 1 tab PO QPM amitriptyline 25 mg tablet 25 mg PO HS PRN (Reason: Sleep) acetaminophen 500 mg Capsule 500 - 1,000 mg PO Q6H PRN (Reason: Pain) metoprolol succinate 25 mg tablet extended release 24 hr 50 mg PO PM metformin 500 mg tablet extended release 24 hr 500 mg PO BID Referrals Referrals: Venita Orosco CRNP [Primary Care Provider] -
--- NOTE | 2022-05-29 06:52 | History & Physical Report ---
Date of Service May 29, 2022 Assessment & Plan (1) Hematuria: Plan: 82yo male s/p TURP performed on 05/16/22, on Eliquis anticoagulation for AF presents with recurrent hematuria. Seems to occur after Eliquis is resumed. He is hypertensive, no symptoms of anemia. Hgb=12.2, Hct=36.5. INR=1.2, platelets are normal at 226. Brothers in place with CBI initiated in ER Urology consultation appreciated -Will continue CBI -Trend CBC -Hold Xarelto -Appreciate Urology assistance (2) COVID-19: Plan: Patient tested POSITIVE on 05/21/22 and remains POSITIVE today -Maintain isolation precautions -Monitor oxygenation. No indication for treatment at this time (3) Atrial fibrillation, permanent: Plan: Rate controlled. Has been on anticoagulation with Rivaroxaban -Continue Metoprolol -Continue Flecainide -Hold Rivaroxaban (4) Anxiety: Plan: Chronic -Continue PRN Ativan (5) Diabetes type 2, controlled: Plan: Chronic -Hold oral agents -Lantus 5u BID -ISS (6) Hypercholesteremia: Plan: Chronic. Stable -Continue Atorvastatin 20mg po qPM (7) Hypertension: Plan: Chronic. Elevated in ER -Continue Metoprolol 50mg po qPM -Continue Hydralazine 25mg po QID - this was recently changed from Lisinopril on discharge. Patient is not pleased with a QID medication. Consider discontinuing and resuming Lisinopril -Monitor History of Present Illness Chief Complaint: hematuria Primary Care Provider: MIRANDA Guzmán Vinayak Brown is an 82yo male with history of DM, AF on Eliquis anticoagulation, HTN, HLP, BPH with LUTS s/p TURP performed by Dr. Kumari on 05/16/22. Surgery was well tolerated, no complications. Patient was able to void spontaneously following the surgery and was discharged home in stable condition on 05/17/22. He developed hematuria over the next three days, also noted a progressively weaker urinary stream. He was seen in the ER on 05/22/22 AM with complaint of urinary retention, hematuria and suprapubic abdominal pain. A bladder scan was performed which revealed over 600mL of urine. A Brothers catheter was placed with return of over 1L of bloody urine. Patient was discharged home. He returned to the ER later in the morning of 05/22/22 with complaint of inability to urinate as well as thicker blood with possible passage of clots. The Brothers was irrigated with return of pink urine with clots. Admission was discussed for possible CBI, however, patient wished to return home and attempt to increase his fluid intake and manage the Brothers. He was discharged home. Patient returned on 05/23 and was admitted and managed with CBI. He was discharged home on 05/24/22 Patient returns today with hematuria. He took his Xarelto x 1 dose and began passing bloody urine with clots. No additional complaints. Denies dysuria, flank pain, fever, chills, abdominal pain. He is COVID-19 positive, denies worsening symptoms. Patient had a Brothers catheter placed in the ER with initiation of CBI. Seen by Urology Allergies Allergy/AdvReac Type Severity Reaction Status Date / Time adhesive tape Allergy Mild Redness of Verified 05/16/22 07:07 Skin Home Medications Medication Instructions Recorded Confirmed Type lorazepam 0.5 mg tablet 0.5 mg PO DAILY PRN anxiety #1 tab 06/10/19 05/25/22 Rx aspirin 81 mg tablet,delayed 81 mg PO QPM 12/03/19 05/25/22 History release acetaminophen 500 mg capsule 500 - 1,000 mg PO Q6H PRN Pain 01/05/21 05/25/22 History amitriptyline 25 mg tablet 25 mg PO HS PRN Sleep 01/05/21 05/25/22 History multivitamin (Multiple Vitamins 1 tab PO QPM 01/05/21 05/25/22 History tablet) atorvastatin 20 mg tablet 20 mg PO QPM #90 tabs 10/14/21 05/25/22 Rx flecainide 100 mg tablet 100 mg PO QPM #90 tabs 10/14/21 05/25/22 Rx lancets 33 gauge (OneTouch Delica #200 ea 10/14/21 05/25/22 Rx Lancets) rivaroxaban 20 mg tablet (Xarelto) 20 mg PO QPM #90 tabs 10/14/21 05/25/22 Rx blood sugar diagnostic #200 ea 10/20/21 05/25/22 Rx tadalafil 5 mg tablet 5 mg PO QPM sexual activity #90 12/15/21 05/25/22 Rx tabs metformin 500 mg tablet,extended 500 mg PO BID 05/04/22 05/25/22 History release 24 hr metoprolol succinate 25 mg 50 mg PO PM 05/04/22 05/25/22 History tablet,extended release 24 hr hydralazine 25 mg tablet 25 mg PO QID #100 tabs 05/24/22 05/25/22 Rx Past Med/Surg History Medical History Anxiety 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 Atrial fibrillation Follows with [facility] [place] cardiology (Dr. 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 History of tooth extraction Hx of colonoscopy S/P total knee arthroplasty R/L Status post total shoulder arthroplasty Right TSA (08/31/17): Grade view 1, MAC#3, ETT 8 at [facility] Family History Brother Bipolar disorder Father Alcoholism Cancer ESOPHAGEAL Family history of esophageal cancer Sister Coronary heart disease Bipolar disorder Mother Scoliosis Son Diabetes Other Heart disease Hypertension Denies family history of Ovarian cancer Prostate cancer Myocardial infarction Breast cancer Colorectal cancer Social History Smoking Status: Former smoker Tobacco Type: Cigarettes Age Started Using Tobacco: 23; Age Quit Using Tobacco: 60; packs per day: 0.5; Second Hand Exposure: No; Hx Alcohol Use: No Hx Substance Use: No Preferred Language: [place] Communication Ability: Effective Visual Impairment: No Limitations Hearing Ability: Normal Associate Application Developer Required: No Beliefs That Will Affect Care: None marital status: Current Living Situation: Spouse current occupational status: retired current occupation: retired from career with [employer] Safe at Home: Yes Childhood Exposure to Second-Hand Smoke: Yes Dental Care, Regularly: Yes Physical Activity Frequency: 1-2 Times per Week Seatbelt Use: always Sunscreen Use: Yes Assistive Devices: Glasses and Hearing Aid - Left Review of Systems Review of Systems: All systems reviewed & are unremarkable except as noted in HPI & below Physical Exam Physical Exam: General: patient resting comfortably, NAD, non-toxic in appearance, AA&O x 4 Skin: warm, dry, intact, no rashes or lesions HEENT: NC/AT, PERRL, EOMI, anicteric sclera, conjunctiva without injection, external ear normal to inspection and nontender, nares patent, moist mucus membranes, dentition intact, no oropharyngeal lesions, neck supple, trachea midline, no LAD, no thyromegaly, no JVD Heart: +S1/S2, regular, no m/r/g Lungs: equal air entry bilaterally, no rales/rhonchi/wheezes Abd: +BS, soft, NT/ND, no masses/organomegaly/ascites Ext: warm, 2+ pulses in UE/LE bilaterally, no clubbing/cyanosis or edema Neuro: nonfocal, patient AA&O x 4, speech intact, no facial droop, moving all extremities on command with equal strength 5/5 Results & Data Results & Data ([facility]) Vital Signs (Past 12 Hours) Vital Signs Temp Pulse Pulse Resp BP BP Pulse Ox 05/29/22 04:27 88 17 95 05/29/22 04:27 88 17 191/114 H 95 05/29/22 03:21 36.4 C L 101 H 18 230/122 H 95 O2 Del Method 05/29/22 04:27 Room Air 05/29/22 04:27 Room Air 05/29/22 03:21 Room Air Laboratory Results Laboratory Results WBC 8.25 K/ul (4.8-10.8) 05/29/22 03:54 RBC 4.13 M/uL (4.63-6.08) L 05/29/22 03:54 Hgb 12.2 g/dl (14.0-18.0) L 05/29/22 03:54 Hct 36.5 % (40.1-51.0) L 05/29/22 03:54 MCV 88.4 fL (80.0-100.0) 05/29/22 03:54 MCH 29.5 pg (25.0-34.0) 05/29/22 03:54 MCHC 33.4 g/dL (32.0-36.0) 05/29/22 03:54 RDW Std Deviation 43.8 fL (36.4-46.3) 05/29/22 03:54 RDW Coeff of Berta 13.5 % (11.5-14.5) 05/29/22 03:54 Plt Count 226 K/uL (130-400) 05/29/22 03:54 MPV 11.1 fL (9.4-12.4) 05/29/22 03:54 Immature Gran % (Auto) 0.2 % 05/29/22 03:54 Neut % (Auto) 70.6 % 05/29/22 03:54 Lymph % (Auto) 20.1 % 05/29/22 03:54 [place] % (Auto) 7.4 % 05/29/22 03:54 Eos % (Auto) 1.2 % 05/29/22 03:54 Baso % (Auto) 0.5 % 05/29/22 03:54 Neut # (Auto) 5.82 K/uL (1.4-6.5) 05/29/22 03:54 Lymph # (Auto) 1.66 K/uL (1.2-3.4) 05/29/22 03:54 [place] # (Auto) 0.61 K/uL (0.24-0.82) 05/29/22 03:54 Eos # (Auto) 0.10 K/uL (0-0.50) 05/29/22 03:54 Baso # (Auto) 0.04 K/uL (0-0.2) 05/29/22 03:54 Immature Gran # (Auto) 0.02 K/uL (0.00-0.02) 05/29/22 03:54 PT 12.5 Seconds (9.0-12.0) H 05/29/22 03:54 INR 1.2 (0.9-1.1) H 05/29/22 03:54 Sodium 138 mmol/L (136-145) 05/29/22 03:54 Potassium 4.0 mmol/L (3.5-5.1) 05/29/22 03:54 Chloride 103 mmol/L (98-107) 05/29/22 03:54 Carbon Dioxide 28 mmol/L (21-32) 05/29/22 03:54 Anion Gap 7 (3-11) 05/29/22 03:54 BUN 19 mg/dl (6-23) 05/29/22 03:54 Creatinine 0.74 mg/dl (0.6-1.4) 05/29/22 03:54 Est Cr Clr Drug Dosing 101.2 ml/min 05/29/22 03:54 Est GFR ( Amer) 101.0 ml/min 05/29/22 03:54 Est GFR (Non-Af Amer) 87.1 ml/min 05/29/22 03:54 BUN/Creatinine Ratio 25.7 (10-20) H 05/29/22 03:54 Glucose 222 mg/dl (70-99(Fasting)) H 05/29/22 03:54 Calcium 9.7 mg/dl (8.5-10.1) 05/29/22 03:54 Total Bilirubin 0.6 mg/dl (0.2-1.0) 05/29/22 03:54 AST 20 U/L (13-39) 05/29/22 03:54 ALT 21 U/L (7-52) 05/29/22 03:54 Alkaline Phosphatase 72 U/L (34-104) 05/29/22 03:54 Total Protein 7.1 gm/dl (6.0-8.3) 05/29/22 03:54 Albumin 4.2 gm/dl (3.4-5.0) 05/29/22 03:54 Globulin 2.9 gm/dl (2.5-4.0) 05/29/22 03:54 Albumin/Globulin Ratio 1.4 (0.9-2) 05/29/22 03:54 Urine Color Red 05/29/22 04:22 Urine Appearance Cloudy (Clear) A 05/29/22 04:22 Urine pH (4.5-7.5) 05/29/22 04:22 Ur Specific [place] 1.008 (1.000-1.030) 05/29/22 04:22 Urine Protein (Negative) 05/29/22 04:22 Urine Glucose (UA) (Negative) 05/29/22 04:22 Urine Ketones (Negative) 05/29/22 04:22 Urine Blood (Negative) 05/29/22 04:22 Urine Nitrite (Negative) 05/29/22 04:22 Urine Bilirubin (Negative) 05/29/22 04:22 Urine Urobilinogen (Negative) 05/29/22 04:22 Ur Leukocyte Esterase (Negative) 05/29/22 04:22 Urine RBC >30 /hpf (0-4) H 05/29/22 04:22 Urine WBC >30 /hpf (0-5) H 05/29/22 04:22 Ur Epithelial Cells 10-20 /lpf (0-5) H 05/29/22 04:22 Urine Bacteria Negative (Negative) 05/29/22 04:22 SARS-CoV-2, RNA, NAAT POSITIVE (NEGATIVE) A* 05/29/22 03:54 PG Care Time/CCT Total # of Minutes Spent Total Time Spent with Patient: Total time spent is greater than 50% in coordination of care (as documented) at patient's floor/unit and/or counseling patient: Coding Level of Care Code 52284 Initial Inpt Care Lvl 3 Diagnoses Hematuria R31.9 COVID-19 U07.1 Atrial fibrillation, permanent I48.21 Anxiety F41.9 Diabetes type 2, controlled E11.9 Hypercholesteremia E78.00 Hypertension I10
[2022-05-29] MEDS ORDERED: CARBOHYDRATES FOR HYPOGLYCEMIA PO PRN (08:56)
[2022-05-29] MEDS ORDERED: GLUCOSE 40% GEL 15 GM TUBE PO PRN (08:56)
[2022-05-29] MEDS ORDERED: DOCUSATE SODIUM 100 MG CAP PO PRN (08:56)
[2022-05-29] MEDS ORDERED: GLUCOSE 10 TAB/TUBE PO PRN (08:56)
[2022-05-29] MEDS ORDERED: ONDANSETRON INJ 2 MG/ML 2 ML VIAL IV PRN (08:56)
[2022-05-29] MEDS ORDERED: DEXTROSE 50% 50 ML SYRINGE IV PRN (08:56)
[2022-05-29] MEDS ORDERED: ACETAMINOPHEN 325 MG TAB PO PRN (08:56)
[2022-05-29] MEDS ORDERED: GLUCAGON FOR INJ 1 MG VIAL SQ PRN (08:56)
[2022-05-29] MEDS ORDERED: LORazepam 0.5 MG TAB PO PRN (08:56)
[2022-05-29] MEDS ORDERED: hydrALAZINE HCL 25 MG TAB PO SCH (09:00)
--- NOTE | 2022-05-29 09:41 | Discharge Summary ---
Date of Service May 29, 2022 Admission HPI Per Admitting Provider Vinayak Brown is an 82yo male with history of DM, AF on Eliquis anticoagulation, HTN, HLP, BPH with LUTS s/p TURP performed by Dr. Kumari on 05/16/22. Surgery was well tolerated, no complications. Patient was able to void spontaneously following the surgery and was discharged home in stable condition on 05/17/22. He developed hematuria over the next three days, also noted a progressively weaker urinary stream. He was seen in the ER on 05/22/22 AM with complaint of urinary retention, hematuria and suprapubic abdominal pain. A bladder scan was performed which revealed over 600mL of urine. A Brothers catheter was placed with return of over 1L of bloody urine. Patient was discharged home. He returned to the ER later in the morning of 05/22/22 with complaint of inability to urinate as well as thicker blood with possible passage of clots. The Brothers was irrigated with return of pink urine with clots. Admission was discussed for possible CBI, however, patient wished to return home and attempt to increase his fluid intake and manage the Brothers. He was discharged home. Patient returned on 05/23 and was admitted and managed with CBI. He was discharged home on 05/24/22 Patient returns today with hematuria. He took his Xarelto x 1 dose and began passing bloody urine with clots. No additional complaints. Denies dysuria, flank pain, fever, chills, abdominal pain. He is COVID-19 positive, denies worsening symptoms. Patient had a Brothers catheter placed in the ER with initiation of CBI. Seen by Urology Principal Diagnosis hematuria, essential HTN Discharge Exam Constitutional WD/WN, vitals as above Eyes PERRL, conjunctivae normal, anicteric sclerae ENMT external ear and nose normal, oropharynx normal Neck trachea midline, no thyromegaly Respiratory normal respiratory effort, lungs clear to auscultation Cardiovascular RRR, no murmur, no edema Gastrointestinal (Abdomen) normal bowel sounds, soft, nontender, no hepatosplenomegaly Musculoskeletal no cyanosis or clubbing, extremities motor strength 5/5 Skin no rashes, warm and dry Neurologic PERRL, EOMI, accommodation nl, no face palsy, no dysarthria Genitourinary hematuria resolved Discharge Data Allergies Allergy/AdvReac Type Severity Reaction Status Date / Time adhesive tape Allergy Mild Redness of Verified 05/16/22 07:07 Skin Consultations 05/29/22 06:13 ED Decision to Admit Stat Hospital Course (1) Hematuria: 82yo male s/p TURP performed on 05/16/22, on Eliquis anticoagulation for AF presents with recurrent hematuria. Seems to occur after Eliquis is resumed. He is hypertensive, no symptoms of anemia. Hgb=12.2, Hct=36.5. INR=1.2, platelets are normal at 226. CBI initiated in ER. Stopped when hematuria resolved Urology consultation appreciated -Hold Xarelto until the weekend, then restart if no further hematuria -Appreciate Urology assistance (2) COVID-19: Patient tested POSITIVE on 05/21/22 and remains POSITIVE on admission. -Maintain isolation precautions while hospitalized -Monitor oxygenation. No indication for treatment at this time (3) Atrial fibrillation, permanent: Rate controlled. Has been on anticoagulation with Rivaroxaban -Continue Metoprolol -Continue Flecainide -Hold Rivaroxaban until the weekend (4) Anxiety: Chronic -Continue PRN Ativan (5) Diabetes type 2, controlled: Chronic -Hold oral agents while hospitalized. resume at discharge -Lantus 5u BID -ISS (6) Hypercholesteremia: Chronic. Stable -Continue Atorvastatin 20mg po qPM (7) Hypertension: Chronic. Elevated in ER -Continue Metoprolol 50mg po qPM -Continue Hydralazine 25mg po QID -Monitor Plan home today Total Time Total Time Spent Total Time Spent (In Minutes): 35 minutes Discharge Plan Discharge Items Patient Disposition: Home - Self-Care Reason For Visit: HEMATURIA Discharge Diagnosis: hematuria on systemic anticoagulant, uncontrolled HTN. covid positivity Activity: Resume your previous activity Non-emergency contact: Primary Care Provider Call non-emergency contact if: you have any medication questions Follow-up/Referrals: Venita Orosco CRNP [Primary Care Provider] - Diet: Carb Consistent or DM2 and Heart Healthy Addtl Attending Provider Instructions: stay off xarelto until the weekend. Pending Studies at Discharge: No Stand-Alone Forms: My [facility], Smoking Cessation Medications and DC Order Prescriptions: Continued atorvastatin 20 mg tablet 20 mg PO QPM Qty: 90 3RF flecainide 100 mg tablet 100 mg PO QPM Qty: 90 3RF (DME) lancets [OneTouch Delica Lancets] 33 gauge misc See Rx Instructions .ROUTE .MEDSUPPLY Qty: 200 3RF Rx Instructions: TEST 2 TIMES DAILY Xarelto 20 mg tablet 20 mg PO QPM Qty: 90 3RF Rx Instructions: must administer with a meal/food (DME) blood sugar diagnostic Strip See Rx Instructions .ROUTE .MEDSUPPLY Qty: 200 3RF Rx Instructions: USE 1 STRIP TWICE DAILY (OneTouch Ultra) tadalafil 5 mg tablet 5 mg PO QPM Qty: 90 3RF lorazepam 0.5 mg tablet 0.5 mg PO DAILY PRN (Reason: anxiety) Qty: 1 0RF aspirin 81 mg Tablet,Delayed Release (Dr/Ec) 81 mg PO QPM hydralazine 25 mg Tablet 25 mg PO QID Qty: 100 0RF multivitamin [Multiple Vitamins] tablet 1 tab PO QPM amitriptyline 25 mg tablet 25 mg PO HS PRN (Reason: Sleep) acetaminophen 500 mg Capsule 500 - 1,000 mg PO Q6H PRN (Reason: Pain) metoprolol succinate 25 mg tablet extended release 24 hr 50 mg PO PM metformin 500 mg tablet extended release 24 hr 500 mg PO BID Admission Data Admit Date/Time: 05/29/22 06:30 Attending Provider: Diallo Mendez Admit Provider: Shaista Chappell Primary Care Provider: Venita Orosco Other Providers: Shaista Chappell ; Mic Lamas Coding Diagnoses Hematuria R31.9 COVID-19 U07.1 Atrial fibrillation, permanent I48.21 Anxiety F41.9 Diabetes type 2, controlled E11.9 Hypercholesteremia E78.00 Hypertension I10
[2022-05-29] MEDS: OXYBUTYNIN CHLORIDE 5 MG TAB PO SCH ×2 (09:42→20:11)
[2022-05-29] MEDS: INSULIN ASPART PER UNIT SC SCH ×4 (10:00→21:29)
[2022-05-29] MEDS: LANTUS PER UNIT CHARGE SQ SCH ×2 (10:01→21:29)
[2022-05-29] MEDS ORDERED: METOPROLOL SUCC 50MG EXT REL TAB PO STA (11:58)
[2022-05-29] MEDS ORDERED: NovoLIN-R INSULIN PER UNIT CHARGE ONE (12:47)
[2022-05-29] MEDS ORDERED: hydrALAZINE HCL 20 MG/ML VIAL IV PRN (15:12)
--- NOTE | 2022-05-29 15:18 | Hospitalist Progress Note ---
Date of Service May 29, 2022 Assessment & Plan (1) Hematuria: Plan: Urology consult appreciated. Continue CBI until hematuria resolves. Xarelto remains on hold. This is recurrent after recent TUR procedure (2) COVID-19: Plan: COVID positivity persists although he is asymptomatic. He previously had a COVID infection (3) Atrial fibrillation, permanent: Plan: Metoprolol uptitrated for better heart rate control. Xarelto is on hold (4) Anxiety: Plan: Medication management as needed (5) Diabetes type 2, controlled: Plan: ADA diet. Medication management. Sliding scale coverage as needed (6) Hypercholesteremia: Plan: Low-cholesterol diet. Statin therapy (7) Hypertension: Plan: Metoprolol and hydralazine uptitrated for better heart rate and blood pressure control. We will follow Plan Eventual discharge to home once hematuria resolves and Brothers catheter is removed Admission and Anticipated Discharge Date Admission Date: May 29, 2022 Subjective Alert and oriented. No distress. Xarelto remains on hold. Hematuria is resolving. Hydralazine and metoprolol have been uptitrated for better heart rate and blood pressure control Review of Systems Review of Systems: Constitutional-no fever or chills ENT-no blurred vision, no double vision, no epistaxis, no sore throat Respiratory-no cough, no wheezing, no shortness of breath Cardiac-no palpitations, no chest pain, no syncope GI-no nausea, vomiting, diarrhea, melena, hematochezia - CBI underway. Hematuria resolving Musculoskeletal-no joint pain, no muscle tenderness Skin-no bruising, no rashes, no pruritus Neuro-no isolated weakness, no paresthesia, no weakness Psych-no depression, no anxiety Physical Exam Physical Exam: General-alert and oriented x3, no fevers, no chills HEENT-head atraumatic and normocephalic, pupils equal and reactive to light, extraocular muscles intact Neck-no lymphadenopathy or thyromegaly, trachea midline Chest-clear to auscultation percussion. No rales wheezing or rhonchi Cardiac-regular rate and rhythm, normal S1 and S2, no murmurs Abdomen-normal bowel sounds, nontender, no hepatosplenomegaly Extremities-no cyanosis, clubbing, or edema Neuro-cranial nerves II through XII intact, motor and sensory function within normal limits, strength symmetrical , no focal deficits Psych-normal affect, normal mood GenitourinaryFoley catheter in place. Hematuria is minimal and resolving Results & Data Results & Data ([facility]) Vital Signs (Past 12 Hours) Vital Signs Temp Pulse Pulse Pulse Resp BP BP 05/29/22 15:12 115 H 183/106 H 05/29/22 15:07 36.7 C 113 H 18 213/95 H 05/29/22 14:56 97 H 18 154/88 H 05/29/22 14:41 96 H 20 139/109 H 05/29/22 12:54 91 H 20 137/96 05/29/22 11:00 101 H 20 141/97 H 05/29/22 09:06 97 H 16 206/109 H 05/29/22 08:02 95 H 16 167/95 H 05/29/22 07:08 87 16 180/100 H 05/29/22 06:00 99 H 17 191/110 H 05/29/22 04:27 88 17 05/29/22 04:27 88 17 191/114 H 05/29/22 03:21 36.4 C L 101 H 18 230/122 H Pulse Ox O2 Del Method 05/29/22 15:12 05/29/22 15:07 97 Room Air 05/29/22 14:56 97 Room Air 05/29/22 14:41 97 05/29/22 12:54 97 Room Air 05/29/22 11:00 97 Room Air 05/29/22 09:06 96 Room Air 05/29/22 08:02 97 Room Air 05/29/22 07:08 97 Room Air 05/29/22 06:00 96 Room Air 05/29/22 04:27 95 Room Air 05/29/22 04:27 95 Room Air 05/29/22 03:21 95 Room Air Laboratory Results 05/29/22 03:54 05/29/22 03:54 PG Care Time/CCT Total # of Minutes Spent Total Time Spent with Patient: Total time spent is greater than 50% in coordination of care (as documented) at patient's floor/unit and/or counseling patient: Coding Level of Care Code 95888 Subseq Hosp Care Lvl 3 Diagnoses Hematuria R31.9 COVID-19 U07.1 Atrial fibrillation, permanent I48.21 Anxiety F41.9 Diabetes type 2, controlled E11.9 Hypercholesteremia E78.00 Hypertension I10
[2022-05-29] MEDS: hydrALAZINE TAB 50 MG TAB PO SCH ×2 (16:05→20:11)
[2022-05-29] MEDS ORDERED: FLECAINIDE ACETATE 100 MG TABLET PO SCH (21:00)
[2022-05-29] MEDS ORDERED: ASPIRIN 81 MG ECTAB PO SCH (21:00)
[2022-05-29] MEDS ORDERED: METOPROLOL SUCC 50MG EXT REL TAB PO SCH (21:00)
[2022-05-29] MEDS ORDERED: ATORVASTATIN 20 MG TAB PO SCH (21:00)
[2022-05-30 06:58] LABS: Basophils # (auto) 0.06 K/uL (0-0.2); Basophils % (auto) 0.7 %; Eosinophils % (auto) 1.1 %; Hemoglobin 12.7 g/dl (14.0-18.0); Immature Granulocytes # (auto) 0.03 K/uL (0.00-0.02); Immature Granulocytes % (auto) 0.3 %; Lymphocytes # (auto) 1.95 K/uL (1.2-3.4); Lymphocytes % (auto) 21.5 %; Mean Corpuscular Hemoglobin 29.7 pg (25.0-34.0); Mean Corpuscular Hgb Conc 34.3 g/dL (32.0-36.0); Mean Corpuscular Volume 86.4 fL (80.0-100.0); Mean Platelet Volume 10.8 fL (9.4-12.4); Monocytes # (auto) 0.75 K/uL (0.24-0.82); Monocytes % (auto) 8.3 %; Neutrophils # (auto) 6.18 K/uL (1.4-6.5); Neutrophils % (auto) 68.1 %; Platelet Count 239 K/uL (130-400); RDW Coefficient of Variation 13.7 % (11.5-14.5); RDW Standard Deviation 42.4 fL (36.4-46.3); Red Blood Count 4.28 M/uL (4.63-6.08); White Blood Count 9.07 K/ul (4.8-10.8)
[2022-05-30 07:20] LABS: Albumin Level 3.7 gm/dl (3.4-5.0); BUN Creatinine Ratio 23.1 (10-20); Bilirubin Direct 0.1 mg/dl (0-0.2); Bilirubin,Total 0.8 mg/dl (0.2-1.0); Calcium 9.3 mg/dl (8.5-10.1); Est GFR (African American) 98.8 ml/min; Est GFR (Non-African American) 85.3 ml/min; Potassium 4.1 mmol/L (3.5-5.1); Total Protein 6.4 gm/dl (6.0-8.3)
[2022-05-30] MEDS: hydrALAZINE TAB 50 MG TAB PO SCH ×2 (07:29→12:49)
[2022-05-30] MEDS: INSULIN ASPART PER UNIT SC SCH ×2 (08:29→12:32)
[2022-05-30] MEDS: LANTUS PER UNIT CHARGE SQ SCH (08:30)
--- NOTE | 2022-05-30 08:57 | Urology Progress Note ---
Date of Service May 30, 2022 Assessment & Plan (1) Hematuria: (2) S/P TURP (status post transurethral resection of prostate): Plan History of urinary retention now status post TURP Fortunately his return to the emergency room twice after discharge with hematuria and clot obstruction Both times this occurred shortly after resuming Xarelto for A. fib I removed his catheter this morning If you have continues to void adequately I would like to discharge him home and have him hold his Xarelto for a minimum of 10 days I think at this stage recurrent bleeding risks outweigh the benefits of the Xarelto for the short-term future Admission and Anticipated Discharge Date Admission Date: May 29, 2022 Subjective No major issues overnight Upon arrival in the emergency room he did have to be manually irrigated but then CBI was initiated and has run clear at a very slow rate throughout the evening No discomfort or pain at present Physical Exam Physical Exam: Clear urine, manually irrigatedno clots evacuated Results & Data ([facility]) Vital Signs (Past 12 Hours) Vital Signs Temp Pulse Pulse Resp BP Pulse Ox O2 Del Method 05/30/22 07:22 36.6 C 94 H 18 182/97 H 96 Room Air 05/29/22 21:30 88 142/77 H 05/29/22 20:58 36.6 C 88 20 155/102 H 96 Room Air PG Care Time/CCT Total # of Minutes Spent Total Time Spent with Patient: Total time spent is greater than 50% in coordination of care (as documented) at patient's floor/unit and/or counseling patient: Coding Level of Care Code 02075 Subseq Hosp Care Lvl 2 Diagnoses Hematuria R31.9 S/P TURP (status post transurethral resection of prostate) Z90.79
[2022-05-30] MEDS: OXYBUTYNIN CHLORIDE 5 MG TAB PO SCH (09:19)
[2022-05-30] MEDS ORDERED: METOPROLOL SUCC 50MG EXT REL TAB PO SCH (12:00)
--- NOTE | 2022-05-30 12:04 | Discharge Summary ---
Date of Service May 30, 2022 Principal Diagnosis recurrent hematuria after TURP Discharge Exam General-alert and oriented x3, no fevers, no chills HEENT-head atraumatic and normocephalic, pupils equal and reactive to light, extraocular muscles intact Neck-no lymphadenopathy or thyromegaly, trachea midline Chest-clear to auscultation percussion. No rales wheezing or rhonchi Cardiac-irregularly irregular rhythm with rate controlled , normal S1 and S2, Abdomen-normal bowel sounds, nontender, no hepatosplenomegaly Extremities-no cyanosis, clubbing, or edema Neuro-cranial nerves II through XII intact, motor and sensory function within normal limits, strength symmetrical , no focal deficits Psych-normal affect, normal mood Genitourinaryvoiding spontaneously with mild intermittent hematuria. Brothers catheter has been removed Discharge Data Allergies Allergy/AdvReac Type Severity Reaction Status Date / Time adhesive tape Allergy Mild Redness of Verified 05/16/22 07:07 Skin Consultations 05/29/22 06:13 ED Decision to Admit Stat 05/29/22 10:08 Consult Urology Routine Hospital Course (1) Hematuria: Urology consult appreciated. CBI has been discontinued and the Brothers catheter has been removed. He is voiding spontaneously with mild hematuria. Xarelto remains on hold for 10 more days. This is recurrent after recent TUR procedure (2) COVID-19: COVID positivity persists although he is asymptomatic. He previously had a COVID infection (3) Atrial fibrillation, permanent: Metoprolol uptitrated for better heart rate control. Xarelto is on hold (4) Anxiety: Medication management as needed (5) Diabetes type 2, controlled: ADA diet. Medication management. Sliding scale coverage as needed (6) Hypercholesteremia: Low-cholesterol diet. Statin therapy (7) Hypertension: Metoprolol and hydralazine uptitrated for better heart rate and blood pressure control. We will follow Plan Discharge to home today, May 30 Total Time Total Time Spent Total Time Spent (In Minutes): 35 minutes Discharge Plan Discharge Items Patient Disposition: Home - Self-Care Reason For Visit: HEMATURIA Discharge Diagnosis: hematuria on systemic anticoagulant, uncontrolled HTN. covid positivity Activity: Resume your previous activity Non-emergency contact: Primary Care Provider Call non-emergency contact if: you have any medication questions Follow-up/Referrals: Venita Orosco CRNP [Primary Care Provider] - Diet: Carb Consistent or DM2 and Heart Healthy Addtl Attending Provider Instructions: stay off xarelto for 10 days Pending Studies at Discharge: No Stand-Alone Forms: My [facility] [employer], Smoking Cessation Medications and DC Order Prescriptions: New metoprolol succinate 50 mg Tablet Extended Release 24 Hr 50 mg PO QAM Qty: 30 0RF hydralazine 50 mg Tablet 50 mg PO TID Qty: 100 0RF Continued atorvastatin 20 mg tablet 20 mg PO QPM Qty: 90 3RF flecainide 100 mg tablet 100 mg PO QPM Qty: 90 3RF (DME) lancets [OneTouch Delica Lancets] 33 gauge misc See Rx Instructions .ROUTE .MEDSUPPLY Qty: 200 3RF Rx Instructions: TEST 2 TIMES DAILY (DME) blood sugar diagnostic Strip See Rx Instructions .ROUTE .MEDSUPPLY Qty: 200 3RF Rx Instructions: USE 1 STRIP TWICE DAILY (OneTouch Ultra) tadalafil 5 mg tablet 5 mg PO QPM Qty: 90 3RF lorazepam 0.5 mg tablet 0.5 mg PO DAILY PRN (Reason: anxiety) Qty: 1 0RF aspirin 81 mg Tablet,Delayed Release (Dr/Ec) 81 mg PO QPM multivitamin [Multiple Vitamins] tablet 1 tab PO QPM amitriptyline 25 mg tablet 25 mg PO HS PRN (Reason: Sleep) acetaminophen 500 mg Capsule 500 - 1,000 mg PO Q6H PRN (Reason: Pain) metformin 500 mg tablet extended release 24 hr 500 mg PO BID Discontinued Xarelto 20 mg tablet 20 mg PO QPM Qty: 90 3RF Rx Instructions: must administer with a meal/food hydralazine 25 mg Tablet 25 mg PO QID Qty: 100 0RF metoprolol succinate 25 mg tablet extended release 24 hr 50 mg PO PM Discharge Orders: Discharge Order (Routine); Ordered 05/30/22 Ordered By: Diallo Mendez Admission Data Admit Date/Time: 05/29/22 06:30 Attending Provider: Diallo Mendez Admit Provider: Shaista Chappell Primary Care Provider: Venita Orosco Other Providers: Shaista Chappell ; Mic Lamas Coding Level of Care Code D/C DAY MANAGEMENT >30 MINS Diagnoses Hematuria R31.9 COVID-19 U07.1 Atrial fibrillation, permanent I48.21 Anxiety F41.9 Diabetes type 2, controlled E11.9 Hypercholesteremia E78.00 Hypertension I10
--- NOTE | 2022-05-30 13:10 | Discharge Summary ---
Date of Service May 30, 2022 Principal Diagnosis recurrent hematuria after TURP Discharge Data Allergies Allergy/AdvReac Type Severity Reaction Status Date / Time adhesive tape Allergy Mild Redness of Verified 05/16/22 07:07 Skin Consultations 05/29/22 06:13 ED Decision to Admit Stat 05/29/22 10:08 Consult Urology Routine Total Time Total Time Spent Total Time Spent (In Minutes): 35 minutes Discharge Plan Discharge Items Patient Disposition: Home - Self-Care Reason For Visit: HEMATURIA Discharge Diagnosis: hematuria on systemic anticoagulant, uncontrolled HTN. covid positivity Activity: Resume your previous activity Non-emergency contact: Primary Care Provider Call non-emergency contact if: you have any medication questions Follow-up/Referrals: Venita Orosco CRNP [Primary Care Provider] - Diet: Carb Consistent or DM2 and Heart Healthy Addtl Attending Provider Instructions: stay off xarelto for 10 days Pending Studies at Discharge: No Stand-Alone Forms: [employer], Smoking Cessation Medications and DC Order Prescriptions: New metoprolol succinate 50 mg Tablet Extended Release 24 Hr 50 mg PO QAM Qty: 30 0RF hydralazine 50 mg Tablet 50 mg PO TID Qty: 100 0RF metoprolol succinate 50 mg capsule,sprinkle,ER 24hr 50 mg PO BID Qty: 60 0RF Continued atorvastatin 20 mg tablet 20 mg PO QPM Qty: 90 3RF flecainide 100 mg tablet 100 mg PO QPM Qty: 90 3RF (DME) lancets [OneTouch Delica Lancets] 33 gauge misc See Rx Instructions .ROUTE .MEDSUPPLY Qty: 200 3RF Rx Instructions: TEST 2 TIMES DAILY (DME) blood sugar diagnostic Strip See Rx Instructions .ROUTE .MEDSUPPLY Qty: 200 3RF Rx Instructions: USE 1 STRIP TWICE DAILY (OneTouch Ultra) tadalafil 5 mg tablet 5 mg PO QPM Qty: 90 3RF lorazepam 0.5 mg tablet 0.5 mg PO DAILY PRN (Reason: anxiety) Qty: 1 0RF aspirin 81 mg Tablet,Delayed Release (Dr/Ec) 81 mg PO QPM multivitamin [Multiple Vitamins] tablet 1 tab PO QPM amitriptyline 25 mg tablet 25 mg PO HS PRN (Reason: Sleep) acetaminophen 500 mg Capsule 500 - 1,000 mg PO Q6H PRN (Reason: Pain) metformin 500 mg tablet extended release 24 hr 500 mg PO BID Discontinued Xarelto 20 mg tablet 20 mg PO QPM Qty: 90 3RF Rx Instructions: must administer with a meal/food hydralazine 25 mg Tablet 25 mg PO QID Qty: 100 0RF metoprolol succinate 25 mg tablet extended release 24 hr 50 mg PO PM Discharge Orders: Discharge Order (Routine); Ordered 05/30/22 Ordered By: Diallo Mendez Admission Data Admit Date/Time: 05/29/22 06:30 Attending Provider: Diallo Mendez Admit Provider: Shaista Chappell Primary Care Provider: Venita Orosco Other Providers: Shaista Chappell ; Mic Lamas Other Interventions: Discharge Summary Assessment (RN) Last Done: 05/30/22 12:27 Coding Level of Care Code D/C DAY MANAGEMENT >30 MINS
--- NOTE | 2022-05-31 11:50 | Discharge Summary ---
Date of Service Hospitalization 05/23-05/24/22 Principal Diagnosis Urinary retention, COVID-19 syndrome, hematuria Discharge Exam General-alert and oriented x3, no fevers, no chills HEENT-head atraumatic and normocephalic, pupils equal and reactive to light, extraocular muscles intact Neck-no lymphadenopathy or thyromegaly, trachea midline Chest-clear to auscultation percussion. No rales wheezing or rhonchi Cardiac-irregular controlled heart rate. Normal S1 and S2 Abdomen-normal bowel sounds, nontender, no hepatosplenomegaly Extremities-no cyanosis, clubbing, or edema Neuro-cranial nerves II through XII intact, motor and sensory function within normal limits, strength symmetrical , no focal deficits Psych-normal affect, normal mood Discharge Data Allergies Allergy/AdvReac Type Severity Reaction Status Date / Time adhesive tape Allergy Mild Redness of Verified 05/16/22 07:07 Skin Consultations 05/29/22 06:13 ED Decision to Admit Stat 05/29/22 10:08 Consult Urology Routine Hospital Course (1) Urinary retention: Resolved. Appreciate urology consultation (2) COVID-19: Mild. No evidence of viral pneumonia. No evidence of respiratory failure. He will home quarantine for 1 week (3) Hematuria: Resolved with continuous bladder irrigation and placing Xarelto on hold (4) Atrial fibrillation, permanent: Stable. Continue metoprolol and flecainide. Xarelto remains on hold (5) Diabetes type 2, controlled: ADA diet. Continue current medications. Metformin is restarted at discharge (6) Hypercholesteremia: Continue statin therapy (7) Hypertension: Hydralazine replaces lisinopril. Continue metoprolol Plan Discharge home today, May 24. Xarelto remains on hold until the weekend Total Time Total Time Spent Total Time Spent (In Minutes): 35 minutes Discharge Plan Discharge Items Patient Disposition: Home - Self-Care Reason For Visit: HEMATURIA Discharge Diagnosis: hematuria on systemic anticoagulant, uncontrolled HTN. covid positivity Activity: Resume your previous activity Non-emergency contact: Primary Care Provider Call non-emergency contact if: you have any medication questions Follow-up/Referrals: Venita Orosco CRNP [Primary Care Provider] - Diet: Carb Consistent or DM2 and Heart Healthy Addtl Attending Provider Instructions: stay off xarelto for 10 days Pending Studies at Discharge: No Stand-Alone Forms: My [facility], Smoking Cessation Medications and DC Order Prescriptions: New metoprolol succinate 50 mg Tablet Extended Release 24 Hr 50 mg PO QAM Qty: 30 0RF hydralazine 50 mg Tablet 50 mg PO TID Qty: 100 0RF metoprolol succinate 50 mg capsule,sprinkle,ER 24hr 50 mg PO BID Qty: 60 0RF Continued atorvastatin 20 mg tablet 20 mg PO QPM Qty: 90 3RF flecainide 100 mg tablet 100 mg PO QPM Qty: 90 3RF (DME) lancets [OneTouch Delica Lancets] 33 gauge misc See Rx Instructions .ROUTE .MEDSUPPLY Qty: 200 3RF Rx Instructions: TEST 2 TIMES DAILY (DME) blood sugar diagnostic Strip See Rx Instructions .ROUTE .MEDSUPPLY Qty: 200 3RF Rx Instructions: USE 1 STRIP TWICE DAILY (OneTouch Ultra) tadalafil 5 mg tablet 5 mg PO QPM Qty: 90 3RF lorazepam 0.5 mg tablet 0.5 mg PO DAILY PRN (Reason: anxiety) Qty: 1 0RF aspirin 81 mg Tablet,Delayed Release (Dr/Ec) 81 mg PO QPM multivitamin [Multiple Vitamins] tablet 1 tab PO QPM amitriptyline 25 mg tablet 25 mg PO HS PRN (Reason: Sleep) acetaminophen 500 mg Capsule 500 - 1,000 mg PO Q6H PRN (Reason: Pain) metformin 500 mg tablet extended release 24 hr 500 mg PO BID Discontinued Xarelto 20 mg tablet 20 mg PO QPM Qty: 90 3RF Rx Instructions: must administer with a meal/food hydralazine 25 mg Tablet 25 mg PO QID Qty: 100 0RF metoprolol succinate 25 mg tablet extended release 24 hr 50 mg PO PM Discharge Orders: Discharge Order (Routine); Ordered 05/30/22 Ordered By: Diallo Martins/Other Patient Handouts: Hypertension Dc, ED Hematuria Admission Data Admit Date/Time: 05/29/22 06:30 Attending Provider: Diallo Mendez Admit Provider: Shaista Chappell Primary Care Provider: Venita Orosco Other Providers: Shaista Chappell ; Mic Lamas Other Interventions: Discharge Summary Assessment (RN) Last Done: 05/30/22 12:27 Coding Level of Care Code D/C DAY MANAGEMENT >30 MINS Diagnoses Urinary retention R33.9 COVID-19 U07.1 Hematuria R31.9 Atrial fibrillation, permanent I48.21 Diabetes type 2, controlled E11.9 Hypercholesteremia E78.00 Hypertension I10
== END 2022-05-30 13:36 | disposition home or self-care (01) ==
LOC: ED 03:12 → EDINP 03:12 → SUATTDRO 06:30 → EDINP 14:56 → 3W 15:10

== ENCOUNTER 2023-10-28 21:25 | Observation (INO) ==
[2023-10-28] MEDS ORDERED: METOPROLOL TARTRATE 1 MG/ML VIAL IV STA (21:46)
--- NOTE | 2023-10-28 21:50 | Emergency Department Note ---
History of Present Illness General Chief complaint: Chest Pain Stated complaint: CHEST PAIN Time Seen by Provider: 10/28/23 21:30 History of Present Illness This 83-year-old gentleman that follows with Dr. Booker presents the ER complaining of brief episodes of chest pains tonight has a history of A-fib on Eliquis and takes amlodipine and metoprolol. Patient denies exertional chest pain, prolonged chest pain, dyspnea, headache, fever, chills, abdominal pain, flulike illness. He has a chronic open wound to the left lower leg that he follows with wound clinic. Home Medications Medication Instructions Recorded Confirmed Type amitriptyline 25 mg tablet 25 mg PO HS PRN Sleep 01/05/21 10/28/23 History triamcinolone acetonide 0.1 % 1 applic topical BID #30 grams 08/30/22 10/28/23 Rx topical cream lancets 33 gauge (OneTouch Delica #200 ea 10/05/22 10/24/23 Rx Lancets) multivitamin (Multiple Vitamins 1 tab PO QPM #90 tabs 10/05/22 10/28/23 Rx tablet) tadalafil 5 mg tablet 5 mg PO QPM sexual activity #90 10/05/22 10/28/23 Rx tabs albuterol sulfate 90 mcg/actuation 2 puff inhalation Q6H PRN 12/22/22 10/28/23 Rx aerosol inhaler shortness of breath or wheezing #6.7 grams tobramycin 0.3 % eye drops 1 drp ophthalmic (eye) TID 12/28/22 10/28/23 History amlodipine 5 mg-olmesartan 20 mg 1 tab PO DAILY #90 tabs 10/08/23 10/28/23 Rx tablet apixaban 5 mg tablet 5 mg PO BID #180 tabs 10/08/23 10/28/23 Rx atorvastatin 20 mg tablet 20 mg PO QPM #90 tabs 10/08/23 10/28/23 Rx blood sugar diagnostic #200 ea 10/08/23 10/24/23 Rx flecainide 100 mg tablet 100 mg PO QPM #90 tabs 10/08/23 10/28/23 Rx metformin 500 mg tablet,extended 1,000 mg (2 x 500 mg) PO BID #180 10/08/23 10/28/23 Rx release 24 hr tabs metoprolol succinate 50 mg 50 mg PO DAILY #90 tabs 10/08/23 10/28/23 Rx tablet,extended release 24 hr Allergies Allergy/AdvReac Type Severity Reaction Status Date / Time adhesive tape Allergy Mild Redness of Verified 10/28/23 22:22 Skin Past Med/Surg History Medical History Mild concentric left ventricular hypertrophy (LVH) Tricuspid regurgitation mild per 2013 echo 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 Mitral regurgitation mild per 2013 echo Hearing loss Obesity Anxiety Deep vein thrombosis (DVT) of right upper extremity (~2017) Post-op shoulder surgery Fuchs' corneal dystrophy Diabetes type 2, controlled NIDDM Hypercholesteremia DJD (degenerative joint disease) of knee Atrial fibrillation [place] [facility] [place]. 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 History of arthroscopy Left knee S/P total knee arthroplasty R/L Hx of colonoscopy Status post total shoulder arthroplasty Right TSA (08/31/17): Grade view 1, MAC#3, ETT 8 at [facility] Family History Brother Bipolar disorder Father Alcoholism Cancer ESOPHAGEAL Family history of esophageal cancer Sister Coronary heart disease Bipolar disorder Mother Scoliosis Son Diabetes Other Heart disease Hypertension Denies family history of Ovarian cancer Prostate cancer Myocardial infarction Breast cancer Colorectal cancer Social History Smoking Status: Former smoker Tobacco Type: Cigarettes Age Started Using Tobacco: 23; Age Quit Using Tobacco: 60; packs per day: 0.5; Second Hand Exposure: No; Do You Dip or Chew Tobacco: No; Hx Alcohol Use: No Hx Substance Use: No Preferred Language: Sinhala Communication Ability: Effective Visual Impairment: No Limitations Hearing Ability: Use of Hearing Aid Bologna Maker Required: No Beliefs That Will Affect Care: None marital status: Current Living Situation: Spouse current occupational status: retired current occupation: retired from career with [employer] How many Children do You have: 2 Feels Safe at Home: Yes Childhood Exposure to Second-Hand Smoke: Yes Diet: low carbohydrate Dental Care, Regularly: Yes Physical Activity Frequency: 1-2 Times per Week Seatbelt Use: always Sunscreen Use: Yes (sometimes ) Assistive Devices: None Review of Systems A total of 10 systems reviewed and were otherwise negative Physical Exam Vital Signs Vital Signs - 24 hr 10/28/23 21:26 10/28/23 21:32 10/28/23 21:33 Temperature 36.6 C Temperature Source Temporal Artery Scan Pulse Rate 108 H 95 H Pulse Rate from SpO2 Sensor Respiratory Rate 18 Respiratory Effort / Characteristics Non-Labored Spontaneous Respiratory Depth Normal Respiratory Pattern Regular Blood Pressure 208/101 H 208/114 H Blood Pressure Mean 136 166 Blood Pressure Position Sitting Pulse Oximetry 90 Oxygen Delivery Method Room Air Oxygen Flow Rate Sepsis Recent Fever Within 48 Hours No Sepsis New/Unexplained Change in Mental Status N/A Sepsis Action Taken by Nursing No Action Required 10/28/23 21:33 10/28/23 21:37 10/28/23 21:40 Temperature Temperature Source Pulse Rate 111 H 90 Pulse Rate from SpO2 Sensor 107 H 91 H Respiratory Rate 23 21 Respiratory Effort / Characteristics Respiratory Depth Respiratory Pattern Blood Pressure Blood Pressure Mean Blood Pressure Position Pulse Oximetry 92 92 92 Oxygen Delivery Method Room Air Oxygen Flow Rate 0 Sepsis Recent Fever Within 48 Hours Sepsis New/Unexplained Change in Mental Status Sepsis Action Taken by Nursing 10/28/23 21:46 10/28/23 21:50 10/28/23 21:58 Temperature Temperature Source Pulse Rate 90 Pulse Rate from SpO2 Sensor 89 Respiratory Rate Respiratory Effort / Characteristics Respiratory Depth Respiratory Pattern Blood Pressure 177/103 H Blood Pressure Mean Blood Pressure Position Pulse Oximetry 91 90 Oxygen Delivery Method Room Air Room Air Oxygen Flow Rate Sepsis Recent Fever Within 48 Hours Sepsis New/Unexplained Change in Mental Status Sepsis Action Taken by Nursing 10/28/23 21:58 10/28/23 21:58 10/28/23 22:00 Temperature Temperature Source Pulse Rate 92 H 89 Pulse Rate from SpO2 Sensor 88 87 Respiratory Rate 14 16 Respiratory Effort / Characteristics Respiratory Depth Respiratory Pattern Blood Pressure 177/103 H Blood Pressure Mean 127 Blood Pressure Position Pulse Oximetry 96 93 Oxygen Delivery Method Nasal Cannula Oxygen Flow Rate 2 Sepsis Recent Fever Within 48 Hours Sepsis New/Unexplained Change in Mental Status Sepsis Action Taken by Nursing 10/28/23 22:00 10/28/23 22:10 10/28/23 22:20 Temperature Temperature Source Pulse Rate 90 83 Pulse Rate from SpO2 Sensor 87 83 Respiratory Rate 19 12 Respiratory Effort / Characteristics Respiratory Depth Respiratory Pattern Blood Pressure 151/90 H Blood Pressure Mean 106 Blood Pressure Position Pulse Oximetry 92 97 Oxygen Delivery Method Oxygen Flow Rate Sepsis Recent Fever Within 48 Hours Sepsis New/Unexplained Change in Mental Status Sepsis Action Taken by Nursing 10/28/23 22:30 10/28/23 22:31 10/28/23 22:31 Temperature Temperature Source Pulse Rate 83 81 Pulse Rate from SpO2 Sensor 82 87 Respiratory Rate 21 17 Respiratory Effort / Characteristics Respiratory Depth Respiratory Pattern Blood Pressure 175/95 H Blood Pressure Mean 124 Blood Pressure Position Pulse Oximetry 96 94 Oxygen Delivery Method Oxygen Flow Rate Sepsis Recent Fever Within 48 Hours Sepsis New/Unexplained Change in Mental Status Sepsis Action Taken by Nursing 10/28/23 22:55 10/28/23 22:57 10/28/23 22:57 Temperature Temperature Source Pulse Rate 87 Pulse Rate from SpO2 Sensor 88 85 Respiratory Rate 17 Respiratory Effort / Characteristics Respiratory Depth Respiratory Pattern Blood Pressure 169/89 H Blood Pressure Mean 121 Blood Pressure Position Pulse Oximetry 90 93 Oxygen Delivery Method Oxygen Flow Rate Sepsis Recent Fever Within 48 Hours Sepsis New/Unexplained Change in Mental Status Sepsis Action Taken by Nursing 10/28/23 23:00 10/28/23 23:00 10/28/23 23:00 Temperature Temperature Source Pulse Rate 77 Pulse Rate from SpO2 Sensor 75 Respiratory Rate 19 Respiratory Effort / Characteristics Respiratory Depth Respiratory Pattern Blood Pressure 159/99 H 159/99 H Blood Pressure Mean 112 112 Blood Pressure Position Pulse Oximetry 95 Oxygen Delivery Method Nasal Cannula Oxygen Flow Rate 2 Sepsis Recent Fever Within 48 Hours Sepsis New/Unexplained Change in Mental Status Sepsis Action Taken by Nursing 10/28/23 23:01 Temperature Temperature Source Pulse Rate 80 Pulse Rate from SpO2 Sensor Respiratory Rate Respiratory Effort / Characteristics Respiratory Depth Respiratory Pattern Blood Pressure 159/99 H Blood Pressure Mean Blood Pressure Position Pulse Oximetry Oxygen Delivery Method Oxygen Flow Rate Sepsis Recent Fever Within 48 Hours Sepsis New/Unexplained Change in Mental Status Sepsis Action Taken by Nursing VITALS: Vitals are noted on the nurse's note and reviewed by myself. Vital signs stable. GENERAL: Pleasant gentleman, in no acute distress, nondiaphoretic, well- developed well-nourished. SKIN: Capillary reflex less than 2 seconds. HEENT: Normocephalic. PERRLA. EOMI. Nares patent. Mucous membranes moist. Neck is supple without nuchal rigidity. HEART: Irregularly irregular LUNGS: Clear to auscultation bilaterally without wheezes, rales or rhonchi. No retractions or accessory muscle use. ABDOMEN: Positive bowel sounds x 4. Normal tympanic percussion. Soft, nontender, without masses or organomegaly. Solares sign negative. No guarding or rebound tenderness. no CVA tenderness MUSCULOSKELETAL: No gross musculoskeletal defects. Left lower leg with open wound without secondary signs of infection. NEURO: Patient was alert and oriented to person place and time. No focal neurological deficits. Course Administered Medications Discontinued Medications Ioversol (Optiray 320 125ml) 125 ml IV ONCE ONE Stop: 10/28/23 23:14 Last Admin: 10/28/23 23:14 Dose: 119 ml Documented By: ELYSSA Metoprolol Tartrate (Metoprolol Tartrate 1 Mg/Ml Vial) 5 mg IV NOW STA Stop: 10/28/23 21:47 Last Admin: 10/28/23 21:58 Dose: 5 mg Documented By: DAVID Medical Decision Making Medical Records Attestation: I reviewed the patient's medical records. Home Medications Current Medication List: was personally reviewed by me Laboratory Data Attestation: I reviewed the patient's lab results. 10/28/23 21:35 10/28/23 21:35 Lab Results 10/28/23 Range/Units 21:35 WBC 8.66 (4.8-10.8) K/ul RBC 4.44 L (4.70-6.10) M/uL Hgb 13.2 L (14.0-18.0) g/dl Hct 39.3 L (42.0-52.0) % MCV 88.5 (80.0-100.0) fL MCH 29.7 (25.0-34.0) pg MCHC 33.6 (32.0-36.0) g/dL RDW Std Deviation 46.1 (36.4-46.3) fL RDW Coeff of Berta 14.5 (11.5-14.5) % Plt Count 238 (130-400) K/uL MPV 10.9 (9.4-12.4) fL Immature Gran % (Auto) 0.1 % Neut % (Auto) 62.1 % Lymph % (Auto) 28.1 % [place] % (Auto) 8.0 % Eos % (Auto) 0.9 % Baso % (Auto) 0.8 % Neut # (Auto) 5.38 (1.40-6.50) K/uL Lymph # (Auto) 2.43 (1.20-3.40) K/uL [place] # (Auto) 0.69 H (0.11-0.59) K/uL Eos # (Auto) 0.08 (0.00-0.50) K/uL Baso # (Auto) 0.07 (0.00-0.20) K/uL Immature Gran # (Auto) 0.01 (0.01-0.20) K/uL Sodium 136 (136-145) mmol/L Potassium 3.8 (3.5-5.1) mmol/L Chloride 105 (98-107) mmol/L Carbon Dioxide 28 (21-32) mmol/L Anion Gap 3 (3-11) BUN 28 H (6-23) mg/dl Creatinine 0.87 (0.6-1.4) mg/dl Est Cr Clr Drug Dosing 85.0 ml/min Est GFR ( Amer) 93.8 ml/min Est GFR (Non-Af Amer) 80.9 ml/min BUN/Creatinine Ratio 32.2 H (10-20) Glucose 217 H (70-99(Fasting)) mg/dl Calcium 9.8 (8.6-10.3) mg/dl Magnesium 1.8 (1.7-2.4) mg/dl Total Bilirubin 0.5 (0.2-1.0) mg/dl AST 22 (13-39) U/L ALT 17 (7-52) U/L Alkaline Phosphatase 78 (34-104) U/L Troponin I High Sens 7.1 (0-20) pg/ml B-Natriuretic Peptide 257 H (0-100) pg/ml Total Protein 7.5 (6.0-8.3) gm/dl Albumin 4.5 (3.4-5.0) gm/dl Globulin 3.0 (2.5-4.0) gm/dl Albumin/Globulin Ratio 1.5 (0.9-2) Lipase 28 (11-82) U/L TSH 2.322 (0.300-4.500) uIu/ml Imaging Data Attestation: I personally reviewed and interpreted this imaging study as follows: Radiologist's Impression: Chest CTA 10/28/23 22:33 Exam(s): CTA CHEST IV Amt: 119 ML OPTIRAY 320 EXAM: CT Angiography Chest With Intravenous Contrast CLINICAL HISTORY: Reason for exam: PE. TECHNIQUE: Axial computed tomographic angiography images of the chest with intravenous contrast. Automated exposure control was utilized for the study. A dose lowering technique was utilized adhering to the principles of ALARA. MIP reconstructed images were created and reviewed. COMPARISON: No relevant prior studies available. FINDINGS: Pulmonary arteries: Unremarkable. No acute pulmonary embolism. Aorta: No acute findings. No thoracic aortic aneurysm. Lungs: Mild pulmonary edema at the lung bases (interlobular septal thickening). Cardiomegaly. Correlate for mild CHF. No mass. Pleural space: Unremarkable. No significant effusion. No pneumothorax. Heart: See above. Bones/joints: Bilateral shoulder arthroplasties. No acute fracture. No dislocation. Soft tissues: Unremarkable. Lymph nodes: Unremarkable. No enlarged lymph nodes. IMPRESSION: 1. No acute pulmonary embolism. 2. Mild pulmonary edema at the lung bases (interlobular septal thickening). Cardiomegaly. Correlate for mild CHF. Electronically signed by: Rupesh Ramirez MD 10/28/23 23:32 PM [facility] Narrative Prior records/ancillary studies reviewed. Triage Nursing notes reviewed. Additional history obtained from family. The patient's history was concerning for chest pain. Differential diagnosis: Etiologies such as A-fib, cardiac ischemia, aortic dissection, pulmonary embolism, pneumonia, pneumothorax, musculoskeletal, infections, pericarditis, myocarditis, esophageal rupture, gastrointestinal, as well as others were entertained. Physical examination: As above. ER treatment provided: An order was placed for continuous cardiac monitoring. The monitor shows a rate of 60-1 20 with a A-fib rhythm per my interpretation. Lopressor was ordered Lasix was ordered On reassessment the patient felt better. Diagnostic interpretation by me: The electrocardiogram was ordered for chest pain EKG: Irregularly irregular with no acute ST-T wave changes, rate of 95. Impression A-fib rate controlled independently interpreted by myself I think arrhythmia is unlikely. EKG shows normal sinus rhythm with no interval abnormalities such as QT prolongation or WPW. There are no findings to suggest Brugada syndrome. Cardiac monitoring in the emergency department reveals no tachycardic or bradycardic dysrhythmia. Hypertrophic cardiomyopathy was considered but there are no clear historical elements pointing toward this. EKG is not suggestive. The QRS voltage is not extremely large and there are no suggestive Q waves. The labs Independently Interpreted by myself revealed negative troponin. Elevated BNP Imaging studies: Chest x-ray with pulmonary congestion per my independent interpretation with concerns for heart failure CTA was reviewed as above HEART SCORE: Hx: high/mod/low suspicion: 0 ECG: ST depression/nonspecific changes/normal: 0 Age: Greater than 65/45-64/less than 45: 2 Risk factors: (Hypertension, hyperlipidemia, diabetes, coronary disease, tobacco use, cocaine use): 2 Troponin: Greater than 2 times normal limits/1-2 times normal limits/normal: 0 Total: 4 Consultation: A consultation was placed with the hospitalist. The case was discussed and diagnostics were reviewed. The patient was evaluated in the ER for further treatment. Exam and history seem consistent with new onset heart failure. Patient was given Lasix. He was hypoxic. He improved after being medicated as above. Medicine was consulted and case was discussed. He will be admitted to the medical service. By the evaluation outlined above emergent etiologies such as aortic dissection, pulmonary embolism, pneumonia, pneumothorax, infections, pericarditis, myocarditis, gastrointestinal, as well as others were deemed relatively unlikely. The pt informed about the findings as listed above. All questions were answered and pleased with the treatment. The chart was completed utilizing [employer] Speech voice recognition software. Grammatical errors, random word insertions, pronoun errors, and incomplete sentences are an occassional consequence of this system due to software limitations, ambient noise, and hardware issues. Any formal questions or concerns about the content, text, or information contained within the body of this dictation should be directly addressed to the physician fish hatchery assistant for clarification. Impression & Plan New onset of congestive heart failure Discharge Plan Visit Data Chief Complaint: Chest Pain Stated Complaint: CHEST PAIN ED Provider: Charlie Ybarra ED Midlevel Provider: Mary Jane Bailey Discharge Problem: New onset of congestive heart failure Patient Disposition: Admitted As Inpatient Condition: Fair Forms Stand Alone Forms: [place] Prescriptions Prescriptions: No Action (DME) lancets [OneTouch Delica Lancets] 33 gauge misc See Rx Instructions .ROUTE .MEDSUPPLY Qty: 200 3RF Rx Instructions: TEST 2 TIMES DAILY multivitamin [Multiple Vitamins] Tablet 1 tab PO QPM Qty: 90 3RF tadalafil 5 mg tablet 5 mg PO QPM Qty: 90 3RF amlodipine-olmesartan 5-20 mg tablet 1 tab PO DAILY Qty: 90 3RF apixaban 5 mg tablet 5 mg PO BID Qty: 180 3RF atorvastatin 20 mg tablet 20 mg PO QPM Qty: 90 3RF (DME) blood sugar diagnostic Strip See Rx Instructions .ROUTE .MEDSUPPLY Qty: 200 3RF Rx Instructions: USE 1 STRIP TWICE DAILY (OneTouch Ultra) flecainide 100 mg tablet 100 mg PO QPM Qty: 90 3RF metformin 500 mg tablet extended release 24 hr 1,000 mg PO BID Qty: 180 3RF metoprolol succinate 50 mg tablet extended release 24 hr 50 mg PO DAILY Qty: 90 3RF tobramycin 0.3 % drops 1 drp ophthalmic (eye) TID triamcinolone acetonide 0.1 % cream 1 applic topical BID Qty: 30 1RF Rx Instructions: Apply small amount to affected area BID x2 weeks, then PRN. albuterol sulfate 90 mcg/actuation HFA aerosol inhaler 2 puff inhalation Q6H PRN (Reason: shortness of breath or wheezing) Qty: 6.7 2RF amitriptyline 25 mg tablet 25 mg PO HS PRN (Reason: Sleep) Referrals Referrals: Alejandro Quispe DO [Primary Care Provider] -
[2023-10-28 22:02] LABS: Basophils # (auto) 0.07 K/uL (0.00-0.20); Basophils % (auto) 0.8 %; Eosinophils # (auto) 0.08 K/uL (0.00-0.50); Eosinophils % (auto) 0.9 %; Hematocrit (blood only) 39.3 % (42.0-52.0); Hemoglobin 13.2 g/dl (14.0-18.0); Immature Granulocytes # (auto) 0.01 K/uL (0.01-0.20); Immature Granulocytes % (auto) 0.1 %; Lymphocytes # (auto) 2.43 K/uL (1.20-3.40); Lymphocytes % (auto) 28.1 %; Mean Corpuscular Hemoglobin 29.7 pg (25.0-34.0); Mean Corpuscular Hgb Conc 33.6 g/dL (32.0-36.0); Mean Corpuscular Volume 88.5 fL (80.0-100.0); Mean Platelet Volume 10.9 fL (9.4-12.4); Monocytes # (auto) 0.69 K/uL (0.11-0.59); Neutrophils # (auto) 5.38 K/uL (1.40-6.50); Neutrophils % (auto) 62.1 %; Platelet Count 238 K/uL (130-400); RDW Coefficient of Variation 14.5 % (11.5-14.5); RDW Standard Deviation 46.1 fL (36.4-46.3); Red Blood Count 4.44 M/uL (4.70-6.10); White Blood Count 8.66 K/ul (4.8-10.8)
[2023-10-28 22:20] LABS: Albumin Globulin Ratio 1.5 (0.9-2); Albumin Level 4.5 gm/dl (3.4-5.0); BUN Creatinine Ratio 32.2 (10-20); Bilirubin,Total 0.5 mg/dl (0.2-1.0); Calcium 9.8 mg/dl (8.6-10.3); Est GFR (African American) 93.8 ml/min; Est GFR (Non-African American) 80.9 ml/min; Magnesium 1.8 mg/dl (1.7-2.4); Potassium 3.8 mmol/L (3.5-5.1); Total Protein 7.5 gm/dl (6.0-8.3)
[2023-10-28 22:27] LABS: Troponin I High Sensitivity 7.1 pg/ml (0-20)
[2023-10-28 22:36] LABS: Thyroid Stimulating Hormone 2.322 uIu/ml (0.300-4.500)
--- NOTE | 2023-10-28 22:38 | Emergency Department Note ---
ED Visit Note I was consulted by the Advanced Practice Provider. I personally made/approved the management plan and take responsibility for the patient management. I performed a substantive portion of the visit. This includes the aspects of: History and MDM .
[2023-10-28] MEDS ORDERED: FUROSEMIDE 40 MG/4 ML VIAL IV ONE (22:45)
[2023-10-28] MEDS ORDERED: OPTIRAY 320 125ml IV ONE (23:13)
--- NOTE | 2023-10-28 23:33 | CT Scan Report ---
Exam(s): CTA CHEST IV Amt: 119 ML OPTIRAY 320 EXAM: CT Angiography Chest With Intravenous Contrast CLINICAL HISTORY: Reason for exam: PE. TECHNIQUE: Axial computed tomographic angiography images of the chest with intravenous contrast. Automated exposure control was utilized for the study. A dose lowering technique was utilized adhering to the principles of ALARA. MIP reconstructed images were created and reviewed. COMPARISON: No relevant prior studies available. FINDINGS: Pulmonary arteries: Unremarkable. No acute pulmonary embolism. Aorta: No acute findings. No thoracic aortic aneurysm. Lungs: Mild pulmonary edema at the lung bases (interlobular septal thickening). Cardiomegaly. Correlate for mild CHF. No mass. Pleural space: Unremarkable. No significant effusion. No pneumothorax. Heart: See above. Bones/joints: Bilateral shoulder arthroplasties. No acute fracture. No dislocation. Soft tissues: Unremarkable. Lymph nodes: Unremarkable. No enlarged lymph nodes. IMPRESSION: 1. No acute pulmonary embolism. 2. Mild pulmonary edema at the lung bases (interlobular septal thickening). Cardiomegaly. Correlate for mild CHF. Electronically signed by: Rupesh Ramirez MD 10/28/23 23:32 PM
--- NOTE | 2023-10-28 23:52 | History & Physical Report ---
Date of Service October 28, 2023 Assessment & Plan (1) Pulmonary edema: (2) Lower extremity edema: (3) Atrial fibrillation, permanent: (4) Hypertension: (5) Balance disorder: (6) Diabetes mellitus with microalbuminuria: (7) Benign localized prostatic hyperplasia with lower urinary tract symptoms (LUTS): Plan Precordial chest pain/pulmonary edema/lower extremity edema/permanent atrial fibrillation/hypertension- The patient will be admitted to telemetry for serial cardiac enzymes, serial EKG's, cardiac rhythm monitoring and a 2-D echocardiogram with Dopplers. Troponin 7.1 on admission with follow-up is pending BNP 257 on admission From the ED received the following: Furosemide 40 mg IV and Lopressor 5 mg IV Hold on any further furosemide, and assess at follow-up in the morning Follow serial renal function panel and magnesium levels Continue Eliquis, amlodipine, atorvastatin, flecainide, losartan, metoprolol succinate Diabetes mellitus- Hold metformin Placed on Accu-Cheks with NovoLog SSI Insomnia- Continue amitriptyline at bedtime as needed History of Present Illness Chief Complaint: The patient presents to the emergency department with 2 episodes of 2-second duration sharp presternal chest pain while watching the football game on TV today Primary Care Provider: Alejandro Quispe, The patient is an 83-year-old male with a past medical history including balance disorder, diabetes mellitus with microalbuminuria, hypertension, DJD, hypercholesterolemia, anxiety, BPH with LUTS, permanent atrial fibrillation, chronic venous stasis dermatitis bilaterally and exercise intolerance. The patient reports that while watching football game earlier today on TV he had to [id number] episodes of 2-second duration of presternal chest pain, that resolved spontaneously. This did not radiate into neck or shoulders. He does report feeling briefly lightheaded, but at this time in the emergency department he feels completely normal. He reports that he has had an intentional 7 pound weight loss due to keeping his mouth shut. He does have a well-healing, decreasing in size, surface abrasion left anterior tibial area that he has followed with Wound Care. Allergies Allergy/AdvReac Type Severity Reaction Status Date / Time adhesive tape Allergy Mild Redness of Verified 10/28/23 22:22 Skin Home Medications Medication Instructions Recorded Confirmed Type amitriptyline 25 mg tablet 25 mg PO HS PRN Sleep 01/05/21 10/28/23 History triamcinolone acetonide 0.1 % 1 applic topical BID #30 grams 08/30/22 10/28/23 Rx topical cream multivitamin (Multiple Vitamins 1 tab PO QPM #90 tabs 10/05/22 10/28/23 Rx tablet) tadalafil 5 mg tablet 5 mg PO QPM sexual activity #90 10/05/22 10/28/23 Rx tabs albuterol sulfate 90 mcg/actuation 2 puff inhalation Q6H PRN 12/22/22 10/28/23 Rx aerosol inhaler shortness of breath or wheezing #6.7 grams tobramycin 0.3 % eye drops 1 drp ophthalmic (eye) TID 12/28/22 10/28/23 History amlodipine 5 mg-olmesartan 20 mg 1 tab PO DAILY #90 tabs 10/08/23 10/28/23 Rx tablet apixaban 5 mg tablet 5 mg PO BID #180 tabs 10/08/23 10/28/23 Rx atorvastatin 20 mg tablet 20 mg PO QPM #90 tabs 10/08/23 10/28/23 Rx flecainide 100 mg tablet 100 mg PO QPM #90 tabs 10/08/23 10/28/23 Rx metformin 500 mg tablet,extended 1,000 mg (2 x 500 mg) PO BID #180 10/08/23 10/28/23 Rx release 24 hr tabs metoprolol succinate 50 mg 50 mg PO DAILY #90 tabs 10/08/23 10/28/23 Rx tablet,extended release 24 hr Past Med/Surg History Medical History Mild concentric left ventricular hypertrophy (LVH) Tricuspid regurgitation mild per 2013 echo 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 Mitral regurgitation mild per 2013 echo Hearing loss Obesity Anxiety Deep vein thrombosis (DVT) of right upper extremity (~2017) Post-op shoulder surgery Fuchs' corneal dystrophy Diabetes type 2, controlled NIDDM Hypercholesteremia DJD (degenerative joint disease) of knee Atrial fibrillation Follows with [facility] cardiology (Dr. 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 History of arthroscopy Left knee S/P total knee arthroplasty R/L Hx of colonoscopy Status post total shoulder arthroplasty Right TSA (08/31/17): Grade view 1, MAC#3, ETT 8 at [facility] Family History Brother Bipolar disorder Father Alcoholism Cancer ESOPHAGEAL Family history of esophageal cancer Sister Coronary heart disease Bipolar disorder Mother Scoliosis Son Diabetes Other Heart disease Hypertension Denies family history of Ovarian cancer Prostate cancer Myocardial infarction Breast cancer Colorectal cancer Social History Smoking Status: Former smoker Tobacco Type: Cigarettes Age Started Using Tobacco: 23; Age Quit Using Tobacco: 60; packs per day: 0.5; Second Hand Exposure: No; Do You Dip or Chew Tobacco: No; Hx Alcohol Use: No Hx Substance Use: No Preferred Language: Nepali Communication Ability: Effective Visual Impairment: No Limitations Hearing Ability: Use of Hearing Aid Barrel Liner Required: No Beliefs That Will Affect Care: None marital status: Current Living Situation: Spouse current occupational status: retired current occupation: retired from career with [employer] How many Children do You have: 2 Other Information That Helps Us Care for You: No Feels Safe at Home: Yes Safety Concerns: Feels Safe At This Time Childhood Exposure to Second-Hand Smoke: Yes Diet: low carbohydrate Dental Care, Regularly: Yes Physical Activity Frequency: 1-2 Times per Week Seatbelt Use: always Sunscreen Use: Yes (sometimes ) Assistive Devices: Glasses and Hearing Aid - Bilateral Review of Systems Review of Systems: The patient denies palpitations, cough, lower extremity swelling, sore throat, fevers, chills, sweats, nausea, vomiting, diarrhea , constipation, abdominal pain, pelvic pain, blood in urine or stool, dysuria, urinary frequency or urgency, lightheadedness, dizziness, headache, memory loss, loss of consciousness, rash, abnormal bruising or bleeding, imbalance, focal or generalized weakness, numbness or tingling in arms or legs, generalized arthralgias or myalgias, back or neck pain, or night sweats. The review of systems is otherwise negative other than for that already noted above, and at least 10 systems have been reviewed. Physical Exam Physical Exam: The patient is awake, alert and oriented 3, well developed and well nourished, normocephalic and atraumatic, lying in bed and in no acute distress. HEENT--PERRL, EOMI, mucous membranes and oropharynx normal Neck--supple. No JVD. No bruits. Thyroid normal, trachea midline, no adenopathy. Heart--normal S1 and S2. No murmurs, rubs or gallops. Lungs--clear bilaterally, no respiratory distress, no accessory muscle use. Abdomen--normal bowel sounds and soft. Nontender. Nondistended, no hernias or masses, no organomegaly. Extremities--no cyanosis or clubbing. Trace to 1+ bilateral pretibial pitting edema. There are good distal pulses b/l. Dermatologic--left anterior tibial surface with approximate 2 cm in diameter surface abrasion, without signs of infection Neurologic--cranial nerves II through XII grossly intact. Rheumatologic--normal range of motion. Psychiatric--normal affect. Results & Data Results & Data Vital Signs (Past 12 Hours) Vital Signs Temp Pulse Resp BP Pulse Ox O2 Del Method O2 Flow Rate 10/28/23 23:01 80 159/99 H 10/28/23 23:00 77 19 95 Nasal Cannula 2 10/28/23 23:00 159/99 H 10/28/23 23:00 159/99 H 10/28/23 22:57 169/89 H 10/28/23 22:57 87 17 93 10/28/23 22:55 90 10/28/23 22:31 175/95 H 10/28/23 22:31 81 17 94 10/28/23 22:30 83 21 96 10/28/23 22:20 83 12 97 10/28/23 22:10 90 19 92 10/28/23 22:00 151/90 H 10/28/23 22:00 89 16 93 10/28/23 21:58 177/103 H 10/28/23 21:58 92 H 14 96 Nasal Cannula 2 10/28/23 21:58 90 177/103 H 10/28/23 21:50 90 Room Air 10/28/23 21:46 91 Room Air 10/28/23 21:40 90 21 92 10/28/23 21:37 92 Room Air 0 10/28/23 21:33 111 H 23 92 10/28/23 21:33 95 H 10/28/23 21:32 208/114 H 10/28/23 21:26 36.6 C 108 H 18 208/101 H 90 Room Air Laboratory Results Laboratory Results WBC 9.40 K/ul (4.8-10.8) 10/29/23 03:48 RBC 4.70 M/uL (4.70-6.10) 10/29/23 03:48 Hgb 13.7 g/dl (14.0-18.0) L 10/29/23 03:48 Hct 41.4 % (42.0-52.0) L 10/29/23 03:48 MCV 88.1 fL (80.0-100.0) 10/29/23 03:48 MCH 29.1 pg (25.0-34.0) 10/29/23 03:48 MCHC 33.1 g/dL (32.0-36.0) 10/29/23 03:48 RDW Std Deviation 45.5 fL (36.4-46.3) 10/29/23 03:48 RDW Coeff of Berta 14.1 % (11.5-14.5) 10/29/23 03:48 Plt Count 230 K/uL (130-400) 10/29/23 03:48 MPV 11.2 fL (9.4-12.4) 10/29/23 03:48 Immature Gran % (Auto) 0.3 % 10/29/23 03:48 Neut % (Auto) 73.8 % 10/29/23 03:48 Lymph % (Auto) 16.5 % 10/29/23 03:48 [place] % (Auto) 8.5 % 10/29/23 03:48 Eos % (Auto) 0.3 % 10/29/23 03:48 Baso % (Auto) 0.6 % 10/29/23 03:48 Neut # (Auto) 6.93 K/uL (1.40-6.50) H 10/29/23 03:48 Lymph # (Auto) 1.55 K/uL (1.20-3.40) 10/29/23 03:48 [place] # (Auto) 0.80 K/uL (0.11-0.59) H 10/29/23 03:48 Eos # (Auto) 0.03 K/uL (0.00-0.50) 10/29/23 03:48 Baso # (Auto) 0.06 K/uL (0.00-0.20) 10/29/23 03:48 Immature Gran # (Auto) 0.03 K/uL (0.01-0.20) 10/29/23 03:48 Sodium 139 mmol/L (136-145) 10/29/23 03:48 Potassium 3.9 mmol/L (3.5-5.1) 10/29/23 03:48 Chloride 102 mmol/L (98-107) 10/29/23 03:48 Carbon Dioxide 28 mmol/L (21-32) 10/29/23 03:48 Anion Gap 9 (3-11) 10/29/23 03:48 BUN 25 mg/dl (6-23) H 10/29/23 03:48 Creatinine 0.81 mg/dl (0.6-1.4) 10/29/23 03:48 Est Cr Clr Drug Dosing 88.7 ml/min 10/29/23 03:48 Est GFR ( Amer) 96.6 ml/min 10/29/23 03:48 Est GFR (Non-Af Amer) 83.4 ml/min 10/29/23 03:48 BUN/Creatinine Ratio 30.9 (10-20) H 10/29/23 03:48 Glucose 238 mg/dl (70-99(Fasting)) H 10/29/23 03:48 Calcium 10.5 mg/dl (8.6-10.3) H 10/29/23 03:48 Phosphorus 3.8 mg/dl (2.5-4.9) 10/29/23 03:48 Magnesium 1.8 mg/dl (1.7-2.4) 10/29/23 03:48 Total Bilirubin 0.5 mg/dl (0.2-1.0) 10/28/23 21:35 AST 22 U/L (13-39) 10/28/23 21:35 ALT 17 U/L (7-52) 10/28/23 21:35 Alkaline Phosphatase 78 U/L (34-104) 10/28/23 21:35 Troponin I High Sens 7.1 pg/ml (0-20) 10/28/23 21:35 B-Natriuretic Peptide 257 pg/ml (0-100) H 10/28/23 21:35 Total Protein 7.5 gm/dl (6.0-8.3) 10/28/23 21:35 Albumin 4.7 gm/dl (3.4-5.0) 10/29/23 03:48 Globulin 3.0 gm/dl (2.5-4.0) 10/28/23 21:35 Albumin/Globulin Ratio 1.5 (0.9-2) 10/28/23 21:35 Lipase 28 U/L (11-82) 10/28/23 21:35 TSH 2.322 uIu/ml (0.300-4.500) 10/28/23 21:35 Impressions Chest CTA 10/28/23 22:33 Exam(s): CTA CHEST IV Amt: 119 ML OPTIRAY 320 EXAM: CT Angiography Chest With Intravenous Contrast CLINICAL HISTORY: Reason for exam: PE. TECHNIQUE: Axial computed tomographic angiography images of the chest with intravenous contrast. Automated exposure control was utilized for the study. A dose lowering technique was utilized adhering to the principles of ALARA. MIP reconstructed images were created and reviewed. COMPARISON: No relevant prior studies available. FINDINGS: Pulmonary arteries: Unremarkable. No acute pulmonary embolism. Aorta: No acute findings. No thoracic aortic aneurysm. Lungs: Mild pulmonary edema at the lung bases (interlobular septal thickening). Cardiomegaly. Correlate for mild CHF. No mass. Pleural space: Unremarkable. No significant effusion. No pneumothorax. Heart: See above. Bones/joints: Bilateral shoulder arthroplasties. No acute fracture. No dislocation. Soft tissues: Unremarkable. Lymph nodes: Unremarkable. No enlarged lymph nodes. IMPRESSION: 1. No acute pulmonary embolism. 2. Mild pulmonary edema at the lung bases (interlobular septal thickening). Cardiomegaly. Correlate for mild CHF. Electronically signed by: Rupesh Ramirez MD 10/28/23 23:32 PM Code Status & VTE Plan Code Status Full code VTE Prophylaxis Plan VTE Prophylaxis will be ordered: Yes PG Care Time/CCT Total # of Minutes Spent Total Time Spent with Patient: Total time spent is greater than 50% in coordination of care (as documented) at patient's floor/unit and/or counseling patient: Coding Level of Care Code 52392 INT INP/OBS CARE MIN Diagnoses Pulmonary edema J81.1 Lower extremity edema R60.0 Atrial fibrillation, permanent I48.21 Hypertension I10 Balance disorder R26.89 Diabetes mellitus with microalbuminuria E11.29; R80.9 Benign localized prostatic hyperplasia with lower urinary tract symptoms (LUTS) N40.1
[2023-10-29] MEDS ORDERED: ALBUTEROL HFA 8 GM INHALER INH PRN (02:39)
[2023-10-29] MEDS ORDERED: DEXTROSE 50% 50 ML SYRINGE IV PRN (02:39)
[2023-10-29] MEDS ORDERED: AMITRIPTYLINE HCL 25 MG TAB PO PRN (02:39)
[2023-10-29] MEDS ORDERED: GLUCOSE 10 TAB/TUBE PO PRN (02:39)
[2023-10-29] MEDS ORDERED: ONDANSETRON INJ 2 MG/ML 2 ML VIAL IV PRN (02:39)
[2023-10-29] MEDS ORDERED: GLUCAGON FOR INJ 1 MG VIAL SQ PRN (02:39)
[2023-10-29] MEDS ORDERED: GLUCOSE 40% GEL 15 GM TUBE PO PRN (02:39)
[2023-10-29] MEDS ORDERED: ACETAMINOPHEN 325 MG TAB PO PRN (02:39)
[2023-10-29] MEDS ORDERED: CARBOHYDRATES FOR HYPOGLYCEMIA PO PRN (02:39)
[2023-10-29 04:29] LABS: Basophils # (auto) 0.06 K/uL (0.00-0.20); Basophils % (auto) 0.6 %; Eosinophils # (auto) 0.03 K/uL (0.00-0.50); Eosinophils % (auto) 0.3 %; Hematocrit (blood only) 41.4 % (42.0-52.0); Hemoglobin 13.7 g/dl (14.0-18.0); Immature Granulocytes # (auto) 0.03 K/uL (0.01-0.20); Immature Granulocytes % (auto) 0.3 %; Lymphocytes # (auto) 1.55 K/uL (1.20-3.40); Lymphocytes % (auto) 16.5 %; Mean Corpuscular Hemoglobin 29.1 pg (25.0-34.0); Mean Corpuscular Hgb Conc 33.1 g/dL (32.0-36.0); Mean Corpuscular Volume 88.1 fL (80.0-100.0); Mean Platelet Volume 11.2 fL (9.4-12.4); Monocytes % (auto) 8.5 %; Neutrophils # (auto) 6.93 K/uL (1.40-6.50); Neutrophils % (auto) 73.8 %; Platelet Count 230 K/uL (130-400); RDW Coefficient of Variation 14.1 % (11.5-14.5); RDW Standard Deviation 45.5 fL (36.4-46.3)
[2023-10-29 04:47] LABS: Albumin Level 4.7 gm/dl (3.4-5.0); BUN Creatinine Ratio 30.9 (10-20); Calcium 10.5 mg/dl (8.6-10.3); Creatinine Clr Calc Pharmacy 88.7 ml/min; Est GFR (African American) 96.6 ml/min; Est GFR (Non-African American) 83.4 ml/min; Magnesium 1.8 mg/dl (1.7-2.4); Phosphorus 3.8 mg/dl (2.5-4.9); Potassium 3.9 mmol/L (3.5-5.1)
--- NOTE | 2023-10-29 06:36 | XRay Report ---
XR chest 1V portable HISTORY: 83 years-old Male Chest pain, nonspecific COMPARISON: CTA chest of same day TECHNIQUE: AP view of the chest FINDINGS: The cardiac silhouette is enlarged. Pulmonary vascular congestion with interstitial coarsening. No pn eumothorax, large pleural effusion or lobar airspace consolidation. The bones appear grossly intact. Bilateral shoulder arthroplasties. IMPRESSION: Cardiomegaly with pulmonary edema. ACT 112: Negative or not required by law. The above report was generated using voice recognition software. It may contain grammatical, syntax o r spelling errors. Electronically signed by: Curtis Alvarez M.D. 10/29/2023 6:33 AM
[2023-10-29] MEDS ORDERED: INSULIN ASPART PER UNIT CHARGE SC SCH (07:30)
[2023-10-29] MEDS ORDERED: TRIAMCINOLONE ACET 0.1% CR 15 GM TUBE TOP SCH (09:00)
[2023-10-29] MEDS ORDERED: METOPROLOL SUCC 50MG EXT REL TAB PO SCH (09:00)
[2023-10-29] MEDS ORDERED: APIXABAN 5 MG TABLET PO SCH (09:00)
[2023-10-29] MEDS ORDERED: LOSARTAN POTASSIUM 50 MG TAB PO SCH (09:00)
[2023-10-29] MEDS ORDERED: TOBRAMYCIN SULF 0.3% OP SOLN 5 ML BTL OP SCH (09:00)
[2023-10-29] MEDS ORDERED: amLODIPine BESYLATE 5 MG TAB PO SCH (09:00)
[2023-10-29] MEDS ORDERED: FUROSEMIDE 20 MG TAB PO SCH (09:30)
--- NOTE | 2023-10-29 09:48 | Electrocardiogram Report ---
Test Reason : Blood Pressure : / mmHG Vent. Rate : 095 BPM Atrial Rate : 000 BPM P-R Int : 000 ms QRS Dur : 088 ms QT Int : 350 ms P-R-T Axes : 000 -06 094 degrees QTc Int : 439 ms Atrial fibrillation Poor R wave progression, consider anterior ME vs. lead placement vs. LVH Abnormal ECG When compared with ECG of 06-SEP-2023 09:14, (unconfirmed) No significant change was found Confirmed by Andrew Booker ([id number]) on 10/29/2023 9:48:08 AM Referred By: REFERRED SELF Confirmed By:Andrew Booker
--- NOTE | 2023-10-29 10:11 | XCELERA ---
[id number]
--- NOTE | 2023-10-29 19:29 | Discharge Summary ---
Date of Service October 29, 2023 Admission HPI Per Admitting Provider The patient is an 83-year-old male with a past medical history including balance disorder, diabetes mellitus with microalbuminuria, hypertension, DJD, hypercholesterolemia, anxiety, BPH with LUTS, permanent atrial fibrillation, chronic venous stasis dermatitis bilaterally and exercise intolerance. The patient reports that while watching football game earlier today on TV he had to [id number] episodes of 2-second duration of presternal chest pain, that resolved spontaneously. This did not radiate into neck or shoulders. He does report feeling briefly lightheaded, but at this time in the emergency department he feels completely normal. He reports that he has had an intentional 7 pound weight loss due to keeping his mouth shut. He does have a well-healing, decreasing in size, surface abrasion left anterior tibial area that he has followed with Wound Care. Principal Diagnosis Acute diastolic heart failure, mild aortic stenosis Discharge Exam PHYSICAL EXAMINATION Last 24h vital signs reviewed, see documentation in flowsheet General: comfortable appearing, no distress HEENT: Normocephalic, atraumatic, pupils round and equal, sclerae anicteric, no conjunctival injection, moist mucus membranes Lungs: Normal respiratory effort. Clear to auscultation bilaterally. No RRW Heart: irregularly irregular not tachycardic, systolic murmur. No JVD Abdomen: Soft, nontender, nondistended. Bowel sounds present. Extremities: Warm, dry, well-perfused. 2+ extremity edema. left lower calf wound dressed Neuro: Alert and oriented x 4, face symmetric, moves 4 extremities well Psych: Normal affect and behavior Discharge Data Allergies Allergy/AdvReac Type Severity Reaction Status Date / Time adhesive tape Allergy Mild Redness of Verified 10/28/23 22:22 Skin Consultations 10/28/23 22:45 ED Decision to Admit Stat Ordered Studies 10/28/23 22:33 CT angio chest PE protocol Stat Chest X-Ray 10/28/23 21:46 XR chest 1V portable HISTORY: 83 years-old Male Chest pain, nonspecific COMPARISON: CTA chest of same day TECHNIQUE: AP view of the chest FINDINGS: The cardiac silhouette is enlarged. Pulmonary vascular congestion with interstitial coarsening. No pneumothorax, large pleural effusion or lobar airspace consolidation. The bones appear grossly intact. Bilateral shoulder arthroplasties. IMPRESSION: Cardiomegaly with pulmonary edema. ACT 112: Negative or not required by law. The above report was generated using voice recognition software. It may contain grammatical, syntax or spelling errors. Electronically signed by: Curtis Alvarez M.D. 10/29/2023 6:33 AM Chest CTA 10/28/23 22:33 Exam(s): CTA CHEST IV Amt: 119 ML OPTIRAY 320 EXAM: CT Angiography Chest With Intravenous Contrast CLINICAL HISTORY: Reason for exam: PE. TECHNIQUE: Axial computed tomographic angiography images of the chest with intravenous contrast. Automated exposure control was utilized for the study. A dose lowering technique was utilized adhering to the principles of ALARA. MIP reconstructed images were created and reviewed. COMPARISON: No relevant prior studies available. FINDINGS: Pulmonary arteries: Unremarkable. No acute pulmonary embolism. Aorta: No acute findings. No thoracic aortic aneurysm. Lungs: Mild pulmonary edema at the lung bases (interlobular septal thickening). Cardiomegaly. Correlate for mild CHF. No mass. Pleural space: Unremarkable. No significant effusion. No pneumothorax. Heart: See above. Bones/joints: Bilateral shoulder arthroplasties. No acute fracture. No dislocation. Soft tissues: Unremarkable. Lymph nodes: Unremarkable. No enlarged lymph nodes. IMPRESSION: 1. No acute pulmonary embolism. 2. Mild pulmonary edema at the lung bases (interlobular septal thickening). Cardiomegaly. Correlate for mild CHF. Electronically signed by: Rupesh Ramirez MD 10/28/23 23:32 PM 10/29/23 03:48 10/29/23 03:48 Hospital Course (1) Acute diastolic heart failure: 83-year-old with history of atrial fibrillation presented with shortness of breath increased leg edema and some fleeting chest pains on ED evaluation found to be volume overloaded, CT pulmonary angiogram was negative except for pulmonary edema EKG was reassuring and troponin was normal symptoms resolved with 1 dose of IV Lasix TTE reviewed shows normal LVEF 65-70% mild aortic stenosis his atrial fibrillation remained well rate controlled on telemetry on further review of history he has been having bilateral leg swelling for quite some time and has been followed in the wound clinic for a left paredes wound they have been discussing compression wrap clinical presentation consistent with new onset of diastolic heart failure, started 20 mg oral Lasix with potassium every other day with instructions to take extra dose if weight/edema increasing he is already on a beta-sujey, ARB requested expedited follow-up in cardiology clinic ideally within the next 1 to 2 weeks, would recommend checking BMP at that time (2) New onset of congestive heart failure: (3) Pulmonary edema: (4) Lower extremity edema: (5) Atrial fibrillation, permanent: continue metoprolol flecainide and apixaban (6) Hypertension: continue metoprolol losartan and amlodipine (7) Diabetes mellitus with microalbuminuria: (8) Benign localized prostatic hyperplasia with lower urinary tract symptoms (LUTS): Total Time Total Time Spent Total Time Spent (In Minutes): 25 minutes Discharge Plan Discharge Items Patient Disposition: Home - Self-Care Reason For Visit: CHEST PAIN Discharge Diagnosis: acute diastolic heart failure Condition on Discharge: Fair Activity: Resume your previous activity Non-emergency contact: Primary Care Provider and [employer]ater[employer] Convention Services Manager Call non-emergency contact if: you have any medication questions Follow-up/Referrals: Andrew Booker MD [Physician] - Alejandro Quispe DO [Primary Care Provider] - Diet: Heart Healthy and Low Sodium (2gm) Addtl Attending Provider Instructions: You were treated for fluid overload in your legs and lungs - this is caused by a condition called "heart failure" Your heart squeeze is good and you have some mild tightening of your aortic valve (mild aortic stenosis). The mild aortic stenosis, stiffening of the heart as people age, and perhaps the a-fib contributed to this a little bit. Continue your low salt diet - this will help prevent fluid retention I started a diuretic / water pill called lasix (furosemide). Try taking this with potassium every other morning and see if your leg swelling and breathing improves. Follow up with Dr. Booker's office as soon as possible - ideally within a week or two. You could also see your primary care doctor if you can't get a cardiology appointment soon enough. If your leg swelling is increasing, or if your weight is increasing by 3 pounds over night or 5 pounds in a week, take the lasix and potassium daily until the swelling/weight goes back down and call your doctor. Marline Daniel MD Pending Studies at Discharge: No Stand-Alone Forms: My [employer] Smoking Cessation Medications and DC Order Prescriptions: New furosemide 20 mg Tablet 20 mg PO Q OTHER DAY Qty: 30 0RF Rx Instructions: take every other day with potassium. if leg swelling/weight increasing take an extra dose as needed potassium chloride 10 mEq capsule, extended release 10 meq PO .qod Qty: 30 0RF Rx Instructions: take with furosemide (lasix) Continued multivitamin [Multiple Vitamins] Tablet 1 tab PO QPM Qty: 90 3RF tadalafil 5 mg tablet 5 mg PO QPM Qty: 90 3RF amlodipine-olmesartan 5-20 mg tablet 1 tab PO DAILY Qty: 90 3RF apixaban 5 mg tablet 5 mg PO BID Qty: 180 3RF atorvastatin 20 mg tablet 20 mg PO QPM Qty: 90 3RF flecainide 100 mg tablet 100 mg PO QPM Qty: 90 3RF metformin 500 mg tablet extended release 24 hr 1,000 mg PO BID Qty: 180 3RF metoprolol succinate 50 mg tablet extended release 24 hr 50 mg PO DAILY Qty: 90 3RF tobramycin 0.3 % drops 1 drp ophthalmic (eye) TID triamcinolone acetonide 0.1 % cream 1 applic topical BID Qty: 30 1RF Rx Instructions: Apply small amount to affected area BID x2 weeks, then PRN. albuterol sulfate 90 mcg/actuation HFA aerosol inhaler 2 puff inhalation Q6H PRN (Reason: shortness of breath or wheezing) Qty: 6.7 2RF amitriptyline 25 mg tablet 25 mg PO HS PRN (Reason: Sleep) Discharge Orders: Discharge Order (Routine); Ordered 10/29/23 Ordered By: Marline Martins/Other Patient Handouts: Heart Failure: Tracking Your Weight, Heart Failure Dc Admission Data Admit Date/Time: 10/28/23 23:50 Attending Provider: Marline Daniel Admit Provider: John Sanon Primary Care Provider: Alejandro Quispe Other Providers: John Sanon Other Interventions: Discharge Summary Assessment (RN) Last Done: 10/29/23 12:59 Coding Level of Care Code 20018 IN/OBS DISCH 30 MIN/LESS Diagnoses Acute diastolic heart failure I50.31 New onset of congestive heart failure I50.9 Pulmonary edema J81.1 Lower extremity edema R60.0 Atrial fibrillation, permanent I48.21 Hypertension I10 Diabetes mellitus with microalbuminuria E11.29; R80.9 Benign localized prostatic hyperplasia with lower urinary tract symptoms (LUTS) N40.1
[2023-10-29] MEDS ORDERED: ATORVASTATIN 20 MG TAB PO SCH (21:00)
[2023-10-29] MEDS ORDERED: MULTIVITAMIN TAB PO SCH (21:00)
[2023-10-29] MEDS ORDERED: FLECAINIDE ACETATE 100 MG TABLET PO SCH (21:00)
[2023-11-12] MEDS ORDERED: TRIAMCINOLONE ACET 0.1% CR 15 GM TUBE TOP PRN (09:00)
== END 2023-10-29 13:02 | disposition home or self-care (01) ==
LOC: EDINP 21:25 → ED 21:25 → SUATTDRO 23:50 → EDINP 10-29 02:38

== ENCOUNTER 2024-09-21 17:05 | Observation (INO) ==
--- NOTE | 2024-09-21 17:35 | Emergency Department Note ---
Impression & Plan Stroke-like symptoms, Hypertensive urgency ED Provider Note HISTORY OF PRESENT ILLNESS: Patient is an 84-year-old male presenting with confusion. Patient reports that he has not felt well throughout the day today. He states that at around 1300 today he started having dizzy spells described as feeling lightheaded. He states the dizziness improved after he laid down for a nap. He states he woke up around 1500 and was trying to work the TV remote and was having difficulties and confusion doing so. He takes Eliquis for history of A-fib. He denies any history of cardiac stents. He was last seen well by family at 1030 this morning. Patient denies any chest pain or shortness of breath. He does report his confusion seems to have improved, but states "something just does not seem right." He denies any changes in vision such as double or blurry vision. Denies any numbness, tingling or weakness in his extremities. ROS: as above PHYSICAL EXAM: Constitutional: Patient appears in no acute distress. HENT: Head: Normocephalic and atraumatic. Eyes: EOMI, PERRL Mouth/Throat: Mucous membranes moist. Neck: Trachea midline. Neck supple. Cardiovascular: Irregular rhythm. No murmurs, rubs or gallops. Intact distal pulses. Pulmonary/Chest: No respiratory distress. Breath sounds clear and equal bilaterally. No wheezes or rales. Abdominal: Abdomen soft, no tenderness, rebound or guarding. Musculoskeletal: No edema, tenderness or deformity noted. Skin: Warm and dry. No rash, erythema, pallor or cyanosis Psychiatric: Appropriate mood and affect for situation. Neurological: Alert and keenly responsive. Facies symmetric. Able to raise eyebrows, close eyes, smile, puff mouth, stick out tongue, move tongue left and right and raise palate symmetrically. Able to shrug shoulders. PERRLA. SILT to forehead below eye and at jawline. Can hear soft noise bilaterally. Good finger to nose. Strength 5/5 in bilateral upper and lower extremities. SILT throughout bilateral upper and lower extremities. MDM: - Vitals signs showed hypertension - History obtained via patient. History as above. - Chronic conditions affecting care: DM-2; HTN; HLD; Afib; CHF - Differential diagnoses include, but are not limited to: CVA; intracranial hemorrhage; ACS; TIA; electrolyte abnormality; dysrhythmia; UTI - Order placed for continuous cardiac monitoring. At this time, monitor showed rate of 84 bpm with irregular rhythm, per my interpretation. - External medical records reviewed. Primary care visit note dated 07/20/2024 was reviewed. Patient follows in the clinic for his multiple medical problems. He had his atorvastatin and metformin refilled and his Jardiance was discontinued. - EKG interpreted by myself showed atrial fibrillation. Rate 86 bpm. QT 368. No acute ischemic changes. - Laboratory workup interpreted by myself showed normal WBC; normal PT/INR; stable electrolytes; normal troponin - CXR negative for pneumonia, per my interpretation - Viral respiratroy panel negative - CT head wo contrast negative for acute pathology - CTA head negative for acute abnormality - CTA neck showed atherosclerosis of the cervical internal carotid bulbs with 40% or less stenosis (L>R). No dissection - Patient family hypertensive in the emergency department and was given 10 mg IV labetalol with minimal improvement in blood pressure. - Patient is not a TNK candidate, given his Eliquis use and he is >[address] imaging negative for large vessel occlusion, so not a candidate for mechanical thrombectomy. - UA negative for infection - Will admit patient for stroke-like symptoms workup and BP control. - Discussion was had with case assembler about patient's case and need for admission - Hospitalist, Dr. Sanon, consulted for admission - Patient admitted to [facility] hospitalist service for further evaluation and management. 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 Chronic diastolic CHF (congestive heart failure) Aortic stenosis New onset of congestive heart failure (Acute) Lower extremity edema (Chronic) Abnormal ankle brachial index (JIMI) (Acute) Traumatic open wound of left lower leg with delayed healing (Acute) Balance disorder Diabetes mellitus with microalbuminuria Hypertension (Chronic) DJD (degenerative joint disease) of knee Hypercholesteremia (Chronic) Anxiety Benign localized prostatic hyperplasia with lower urinary tract symptoms (LUTS) Stress at home Organic impotence (Acute) Nocturia (Acute) Insomnia (Acute) Inhibited sexual excitement (Acute) Elevated prostate specific antigen (PSA) (Acute) Anemia (Acute) Status post reverse arthroplasty of left shoulder (~01/2021) Olecranon bursitis Atrial fibrillation, permanent (Chronic) Urinary retention due to benign prostatic hyperplasia Diabetes mellitus with hyperglycemia (Chronic) Caregiver burden (Chronic) Hypercalcemia Chronic venous stasis dermatitis of both lower extremities Exercise intolerance Fractured tooth due to trauma without complication Medical History (Updated 09/21/24 @ 20:26 by Dolores Robles MD) Mild concentric left ventricular hypertrophy (LVH) Tricuspid regurgitation mild per 2013 echo Mitral regurgitation (~04/26/24) mild per 2013 echo Hearing loss Obesity Anxiety Deep vein thrombosis (DVT) of right upper extremity (~2016) Post-op shoulder surgery Fuchs' corneal dystrophy Diabetes type 2, controlled NIDDM Atrial fibrillation Follows with [facility] cardiology (Dr. Booker) Surgical History H/O transurethral resection of prostate done 05/16/2022 History of tooth extraction History of left shoulder replacement 02/04/2021: LMA#5. History of arthroscopy Left knee S/P total knee arthroplasty R/L Hx of colonoscopy Status post total shoulder arthroplasty Right TSA (08/31/17): Grade view 1, MAC#3, ETT 8 at [facility] Family History Brother Bipolar disorder Father Alcoholism Cancer Family history of esophageal cancer Sister Coronary heart disease Bipolar disorder Mother Scoliosis Son Diabetes Other Heart disease Hypertension Denies family history of Ovarian cancer Prostate cancer Myocardial infarction Breast cancer Colorectal cancer Social History (Updated 07/24/24 @ 10:13 by NILO Mendoza) Smoking Status: Never smoker Tobacco Type: Cigarettes Age Started Using Tobacco: 23; Age Quit Using Tobacco: 60; packs per day: 0.5; Second Hand Exposure: No; Do You Dip or Chew Tobacco: No; Hx Alcohol Use: No Hx Substance Use: No Preferred Language: Vietnamese Communication Ability: Effective Visual Impairment: No Limitations Hearing Ability: Use of Hearing Aid Roofing Apprentice Required: No Beliefs That Will Affect Care: None marital status: Current Living Situation: Spouse current occupational status: retired current occupation: retired from career with [employer] How many Children do You have: 2 Feels Safe at Home: Yes Childhood Exposure to Second-Hand Smoke: Yes Diet: low carbohydrate Dental Care, Regularly: Yes Physical Activity Frequency: 1-2 Times per Week Seatbelt Use: always Sunscreen Use: Yes (sometimes ) Assistive Devices: None, Glasses, Hearing Aid - Bilateral and Hearing Aid - Left Allergies Allergies Allergy/AdvReac Type Severity Reaction Status Date / Time adhesive tape Allergy Mild Redness of Verified 09/04/24 10:32 Skin Home Meds Home Medications Medication Instructions Recorded Confirmed tobramycin 0.3 % eye drops 1 drp ophthalmic (eye) TID 12/28/22 09/04/24 Previous Rx's Medication Instructions Recorded multivitamin (Multiple Vitamins 1 tab PO QPM #90 tabs 10/05/22 tablet) tadalafil 5 mg tablet 5 mg PO QPM sexual activity #90 10/05/22 tabs apixaban 5 mg tablet 5 mg PO BID #180 tabs 10/08/23 flecainide 100 mg tablet 100 mg PO QPM #90 tabs 10/08/23 metoprolol succinate 50 mg 50 mg PO DAILY #90 tabs 10/08/23 tablet,extended release 24 hr olmesartan 20 mg tablet 20 mg PO DAILY #90 tabs 11/07/23 potassium chloride 10 mEq 20 meq (2 x 10 mEq) PO DAILY #90 12/07/23 capsule,extended release caps furosemide 20 mg tablet 20 mg PO QAM #90 tabs 01/14/24 insulin glargine 100 unit/mL (3 10 unit (0.1 mL) subcut QAM #3 mL 04/30/24 mL) subcutaneous pen (Lantus Solostar U-100 Insulin) atorvastatin 20 mg tablet 20 mg PO QPM #90 tabs 07/24/24 metformin 500 mg tablet,extended 1,000 mg (2 x 500 mg) PO BID #180 07/24/24 release 24 hr tabs Results & Data (ED) Vital Signs Vital Signs - 24 hr 09/21/24 17:19 09/21/24 17:40 09/21/24 18:13 Temperature 36.6 C Temperature Source Temporal Artery Scan Pulse Rate 85 70 Pulse Rate [Apical] Pulse Rhythm [Apical] Respiratory Rate 20 Respiratory Effort / Characteristics Non-Labored Spontaneous Respiratory Depth Normal Respiratory Pattern Blood Pressure 228/133 H Blood Pressure [Left Arm] Blood Pressure Mean 164 Blood Pressure Mean [Left Arm] Blood Pressure Position [Left Arm] Pulse Oximetry 97 Oxygen Delivery Method Room Air Room Air Sepsis Recent Fever Within 48 Hours No Sepsis New/Unexplained Change in Mental Status No Sepsis Action Taken by Nursing No Action Required 09/21/24 18:14 09/21/24 18:20 09/21/24 18:35 Temperature Temperature Source Pulse Rate Pulse Rate [Apical] 84 Pulse Rhythm [Apical] Irregular Respiratory Rate 19 Respiratory Effort / Characteristics Respiratory Depth Respiratory Pattern Blood Pressure Blood Pressure [Left Arm] 230/142 H Blood Pressure Mean Blood Pressure Mean [Left Arm] 171 Blood Pressure Position [Left Arm] Pulse Oximetry 94 Oxygen Delivery Method Room Air Room Air Room Air Sepsis Recent Fever Within 48 Hours Sepsis New/Unexplained Change in Mental Status Sepsis Action Taken by Nursing 09/21/24 18:45 09/21/24 20:00 09/21/24 20:05 Temperature Temperature Source Pulse Rate 109 H Pulse Rate [Apical] 84 87 Pulse Rhythm [Apical] Respiratory Rate 18 18 Respiratory Effort / Characteristics Non-Labored Respiratory Depth Normal Respiratory Pattern Regular Blood Pressure 214/112 H Blood Pressure [Left Arm] 207/111 H 232/113 H Blood Pressure Mean Blood Pressure Mean [Left Arm] 143 152 Blood Pressure Position [Left Arm] Lying Pulse Oximetry 95 Oxygen Delivery Method Room Air Room Air Sepsis Recent Fever Within 48 Hours Sepsis New/Unexplained Change in Mental Status Sepsis Action Taken by Nursing Laboratory Data 09/21/24 17:39 09/21/24 17:39 Lab Results 09/21/24 09/21/24 09/21/24 Range/Units 17:39 17:45 18:20 WBC 6.96 (4.8-10.8) K/ul RBC 4.84 (4.70-6.10) M/uL Hgb 14.2 (14.0-18.0) g/dl POC Hgb 14.6 (14.0-18.0) g/dl Hct 42.7 (42.0-52.0) % POC Hct 43 (42-52) % MCV 88.2 (80.0-100.0) fL MCH 29.3 (25.0-34.0) pg MCHC 33.3 (32.0-36.0) g/dL RDW Std Deviation 46.5 H (36.4-46.3) fL RDW Coeff of Berta 14.6 H (11.5-14.5) % Plt Count 196 (130-400) K/uL MPV 11.4 (9.4-12.4) fL PT 11.4 (9.0-12.0) Seconds INR 1.1 (0.9-1.1) APTT 29 (21-31) Seconds PTT Ratio 1.1 POC Sodium 141 (135-144) mmol/L Sodium 140 (136-145) mmol/L POC Potassium 3.8 (3.3-5.0) mmol/L Potassium 3.9 (3.5-5.1) mmol/L POC Chloride 102 (101-112) mmol/L Chloride 104 (98-107) mmol/L Carbon Dioxide 30 (21-32) mmol/L POC Total CO2 27 (24-31) mmol/L Anion Gap 6 (3-11) POC Anion Gap 17.0 (16-25) mmol/L POC BUN 15 (7-18) mg/dl BUN 15 (6-23) mg/dl Creatinine 0.77 (0.6-1.4) mg/dl POC Creatinine 0.8 (0.6-1.3) mg/dl Est Cr Clr Drug Dosing Not Reportable eGFR 89.39 BUN/Creatinine Ratio 19.5 (10-20) Glucose 179 H (70-99(Fasting)) mg/dl POC Glucose (70-99) mg/dl POC Glucose (other) 175 H (70-99) mg/dl Calcium 9.8 (8.6-10.3) mg/dl POC Ioniz Calcium David 1.27 (1.12-1.32) mmol/l Magnesium 1.9 (1.7-2.4) mg/dl Total Bilirubin 0.9 (0.2-1.0) mg/dl AST 20 (13-39) U/L ALT 17 (7-52) U/L Alkaline Phosphatase 69 (34-104) U/L Troponin I High Sens 7.6 (0-20) pg/ml Total Protein 7.2 (6.0-8.3) gm/dl Albumin 4.7 (3.4-5.0) gm/dl Globulin 2.5 (2.5-4.0) gm/dl Albumin/Globulin Ratio 1.9 (0.9-2) Urine Color Yellow Urine Appearance Clear (Clear) Urine pH 7.0 (4.5-7.5) Ur Specific [place] 1.013 (1.000-1.030) Urine Protein 2+ H (Negative) Urine Glucose (UA) 1+ H (Negative) Urine Ketones Negative (Negative) Urine Blood Negative (Negative) Urine Nitrite Negative (Negative) Urine Bilirubin Negative (Negative) Urine Urobilinogen Negative (Negative) Ur Leukocyte Esterase Negative (Negative) Urine WBC (Auto) 0-5 (0-5) /hpf Urine RBC (Auto) 0-2 (0-2) /hpf U Hyaline Cast (Auto) 0-2 (0-2) /lpf U Epithel Cells (Auto) 0-2 (0-2) /hpf Urine Bacteria (Auto) None Seen (None Seen) Adenovirus (PCR) Not Detected (NotDetected) B. pertussis DNA (PCR) Not Detected (NotDetected) B.parapertussis DNA PCR Not Detected (NotDetected) C. pneumoniae DNA (PCR) Not Detected (NotDetected) Coronavirus OC43 (PCR) Not Detected (NotDetected) Coronavirus HKU1 (PCR) Not Detected (NotDetected) Coronavirus 229E (PCR) Not Detected (NotDetected) SARS-CoV-2 (PCR) Not Detected (NotDetected) Coronavirus NL63 (PCR) Not Detected (NotDetected) Human Metapneumovir PCR Not Detected (NotDetected) Influenza Type A (PCR) Not Detected (NotDetected) Influenza Type B (PCR) Not Detected (NotDetected) M. pneumoniae (PCR) Not Detected (NotDetected) Parainfluenza 1 (PCR) Not Detected (NotDetected) Parainfluenza 2 (PCR) Not Detected (NotDetected) Parainfluenza 3 (PCR) Not Detected (NotDetected) Parainfluenza 4 (PCR) Not Detected (NotDetected) RSV (PCR) Not Detected (NotDetected) Entero/Rhino (PCR) Not Detected (NotDetected) 09/21/24 Range/Units 20:23 WBC (4.8-10.8) K/ul RBC (4.70-6.10) M/uL Hgb (14.0-18.0) g/dl POC Hgb (14.0-18.0) g/dl Hct (42.0-52.0) % POC Hct (42-52) % MCV (80.0-100.0) fL MCH (25.0-34.0) pg MCHC (32.0-36.0) g/dL RDW Std Deviation (36.4-46.3) fL RDW Coeff of Berta (11.5-14.5) % Plt Count (130-400) K/uL MPV (9.4-12.4) fL PT (9.0-12.0) Seconds INR (0.9-1.1) APTT (21-31) Seconds PTT Ratio POC Sodium (135-144) mmol/L Sodium (136-145) mmol/L POC Potassium (3.3-5.0) mmol/L Potassium (3.5-5.1) mmol/L POC Chloride (101-112) mmol/L Chloride (98-107) mmol/L Carbon Dioxide (21-32) mmol/L POC Total CO2 (24-31) mmol/L Anion Gap (3-11) POC Anion Gap (16-25) mmol/L POC BUN (7-18) mg/dl BUN (6-23) mg/dl Creatinine (0.6-1.4) mg/dl POC Creatinine (0.6-1.3) mg/dl Est Cr Clr Drug Dosing eGFR BUN/Creatinine Ratio (10-20) Glucose (70-99(Fasting)) mg/dl POC Glucose 130 H (70-99) mg/dl POC Glucose (other) (70-99) mg/dl Calcium (8.6-10.3) mg/dl POC Ioniz Calcium David (1.12-1.32) mmol/l Magnesium (1.7-2.4) mg/dl Total Bilirubin (0.2-1.0) mg/dl AST (13-39) U/L ALT (7-52) U/L Alkaline Phosphatase (34-104) U/L Troponin I High Sens (0-20) pg/ml Total Protein (6.0-8.3) gm/dl Albumin (3.4-5.0) gm/dl Globulin (2.5-4.0) gm/dl Albumin/Globulin Ratio (0.9-2) Urine Color Urine Appearance (Clear) Urine pH (4.5-7.5) Ur Specific [place] (1.000-1.030) Urine Protein (Negative) Urine Glucose (UA) (Negative) Urine Ketones (Negative) Urine Blood (Negative) Urine Nitrite (Negative) Urine Bilirubin (Negative) Urine Urobilinogen (Negative) Ur Leukocyte Esterase (Negative) Urine WBC (Auto) (0-5) /hpf Urine RBC (Auto) (0-2) /hpf U Hyaline Cast (Auto) (0-2) /lpf U Epithel Cells (Auto) (0-2) /hpf Urine Bacteria (Auto) (None Seen) Adenovirus (PCR) (NotDetected) B. pertussis DNA (PCR) (NotDetected) B.parapertussis DNA PCR (NotDetected) C. pneumoniae DNA (PCR) (NotDetected) Coronavirus OC43 (PCR) (NotDetected) Coronavirus HKU1 (PCR) (NotDetected) Coronavirus 229E (PCR) (NotDetected) SARS-CoV-2 (PCR) (NotDetected) Coronavirus NL63 (PCR) (NotDetected) Human Metapneumovir PCR (NotDetected) Influenza Type A (PCR) (NotDetected) Influenza Type B (PCR) (NotDetected) M. pneumoniae (PCR) (NotDetected) Parainfluenza 1 (PCR) (NotDetected) Parainfluenza 2 (PCR) (NotDetected) Parainfluenza 3 (PCR) (NotDetected) Parainfluenza 4 (PCR) (NotDetected) RSV (PCR) (NotDetected) Entero/Rhino (PCR) (NotDetected) Administered Medications Discontinued Medications Ioversol (Optiray 320 125ml) 119 ml IV ONCE ONE Stop: 09/21/24 18:11 Last Admin: 09/21/24 18:10 Dose: 119 ml Documented By: GABY Labetalol HCl (Labetalol Hcl Iv 5 Mg/Ml 20ml) 10 mg IV NOW STA Stop: 09/21/24 17:33 Last Admin: 09/21/24 18:29 Dose: 10 mg Documented By: ISMA Imaging Data Radiologist's Impression: Chest X-Ray 09/21/24 17:32 EXAM: Radiograph of the Chest 1 View INDICATION: Confusion. TECHNIQUE: Frontal view of the chest. COMPARISON: 10/28/2023 FINDINGS: Lungs and pleural spaces: There is mild pulmonary vascular congestion without pulmonary edema. Mild atelectasis in the lung bases. No pleural effusion or pneumothorax. Heart: Stable large cardiac shadow. Mediastinum: Normal contour. Bones/joints: Visualized portion of left shoulder arthroplasty intact and well-seated. Degenerative changes in the spine. No acute osseous abnormality. Soft tissues: No abnormality noted. No radiopaque foreign body noted. Upper abdomen: No abnormality noted. IMPRESSION: 1. There is mild pulmonary vascular congestion without pulmonary edema. 2. Mild atelectasis in the lung bases. ACT 112: Negative or not required by law. Electronically signed by Linette Guzman 09-21-2024 6:[address] 09/21/24 17:32 EXAM:CT Head Without Intravenous Contrast INDICATION: Dizziness and confusion. TECHNIQUE: Axial computed tomography images of the head/brain without intravenous contrast. Sagittal and/or coronal reformats are provided. Sagittal and coronal reformatted images were created and reviewed. This CT exam was performed using one or more of the following dose reduction techniques: automated exposure control, adjustment of the mA and/or kV according to patient size, and/or use of iterative reconstruction technique. COMPARISON:11/30/2023 FINDINGS: Limitations: None. Brain and extra-axial spaces: There is age appropriate cortical atrophy and chronic ischemic periventricular white matter hypodensity. No acute infarct, hemorrhage or mass noted. Bones/joints: No acute changes. Soft tissues: No significant abnormality noted. Vasculature: There is atherosclerotic calcification of the intracranial vertebral and carotid arteries. Sinuses: No layering fluid in the visualized portions of the paranasal sinuses. Mastoid air cells: No mastoid effusion. Orbits: No significant abnormality noted. IMPRESSION: Cerebral atrophy. No acute changes. ACT 112: Negative or not required by law. Electronically signed by Linette Guzman 09-21-2024 6:30 PM Head CTA 09/21/24 17:32 EXAM:CT Angiography Head With Intravenous Contrast INDICATION: Dizziness and confusion. TECHNIQUE: Axial computed tomographic angiography images of the head with intravenous contrast. Sagittal and coronal reformatted images were created and reviewed. This CT exam was performed using one or more of the following dose reduction techniques: automated exposure control, adjustment of the mA and/or kV according to patient size, and/or use of iterative reconstruction technique. MIP reconstructed images were created and reviewed. CONTRAST: 119ml of Optiray 320 was administered intravenously. COMPARISON: No relevant prior studies available. FINDINGS: Right internal carotid artery: No acute change noted. Intracranial segment is patent with no significant stenosis. No aneurysm. Right anterior cerebral artery: No abnormality noted. No occlusion or significant stenosis. No aneurysm. Right middle cerebral artery: No abnormality noted. No occlusion or significant stenosis. No aneurysm. Right posterior cerebral artery: No abnormality noted. No occlusion or significant stenosis. No aneurysm. Right vertebral artery: Small foci of calcific plaque in the intracranial right vertebral artery. No stenosis, aneurysm or dissection. Left internal carotid artery: There is mild calcific plaque of the intracranial left internal carotid artery. No stenosis, aneurysm or dissection. Left anterior cerebral artery: No abnormality noted. No occlusion or significant stenosis. No aneurysm. Left middle cerebral artery: No abnormality noted. No occlusion or significant stenosis. No aneurysm. Left posterior cerebral artery: No abnormality noted. No occlusion or significant stenosis. No aneurysm. Left vertebral artery: No significant abnormality noted. Basilar artery: No abnormality noted. No occlusion or significant stenosis. No aneurysm. Other vasculature:Patent dural venous sinuses. IMPRESSION: No significant angiographic abnormality in the brain. ACT 112: Negative or not required by law. Electronically signed by Linette Guzman 09-21-2024 6:36 PM Neck CTA 09/21/24 17:32 EXAM:CT Angiography Neck With Intravenous Contrast INDICATION: Dizziness and confusion TECHNIQUE: Routine carotid CT angiography protocol was performed with intravenous contrast. NASCET criteria using the distal ICAs for comparison were used for evaluation of stenoses. Sagittal and coronal reformatted images were created and reviewed. This CT exam was performed using one or more of the following dose reduction techniques: automated exposure control, adjustment of the mA and/or kV according to patient size, and/or use of iterative reconstruction technique. MIP reconstructed images were created and reviewed. CONTRAST: 119ml of Optiray 320 was administered intravenously. COMPARISON: None. FINDINGS: VASCULATURE: Right common carotid artery: No abnormality noted. No occlusion or significant stenosis. No dissection. Right internal carotid artery: Mild mixed plaque at the bulb without significant stenosis. No aneurysm or dissection. Right external carotid artery: No abnormality noted. No occlusion. Right vertebral artery: No abnormality noted. No occlusion or significant stenosis. No dissection. Left common carotid artery: No abnormality noted. No occlusion or significant stenosis. No dissection. Left internal carotid artery: Moderate calcific plaque at the bulb with approximate 40% proximal stenosis. No dissection or aneurysm.. Left external carotid artery: No abnormality noted. No occlusion. Left vertebral artery: No abnormality noted. No occlusion or significant stenosis. No dissection. NECK: Bones/joints: No acute or atypical chronic changes. Soft tissues: No abnormality noted. Lung apices: Clear. CAROTID STENOSIS REFERENCE USING NASCET CRITERIA: % ICA stenosis = (1 - narrowest ICA diameter/diameter of distal cervical ICA) x 100. Mild - <50% stenosis. Moderate - 50-69% stenosis. Severe - 70-94% stenosis. Near occlusion - 95-99% stenosis. Occluded - 100% stenosis. 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 No dissection. ACT 112: Negative or not required by law. Electronically signed by Linette Guzman 09-21-2024 6:34 PM Discharge Plan Visit Data Chief Complaint: Neuro Symptoms/Deficit Stated Complaint: ABD PAIN, CONFUSION, HEADACHE, ED Provider: Dolores Robles Discharge Problem: Stroke-like symptoms, Hypertensive urgency Forms Stand Alone Forms: [facility] Prescriptions Prescriptions: No Action multivitamin [Multiple Vitamins] Tablet 1 tab PO QPM Qty: 90 3RF tadalafil 5 mg tablet 5 mg PO QPM Qty: 90 3RF apixaban 5 mg tablet 5 mg PO BID Qty: 180 3RF flecainide 100 mg tablet 100 mg PO QPM Qty: 90 3RF metoprolol succinate 50 mg tablet extended release 24 hr 50 mg PO DAILY Qty: 90 3RF potassium chloride 10 mEq capsule, extended release 20 meq PO DAILY Qty: 90 3RF Rx Instructions: take with furosemide (lasix) insulin glargine [Lantus Solostar U-100 Insulin] 100 unit/mL (3 mL) insulin pen 10 unit subcut QAM Qty: 3 6RF tobramycin 0.3 % drops 1 drp ophthalmic (eye) TID furosemide 20 mg tablet 20 mg PO QAM Qty: 90 3RF Rx Instructions: take every day with potassium. olmesartan 20 mg tablet 20 mg PO DAILY Qty: 90 3RF atorvastatin 20 mg tablet 20 mg PO QPM Qty: 90 3RF metformin 500 mg tablet extended release 24 hr 1,000 mg PO BID Qty: 180 3RF Referrals Referrals: Alejandro Quispe, [Primary Care Provider] -
[2024-09-21 17:52] LABS: Hematocrit (blood only) 42.7 % (42.0-52.0); Hemoglobin 14.2 g/dl (14.0-18.0); Mean Corpuscular Hemoglobin 29.3 pg (25.0-34.0); Mean Corpuscular Hgb Conc 33.3 g/dL (32.0-36.0); Mean Corpuscular Volume 88.2 fL (80.0-100.0); Mean Platelet Volume 11.4 fL (9.4-12.4); Platelet Count 196 K/uL (130-400); RDW Coefficient of Variation 14.6 % (11.5-14.5); RDW Standard Deviation 46.5 fL (36.4-46.3); Red Blood Count 4.84 M/uL (4.70-6.10); White Blood Count 6.96 K/ul (4.8-10.8)
[2024-09-21 17:57] LABS: iSTAT Creatinine 0.8 mg/dl (0.6-1.3); iSTAT Hemoglobin 14.6 g/dl (14.0-18.0); iSTAT Ionized Calcium 1.27 mmol/l (1.12-1.32); iSTAT Potassium 3.8 mmol/L (3.3-5.0)
[2024-09-21 18:06] LABS: Alanine Aminotransferase 17 U/L (7-52); Albumin Globulin Ratio 1.9 (0.9-2); Albumin Level 4.7 gm/dl (3.4-5.0); Alkaline Phosphatase 69 U/L (34-104); Anion Gap 6 (3-11); Aspartate Aminotransferase 20 U/L (13-39); BUN Creatinine Ratio 19.5 (10-20); Bilirubin,Total 0.9 mg/dl (0.2-1.0); Blood Urea Nitrogen 15 mg/dl (6-23); Calcium 9.8 mg/dl (8.6-10.3); Carbon Dioxide 30 mmol/L (21-32); Chloride 104 mmol/L (98-107); Globulin 2.5 gm/dl (2.5-4.0); Glucose 179 mg/dl (70-99(Fasting)); Magnesium 1.9 mg/dl (1.7-2.4); Potassium 3.9 mmol/L (3.5-5.1); Sodium 140 mmol/L (136-145); Total Protein 7.2 gm/dl (6.0-8.3)
[2024-09-21] MEDS: OPTIRAY 320 125ml IV ONE (18:10)
--- NOTE | 2024-09-21 18:11 | XRay Report ---
EXAM: Radiograph of the Chest 1 View INDICATION: Confusion. TECHNIQUE: Frontal view of the chest. COMPARISON: 10/28/2023 FINDINGS: Lungs and pleural spaces: There is mild pulmonary vascular congestion without pulmonary edema. Mild atelectasis in the lung bases. No pleural effusion or pneumothorax. Heart: Stable large cardiac shadow. Mediastinum: Normal contour. Bones/joints: Visualized portion of left shoulder arthroplasty intact and well-seated. Degenerative changes in the spine. No acute osseous abnormality. Soft tissues: No abnormality noted. No radiopaque foreign body noted. Upper abdomen: No abnormality noted. IMPRESSION: 1. There is mild pulmonary vascular congestion without pulmonary edema. 2. Mild atelectasis in the lung bases. ACT 112: Negative or not required by law. Electronically signed by Linette Guzman 09-21-2024 6:09 PM
[2024-09-21 18:13] LABS: Troponin I High Sensitivity 7.6 pg/ml (0-20)
[2024-09-21 18:19] LABS: INR 1.1 (0.9-1.1); Partial Thromboplastin Ratio 1.1; Partial Thromboplastin Time 29 Seconds (21-31); Prothrombin Time 11.4 Seconds (9.0-12.0)
[2024-09-21] MEDS: LABETALOL HCL IV 5 MG/ML 20ML IV STA (18:29)
--- NOTE | 2024-09-21 18:30 | CT Scan Report ---
EXAM:CT Head Without Intravenous Contrast INDICATION: Dizziness and confusion. TECHNIQUE: Axial computed tomography images of the head/brain without intravenous contrast. Sagittal and/or coronal reformats are provided. Sagittal and coronal reformatted images were created and reviewed. This CT exam was performed using one or more of the following dose reduction techniques: automated exposure control, adjustment of the mA and/or kV according to patient size, and/or use of iterative reconstruction technique. COMPARISON:11/30/2023 FINDINGS: Limitations: None. Brain and extra-axial spaces: There is age appropriate cortical atrophy and chronic ischemic periventricular white matter hypodensity. No acute infarct, hemorrhage or mass noted. Bones/joints: No acute changes. Soft tissues: No significant abnormality noted. Vasculature: There is atherosclerotic calcification of the intracranial vertebral and carotid arteries. Sinuses: No layering fluid in the visualized portions of the paranasal sinuses. Mastoid air cells: No mastoid effusion. Orbits: No significant abnormality noted. IMPRESSION: Cerebral atrophy. No acute changes. ACT 112: Negative or not required by law. Electronically signed by Linette Guzman 09-21-2024 6:30 PM
--- NOTE | 2024-09-21 18:35 | CT Scan Report ---
EXAM:CT Angiography Neck With Intravenous Contrast INDICATION: Dizziness and confusion TECHNIQUE: Routine carotid CT angiography protocol was performed with intravenous contrast. NASCET criteria using the distal ICAs for comparison were used for evaluation of stenoses. Sagittal and coronal reformatted images were created and reviewed. This CT exam was performed using one or more of the following dose reduction techniques: automated exposure control, adjustment of the mA and/or kV according to patient size, and/or use of iterative reconstruction technique. MIP reconstructed images were created and reviewed. CONTRAST: 119ml of Optiray 320 was administered intravenously. COMPARISON: None. FINDINGS: VASCULATURE: Right common carotid artery: No abnormality noted. No occlusion or significant stenosis. No dissection. Right internal carotid artery: Mild mixed plaque at the bulb without significant stenosis. No aneurysm or dissection. Right external carotid artery: No abnormality noted. No occlusion. Right vertebral artery: No abnormality noted. No occlusion or significant stenosis. No dissection. Left common carotid artery: No abnormality noted. No occlusion or significant stenosis. No dissection. Left internal carotid artery: Moderate calcific plaque at the bulb with approximate 40% proximal stenosis. No dissection or aneurysm.. Left external carotid artery: No abnormality noted. No occlusion. Left vertebral artery: No abnormality noted. No occlusion or significant stenosis. No dissection. NECK: Bones/joints: No acute or atypical chronic changes. Soft tissues: No abnormality noted. Lung apices: Clear. CAROTID STENOSIS REFERENCE USING NASCET CRITERIA: % ICA stenosis = (1 - narrowest ICA diameter/diameter of distal cervical ICA) x 100. Mild - <50% stenosis. Moderate - 50-69% stenosis. Severe - 70-94% stenosis. Near occlusion - 95-99% stenosis. Occluded - 100% stenosis. 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 No dissection. ACT 112: Negative or not required by law. Electronically signed by Linette Guzman 09-21-2024 6:34 PM
--- NOTE | 2024-09-21 18:37 | CT Scan Report ---
EXAM:CT Angiography Head With Intravenous Contrast INDICATION: Dizziness and confusion. TECHNIQUE: Axial computed tomographic angiography images of the head with intravenous contrast. Sagittal and coronal reformatted images were created and reviewed. This CT exam was performed using one or more of the following dose reduction techniques: automated exposure control, adjustment of the mA and/or kV according to patient size, and/or use of iterative reconstruction technique. MIP reconstructed images were created and reviewed. CONTRAST: 119ml of Optiray 320 was administered intravenously. COMPARISON: No relevant prior studies available. FINDINGS: Right internal carotid artery: No acute change noted. Intracranial segment is patent with no significant stenosis. No aneurysm. Right anterior cerebral artery: No abnormality noted. No occlusion or significant stenosis. No aneurysm. Right middle cerebral artery: No abnormality noted. No occlusion or significant stenosis. No aneurysm. Right posterior cerebral artery: No abnormality noted. No occlusion or significant stenosis. No aneurysm. Right vertebral artery: Small foci of calcific plaque in the intracranial right vertebral artery. No stenosis, aneurysm or dissection. Left internal carotid artery: There is mild calcific plaque of the intracranial left internal carotid artery. No stenosis, aneurysm or dissection. Left anterior cerebral artery: No abnormality noted. No occlusion or significant stenosis. No aneurysm. Left middle cerebral artery: No abnormality noted. No occlusion or significant stenosis. No aneurysm. Left posterior cerebral artery: No abnormality noted. No occlusion or significant stenosis. No aneurysm. Left vertebral artery: No significant abnormality noted. Basilar artery: No abnormality noted. No occlusion or significant stenosis. No aneurysm. Other vasculature:Patent dural venous sinuses. IMPRESSION: No significant angiographic abnormality in the brain. ACT 112: Negative or not required by law. Electronically signed by Linette Guzman 09-21-2024 6:36 PM
[2024-09-21 19:15] LABS: Appearance Urine Clear (Clear); Bacteria Urine Automated None Seen (None Seen); Bilirubin Urine Negative (Negative); Blood Urine Negative (Negative); Cast Urine Automated 0-2 /lpf (0-2); Color Urine Yellow; Epithelial Cell Urine Auto 0-2 /hpf (0-2); Glucose Urine UA 1+ (Negative); Ketones Urine Negative (Negative); Leukocyte Esterase Urine Negative (Negative); Nitrite Urine Negative (Negative); Protein Urine 2+ (Negative); RBC Urine Automated 0-2 /hpf (0-2); Specific Gravity Urine 1.013 (1.000-1.030); Urobilinogen Urine Negative (Negative); WBC Urine Automated 0-5 /hpf (0-5)
[2024-09-21 19:23] LABS: Adenovirus PCR Not Detected (NotDetected); Bordetella parapertussis PCR Not Detected (NotDetected); Bordetella pertussis PCR Not Detected (NotDetected); Chlamydia pneumoniae PCR Not Detected (NotDetected); Coronavirus 229E PCR Not Detected (NotDetected); Coronavirus CoV-2 (COVID19)PCR Not Detected (NotDetected); Coronavirus HKU1 PCR Not Detected (NotDetected); Coronavirus NL63 PCR Not Detected (NotDetected); Coronavirus OC43PCR Not Detected (NotDetected); Human Metapneumovirus PCR Not Detected (NotDetected); Influenza A PCR Not Detected (NotDetected); Influenza B PCR Not Detected (NotDetected); Mycoplasma pneumoniae PCR Not Detected (NotDetected); Parainfluenza Virus 1 PCR Not Detected (NotDetected); Parainfluenza Virus 2 PCR Not Detected (NotDetected); Parainfluenza Virus 3 PCR Not Detected (NotDetected); Parainfluenza Virus 4 PCR Not Detected (NotDetected); Respiratory Syncytial VirusPCR Not Detected (NotDetected); Rhinovirus/Enterovirus PCR Not Detected (NotDetected)
[2024-09-21] MEDS ORDERED: LORazepam 2 MG/1 ML VIAL IV STA (20:00)
--- NOTE | 2024-09-21 20:19 | History & Physical Report ---
Date of Service September 21, 2024 Assessment & Plan (1) Stroke-like symptoms: (2) Expressive aphasia: (3) Anticoagulant long-term use: (4) Chronic diastolic CHF (congestive heart failure): (5) Aortic stenosis: (6) Balance disorder: (7) Benign localized prostatic hyperplasia with lower urinary tract symptoms (LUTS): (8) Atrial fibrillation, permanent: (9) Diabetes mellitus with microalbuminuria: Plan Strokelike symptoms/expressive aphasia- The patient will be admitted to telemetry for serial cardiac enzymes, serial EKG's, cardiac rhythm monitoring and a 2-D echocardiogram with Dopplers. Symptoms are improving on their own Of note, he did not check his blood sugar this morning, so unaware if he was hypoglycemic as potential cause of symptoms CT scan head without contrast negative CTA head negative CTA neck with mild cervical ICA stenosis less than 40%, left greater than right MRI of brain without defined area of stroke, described as possible artifactual. Will ask radiology for rereview and neurology to assess Not placed on aspirin 81 mg daily due to history of oral bleeding Continuing apixaban for permanent A-fib Permissive hypertension, but will give metoprolol succinate 50 mg dose this evening, did not take today Stroke without thrombolytic order set Consult PT/OT/speech/neurology Respiratory BioFire testing negative Permanent atrial fibrillation hypertension/mild aortic stenosis- Continue metoprolol succinate, hold furosemide, telmisartan Permissive hypertension as noted, and did not minimize preload Continue flecainide and apixaban Most recent echo from 08/13/2024 with ejection fraction 60-65%, mild aortic stenosis and mild mitral regurgitation. No change compared to 10/29/2023 Lower extremity edema noted on examination. Holding diuretics for now, due to permissive hypertension and not minimizing preload with aortic stenosis. May need diuretics in the morning Diabetes mellitus- Hold metformin Reduce glargine from 10 to 6 units SQ every morning Placed on Accu-Cheks with NovoLog SSI Check hemoglobin A1c Hyperlipidemia- Continue atorvastatin Check a fasting lipid panel History of Present Illness Chief Complaint: The patient presents to the emergency department with complaint of developing confusion about 10:00 this morning, he just did not feel quite right. He felt a little bit dizzy intermittently throughout the day, he took a nap from at 1:00 until 4:00 in the afternoon, he reports he felt little bit better at that point. He then reports that he had difficulty using the TV remote. Symptoms initially began as he was driving home from [place] this morning, and his was in attendance, reports that he was less talkative than usual, and he and she both report that he had some difficulty getting his words out this morning. He knew what he wanted to say, but had difficulty communicating briefly. Later on in the day, he talked to his son, who told him to come to the emergency department for assessment. Primary Care Provider: Alejandro Quispe DO The patient is a 84-year-old male with past medical history including oral leukoplakia, bony exostosis of mandible, permanent atrial fibrillation on apixaban, balance disorder, diabetes mellitus, hypertension, hypercholesterolemia, anxiety, BPH with LUTS, chronic venous stasis bilateral lower extremities, and exercise intolerance. Patient presents to the emergency department with symptoms as noted above. He reports that he intentionally did not take his medications this morning when he started not feeling well, because he was not sure what was going on. He is accompanied in the emergency department by his , his son and [id number], and granddaughter. Allergies Allergy/AdvReac Type Severity Reaction Status Date / Time adhesive tape Allergy Mild Redness of Verified 09/04/24 10:32 Skin Home Medications Medication Instructions Recorded Confirmed Type multivitamin (Multiple Vitamins 1 tab PO QPM #90 tabs 10/05/22 09/04/24 Rx tablet) tadalafil 5 mg tablet 5 mg PO QPM sexual activity #90 10/05/22 09/04/24 Rx tabs tobramycin 0.3 % eye drops 1 drp ophthalmic (eye) TID 12/28/22 09/04/24 History apixaban 5 mg tablet 5 mg PO BID #180 tabs 10/08/23 09/04/24 Rx flecainide 100 mg tablet 100 mg PO QPM #90 tabs 10/08/23 09/04/24 Rx metoprolol succinate 50 mg 50 mg PO DAILY #90 tabs 10/08/23 09/04/24 Rx tablet,extended release 24 hr olmesartan 20 mg tablet 20 mg PO DAILY #90 tabs 11/07/23 09/04/24 Rx potassium chloride 10 mEq 20 meq (2 x 10 mEq) PO DAILY #90 12/07/23 09/04/24 Rx capsule,extended release caps furosemide 20 mg tablet 20 mg PO QAM #90 tabs 01/14/24 09/04/24 Rx insulin glargine 100 unit/mL (3 10 unit (0.1 mL) subcut QAM #3 mL 04/30/24 09/04/24 Rx mL) subcutaneous pen (Lantus Solostar U-100 Insulin) atorvastatin 20 mg tablet 20 mg PO QPM #90 tabs 07/24/24 09/04/24 Rx metformin 500 mg tablet,extended 1,000 mg (2 x 500 mg) PO BID #180 07/24/24 09/04/24 Rx release 24 hr tabs Past Med/Surg History Problem List (Updated 09/22/24 @ 01:56 by John Sanon MD) Expressive aphasia Hypertensive urgency (Acute) Stroke-like symptoms (Acute) 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 Anticoagulant long-term use Exposed lingual bone Bleeding in mouth Fractured tooth Failing root canal 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 Chronic diastolic CHF (congestive heart failure) Aortic stenosis New onset of congestive heart failure (Acute) Lower extremity edema (Chronic) Abnormal ankle brachial index (JIMI) (Acute) Traumatic open wound of left lower leg with delayed healing (Acute) Balance disorder Diabetes mellitus with microalbuminuria Hypertension (Chronic) DJD (degenerative joint disease) of knee Hypercholesteremia (Chronic) Anxiety Benign localized prostatic hyperplasia with lower urinary tract symptoms (LUTS) Stress at home Organic impotence (Acute) Nocturia (Acute) Insomnia (Acute) Inhibited sexual excitement (Acute) Elevated prostate specific antigen (PSA) (Acute) Anemia (Acute) Status post reverse arthroplasty of left shoulder (~01/2021) Olecranon bursitis Atrial fibrillation, permanent (Chronic) Urinary retention due to benign prostatic hyperplasia Diabetes mellitus with hyperglycemia (Chronic) Caregiver burden (Chronic) Hypercalcemia Chronic venous stasis dermatitis of both lower extremities Exercise intolerance Fractured tooth due to trauma without complication Medical History (Updated 09/22/24 @ 01:56 by John Sanon MD) Mild concentric left ventricular hypertrophy (LVH) Tricuspid regurgitation mild per 2013 echo Mitral regurgitation (~04/26/24) mild per 2013 echo Hearing loss Obesity Anxiety Deep vein thrombosis (DVT) of right upper extremity (~2017) Post-op shoulder surgery Fuchs' corneal dystrophy Diabetes type 2, controlled NIDDM Atrial fibrillation Follows with [facility] cardiology (Dr. Booker) Surgical History H/O transurethral resection of prostate done 05/16/2022 History of tooth extraction History of left shoulder replacement 02/04/2021: LMA#5. History of arthroscopy Left knee S/P total knee arthroplasty R/L Hx of colonoscopy Status post total shoulder arthroplasty Right TSA (08/31/17): Grade view 1, MAC#3, ETT 8 at [facility] Family History Brother Bipolar disorder Father Alcoholism Cancer Family history of esophageal cancer Sister Coronary heart disease Bipolar disorder Mother Scoliosis Son Diabetes Other Heart disease Hypertension Denies family history of Ovarian cancer Prostate cancer Myocardial infarction Breast cancer Colorectal cancer Social History (Updated 07/24/24 @ 10:13 by NILO Mendoza) Smoking Status: Former smoker Tobacco Type: Cigarettes Age Started Using Tobacco: 23; Age Quit Using Tobacco: 60; packs per day: 0.5; Second Hand Exposure: No; Do You Dip or Chew Tobacco: No; Hx Alcohol Use: No Hx Substance Use: No Preferred Language: Bulgarian Communication Ability: Effective Visual Impairment: No Limitations Hearing Ability: Use of Hearing Aid Retail Shift Leader Required: No Beliefs That Will Affect Care: None marital status: Current Living Situation: Spouse current occupational status: retired current occupation: retired from career with [employer] How many Children do You have: 2 Feels Safe at Home: Yes Safety Concerns: Feels Safe At This Time Childhood Exposure to Second-Hand Smoke: Yes Diet: low carbohydrate Dental Care, Regularly: Yes Physical Activity Frequency: 1-2 Times per Week Seatbelt Use: always Sunscreen Use: Yes (sometimes ) Assistive Devices: Glasses and Hearing Aid - Bilateral Review of Systems Review of Systems: The patient denies chest pain, palpitations, shortness of breath, dyspnea on exertion, cough, lower extremity swelling, sore throat, fevers, chills, sweats, nausea, vomiting, diarrhea , constipation, abdominal pain, pelvic pain, blood in urine or stool, dysuria, urinary frequency or urgency, loss of consc iousness, rash, abnormal bruising or bleeding, focal weakness, numbness or tingling in arms or legs, generalized arthralgias or myalgias, back or neck pain, or night sweats. The review of systems is otherwise negative other than for that already noted above, and at least 10 systems have been reviewed. Physical Exam Physical Exam: The patient is awake, alert and oriented 3, well developed and well nourished, normocephalic and atraumatic, lying in bed and in no acute distress. HEENT--PERRL, EOMI, mucous membranes and oropharynx mildly dry Neck--supple. No JVD. No bruits. Thyroid normal, trachea midline, no adenopathy. Heart--atrial fibrillation, rate controlled. No murmurs, rubs or gallops. Lungs--clear bilaterally no respiratory distress, no accessory muscle use. Abdomen--normal bowel sounds and soft. Nontender. Nondistended, no hernias or masses, no organomegaly. Extremities--1+ bilateral pretibial edema, right greater than left. Dermatologic--normal skin turgor, normal color, no abnormal lymph nodes, no rash. Neurologic--cranial nerves II through XII grossly intact. Rheumatologic--normal range of motion. Psychiatric--normal affect. Results & Data Results & Data Vital Signs (Past 12 Hours) Vital Signs Temp Pulse Pulse Resp BP BP Pulse Ox 09/21/24 20:05 109 H 214/112 H 09/21/24 18:45 84 18 207/111 H 09/21/24 18:35 09/21/24 18:20 84 19 230/142 H 94 09/21/24 18:14 09/21/24 18:13 09/21/24 17:40 70 09/21/24 17:19 36.6 C 85 20 228/133 H 97 O2 Del Method 09/21/24 20:05 09/21/24 18:45 Room Air 09/21/24 18:35 Room Air 09/21/24 18:20 Room Air 09/21/24 18:14 Room Air 09/21/24 18:13 Room Air 09/21/24 17:40 09/21/24 17:19 Room Air Laboratory Results Laboratory Results WBC 6.96 K/ul (4.8-10.8) 09/21/24 17:39 RBC 4.84 M/uL (4.70-6.10) 09/21/24 17:39 Hgb 14.2 g/dl (14.0-18.0) 09/21/24 17:39 POC Hgb 14.6 g/dl (14.0-18.0) 09/21/24 17:45 Hct 42.7 % (42.0-52.0) 09/21/24 17:39 POC Hct 43 % (42-52) 09/21/24 17:45 MCV 88.2 fL (80.0-100.0) 09/21/24 17:39 MCH 29.3 pg (25.0-34.0) 09/21/24 17:39 MCHC 33.3 g/dL (32.0-36.0) 09/21/24 17:39 RDW Std Deviation 46.5 fL (36.4-46.3) H 09/21/24 17:39 RDW Coeff of Berta 14.6 % (11.5-14.5) H 09/21/24 17:39 Plt Count 196 K/uL (130-400) 09/21/24 17:39 MPV 11.4 fL (9.4-12.4) 09/21/24 17:39 PT 11.4 Seconds (9.0-12.0) 09/21/24 17:39 INR 1.1 (0.9-1.1) 09/21/24 17:39 APTT 29 Seconds (21-31) 09/21/24 17:39 PTT Ratio 1.1 09/21/24 17:39 POC Sodium 141 mmol/L (135-144) 09/21/24 17:45 Sodium 140 mmol/L (136-145) 09/21/24 17:39 POC Potassium 3.8 mmol/L (3.3-5.0) 09/21/24 17:45 Potassium 3.9 mmol/L (3.5-5.1) 09/21/24 17:39 POC Chloride 102 mmol/L (101-112) 09/21/24 17:45 Chloride 104 mmol/L (98-107) 09/21/24 17:39 Carbon Dioxide 30 mmol/L (21-32) 09/21/24 17:39 POC Total CO2 27 mmol/L (24-31) 09/21/24 17:45 Anion Gap 6 (3-11) 09/21/24 17:39 POC Anion Gap 17.0 mmol/L (16-25) 09/21/24 17:45 POC BUN 15 mg/dl (7-18) 09/21/24 17:45 BUN 15 mg/dl (6-23) 09/21/24 17:39 Creatinine 0.77 mg/dl (0.6-1.4) 09/21/24 17:39 POC Creatinine 0.8 mg/dl (0.6-1.3) 09/21/24 17:45 Est Cr Clr Drug Dosing Not Reportable 09/21/24 17:39 eGFR 89.39 09/21/24 17:39 BUN/Creatinine Ratio 19.5 (10-20) 09/21/24 17:39 Glucose 179 mg/dl (70-99(Fasting)) H 09/21/24 17:39 POC Glucose 146 mg/dl (70-99) H 09/21/24 22:30 POC Glucose (other) 175 mg/dl (70-99) H 09/21/24 17:45 Calcium 9.8 mg/dl (8.6-10.3) 09/21/24 17:39 POC Ioniz Calcium David 1.27 mmol/l (1.12-1.32) 09/21/24 17:45 Magnesium 1.9 mg/dl (1.7-2.4) 09/21/24 17:39 Total Bilirubin 0.9 mg/dl (0.2-1.0) 09/21/24 17:39 AST 20 U/L (13-39) 09/21/24 17:39 ALT 17 U/L (7-52) 09/21/24 17:39 Alkaline Phosphatase 69 U/L (34-104) 09/21/24 17:39 Troponin I High Sens 7.6 pg/ml (0-20) 09/21/24 17:39 Total Protein 7.2 gm/dl (6.0-8.3) 09/21/24 17:39 Albumin 4.7 gm/dl (3.4-5.0) 09/21/24 17:39 Globulin 2.5 gm/dl (2.5-4.0) 09/21/24 17:39 Albumin/Globulin Ratio 1.9 (0.9-2) 09/21/24 17:39 Urine Color Yellow 09/21/24 18:20 Urine Appearance Clear (Clear) 09/21/24 18:20 Urine pH 7.0 (4.5-7.5) 09/21/24 18:20 Ur Specific [place] 1.013 (1.000-1.030) 09/21/24 18:20 Urine Protein 2+ (Negative) H 09/21/24 18:20 Urine Glucose (UA) 1+ (Negative) H 09/21/24 18:20 Urine Ketones Negative (Negative) 09/21/24 18:20 Urine Blood Negative (Negative) 09/21/24 18:20 Urine Nitrite Negative (Negative) 09/21/24 18:20 Urine Bilirubin Negative (Negative) 09/21/24 18:20 Urine Urobilinogen Negative (Negative) 09/21/24 18:20 Ur Leukocyte Esterase Negative (Negative) 09/21/24 18:20 Urine WBC (Auto) 0-5 /hpf (0-5) 09/21/24 18:20 Urine RBC (Auto) 0-2 /hpf (0-2) 09/21/24 18:20 U Hyaline Cast (Auto) 0-2 /lpf (0-2) 09/21/24 18:20 U Epithel Cells (Auto) 0-2 /hpf (0-2) 09/21/24 18:20 Urine Bacteria (Auto) None Seen (None Seen) 09/21/24 18:20 Adenovirus (PCR) Not Detected (NotDetected) 09/21/24 18:20 B. pertussis DNA (PCR) Not Detected (NotDetected) 09/21/24 18:20 B.parapertussis DNA PCR Not Detected (NotDetected) 09/21/24 18:20 C. pneumoniae DNA (PCR) Not Detected (NotDetected) 09/21/24 18:20 Coronavirus OC43 (PCR) Not Detected (NotDetected) 09/21/24 18:20 Coronavirus HKU1 (PCR) Not Detected (NotDetected) 09/21/24 18:20 Coronavirus 229E (PCR) Not Detected (NotDetected) 09/21/24 18:20 SARS-CoV-2 (PCR) Not Detected (NotDetected) 09/21/24 18:20 Coronavirus NL63 (PCR) Not Detected (NotDetected) 09/21/24 18:20 Human Metapneumovir PCR Not Detected (NotDetected) 09/21/24 18:20 Influenza Type A (PCR) Not Detected (NotDetected) 09/21/24 18:20 Influenza Type B (PCR) Not Detected (NotDetected) 09/21/24 18:20 M. pneumoniae (PCR) Not Detected (NotDetected) 09/21/24 18:20 Parainfluenza 1 (PCR) Not Detected (NotDetected) 09/21/24 18:20 Parainfluenza 2 (PCR) Not Detected (NotDetected) 09/21/24 18:20 Parainfluenza 3 (PCR) Not Detected (NotDetected) 09/21/24 18:20 Parainfluenza 4 (PCR) Not Detected (NotDetected) 09/21/24 18:20 RSV (PCR) Not Detected (NotDetected) 09/21/24 18:20 Entero/Rhino (PCR) Not Detected (NotDetected) 09/21/24 18:20 Impressions Chest X-Ray 09/21/24 17:32 EXAM: Radiograph of the Chest 1 View INDICATION: Confusion. TECHNIQUE: Frontal view of the chest. COMPARISON: 10/28/2023 FINDINGS: Lungs and pleural spaces: There is mild pulmonary vascular congestion without pulmonary edema. Mild atelectasis in the lung bases. No pleural effusion or pneumothorax. Heart: Stable large cardiac shadow. Mediastinum: Normal contour. Bones/joints: Visualized portion of left shoulder arthroplasty intact and well-seated. Degenerative changes in the spine. No acute osseous abnormality. Soft tissues: No abnormality noted. No radiopaque foreign body noted. Upper abdomen: No abnormality noted. IMPRESSION: 1. There is mild pulmonary vascular congestion without pulmonary edema. 2. Mild atelectasis in the lung bases. ACT 112: Negative or not required by law. Electronically signed by Linette Guzman 09-21-2024 6:[address] 09/21/24 17:32 EXAM:CT Head Without Intravenous Contrast INDICATION: Dizziness and confusion. TECHNIQUE: Axial computed tomography images of the head/brain without intravenous contrast. Sagittal and/or coronal reformats are provided. Sagittal and coronal reformatted images were created and reviewed. This CT exam was performed using one or more of the following dose reduction techniques: automated exposure control, adjustment of the mA and/or kV according to patient size, and/or use of iterative reconstruction technique. COMPARISON:11/30/2023 FINDINGS: Limitations: None. Brain and extra-axial spaces: There is age appropriate cortical atrophy and chronic ischemic periventricular white matter hypodensity. No acute infarct, hemorrhage or mass noted. Bones/joints: No acute changes. Soft tissues: No significant abnormality noted. Vasculature: There is atherosclerotic calcification of the intracranial vertebral and carotid arteries. Sinuses: No layering fluid in the visualized portions of the paranasal sinuses. Mastoid air cells: No mastoid effusion. Orbits: No significant abnormality noted. IMPRESSION: Cerebral atrophy. No acute changes. ACT 112: Negative or not required by law. Electronically signed by Linette Guzman 09-21-2024 6:30 PM Head CTA 09/21/24 17:32 EXAM:CT Angiography Head With Intravenous Contrast INDICATION: Dizziness and confusion. TECHNIQUE: Axial computed tomographic angiography images of the head with intravenous contrast. Sagittal and coronal reformatted images were created and reviewed. This CT exam was performed using one or more of the following dose reduction techniques: automated exposure control, adjustment of the mA and/or kV according to patient size, and/or use of iterative reconstruction technique. MIP reconstructed images were created and reviewed. CONTRAST: 119ml of Optiray 320 was administered intravenously. COMPARISON: No relevant prior studies available. FINDINGS: Right internal carotid artery: No acute change noted. Intracranial segment is patent with no significant stenosis. No aneurysm. Right anterior cerebral artery: No abnormality noted. No occlusion or significant stenosis. No aneurysm. Right middle cerebral artery: No abnormality noted. No occlusion or significant stenosis. No aneurysm. Right posterior cerebral artery: No abnormality noted. No occlusion or significant stenosis. No aneurysm. Right vertebral artery: Small foci of calcific plaque in the intracranial right vertebral artery. No stenosis, aneurysm or dissection. Left internal carotid artery: There is mild calcific plaque of the intracranial left internal carotid artery. No stenosis, aneurysm or dissection. Left anterior cerebral artery: No abnormality noted. No occlusion or significant stenosis. No aneurysm. Left middle cerebral artery: No abnormality noted. No occlusion or significant stenosis. No aneurysm. Left posterior cerebral artery: No abnormality noted. No occlusion or significant stenosis. No aneurysm. Left vertebral artery: No significant abnormality noted. Basilar artery: No abnormality noted. No occlusion or significant stenosis. No aneurysm. Other vasculature:Patent dural venous sinuses. IMPRESSION: No significant angiographic abnormality in the brain. ACT 112: Negative or not required by law. Electronically signed by Linette Guzman 09-21-2024 6:36 PM Neck CTA 09/21/24 17:32 EXAM:CT Angiography Neck With Intravenous Contrast INDICATION: Dizziness and confusion TECHNIQUE: Routine carotid CT angiography protocol was performed with intravenous contrast. NASCET criteria using the distal ICAs for comparison were used for evaluation of stenoses. Sagittal and coronal reformatted images were created and reviewed. This CT exam was performed using one or more of the following dose reduction techniques: automated exposure control, adjustment of the mA and/or kV according to patient size, and/or use of iterative reconstruction technique. MIP reconstructed images were created and reviewed. CONTRAST: 119ml of Optiray 320 was administered intravenously. COMPARISON: None. FINDINGS: VASCULATURE: Right common carotid artery: No abnormality noted. No occlusion or significant stenosis. No dissection. Right internal carotid artery: Mild mixed plaque at the bulb without significant stenosis. No aneurysm or dissection. Right external carotid artery: No abnormality noted. No occlusion. Right vertebral artery: No abnormality noted. No occlusion or significant stenosis. No dissection. Left common carotid artery: No abnormality noted. No occlusion or significant stenosis. No dissection. Left internal carotid artery: Moderate calcific plaque at the bulb with approximate 40% proximal stenosis. No dissection or aneurysm.. Left external carotid artery: No abnormality noted. No occlusion. Left vertebral artery: No abnormality noted. No occlusion or significant stenosis. No dissection. NECK: Bones/joints: No acute or atypical chronic changes. Soft tissues: No abnormality noted. Lung apices: Clear. CAROTID STENOSIS REFERENCE USING NASCET CRITERIA: % ICA stenosis = (1 - narrowest ICA diameter/diameter of distal cervical ICA) x 100. Mild - <50% stenosis. Moderate - 50-69% stenosis. Severe - 70-94% stenosis. Near occlusion - 95-99% stenosis. Occluded - 100% stenosis. 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 No dissection. ACT 112: Negative or not required by law. Electronically signed by Linette Guzman 09-21-2024 6:34 PM Brain MRI 09/21/24 19:59 EXAM: MR brain wo con CLINICAL HISTORY: Stroke-like symptoms. Confusion. Symptoms resolved now. Patient just didn't feel right. TECHNIQUE: MRI of the brain was performed without contrast with multiplanar sequences obtained. COMPARISON: Comparison is made with CT head done on the same date FINDINGS: Brain Parenchyma: Few focal areas of bright signal on diffusion-weighted images in bilateral high fronto-parietal region appear to be artifactual. Multiple discrete and clustered FLAIR hyperintense foci are seen in subcortical and deep white matter of bilateral cerebral hemispheres, without diffusion restriction, representing chronic microvascular ischemic changes. Fazekas grade 3 Ventricles and Sulci: Prominent lateral ventricles, third ventricle, and fourth ventricle. Sylvian fissures, sulci, and cisterns are prominent. Posterior Fossa: Cerebellum and brainstem appear normal without evidence of mass lesions or signal abnormalities. Cranial Nerves: Normal course and appearance of cranial nerves identified. Orbits and Skull Base: Orbits and skull base structures are normal without evidence of abnormalities. IMPRESSION: 1. Few focal areas of bright signal on diffusion-weighted images in bilateral high fronto-parietal region appear to be artifactual. Recommended correlation with patient's symptoms 2. No major acute territorial infarction or hemorrhage at present 3. Senile cortical atrophy with chronic microvascular ischemic changes, Fazekas grade 3 Electronically signed by Jayant Chapin 09-22-2024 01:15 AM Code Status & VTE Plan Code Status Full code VTE Prophylaxis Plan VTE Prophylaxis will be ordered: Yes PG Care Time/CCT Total # of Minutes Spent Total Time Spent with Patient: Total time spent is greater than 50% in coordination of care (as documented) at patient's floor/unit and/or counseling patient: Coding Level of Care Code 74287 INT INP/OBS CARE 3/75MIN Diagnoses Stroke-like symptoms R29.90 Expressive aphasia R47.01 Anticoagulant long-term use Z79.01 Chronic diastolic CHF (congestive heart failure) I50.32 Aortic valve stenosis, etiology of cardiac valve disease unspecified I35.0 Cardiac valve disease etiology: etiology unspecified Balance disorder R26.89 Benign localized prostatic hyperplasia with lower urinary tract symptoms (LUTS) N40.1 Atrial fibrillation, permanent I48.21 Diabetes mellitus with microalbuminuria E11.29; R80.9 (5) Aortic stenosis Cardiac valve disease etiology: etiology unspecified Qualified Code(s): I35.0 - Nonrheumatic aortic (valve) stenosis
[2024-09-21] MEDS ORDERED: DEXTROSE 50% 50 ML SYRINGE IV PRN (22:20)
[2024-09-21] MEDS ORDERED: GLUCAGON FOR INJ 1 MG VIAL SQ PRN (22:20)
[2024-09-21] MEDS ORDERED: GLUCOSE 10 TAB/TUBE PO PRN (22:20)
[2024-09-21] MEDS ORDERED: GLUCOSE 40% GEL 15 GM TUBE PO PRN (22:20)
[2024-09-21] MEDS ORDERED: ACETAMINOPHEN 325 MG TAB PO PRN (22:20)
[2024-09-21] MEDS ORDERED: CARBOHYDRATES FOR HYPOGLYCEMIA PO PRN (22:20)
[2024-09-21] MEDS ORDERED: PHARMACIST DISCHARGE MED REC CONSULT PRN (22:20)
[2024-09-21] MEDS: INSULIN ASPART PER UNIT CHARGE SC SCH (23:00)
[2024-09-21] MEDS: FLECAINIDE ACETATE 100 MG TABLET PO SCH (23:05)
[2024-09-21] MEDS: ATORVASTATIN 20 MG TAB PO SCH (23:05)
[2024-09-21] MEDS: APIXABAN 5 MG TABLET PO SCH (23:05)
[2024-09-21] MEDS: LORazepam 2 MG/1 ML VIAL IV STA (23:23)
--- NOTE | 2024-09-22 01:15 | Magnetic Resonance Report ---
EXAM: MR brain wo con CLINICAL HISTORY: Stroke-like symptoms. Confusion. Symptoms resolved now. Patient just didn't feel right. TECHNIQUE: MRI of the brain was performed without contrast with multiplanar sequences obtained. COMPARISON: Comparison is made with CT head done on the same date FINDINGS: Brain Parenchyma: Few focal areas of bright signal on diffusion-weighted images in bilateral high fronto-parietal region appear to be artifactual. Multiple discrete and clustered FLAIR hyperintense foci are seen in subcortical and deep white matter of bilateral cerebral hemispheres, without diffusion restriction, representing chronic microvascular ischemic changes. Fazekas grade 3 Ventricles and Sulci: Prominent lateral ventricles, third ventricle, and fourth ventricle. Sylvian fissures, sulci, and cisterns are prominent. Posterior Fossa: Cerebellum and brainstem appear normal without evidence of mass lesions or signal abnormalities. Cranial Nerves: Normal course and appearance of cranial nerves identified. Orbits and Skull Base: Orbits and skull base structures are normal without evidence of abnormalities. IMPRESSION: 1. Few focal areas of bright signal on diffusion-weighted images in bilateral high fronto-parietal region appear to be artifactual. Recommended correlation with patient's symptoms 2. No major acute territorial infarction or hemorrhage at present 3. Senile cortical atrophy with chronic microvascular ischemic changes, Fazekas grade 3 Electronically signed by Jayant Chapin 09-22-2024 01:15 AM
[2024-09-22 07:58] LABS: Basophils # (auto) 0.06 K/uL (0.00-0.20); Basophils % (auto) 0.7 %; Eosinophils # (auto) 0.02 K/uL (0.00-0.50); Eosinophils % (auto) 0.2 %; Hematocrit (blood only) 40.9 % (42.0-52.0); Hemoglobin 13.8 g/dl (14.0-18.0); Immature Granulocytes # (auto) 0.02 K/uL (0.01-0.20); Immature Granulocytes % (auto) 0.2 %; Lymphocytes # (auto) 1.39 K/uL (1.20-3.40); Lymphocytes % (auto) 15.7 %; Mean Corpuscular Hemoglobin 29.7 pg (25.0-34.0); Mean Corpuscular Hgb Conc 33.7 g/dL (32.0-36.0); Mean Platelet Volume 11.1 fL (9.4-12.4); Monocytes # (auto) 0.62 K/uL (0.11-0.59); Neutrophils # (auto) 6.73 K/uL (1.40-6.50); Neutrophils % (auto) 76.2 %; Platelet Count 202 K/uL (130-400); RDW Coefficient of Variation 14.6 % (11.5-14.5); RDW Standard Deviation 46.5 fL (36.4-46.3); Red Blood Count 4.65 M/uL (4.70-6.10); White Blood Count 8.84 K/ul (4.8-10.8)
[2024-09-22] MEDS: LOSARTAN POTASSIUM 50 MG TAB PO SCH (08:10)
[2024-09-22] MEDS: METOPROLOL SUCC 50MG EXT REL TAB PO SCH (08:10)
[2024-09-22 08:12] LABS: Albumin Globulin Ratio 1.5 (0.9-2); Albumin Level 4.1 gm/dl (3.4-5.0); BUN Creatinine Ratio 13.7 (10-20); Bilirubin,Total 1.3 mg/dl (0.2-1.0); Calcium 9.7 mg/dl (8.6-10.3); Chol HDL Ratio 2.2 (0-5); Creatinine Clr Calc Pharmacy 96.2 ml/min; Globulin 2.7 gm/dl (2.5-4.0); Magnesium 1.9 mg/dl (1.7-2.4); Phosphorus 3.2 mg/dl (2.5-4.9); Potassium 3.9 mmol/L (3.5-5.1); Total Protein 6.8 gm/dl (6.0-8.3)
[2024-09-22] MEDS: LANTUS PER UNIT CHARGE SQ SCH (08:14)
[2024-09-22 08:18] LABS: Estimated Average Glucose 174 mg/dl; Hemoglobin A1C 7.7 % (4.5-5.6)
[2024-09-22 08:19] LABS: Troponin I High Sensitivity 13.2 pg/ml (0-20)
[2024-09-22 08:21] LABS: INR 1.1 (0.9-1.1); Partial Thromboplastin Ratio 1.2; Partial Thromboplastin Time 31 Seconds (21-31); Prothrombin Time 11.6 Seconds (9.0-12.0)
[2024-09-22 08:27] VITALS: BP 165/89; RESP 16; TEMP 97.5; O2SAT 92
[2024-09-22] MEDS ORDERED: STROKE PATIENT DISCHARGE STA (09:46)
--- NOTE | 2024-09-22 09:50 | Discharge Summary ---
Discharge Summary Date of Service September 22, 2024 Principal Dx & Hospital Course #1 = Principal Diagnosis (1) Stroke-like symptoms: Resolved. Probable TIA. No evidence of acute CVA seen on brain MRI scan. No critical extracranial stenoses on head and neck CTA. (2) Expressive aphasia: Present on admission. Now resolved. Probably due to TIA. Low-dose aspirin 81 mg added to drug regimen (3) Anticoagulant long-term use: He takes Eliquis chronically for chronic atrial fibrillation (4) Chronic diastolic CHF (congestive heart failure): Stable. Monitor intake and output (5) Aortic stenosis: Treated with aortic valve replacement. Continue current medications (6) Diabetes mellitus with microalbuminuria: Diabetic diet. Sliding scale insulin coverage if needed. Continue current medical management Plan Home today, September 22 Admission HPI Per Admitting Provider The patient is a 84-year-old male with past medical history including oral leukoplakia, bony exostosis of mandible, permanent atrial fibrillation on apixaban, balance disorder, diabetes mellitus, hypertension, hypercholesterolemia, anxiety, BPH with LUTS, chronic venous stasis bilateral lower extremities, and exercise intolerance. Patient presents to the emergency department with symptoms as noted above. He reports that he intentionally did not take his medications this morning when he started not feeling well, because he was not sure what was going on. He is accompanied in the emergency department by his , his son and [id number], and granddaughter. Discharge Plan Discharge Items Patient Disposition: Home - Self-Care Reason For Visit: STROKE-LIKE SYMPTOMS Discharge Diagnosis: Suspected TIA Activity: Resume your previous activity Non-emergency contact: Primary Care Provider Call non-emergency contact if: you have any medication questions and your symptoms worsen Follow-up/Referrals: Alejandro Quispe, [Primary Care Provider] - Diet: Carb Consistent or DM2 and Heart Healthy Addtl Attending Provider Instructions: Take 1 low-dose aspirin 81 mg daily. All other medications remain the same. See primary care provider soon as possible for follow-up Pending Studies at Discharge: No Stand-Alone Forms: My [email or web address], Smoking Cessation Medications and DC Order Prescriptions: New aspirin 81 mg tablet,delayed release (DR/EC) 81 mg PO DAILY Qty: 1 0RF Continued multivitamin [Multiple Vitamins] Tablet 1 tab PO QPM Qty: 90 3RF tadalafil 5 mg tablet 5 mg PO QPM Qty: 90 3RF apixaban 5 mg tablet 5 mg PO BID Qty: 180 3RF flecainide 100 mg tablet 100 mg PO QPM Qty: 90 3RF metoprolol succinate 50 mg tablet extended release 24 hr 50 mg PO DAILY Qty: 90 3RF potassium chloride 10 mEq capsule, extended release 20 meq PO DAILY Qty: 90 3RF Rx Instructions: take with furosemide (lasix) insulin glargine [Lantus Solostar U-100 Insulin] 100 unit/mL (3 mL) insulin pen 10 unit subcut QAM Qty: 3 6RF tobramycin 0.3 % drops 1 drp ophthalmic (eye) TID furosemide 20 mg tablet 20 mg PO QAM Qty: 90 3RF Rx Instructions: take every day with potassium. olmesartan 20 mg tablet 20 mg PO DAILY Qty: 90 3RF atorvastatin 20 mg tablet 20 mg PO QPM Qty: 90 3RF metformin 500 mg tablet extended release 24 hr 1,000 mg PO BID Qty: 180 3RF Discharge Orders: Discharge Order (Routine); Ordered 09/22/24 Ordered By: Diallo Martins/Other Patient Handouts: Managing Type 2 Diabetes Admission Data Admit Date/Time: 09/21/24 20:18 Attending Provider: Diallo Mendez Admit Provider: John Sanon Primary Care Provider: Alejandro Quispe Other Providers: John Sanon Hospital Stay Data Consultations 09/21/24 19:43 ED Decision to Admit Stat Diagnostic Imagining Performed 09/21/24 17:32 CT head/brain wo con Stat CTA head w con [CT angio head w con] Stat CTA neck with con [CT angio neck with con] Stat 09/21/24 19:59 MRI Brain [MR brain wo con] Stat Pending Results Patient Have Any Pending Studies at Discharge: No Discharge Instructions Given to Patient (Per Discharging Provider) Take 1 low-dose aspirin 81 mg daily. All other medications remain the same. See primary care provider soon as possible for follow-up Total Time Total Time Spent Total Time Spent (In Minutes): 45-minute Coding Level of Care Code 14175 INP/OBS DISCH >30 MIN Diagnoses Stroke-like symptoms R29.90 Expressive aphasia R47.01 Anticoagulant long-term use Z79.01 Chronic diastolic CHF (congestive heart failure) I50.32 Aortic valve stenosis, etiology of cardiac valve disease unspecified I35.0 Cardiac valve disease etiology: etiology unspecified Diabetes mellitus with microalbuminuria E11.29; R80.9
[2024-09-22 10:34] VITALS: PULSE 86
--- NOTE | 2024-09-22 11:28 | Electrocardiogram Report ---
Test Reason : Blood Pressure : */* mmHG Vent. Rate : 86 BPM Atrial Rate : * BPM P-R Int : * ms QRS Dur : 88 ms QT Int : 368 ms P-R-T Axes : * -34 64 degrees QTcB Int : 440 ms Atrial fibrillation Left axis deviation Minimal voltage criteria for LVH, may be normal variant Inferior infarct , age undetermined Poor R wave progression, consider anterior MO vs. lead placement vs. LVH Abnormal ECG When compared with ECG of 28-Oct-2023 21:30, Inferior infarct is now Present Confirmed by Adolph Hopkins ([id number]) on 09/22/2024 11:27:57 AM Referred By: Confirmed By: Adolph Hopkins
--- NOTE | 2024-09-22 11:32 | Electrocardiogram Report ---
Test Reason : Blood Pressure : */* mmHG Vent. Rate : 79 BPM Atrial Rate : 147 BPM P-R Int : * ms QRS Dur : 98 ms QT Int : 394 ms P-R-T Axes : * -29 95 degrees QTcB Int : 451 ms Atrial fibrillation Poor R wave progression, consider anterior NE vs. lead placement vs. LVH Abnormal ECG When compared with ECG of 21-Sep-2024 17:32, (unconfirmed) Criteria for Inferior infarct are no longer Present Confirmed by Adolph Hopkins ([id number]) on 09/22/2024 11:32:12 AM Referred By: REFERRED SELF Confirmed By: Adolph Hopkins
== END 2024-09-22 12:02 | disposition home or self-care (01) ==
LOC: ED 17:05 → 2S 17:05 → SUATTDRO 20:18 → 2S 22:22